=== PATIENT | male | born 1950 | race Caucasian/White ===

== ENCOUNTER 2017-03-30 21:12 | Emergency (ER) | payer MEDICARE, BC, SELFPAY ==
[2017-03-30 21:30] VITALS: BP 160/84; PULSE 79; RESP 18; TEMP 36.9; O2SAT 97; BMI 20.7
--- NOTE | 2017-03-30 22:20 | HMH.EDEYEP ---
ED Disposition Clinical Impression: Foreign body, eye Qualifiers: Encounter type: initial encounter Laterality: unspecified laterality Qualified Code(s): T15.90XA - Foreign body on external eye, part unspecified, unspecified eye, initial encounter Disposition: Home, Self-Care Condition on Discharge: Good Instructions: DI for Eye Pain Additional Instructions: see dr alonzo at 0800 - Critical Care Critical Care Time: No Attestation: On 03/30/17, the high probability of a clinically significant, sudden or life threatening deterioration of the following system(s) required my full and direct attention, intervention and personal management. The time I documented below is in addition to time spent performing reported procedures but includes the following listed in this critical care notation. Medical Decision Making - Medical Records Medical records reviewed: Yes: I reviewed the patient's medical records. Vital Signs: 03/30/17 21:30 Temperature 98.5 F Temperature Source Oral Pulse Rate [Left Radial] 79 Respiratory Rate 18 Blood Pressure [Right Arm] 160/84 Blood Pressure Mean [Right Arm] 109 Blood Pressure Source [Right Arm] Automatic Cuff Blood Pressure Position [Right Arm] Sitting 02 Sat by Pulse Oximetry 97 Oxygen Delivery Method Room Air - Physician Consults Physician Consulted: cheri Reason -: Pt condition - Marc Inquiry Pt receiving controlled substance: No Eye Problem HPI - General Chief complaint: Eye Problems Stated complaint: FB in both eyes Time Seen by Provider: 03/30/17 22:20 Mode of Arrival: Ambulatory Source of Information: Patient, Significant Other, Medical Record Limitations: No Limitations Description of Symptoms (Recalled from ER Triage Doc. by RN): dirt or rust in eyes - History of Present Illness HPI Narrative: grinding with fb sensation bilat eyes since 1400 - wearing eye guard chief complaint: eye pain, foreign body Onset (ago): hour(s) Onset description: gradual Duration: constant Location: both eyes Eye Symptoms: foreign body sensation Place: home Severity: moderate - Related Data Home Medications Medication Instructions Recorded Confirmed No Known Home Medications [No 03/30/17 03/30/17 Known Home Medications] Allergies Allergy/AdvReac Type Severity Reaction Status Date / Time No Known Allergies Allergy Verified 03/30/17 21:38 [facility] History I have reviewed the patient's past medical history: Yes Medical History: Denies:: Cancer, Diabetes Mellitus Type 1, Diabetes Mellitus Type 2, MRSA Amputation: No Fractures: No - Social History Smoking Status: Current every day smoker Tobacco Type: cigarettes # Packs/Day (cigarettes): 1 Alcohol Intake: never - Psychiatric History Expresses thoughts of harming self/others: None Suicide Plan Description: No Plan ROS Obtained: Yes All systems reviewed & no additional complaints - Constitutional Constitutional: Denies fever(s) - Eyes Eyes: Reports as per HPI, Denies change in vision, Denies diplopia, Denies eye discharge, Reports eye pain, Denies photophobia - ENT Ears, Nose, Mouth, and Throat: Denies sore throat - Cardiovascular Cardiovascular: Denies chest pain - Respiratory Respiratory: No cough - Gastrointestinal Gastrointestingal: Denies: abdominal pain - Musculoskeletal Musculoskeletal: Denies joint pain - Integumentary/Breasts Skin/Breast: Denies rash - Neurologic Neurologic: Denies seizure-like activity Physical Exam - General General appearance: alert - Head Head exam: normocephalic - Eye Eye exam: Present: PERRL, EOMI - Expanded Eye Exam Pupils: Bilateral: regular, round - ENT ENT exam: Present: mucous membranes moist - Neck Neck exam: Present: trachea midline - Respiratory Respiratory exam: Absent: respiratory distress - Cardiovascular Cardiovascular exam: Present: regular rate - Neurological Exam Neurological exam: Present: alert,
--- NOTE | 2017-03-30 22:23 | ED_ITS ---
ED Disposition Clinical Impression: Foreign body, eye Qualifiers: Encounter type: initial encounter Laterality: unspecified laterality Qualified Code(s): T15.90XA - Foreign body on external eye, part unspecified, unspecified eye, initial encounter Disposition: Home, Self-Care Condition on Discharge: Good Instructions: DI for Eye Pain Additional Instructions: see dr alonzo at 0800 - Critical Care Critical Care Time: No Attestation: On 03/30/17, the high probability of a clinically significant, sudden or life threatening deterioration of the following system(s) required my full and direct attention, intervention and personal management. The time I documented below is in addition to time spent performing reported procedures but includes the following listed in this critical care notation. Medical Decision Making - Medical Records Medical records reviewed: Yes: I reviewed the patient's medical records. Vital Signs: 03/30/17 21:30 Temperature 98.5 F Temperature Source Oral Pulse Rate [Left Radial] 79 Respiratory Rate 18 Blood Pressure [Right Arm] 160/84 Blood Pressure Mean [Right Arm] 109 Blood Pressure Source [Right Arm] Automatic Cuff Blood Pressure Position [Right Arm] Sitting 02 Sat by Pulse Oximetry 97 Oxygen Delivery Method Room Air - Physician Consults Physician Consulted: cheri Reason -: Pt condition - Marc Inquiry Pt receiving controlled substance: No Eye Problem HPI - General Chief complaint: Eye Problems Stated complaint: FB in both eyes Time Seen by Provider: 03/30/17 22:20 Mode of Arrival: Ambulatory Source of Information: Patient, Significant Other, Medical Record Limitations: No Limitations Description of Symptoms (Recalled from ER Triage Doc. by RN): dirt or rust in eyes - History of Present Illness HPI Narrative: grinding with fb sensation bilat eyes since 1400 - wearing eye guard chief complaint: eye pain, foreign body Onset (ago): hour(s) Onset description: gradual Duration: constant Location: both eyes Eye Symptoms: foreign body sensation Place: home Severity: moderate - Related Data Home Medications Medication Instructions Recorded Confirmed No Known Home Medications [No 03/30/17 03/30/17 Known Home Medications] Allergies Allergy/AdvReac Type Severity Reaction Status Date / Time No Known Allergies Allergy Verified 03/30/17 21:38 [facility] History I have reviewed the patient's past medical history: Yes Medical History: Denies:: Cancer, Diabetes Mellitus Type 1, Diabetes Mellitus Type 2, MRSA Amputation: No Fractures: No - Social History Smoking Status: Current every day smoker Tobacco Type: cigarettes # Packs/Day (cigarettes): 1 Alcohol Intake: never - Psychiatric History Expresses thoughts of harming self/others: None Suicide Plan Description: No Plan ROS Obtained: Yes All systems reviewed & no additional complaints - Constitutional Constitutional: Denies fever(s) - Eyes Eyes: Reports as per HPI, Denies change in vision, Denies diplopia, Denies eye discharge, Reports eye pain, Denies photophobia - ENT Ears, Nose, Mouth, and Throat: Denies sore throat - Cardiovascular Cardiovascular: Denies chest pain - Respiratory Respiratory: No cough - Gastrointestinal Gastrointest
[2017-03-30 22:35] VITALS: BP 127/60; PULSE 78; RESP 16; TEMP 37; O2SAT 98
== END 2017-03-30 22:37 | disposition home or self-care (01) ==
PROVIDERS: Emergency Provider Emergency Medicine; Family Provider Internal Medicine Adolescent Medicine
DX: T15.92XA Foreign body on external eye, part unspecified, left eye, initial encounter (principal); T15.91XA Foreign body on external eye, part unspecified, right eye, initial encounter; W45.8XXA Other foreign body or object entering through skin, initial encounter; Y92.018 Other place in single-family (private) house as the place of occurrence of the external cause; F17.210 Nicotine dependence, cigarettes, uncomplicated
CPT/HCPCS: 99281

== ENCOUNTER 2022-02-06 17:53 | Inpatient (IN) | payer MEDICARE, BC, SELFPAY ==
[2022-02-06 17:54] VITALS: BP 138/80; PULSE 88; RESP 16; TEMP 36.6; O2SAT 98; BMI 21.2
--- NOTE | 2022-02-06 18:19 | CT_ITS ---
PROCEDURE INFORMATION: Exam: CT Abdomen And Pelvis With Contrast Exam date and time: 02/06/2022 7:26 PM Age: 71 years old Clinical indication: Abdominal pain; Epigastric; Additional info: Epigastric pain TECHNIQUE: Imaging protocol: Computed tomography of the abdomen and pelvis with contrast. Radiation optimization: All CT scans at this facility use at least one of these dose optimization techniques: automated exposure control; mA and/or kV adjustment per patient size (includes targeted exams where dose is matched to clinical indication); or iterative reconstruction. Contrast material: ISOVUE; Contrast volume: 75 ml; Contrast route: IV; COMPARISON: No relevant prior studies available. FINDINGS: Liver: Multiple scattered subcentimeter hypodense lesions in the liver are suggestive of small cysts, although small metastatic lesions would be of consideration. Gallbladder and bile ducts: Single tiny calcified gallstone is noted in the gallbladder. Pancreas: Normal. No ductal dilation. Spleen: Normal. No splenomegaly. Adrenal glands: Normal. No mass. Kidneys and ureters: Normal. No hydronephrosis. Stomach and bowel: There are numerous distended fluid-filled small bowel loops throughout the abdomen in a pattern compatible with small bowel obstruction. Significant irregular wall thickening is seen in the cecum and ascending colon which appears to represent the site of obstruction and is highly suggestive of colon carcinoma. Significant sigmoid diverticulosis incidentally noted. Appendix: The appendix is mildly distended and fluid-filled but does not appear thick-walled or inflamed. This is likely secondary to wall thickening of the proximal colon. Intraperitoneal space: Mild scattered free fluid is present throughout the abdomen and pelvis. No evidence of free air seen. Vasculature: Moderate diffuse atherosclerotic calcification noted throughout the aorta and iliac arteries. Lymph nodes: Unremarkable. No enlarged lymph nodes. Urinary bladder: Unremarkable as visualized. Reproductive: Unremarkable as visualized. Bones/joints: Unremarkable. No acute fracture. Soft tissues: Unremarkable. IMPRESSION: 1. Findings of small-bowel obstruction apparently due to significant wall thickening of the cecum/proximal colon highly concerning for colon carcinoma. Proximal colitis would be of consideration but considered less likely given the appearance and lack of associated inflammatory change. 2. Several scattered subcentimeter hypodense lesions in the liver favored to represent cysts, although given the findings described above early metastases would be of consideration. Correlation with liver ultrasound recommended. THIS REPORT CONTAINS FINDINGS THAT MAY BE CRITICAL TO PATIENT CARE. The findings were verbally communicated via telephone conference with Franci Hays at 7:41 PM EST on 02/06/2022. The findings were acknowledged and understood.
--- NOTE | 2022-02-06 18:19 | HMH.EDGENADL ---
Discharge Plan Disposition Patient Disposition: Admitted as Observation Clinical Impressions Clinical Impression: Bowel obstruction Discharge ED Provider: Franci Hays Adult HPI General Chief complaint: Abdominal Pain Stated complaint: abd pain Time Seen by Provider: 02/06/22 18:00 Mode of Arrival: Ambulatory Source of Information: Patient History of Present Illness HPI narrative: Mr. Thibodeaux is a 71 yo male presenting to the ED for abdominal pain. Patient reports symptoms for many months, but progressively worsened over the last week, per his . Patient reports pain is worse on left side of abdomen. He describes a constant sharp sensation. He reports normal bowel movements. No urinary sx. No fevers, cough or other infectious symptoms. No recent trauma to the abdomen. No scrotal or penile pain. MD complaint: abdominal pain Onset (ago): month(s) (but worsened over the last week) Location: abdomen Radiation: non-radiation Severity: moderate Quality: sharp Consistency: constant Relieving factors: none Exacerbating factors: none Associated symptoms: denies other symptoms Treatments prior to arrival: none Related Data Home Medications Medication Instructions Recorded Confirmed diphenhydramine HCl 25 mg tablet 25 mg PO HS PRN Insomnia 02/07/22 02/07/22 (Simply Sleep) Allergies Allergy/AdvReac Type Severity Reaction Status Date / Time No Known Allergies Allergy Verified 03/30/17 21:38 [facility] Disclaimer: The information contained in this section may have been updated after the patient was seen, as this information can be updated by other users. Medical History Tobacco abuse Tobacco use Family History Other Family history of cancer Social History Smoking Status: Current every day smoker tobacco type: cigarettes packs per day: 1 alcohol intake: never substance use type: denies use current occupational status: employed Travel in the last 8 weeks: None ROS Obtained: Yes All systems reviewed & no additional complaints except as documented Physical Exam General General appearance: alert and in no apparent distress Head Head exam: atraumatic and normal inspection Eye Eye exam: Present normal appearance and EOMI ENT ENT exam: Present normal exam, normal oropharynx and mucous membranes moist Neck Neck exam: Present normal inspection and full ROM Chest Chest inspection: Present normal inspection and symmetric chest wall rise Respiratory Respiratory exam: Present normal lung sounds bilaterally Cardiovascular Cardiovascular exam: Present regular rate and normal heart sounds Abdominal Exam Abdominal exam: Present soft and tenderness Extremities Exam Extremities exam: Present normal inspection and full ROM Back Exam Back exam: Present normal inspection and full ROM Neurological Exam Neurological exam: Present alert and oriented X3 Skin Skin exam: Present warm and normal color Medical Decision Making Medical Records Medical records reviewed: Yes I reviewed the patient's medical records. Marc Inquiry Pt receiving controlled substance: No Vital Signs: 02/06/22 17:54 02/06/22 21:08 02/06/22 21:35 Temperature 97.8 F 97.7 F Temperature Source Oral Oral Pulse Rate 83 Pulse Rate [Left Radial] 88 Respiratory Rate 16 18 Blood Pressure 135/88 Blood Pressure [Right Arm] 138/80 Blood Pressure Mean [Right Arm] 99 Blood Pressure Source [Right Arm] Blood Pressure Position [Right Arm] 02 Sat by Pulse Oximetry 98 Oxygen Delivery Method Room Air 02/06/22 21:26 Temperature 98 F Temperature Source Oral Pulse Rate Pulse Rate [Left Radial] 76 Respiratory Rate 16 Blood Pressure Blood Pressure [Right Arm] 128/68 Blood Pressure Mean [Right Arm] 88 Blood Pressure Source [Right Arm] Automatic Cuff Blood Pressure Position [Right Arm] Supine 02 Sat b
[2022-02-06 18:35] LABS: Chloride 101 mmol/L (98-107)
[2022-02-06 18:36] LABS: Potassium 4.3 mmoL/L (3.5-5.1); Sodium 138 mmol/L (136-145)
[2022-02-06 18:38] LABS: Alanine Aminotransferase 32 U/L (12-78); Alkaline Phosphatase 174 U/L (38-126); Aspartate Amino Transferase 35 U/L (17-59); Bilirubin,Total 0.5 mg/dl (0.2-1.3); Blood Urea Nitrogen 19 mg/dl (9-20); Creatinine Clearance Estimated 57 mL/min (50-200); Estimated Glomerular Filt Rate 66 ml/min (>60); GFR (African American) 80 ML/MIN (>60)
[2022-02-06 18:39] LABS: Albumin Level 4.6 g/dl (3.5-5.0); Albumin/Globulin Ratio 1.3 (1.1-1.8); Anion Gap 18.3 mEq/L (5-15); Calcium 9.1 mg/dl (8.4-10.2); Carbon Dioxide 23 mmol/L (22.0-30.0); Globulin 3.6 g/dL (1.3-3.2); Glucose 97 mg/dl (74-100); Lipase 38 U/L (23-300); Total Protein,Serum 8.2 g/dl (6.3-8.2)
[2022-02-06 18:49] LABS: Lactic Acid 0.8 mmol/L (0.7-2.1)
--- NOTE | 2022-02-06 18:58 | PC.NURSE ---
medicated pt for pain, updated pt and on POC. no needs voiced at this time.
[2022-02-06 19:12] LABS: Basophils # 0.1 K/mm3 (0-0.2); Basophils % 0.7 % (0.1-2.0); Eosinophils # 0.1 K/mm3 (0.0-0.4); Eosinophils % 1.1 % (0.1-12.0); Hemoglobin 16.2 g/dL (14.1-18.0); Lymphocytes # 2.5 K/mm3 (0.7-4.5); Lymphocytes % 21.5 % (10-50); Mean Corpuscular HGB Conc 32.3 g/dL (31.8-35.4); Mean Corpuscular Hemoglobin 29.3 pg (27.0-31.2); Mean Corpuscular Volume 90.8 fl (80-94); Mean Platelet Volume 9.9 fl (7.4-10.4); Monocytes # 0.5 K/mm3 (0.1-1.0); Monocytes % 4.2 % (1.7-9.3); Neutrophils # 8.3 K/mm3 (1.8-7.8); Neutrophils % 72.6 % (37.0-80.0); Platelet Count 449 K/mm3 (142-424); Red Blood Count 5.51 M/mm3 (4.60-6.20); Red Cell Distribution Width 14.3 % (11.5-17.5); White Blood Count 11.5 K/mm3 (4.8-10.8)
--- NOTE | 2022-02-06 19:34 | PC.NURSE ---
pt back from rad
--- NOTE | 2022-02-06 19:40 | PC.NURSE ---
called for the surgeon to call pt
--- NOTE | 2022-02-06 19:42 | PC.NURSE ---
surgeon called back
--- NOTE | 2022-02-06 19:52 | INFXCTL.NOTE ---
dr kilgore said he would accept pt
--- NOTE | 2022-02-06 20:04 | PC.NURSE ---
Notified registration of admission
[2022-02-06 20:09] LABS: Coronavirus 19, PCR Not Detected (NotDetected); Influenza A, PCR Not Detected (NotDetected); Influenza B, PCR Not Detected (NotDetected)
--- NOTE | 2022-02-06 20:28 | EXP.HP ---
History of Present Illness *Admission Date: 02/06/22 *Reason for visit:: Abdominal Pain *History of present illness: Mr. Amaya is a 55-year-old male with no significant past medical history and no PCP follow-up for the last 20 years. He presented to [facility] through the ER due to pain in the abdomen that he reports has been ongoing and worsening over a 2-month period associated with weight loss, nausea and some episodes of vomiting. The patient reports that the pain starts in the left upper abdominal quadrant and radiates to the right upper abdominal quadrant and is colicky in nature. He reports that he was unable to hide the pain from his today and she insisted that he come into the ER for evaluation. Upon evaluation in the ER, CMP was unremarkable. Lipase was within normal limits. CT of the abdomen and pelvis showed significant obstruction in the cecum and proximal colon concerning for colon carcinoma and scattered sub centimeter hypodense lesions in the liver factored to represent cysts although given findings could reporesent early metastases. The patient will be admitted with initial impresssion: [facility] Surgeon was contacted by ER Physician and will be seen in the am. Antiemtics, analgesics and iv fluids will be started. Per ER Physican NGT is to be placed if any vomiting. The plan of care was discussed with both the patient and at bedside. Both verbalized understanding and agreement with the plan of care. [facility] Disclaimer: The information contained in this section may have been updated after the patient was seen, as this information can be updated by other users. Medical History Tobacco abuse Tobacco use Social History Smoking Status: Current every day smoker tobacco type: cigarettes packs per day: 1 alcohol intake: never current occupational status: employed Travel in the last 8 weeks: None Review of Systems Review of Systems Review of systems:: pertinent systems reviewed and negative unless documented below Constitutional Constitutional: Reports weight loss Eyes Eyes: Reports system reviewed and no additional complaints, except as documented ENT Ears, Nose, Mouth, and Throat: Reports system reviewed and no additional complaints, except as documented *Cardiovascular Cardiovascular: Reports system reviewed and no additional complaints, except as documented *Respiratory Respiratory: Reports system reviewed and no additional complaints, except as documented *Gastrointestinal Gastrointestinal: Reports abdominal pain, Reports nausea and Reports vomiting *Genitourinary Genitourinary: Reports system reviewed and no additional complaints, except as documented *Musculoskeletal Musculoskeletal: Reports system reviewed and no additional complaints, except as documented Integumentary/Breasts Skin/Breast: Reports system reviewed and no additional complaints, except as documented *Neurologic Neurologic: Reports system reviewed and no additional complaints, except as documented Psychiatric Psychiatric: Reports system reviewed and no additional complaints, except as documented Endocrine Endocrine: Reports system reviewed and no additional complaints, except as documented Hematologic/Lymphatic Hematologic/Lymphatic: Reports system reviewed and no additional complaints, except as documented Allergic/Immunologic Allergic/Immunologic: Reports system reviewed and no additional complaints, except as documented Meds Home Medications and Allergies Home Medications Medication Instructions Recorded Confirmed Type No Known Home Medications 03/30/17 03/30/17 History New Prescriptions to Start Prescriptions: Allergies Allergy/AdvReac Type Severity Reaction Status Date / Time No Known Allergies Allergy Verified 03/30/17 21:38 Exam Data for Last 24 hours Vital signs and Labs for Last 24 Hours: Temp Pulse Resp BP Pulse Ox
[2022-02-06 21:08] VITALS: BP 135/88; PULSE 83; RESP 18; TEMP 36.5; O2SAT 97
--- NOTE | 2022-02-06 21:23 | PC.NURSE ---
pt being transported up for admission
[2022-02-06 21:26] VITALS: BP 128/68; PULSE 76; RESP 16; TEMP 36.6; O2SAT 98; BMI 17.5
--- NOTE | 2022-02-06 21:26 | PC.NURSE ---
PT ARRIVED TO FLOOR AT THIS TIME
[2022-02-07] VITALS (26 sets, daily range): BP systolic 95–186; BP diastolic 52–94; PULSE 79–125; RESP 12–24; TEMP 36.3–43; O2SAT 89–100; BMI 17.5
--- NOTE | 2022-02-07 02:53 | PC.NURSE ---
Pt is a new admission this shift, Admitted with Small Bowel Obstruction. Pt has been NPO this shift, has a surgery consult this morning. Pt has been A/O X 4. Lungs have been clear, resp even and non labored. Spouse is at bedside. Pt has had some mild pain through the night. Is requesting a dose of Morphine when available. States pain becoming a little more intense. Pt has been educated on Available medications. Was not able to auscultate Bowel sounds on left side this shift. Pt encouraged to report any needs, bed locked in low position, side rails up x 2, call light in reach.
[2022-02-07 03:35] LABS: Microscopic, Urine URINE MICROSCOPIC (MICROSCOPIC)
[2022-02-07 03:57] LABS: Appearance,Urine CLEAR (Clear); Bilirubin,Urine Negative (Negative); Blood, Urine Negative (Negative); Color,Urine YELLOW (Yellow); Glucose,Urine (UA) Negative (Negative); Ketones,Urine TRACE (Negative); Leukocyte Esterase,Urine Negative (Negative); Nitrate,Urine Negative (Negative); Protein,Urine Negative (Negative); Specific Gravity, Urine 1.015 (1.005-1.030); Urobilinogen,Urine 0.2 EU/dl (0.2)
[2022-02-07 04:07] LABS: Bacteria,Urine 1+ /lpf
--- NOTE | 2022-02-07 05:57 | US_ITS ---
FINAL REPORT CLINICAL HISTORY: abnormal ct FINDINGS: ULTRASOUND RIGHT UPPER QUADRANT Sonographic imaging of the right upper quadrant was obtained. The pancreas is partially obscured. The liver is homogeneous. Small lesions seen on the recent CT are not visible by ultrasound. There are tiny gallstones within the gallbladder. There is cholesterolosis. There is no gallbladder wall thickening. There is no biliary ductal dilatation. The common duct is normal at 4 mm. Limited images of the right kidney are unremarkable. IMPRESSION: Known liver lesions not well evaluated by ultrasound. Cholesterolosis with gallstones. Reviewed, Interpreted and Dictated by Edgar Steele MD Transcribed by Carola Lakhani Authenticated and . [facility]
--- NOTE | 2022-02-07 07:37 | EXP.SURG.CON ---
History of Present Illness *Admission Date: 02/06/22 *Reason for visit:: Small bowel obstruction *History of present illness: Patient is a 71-year-old male who has no significant past medical history however he has not seen a primary care provider for several decades. He presented to the emergency department overnight due to progressive colicky pain in his abdomen over about 6 weeks. Has been more significant the past week or so. He has had some associated weight loss. He has had some minimal nausea and vomiting. He states that his bowels are moving. 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 Surgery was contacted at that time. It was recommended the patient be admitted with possible NG tube for bowel obstruction and surgical consultation. Of note, the CT scan does reveal some scattered subcentimeter hypodense lesions concerning for cysts versus metastases. [facility] Disclaimer: The information contained in this section may have been updated after the patient was seen, as this information can be updated by other users. Medical History Tobacco abuse Tobacco use Family History (Updated 02/06/22 @ 22:10 by Gianna Hennessy RN) Family history of cancer Social History (Updated 02/06/22 @ 22:10 by Gianna Hennessy RN) Smoking Status: Current every day smoker tobacco type: cigarettes packs per day: 1 alcohol intake: never current occupational status: employed Travel in the last 8 weeks: None Review of Systems *Neurologic Neurologic: Reports system reviewed and no additional complaints, except as documented Meds Home Medications and Allergies Home Medications Medication Instructions Recorded Confirmed Type diphenhydramine HCl 25 mg tablet 25 mg PO HS PRN Insomnia 02/07/22 02/07/22 History (Simply Sleep) New Prescriptions to Start Prescriptions: Allergies Allergy/AdvReac Type Severity Reaction Status Date / Time No Known Allergies Allergy Verified 03/30/17 21:38 Exam (Inpt) Vital signs and Labs for Last 24 Hours: Temp Pulse Resp BP Pulse Ox 98 F 79 16 100/61 L 96 02/07/22 04:00 02/07/22 04:00 02/07/22 04:00 02/07/22 04:00 02/07/22 04:00 Laboratory Results - last 24 hr 02/06/22 18:14: WBC 11.5 H, RBC 5.51, Hgb 16.2, Hct 50.0, MCV 90.8, MCH 29.3, MCHC 32.3, RDW 14.3, Plt Count 449 H, MPV 9.9, Neut % (Auto) 72.6, Lymph % (Auto) 21.5, [place] % (Auto) 4.2, Eos % (Auto) 1.1, Baso % (Auto) 0.7, Neut # (Auto) 8.3 H, Lymph # (Auto) 2.5, [place] # (Auto) 0.5, Eos # (Auto) 0.1, Baso # (Auto) 0.1 02/06/22 18:14: Sodium 138, Potassium 4.3, Chloride 101, Carbon Dioxide 23, Anion Gap 18.3 H, BUN 19, Creatinine 1.10, Estimated Creat Clear 57, Estimated GFR 66, Est GFR ( Amer) 80, Glucose 97, Calcium 9.1, Total Bilirubin 0.5, AST 35, ALT 32, Alkaline Phosphatase 174 H, Total Protein 8.2, Albumin 4.6, Globulin 3.6 H, Albumin/Globulin Ratio 1.3, Lipase 38 02/06/22 18:20: Lactate 0.8 02/06/22 19:54: SARS-CoV-2 (PCR) Not detected, Influenza A Untype (PCR) Not detected, Influenza Type B (PCR) Not detected 02/07/22 03:12: Urine Color Yellow, Urine Appearance Clear, Urine pH 5.0, Ur Specific [place] 1.015, Urine Protein Negative, Urine Glucose (UA) Negative, Urine Ketones Trace, Urine Blood Negative, Urine Nitrate Negative, Urine Bilirubin Negative, Urine Urobilinogen 0.2, Ur Leukocyte Esterase Negative, Urine WBC 3-5, Ur Squamous Epith Cells 3-5, Urine Bacteria 1+ I & O for Labs for Last 24 Hours: Intake & Output 02/04/22 02/05/22 02/06/22 02/07/22 11:59 11:59 11:59 11:59 Intake Total 826 / 826 Output Total 200 / 200 Balance 626 / 626 Weight 115 lb 12.8 oz Constitutional: no acute distress Head: Present normocephalic Neck: Present normal inspection Respiratory: Absent accessory muscle use, patient
--- NOTE | 2022-02-07 07:45 | HMH.PHAINT1 ---
Pharmacy Intervention Comments: home medication list verified using pt interview and discussion with
--- NOTE | 2022-02-07 09:44 | CA_ITS ---
APPROVED REPORT EXAM: Comprehensive 2D, Doppler, and color-flow Echocardiogram Supervisor Dock: Erin Burgess, RCS, RVS Ht: 5 ft 8 in Wt: 115lbs BSA: 1.62 BP: 100/61 mmHg Indications: Pre-op clearance, Smoker, SBO-Colon Cancer-metatastatic liver disease 2D Dimensions IVSd 0.67 cm LVEF (Visual) 85.20 % PWd 0.71 cm LA Volume 18.40 mL LVDd 4.35 cm LA Volume Index 11.40 mL/m2 (M/F) 16-34 LVDs 1.99 cm Aortic Root 2.95 cm Left Atrium 2.37 cm LVOT 2.04 cm (M/F) 1.5-2.5 M-Mode Dimensions LA Diam 2.91 cm (1.9-4.0) Ao Diam 3.30 cm (2.0-3.7) EPSs 0.54 cm TAPSE 2.65 (<1.7) LV Diastology E Decel Time 210.00 (160-240 msec) E/A Ratio 0.69 MED E' 9.50 (< 7 cm/sec) MED A' 15.40 cm/s E'/MED E' Ratio 7.00 (>14) LAT E' 6.50 (<10 cm/sec) LAT A' 16.10 cm/s E/LAT E' Ratio 10.23 (>14) Aortic Valve LVOT Max 147.00 (70-110 cm/s) LVOT VTI 30.42 cm AoV Peak Crow. 148.00 (50-130 cm/s) AO Peak GR. 8.80 mmHg AO Mean GR. 4.40 (<5 mmHg) AO VTI 29.18 (18-25 cm) KENNETH (VTI) 3.41 (2.5-4.5 cm2) Mitral Valve MV A Velocity 97.00 (40-130 cm/s) E/A Ratio 0.69 MV Decel. Time 210.00 (160-240 ms) Pulmonary Valve PV Peak Velocity 103.00 (50-150 cm/s) Tricuspid Valve TR P. Velocity 208.00 cm/s Left Ventricle Left atrium is mildly enlarged, left ventricle is normal size mild concentric left ventricular hypertrophy, estimated ejection fraction 55% with no regional wall motion abnormality, grade 1 diastolic dysfunction seen without tissue Doppler evidence of raise left atrial pressure. Right Ventricle Right atrium and right ventricle are mildly enlarged with normal contractility. Aortic Valve Aortic valve is minimally thickened and fibrosed there is no aortic stenosis or aortic insufficiency. Mitral Valve Mitral valve is grossly normal, there is trace mitral regurgitation. Tricuspid Valve Tricuspid grossly normal, there is trace tricuspid regurgitation, tricuspid regurgitation jet velocity is inadequate for calculation of the right ventricular systolic pressure. Pulmonic Valve Pulmonic valve is poorly visualized. Great Vessels Aortic root is normal size. Inferior vena cava is normal size with normal inspiratory collapse. Pericardium No significant pericardial effusion noted. Conclusion 1. Mild biatrial enlargement, normal left ventricular size, estimated ejection fraction 55% with no regional wall motion abnormality, grade 1 diastolic dysfunction seen without tissue Doppler evidence of raise left atrial pressure. 2. Mildly enlarged right ventricle with normal contractility. 3. Trace mitral and tricuspid regurgitation. 4. No significant pericardial effusion noted. 5. Inferior vena cava is normal size with normal inspiratory collapse. Electronically signed by : Marcell Calvo MD 02/07/2022 19:51:58
--- NOTE | 2022-02-07 11:41 | PC.NURSE ---
Patient was taken to surgery at this time.
--- NOTE | 2022-02-07 12:36 | SUR.OPER ---
per dr. kilgore- currently only wants 3.375 g zosyn given for pre op abx.
--- NOTE | 2022-02-07 14:18 | SUR.OPER ---
1418- family updated of pt current ststus via rosemary smith in preop at this time
--- NOTE | 2022-02-07 14:52 | EXP.OP.NOTE ---
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 He presented to the emergency department in the evening of 02/06/2022 with a several week history of progressively severe abdominal pain. Evaluation in the emergency department included CT scan which revealed findings of small bowel obstruction apparently due to significant wall thickening of the cecum/proximal colon highly concerning for colon carcinoma. There were also noted to be several subcentimeter hypodense lesions in the liver diffusely. He underwent liver ultrasound and these lesions were not identified. Surgical consultation was obtained. 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 Due to the obstruction, despite having potential liver metastases, plan was made for urgent laparotomy. Operative findings:: Patient had an advanced cecal carcinoma creating essentially complete small bowel obstruction. There was some regional studding of the peritoneum of the colon and adjacent mesentery which was resected. There were multiple large suspicious mesenteric lymph nodes. Multiple liver lesions diffusely consistent with metastatic disease. Biopsy of lesion on left lobe of liver performed. Operative note:: Patient was taken to the operating room. He was continued on preoperative intravenous antibiotics. In the operating room he was placed in a supine position. General anesthesia was induced. Dozier catheter was placed. Abdomen was prepped and draped in the standard surgical fashion. Midline incision was made. Dissection was carried down through subcutaneous tissues and fascia using electrocautery. Peritoneum was entered. There was markedly distended diffuse small bowel. Ultimately anesthesia placed nasogastric tube and due to the small bowel distention the contents of the small bowel were milked retrograde to allow decompression. Several liters of small bowel succus was aspirated via nasogastric tube. This allowed for exposure. Abdominal surveillance was then carried out. There was a large obstructing colon cancer in the cecum. Palpation of the liver revealed bilateral liver lesions, multiple, consistent with metastatic disease. Plan was made for performance of right colon resection. Distal ileum was divided with a LISSET 75 stapling device. The colon was divided by incising the peritoneum lateral along the white line of Toldt. This mobilized the right colon on its mesentery. The hepatic flexure was taken down using the Enseal device. Proximal transverse colon was divided with the LISSET 75 stapling device after creation of mesenteric window. Wide mesenteric resection was carried out scoring the mesentery with electrocautery. Mesentery was divided with the Enseal device with the larger vessels clamped, and ligated with 0 Surgilon. Duodenum was preserved. He did have somewhat of a distended gallbladder it appeared to be noninflamed. Ultimately the right colon was passed off as a specimen. An ileocolic anastomosis was then performed as a side to side fashion using a LISSET 75 stapling device. The enterotomy defect was closed with a TX 60 B stapling device. Seromuscular 3-0 Nurolon was placed at the staple line angle. Staple line was oversewn with several interrupted 3-0 Nurolon seromuscular sutures. Anastomosis was patent and intact. Mesenteric defect was closed with a running 2-0 Vicryl suture. Enteric contents were returned to the peritoneal cavity. Remaining colon was inspected and palpated and fo
--- NOTE | 2022-02-07 15:07 | P.PNANES_ITS ---
[facility] Anesthesia Record Part I Anesthesia Record I Intake, IV Amount: 2,700 Estimated blood loss (mL): 25 Urine output (mL): 300 Blood Pressure: 125/52 SaO2: 95 Pulse Rate: 83 Respiratory Rate: 16 Temperature: 97.6 F Patient is:: Drowsy, Nasal O2 and Stable Stable to PACU at:: 15:02
--- NOTE | 2022-02-07 15:17 | P.PN_ITS ---
[facility] Disclaimer: The information contained in this section may have been updated after the patient was seen, as this information can be updated by other users. Medical History Tobacco abuse Tobacco use Family History Other Family history of cancer Social History Smoking Status: Current every day smoker tobacco type: cigarettes packs per day: 1 alcohol intake: never substance use type: denies use current occupational status: employed Travel in the last 8 weeks: None [facility] Anesthesia Checklist Patient Identification Patient Identification: Arm Band and Verbal (Name & ) Structural Data Admitted From: Inpatient Planned Operative Procedure/s: Colectomy Consent for Planned Operative Procedure(s) Verified: Yes Verified Documents: Surgical Consent NPO Status Verified Time NPO: 00:00 Chart Verification Results Verified: CBC Airway Assessment C-Spine Mobility Assessed: Yes TMJ Mobility Assessed: Yes Dentition: Good Dentition Neurological Assessment Level of Consciousness: Awake, Alert and Appropriate Anesthesia Plan ASA Class: III Anesthesia Type: General
--- NOTE | 2022-02-07 17:40 | PC.NURSE ---
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 bp is 113/63. per Dr franz ok to increase MUD MIXER HELPER dose to 1.5mg/10min l/o 20mg/q4hrs
--- NOTE | 2022-02-07 18:34 | EXP.ACUTE.PN ---
Subjective *Date: 02/07/22 *Time: 18:34 Interval history: Discussed findings from overnight CAT scan with patient and family. Surgery took patient for laparotomy right colon resection with ileocolic anastomosis and liver biopsy. Medical Exam Vital signs and Labs for Last 24 Hours: Vital Signs Temp Pulse Pulse Pulse Resp BP BP 02/07/22 17:15 92 H 20 113/63 02/07/22 16:30 91 H 02/07/22 17:00 87 20 114/66 02/07/22 16:30 97.4 F L 93 H 22 158/94 H 02/07/22 16:45 91 H 22 106/58 L 02/07/22 16:15 97.4 F L 93 H 22 158/94 H 02/07/22 16:08 90 02/07/22 15:22 85 18 02/07/22 15:12 80 12 02/07/22 15:32 84 19 02/07/22 15:02 97.6 F 83 17 02/07/22 08:00 97.6 F 80 19 02/07/22 04:00 98 F 79 16 02/06/22 21:26 98 F 76 16 02/06/22 21:08 97.7 F 83 18 135/88 02/07/22 15:09 97.6 F 83 16 125/52 L BP Pulse Ox 02/07/22 17:15 96 02/07/22 16:30 89 L 02/07/22 17:00 95 02/07/22 16:30 89 L 02/07/22 16:45 95 02/07/22 16:15 89 L 02/07/22 16:08 02/07/22 15:22 186/84 H 100 02/07/22 15:12 132/64 95 02/07/22 15:32 128/53 L 100 02/07/22 15:02 125/52 L 97 02/07/22 08:00 117/68 97 02/07/22 04:00 100/61 L 96 02/06/22 21:26 128/68 98 02/06/22 21:08 02/07/22 15:09 Intake and Output 02/07/22 02/07/22 02/07/22 07:59 15:59 23:59 Intake Total 826 / 3526 2700 / 3526 0 / 3526 Output Total 200 / 200 0 / 200 0 / 200 Balance 626 / 3326 2700 / 3326 0 / 3326 Intake: Intake, Oral Amount 0 / 0 Intake, Total IV Amount 826 / 3526 2700 / 3526 0.9 % Sodium Chloride 1,000 ml 826 / 826 @ 100 mls/hr IV .Q10H [facility] Rx#: [id number] Output: Output, Urine Amount 200 / 200 0 / 200 0 / 200 Other: Number of Voids 2 1 Number of Unmeasured Voids 1 0 Weight 52.526 kg Patient Weight 02/07/22 23:59 Weight 52.526 kg Laboratory Results - last 24 hr 02/06/22 18:14: WBC 11.5 H, RBC 5.51, Hgb 16.2, Hct 50.0, MCV 90.8, MCH 29.3, MCHC 32.3, RDW 14.3, Plt Count 449 H, MPV 9.9, Neut % (Auto) 72.6, Lymph % (Auto) 21.5, [place] % (Auto) 4.2, Eos % (Auto) 1.1, Baso % (Auto) 0.7, Neut # (Auto) 8.3 H, Lymph # (Auto) 2.5, [place] # (Auto) 0.5, Eos # (Auto) 0.1, Baso # (Auto) 0.1 02/06/22 18:14: Sodium 138, Potassium 4.3, Chloride 101, Carbon Dioxide 23, Anion Gap 18.3 H, BUN 19, Creatinine 1.10, Estimated Creat Clear 57, Estimated GFR 66, Est GFR ( Amer) 80, Glucose 97, Calcium 9.1, Total Bilirubin 0.5, AST 35, ALT 32, Alkaline Phosphatase 174 H, Total Protein 8.2, Albumin 4.6, Globulin 3.6 H, Albumin/Globulin Ratio 1.3, Lipase 38 02/06/22 18:20: Lactate 0.8 02/06/22 19:54: SARS-CoV-2 (PCR) Not detected, Influenza A Untype (PCR) Not detected, Influenza Type B (PCR) Not detected 02/07/22 03:12: Urine Color Yellow, Urine Appearance Clear, Urine pH 5.0, Ur Specific [place] 1.015, Urine Protein Negative, Urine Glucose (UA) Negative, Urine Ketones Trace, Urine Blood Negative, Urine Nitrate Negative, Urine Bilirubin Negative, Urine Urobilinogen 0.2, Ur Leukocyte Esterase Negative, Urine WBC 3-5, Ur Squamous Epith Cells 3-5, Urine Bacteria 1+ I & O for Labs for Last 24 Hours: Intake & Output 02/04/22 02/05/22 02/06/22 02/07/22 23:59 23:59 23:59 23:59 Intake Total 3526 / 3526 Output Total 200 / 200 Balance 3326 / 3326 Weight 52.526 kg 52.526 kg Head: Present atraumatic and normocephalic Neck: Present normal inspection and full ROM Respiratory: Present CTA bilaterally; Absent accessory muscle use Cardiac: Present Reg Rate and Rhythm and S1/S2 GI: Present distention and tenderness Rectal (male): Present deferred (male): Present deferred Extremities: Present normal inspection Skin: Present intact; Absent erythema Assessment and Plan *Assessment and plan (1) SBO (small bowel obstruction): Status: Acute Category: Medical Code(s): K56.609 -
--- NOTE | 2022-02-07 19:58 | XR_ITS ---
PROCEDURE INFORMATION: Exam: XR Abdomen Exam date and time: 02/07/2022 8:32 PM Age: 71 years old Clinical indication: Device placement; Gi device; Nasogastric tube; Prior surgery; Additional info: Pulled, ngt, re-inserted TECHNIQUE: Imaging protocol: Radiologic exam of the abdomen. Views: Frontal supine view of the abdomen. 1 View. COMPARISON: CT ABDOMEN PELVIS W CON 02/06/2022 7:26 PM FINDINGS: Tubes, catheters and devices: Esophagogastric tube appears to be in good position with the tip and side port in the stomach. Gastrointestinal tract: Normal. No bowel dilation. Bones/joints: Unremarkable. IMPRESSION: Appropriate appearing position of the esophagogastric tube
[2022-02-08] VITALS (11 sets, daily range): BP systolic 115–135; BP diastolic 44–90; PULSE 84–110; RESP 18–22; TEMP 36.4–37.2; O2SAT 91–95; BMI 17.6
--- NOTE | 2022-02-08 03:19 | PC.NURSE ---
started new 20G PIV left AC, removed 20 Right AC
[2022-02-08 06:24] LABS: Basophils # 0.1 K/mm3 (0-0.2); Basophils % 0.3 % (0.1-2.0); Eosinophils # 0.2 K/mm3 (0.0-0.4); Hematocrit 34.7 % (42.0-52.0); Hemoglobin 11.6 g/dL (14.1-18.0); Lymphocytes % 6.3 % (10-50); Mean Corpuscular HGB Conc 33.5 g/dL (31.8-35.4); Mean Corpuscular Hemoglobin 30.2 pg (27.0-31.2); Mean Corpuscular Volume 90.1 fl (80-94); Monocytes # 0.5 K/mm3 (0.1-1.0); Monocytes % 3.1 % (1.7-9.3); Neutrophils # 14.4 K/mm3 (1.8-7.8); Neutrophils % 89.4 % (37.0-80.0); Platelet Count 384 K/mm3 (142-424); Red Blood Count 3.85 M/mm3 (4.60-6.20); Red Cell Distribution Width 14.4 % (11.5-17.5); White Blood Count 16.1 K/mm3 (4.8-10.8)
[2022-02-08 06:26] LABS: MANUAL DIFFERENTIAL MANUAL DIFFERENTIAL (MANUAL DIFF)
--- NOTE | 2022-02-08 07:24 | EXP.SURG.PN ---
Subjective Patient reports: no new complaints and no flatus Narrative: Well-controlled postoperative pain Exam Data for Last 24 hours Vital signs and Labs for Last 24 Hours: Temp Pulse Resp BP Pulse Ox 99.0 F 102 H 21 125/61 95 02/08/22 00:00 02/08/22 06:00 02/08/22 06:00 02/08/22 06:00 02/08/22 06:00 Laboratory Results - last 24 hr 02/08/22 05:56: WBC 16.1 H D, RBC 3.85 L D, Hgb 11.6 L, Hct 34.7 L, MCV 90.1, MCH 30.2, MCHC 33.5, RDW 14.4, Plt Count 384, MPV 9.0, Neut % (Auto) 89.4 H, Lymph % (Auto) 6.3 L, [place] % (Auto) 3.1, Eos % (Auto) 1.0, Baso % (Auto) 0.3, Neut # (Auto) 14.4 H, Lymph # (Auto) 1.0, [place] # (Auto) 0.5, Eos # (Auto) 0.2, Baso # (Auto) 0.1 I & O for Last 24 hours: Intake & Output 02/05/22 02/06/22 02/07/22 02/08/22 11:59 11:59 11:59 11:59 Intake Total 826 / 826 2700 / 2700 Output Total 200 / 200 300 / 300 Balance 626 / 626 2400 / 2400 Weight 115 lb 12.8 oz 116 lb 6.465 oz Constitutional Constitutional: no acute distress *Routine Respiratory Exam Respiratory: Absent respiratory distress *Routine Cardiovascular Exam Comments: Minimally tachycardic *Routine Abdominal Exam Comments: Dressing in place. No obvious spreading cellulitis. Progress Note: A&P Assessment and plan (1) SBO (small bowel obstruction): Status: Acute Assessment and plan: Overall, doing well postoperative day 1 status post right colectomy. Remove Dozier catheter Ambulate Incentive spirometer (2) Metastatic colon cancer to liver: Status: Acute
[2022-02-08 08:04] LABS: Chloride 109 mmol/L (98-107)
[2022-02-08 08:05] LABS: Potassium 5.2 mmoL/L (3.5-5.1); Sodium 138 mmol/L (136-145)
[2022-02-08 08:07] LABS: Blood Urea Nitrogen 25 mg/dl (9-20); Creatinine Clearance Estimated 33 mL/min (50-200); Estimated Glomerular Filt Rate 43 ml/min (>60); GFR (African American) 52 ML/MIN (>60)
[2022-02-08 08:08] LABS: Anion Gap 21.2 mEq/L (5-15); Calcium 7.5 mg/dl (8.4-10.2); Carbon Dioxide 13 mmol/L (22.0-30.0); Glucose 73 mg/dl (74-100)
--- NOTE | 2022-02-08 08:19 | EXP.ANES.II ---
[facility] Anesthesia Record Part II Anesthesia Record Part II Discharge Time: 15:32 Destination: Medical Surgical Department PACU nurse assessment reviewed?: Yes Patient Condition:: Good Anesthesia Complications:: None Swallowing reflex intact?: Yes Cyanosis?: No Blood Pressure: 128/53 Pulse Rate: 84 Temperature: 97.6 F Mental Status: Alert & Oriented Pain level:: 0 Nausea and/or vomitting:: None Intake, IV Amount: 0
[2022-02-08 08:26] LABS: CEA 2.8 ng/mL (0.0-4.7)
[2022-02-08 09:42] LABS: Lymphocytes % 12 % (10-50); Neutrophils % 87 % (42-76); Platelet Estimate Normal; RBC Morphology Normal; Total Cells Counted 100
--- NOTE | 2022-02-08 13:44 | EXP.ACUTE.PN ---
Subjective *Date: 02/08/22 *Time: 13:44 Interval history: No issues. Postoperative pain well controlled. Passing gas. No bowel movement. Medical Exam Vital signs and Labs for Last 24 Hours: Vital Signs Temp Pulse Pulse Pulse Resp BP BP 02/08/22 12:00 98.0 F 02/08/22 12:00 110 H 22 135/71 02/08/22 10:00 106 H 20 115/60 02/08/22 08:00 97.5 F L 02/08/22 08:00 97 H 02/08/22 08:00 97 H 20 130/66 02/08/22 06:00 102 H 21 125/61 02/08/22 05:32 105 H 02/08/22 00:00 109 H 02/07/22 20:00 125 H 02/08/22 04:00 102 H 21 123/90 02/08/22 02:00 106 H 21 117/44 L 02/07/22 23:44 115 H 22 112/62 02/07/22 22:44 116 H 20 95/53 L 02/07/22 21:44 114 H 23 111/60 02/08/22 00:00 99.0 F 02/07/22 22:00 99.0 F 02/07/22 20:00 101.0 F H 02/07/22 20:44 118 H 24 111/61 02/07/22 19:44 121 H 20 131/69 02/07/22 19:14 109 H 22 129/55 L 02/07/22 18:15 101 H 20 104/62 L 02/07/22 18:45 110 H 21 110/73 02/07/22 17:45 95 H 20 121/58 L 02/07/22 17:30 95 H 20 98/58 L 02/07/22 17:15 92 H 20 113/63 02/07/22 16:30 91 H 02/07/22 17:00 87 20 114/66 02/07/22 16:30 97.4 F L 93 H 22 158/94 H 02/07/22 16:45 91 H 22 106/58 L 02/07/22 16:15 97.4 F L 93 H 22 158/94 H 02/07/22 16:08 90 02/07/22 15:22 85 18 02/07/22 15:12 80 12 02/07/22 15:32 84 19 02/07/22 15:02 97.6 F 83 17 02/08/22 08:20 97.6 F 84 128/53 L 02/07/22 15:09 97.6 F 83 16 125/52 L BP Pulse Ox 02/08/22 12:00 02/08/22 12:00 91 L 02/08/22 10:00 93 L 02/08/22 08:00 02/08/22 08:00 95 02/08/22 08:00 95 02/08/22 06:00 95 02/08/22 05:32 02/08/22 00:00 02/07/22 20:00 02/08/22 04:00 93 L 02/08/22 02:00 94 L 02/07/22 23:44 92 L 02/07/22 22:44 93 L 02/07/22 21:44 93 L 02/08/22 00:00 02/07/22 22:00 02/07/22 20:00 02/07/22 20:44 92 L 02/07/22 19:44 94 L 02/07/22 19:14 95 02/07/22 18:15 92 L 02/07/22 18:45 95 02/07/22 17:45 96 02/07/22 17:30 97 02/07/22 17:15 96 02/07/22 16:30 89 L 02/07/22 17:00 95 02/07/22 16:30 89 L 02/07/22 16:45 95 02/07/22 16:15 89 L 02/07/22 16:08 02/07/22 15:22 186/84 H 100 02/07/22 15:12 132/64 95 02/07/22 15:32 128/53 L 100 02/07/22 15:02 125/52 L 97 02/08/22 08:20 02/07/22 15:09 Intake and Output 02/07/22 02/08/22 02/08/22 23:59 07:59 15:59 Intake Total 0 3526 0 / 0 0 / 0 Output Total 0 / 200 300 / 600 300 / 600 Balance 0 / 3326 -300 / -600 -300 / -600 Intake: Intake, Oral Amount 0 / 0 0 / 0 Intake, Total IV Amount 0 / 0 Output: Output, Urine Amount 0 / 200 300 / 600 300 / 600 Other: Number of Unmeasured Voids 0 0 Weight 52.8 kg Patient Weight 02/08/22 23:59 Weight 52.8 kg Laboratory Results - last 24 hr 02/06/22 18:14: Carcinoembryonic Ag 2.8 02/08/22 05:56: WBC 16.1 H D, RBC 3.85 L D, Hgb 11.6 L, Hct 34.7 L, MCV 90.1, MCH 30.2, MCHC 33.5, RDW 14.4, Plt Count 384, MPV 9.0, Neut % (Auto) 89.4 H, Lymph % (Auto) 6.3 L, [place] % (Auto) 3.1, Eos % (Auto) 1.0, Baso % (Auto) 0.3, Neut # (Auto) 14.4 H, Lymph # (Auto) 1.0, [place] # (Auto) 0.5, Eos # (Auto) 0.2, Baso # (Auto) 0.1, Total Counted 100, Neutrophils % (Manual) 87 H, Band Neutrophils % 1.0, Lymphocytes % (Manual) 12, Platelet Estimate Normal, RBC Morphology Normal 02/08/22 05:56: Sodium 138, Potassium 5.2 H D, Chloride 109 H, Carbon Dioxide 13 L, Anion Gap 21.2 H, BUN 25 H D, Creatinine 1.60 H D, Estimated Creat Clear 33, Estimated GFR 43 L, Est GFR ( Amer) 52 L D, Glucose 73 L, Calcium 7.5 L I & O for Labs for Last 24 Hours: Intake & Output 02/05/22 02/06/22 02/07/22 02/08/22 23:59 23:59 23:59 23:59 Intake Total 3526 / 3526 0 / 0 Output Total 200 / 200 600 /
--- NOTE | 2022-02-08 18:38 | PC.NURSE ---
Addendum entered by Debora Mueller RN 02/08/22 18:45: IS placed at bedside at beginning of shift, education provided on using, pt has used t/o shift Original Note: pt has done well this shift, has ambulated to back exit door and back to room twice this shift, catheter removed this shift, pt has had urine output since, 500 mL out this shift, bowel sounds hypoactive, pt states he is burping but no flatulence, dressing in place to midline incision, C/D/I, remains on room air, NG canister changed this shift with 450 mL out
--- NOTE | 2022-02-08 20:11 | PC.NURSE ---
started new 18G IV right upper arm
[2022-02-09] VITALS: BP 110/57; PULSE 101; RESP 18; TEMP 36.7; O2SAT 92
--- NOTE | 2022-02-09 01:28 | PC.NURSE ---
dressing coming off, reapplied new abd pad and silk tape, scant brown dried drainage on bottom of old dressing noted
--- NOTE | 2022-02-09 02:30 | PC.NURSE ---
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
[2022-02-09 04:00] VITALS: BP 108/49; PULSE 90; RESP 18; TEMP 36.6; O2SAT 95; BMI 17.6
[2022-02-09 07:22] LABS: Chloride 109 mmol/L (98-107)
[2022-02-09 07:23] LABS: Basophils % 0.1 % (0.1-2.0); Eosinophils # 0.1 K/mm3 (0.0-0.4); Eosinophils % 0.4 % (0.1-12.0); Hematocrit 31.6 % (42.0-52.0); Lymphocytes # 1.2 K/mm3 (0.7-4.5); Lymphocytes % 6.9 % (10-50); Mean Corpuscular HGB Conc 31.6 g/dL (31.8-35.4); Mean Corpuscular Hemoglobin 29.2 pg (27.0-31.2); Mean Corpuscular Volume 92.2 fl (80-94); Mean Platelet Volume 9.3 fl (7.4-10.4); Monocytes # 0.7 K/mm3 (0.1-1.0); Monocytes % 3.9 % (1.7-9.3); Neutrophils # 15.1 K/mm3 (1.8-7.8); Neutrophils % 88.7 % (37.0-80.0); Platelet Count 344 K/mm3 (142-424); Potassium 4.2 mmoL/L (3.5-5.1); Red Blood Count 3.42 M/mm3 (4.60-6.20); Red Cell Distribution Width 14.6 % (11.5-17.5); Sodium 139 mmol/L (136-145)
[2022-02-09 07:25] LABS: Alanine Aminotransferase 24 U/L (12-78); Anion Gap 13.2 mEq/L (5-15); Aspartate Amino Transferase 36 U/L (17-59); Blood Urea Nitrogen 25 mg/dl (9-20); Carbon Dioxide 21 mmol/L (22.0-30.0); Creatinine Clearance Estimated 52 mL/min (50-200); Estimated Glomerular Filt Rate 74 ml/min (>60); GFR (African American) 90 ML/MIN (>60)
[2022-02-09 07:26] LABS: Albumin Level 2.9 g/dl (3.5-5.0); Alkaline Phosphatase 99 U/L (38-126); Bilirubin,Total 0.3 mg/dl (0.2-1.3); Globulin 2.8 g/dL (1.3-3.2); Glucose 121 mg/dl (74-100); MANUAL DIFFERENTIAL MANUAL DIFFERENTIAL (MANUAL DIFF); Phosphorous 2.1 mg/dl (2.5-4.5); Total Protein,Serum 5.7 g/dl (6.3-8.2)
[2022-02-09 08:00] VITALS: BP 112/60; PULSE 91; RESP 18; TEMP 36.8; O2SAT 96
--- NOTE | 2022-02-09 08:22 | P.PN_ITS ---
Subjective Narrative: Patient without complaints other than discomfort from the nasogastric tube. No nausea. States is passing flatus. No bowel movement. Exam Data for Last 24 hours Vital signs and Labs for Last 24 Hours: Temp Pulse Resp BP Pulse Ox 97.9 F 90 18 108/49 L 95 02/09/22 04:00 02/09/22 04:00 02/09/22 04:00 02/09/22 04:00 02/09/22 04:00 Laboratory Results - last 24 hr 02/06/22 18:14: Carcinoembryonic Ag 2.8 02/08/22 05:56: Total Counted 100, Neutrophils % (Manual) 87 H, Band Neutrophils % 1.0, Lymphocytes % (Manual) 12, Platelet Estimate Normal, RBC Morphology Normal 02/09/22 06:30: WBC 17.0 H, RBC 3.42 L, Hgb 10.0 L, Hct 31.6 L, MCV 92.2, MCH 29.2, MCHC 31.6 L, RDW 14.6, Plt Count 344, MPV 9.3, Neut % (Auto) 88.7 H, Lymph % (Auto) 6.9 L, [place] % (Auto) 3.9, Eos % (Auto) 0.4, Baso % (Auto) 0.1, Neut # (Auto) 15.1 H, Lymph # (Auto) 1.2, [place] # (Auto) 0.7, Eos # (Auto) 0.1, Baso # (Auto) 0.0 02/09/22 06:30: Sodium 139, Potassium 4.2, Chloride 109 H, Carbon Dioxide 21 L, Anion Gap 13.2, BUN 25 H, Creatinine 1.00 D, Estimated Creat Clear 52, Estimated GFR 74, Est GFR ( Amer) 90 D, Glucose 121 H, Calcium 8.0 L, Phosphorus 2.1 L, Magnesium 2.0, Total Bilirubin 0.3, AST 36, ALT 24, Alkaline Phosphatase 99, Total Protein 5.7 L D, Albumin 2.9 L, Globulin 2.8, Albumin/Globulin Ratio 1.0 L I & O for Last 24 hours: Intake & Output 02/06/22 02/07/22 02/08/22 02/09/22 11:59 11:59 11:59 11:59 Intake Total 826 / 826 2700 / 2700 1390 / 1390 Output Total 200 / 200 600 / 600 1655 / 1655 Balance 626 / 626 2100 / 2100 -265 / -265 Weight 115 lb 12.8 oz 116 lb 6.465 oz 116 lb 6.042 oz *Routine Abdominal Exam Abdominal: Present soft Comments: Incision clean Progress Note: A&P Assessment and plan (1) SBO (small bowel obstruction): Status: Acute Assessment and plan: Given the degree of obstruction and probable ileus we will maintain nasogastric tube for now. Continue ambulation. May chew gum. (2) Tobacco abuse: Status: Acute
[2022-02-09 08:51] LABS: Anisocytosis 1+; Hypochromasia 1+; Lymphocytes % 3 % (10-50); Monocytes % 1 % (2-9); Neutrophils % 96 % (42-76); Platelet Estimate Normal; Total Cells Counted 100
--- NOTE | 2022-02-09 10:28 | EXP.PHA.PN ---
Subjective *Date: 02/09/22 *Time: 10:28 Medical Exam Vital signs and Labs for Last 24 Hours: Vital Signs Temp Pulse Pulse Resp BP Pulse Ox 02/09/22 08:00 98.2 F 91 H 18 112/60 96 02/09/22 04:00 97.9 F 90 18 108/49 L 95 02/09/22 00:00 98.0 F 101 H 18 110/57 L 92 L 02/08/22 20:00 97.7 F 104 H 18 125/67 93 L 02/08/22 16:00 98.0 F 102 H 18 120/57 L 93 L 02/08/22 16:00 110 H 02/08/22 12:00 110 H 02/08/22 12:00 98.0 F 02/08/22 12:00 110 H 22 135/71 91 L Intake and Output 02/08/22 02/09/22 02/09/22 23:59 07:59 15:59 Intake Total 1390 / 1390 Output Total 675 / 1275 980 / 980 Balance 715 / 115 -980 / -980 Intake: Intake, Total IV Amount 1390 / 1390 0.9 % Sodium Chloride 1,000 ml 1340 / 1340 @ 100 mls/hr IV .Q10H [facility] Rx#: [id number] Piperacillin/Tazo 3.375 gm In 0 50 / 50 .9 % Sodium Chloride 50 ml @ 100 mls/hr IV Q8H [facility]IO Rx#: [id number] Output: Output, Urine Amount 225 / 825 730 / 730 Output, Gastric Drainage Amount 450 / 450 250 / 250 Left Nare 450 / 450 250 / 250 Other: Number of Voids 1 Weight 52.788 kg Patient Weight 02/09/22 23:59 Weight 52.788 kg Laboratory Results - last 24 hr 02/09/22 06:30: WBC 17.0 H, RBC 3.42 L, Hgb 10.0 L, Hct 31.6 L, MCV 92.2, MCH 29.2, MCHC 31.6 L, RDW 14.6, Plt Count 344, MPV 9.3, Neut % (Auto) 88.7 H, Lymph % (Auto) 6.9 L, [place] % (Auto) 3.9, Eos % (Auto) 0.4, Baso % (Auto) 0.1, Neut # (Auto) 15.1 H, Lymph # (Auto) 1.2, [place] # (Auto) 0.7, Eos # (Auto) 0.1, Baso # (Auto) 0.0, Total Counted 100, Neutrophils % (Manual) 96 H, Lymphocytes % (Manual) 3 L, Monocytes % (Manual) 1 L, Platelet Estimate Normal, Hypochromasia 1+, Anisocytosis 1+ 02/09/22 06:30: Sodium 139, Potassium 4.2, Chloride 109 H, Carbon Dioxide 21 L, Anion Gap 13.2, BUN 25 H, Creatinine 1.00 D, Estimated Creat Clear 52, Estimated GFR 74, Est GFR ( Amer) 90 D, Glucose 121 H, Calcium 8.0 L, Phosphorus 2.1 L, Magnesium 2.0, Total Bilirubin 0.3, AST 36, ALT 24, Alkaline Phosphatase 99, Total Protein 5.7 L D, Albumin 2.9 L, Globulin 2.8, Albumin/Globulin Ratio 1.0 L I & O for Labs for Last 24 Hours: Intake & Output 02/06/22 02/07/22 02/08/22 02/09/22 23:59 23:59 23:59 23:59 Intake Total 3526 / 3526 1390 / 1390 Output Total 200 / 200 1275 / 1275 980 / 980 Balance 3326 / 3326 115 / 115 -980 / -980 Weight 52.526 kg 52.526 kg 52.8 kg 52.788 kg The patient's infection will respond to the chosen ABx?: Yes (EMPIRIC THERAPY) Is the patient receiving the right drug, dose, and route?: Yes Could a more targeted ABx be ordered?: No (EMPIRIC THERAPY FOR ACUTE ABDOMEN)
[2022-02-09 12:00] VITALS: BP 102/56; PULSE 89; RESP 18; TEMP 36.2; O2SAT 93
--- NOTE | 2022-02-09 13:27 | DIET.NUTRFU ---
RD rounded with provider today, Patient continues to be NPO s/p colon resection. Continues on NG suction, output of 450ml 1/4 and already 250ml today. Today the output appeared dark brown in color. He is reporting gas but no BM, surgeon recommended chew gum. If oral diet cannot be advanced tomorrow may need to consider TPN for nutritional support. Patient had already reported wt loss [employer] [place], continues to be at risk for further wt loss. This RD did see patient yesterday and reviewed what diets to expect recovering from sx-clear than full and then low fiber. Also talked to patient about supplements that maybe useful to regain some weight back or just replace calories missing in daily intake. He maybe undergoing chemo or radiation in near future increased calories and protein are important..
[2022-02-09 16:00] VITALS: BP 126/60; PULSE 92; RESP 16; TEMP 37.3; O2SAT 96
--- NOTE | 2022-02-09 16:41 | PC.NURSE ---
NO ACUTE TREJO IN PT FROM PREVIOUS SHIFT. ALERT X4, PT DID HAVE SOME CONFUSION IN THE AM. NG TUBE IN PLACE AT 64CM, NO SIGNIFICANT OP FROM TUBE, AROUND 200-300ML. PT HAS SIPPED ON WATER AND ATE ICE CHIPS T/O SHIFT. FAMILY AT BEDSIDE ASSISTING PT TO BR AND AMBULATING. PAIN TOLERATED WELL WITH BIT GRINDER PUMP. 9 MG OF MORPHINE ADMINISTERED VIA BIT GRINDER PUMP SO FAR THIS SHIFT. NO CONCERNS VOICED AT THIS TIME.
[2022-02-09 18:36] LABS: Appearance,Urine/Cath CLEAR (Clear); Bilirubin,Cath Negative (Negative); Blood, Urine/Cath Negative (Negative); Color,Urine/Cath YELLOW (Yellow); Glucose,Urine/Cath (UA) Negative (Negative); Ketones,Urine/Cath 2+ (Negative); Leukocyte Esterase,Cath Negative (Negative); Microscopic,Cath URINE MICROSCOPIC (MICROSCOPIC); Nitrate,Cath Negative (Negative); PH,Urine/Cath 5.5 (5.0-8.5); Protein,Urine/Cath Negative (Negative); Specific Gravity, Urine/Cath >= 1.030 (1.005-1.030); Urobilinogen,Cath 0.2 EU/dl (0.2)
--- NOTE | 2022-02-09 18:55 | EXP.ACUTE.PN ---
Subjective *Date: 02/09/22 *Time: 18:56 Interval history: Passing gas. No bowel movement Medical Exam Vital signs and Labs for Last 24 Hours: Vital Signs Temp Pulse Resp BP Pulse Ox 02/09/22 16:00 99.2 F 92 H 16 126/60 96 02/09/22 12:00 97.1 F L 89 18 102/56 L 93 L 02/09/22 08:00 98.2 F 91 H 18 112/60 96 02/09/22 04:00 97.9 F 90 18 108/49 L 95 02/09/22 00:00 98.0 F 101 H 18 110/57 L 92 L 02/08/22 20:00 97.7 F 104 H 18 125/67 93 L Intake and Output 02/09/22 02/09/22 02/09/22 07:59 15:59 23:59 Output Total 980 / 980 Balance -980 / -980 Output: Output, Urine Amount 730 / 730 Output, Gastric Drainage Amount 250 / 250 Left Nare 250 / 250 Other: Number of Voids 1 Weight 52.788 kg Patient Weight 02/09/22 23:59 Weight 52.788 kg Laboratory Results - last 24 hr 02/09/22 06:30: WBC 17.0 H, RBC 3.42 L, Hgb 10.0 L, Hct 31.6 L, MCV 92.2, MCH 29.2, MCHC 31.6 L, RDW 14.6, Plt Count 344, MPV 9.3, Neut % (Auto) 88.7 H, Lymph % (Auto) 6.9 L, [place] % (Auto) 3.9, Eos % (Auto) 0.4, Baso % (Auto) 0.1, Neut # (Auto) 15.1 H, Lymph # (Auto) 1.2, [place] # (Auto) 0.7, Eos # (Auto) 0.1, Baso # (Auto) 0.0, Total Counted 100, Neutrophils % (Manual) 96 H, Lymphocytes % (Manual) 3 L, Monocytes % (Manual) 1 L, Platelet Estimate Normal, Hypochromasia 1+, Anisocytosis 1+ 02/09/22 06:30: Sodium 139, Potassium 4.2, Chloride 109 H, Carbon Dioxide 21 L, Anion Gap 13.2, BUN 25 H, Creatinine 1.00 D, Estimated Creat Clear 52, Estimated GFR 74, Est GFR ( Amer) 90 D, Glucose 121 H, Calcium 8.0 L, Phosphorus 2.1 L, Magnesium 2.0, Total Bilirubin 0.3, AST 36, ALT 24, Alkaline Phosphatase 99, Total Protein 5.7 L D, Albumin 2.9 L, Globulin 2.8, Albumin/Globulin Ratio 1.0 L 02/09/22 12:12: Urine Color Yellow, Urine Appearance Clear, Urine pH 5.5, Ur Specific [place] >= 1.030, Urine Protein Negative, Urine Glucose (UA) Negative, Urine Ketones 2+, Urine Blood Negative, Urine Nitrate Negative, Urine Bilirubin Negative, Urine Urobilinogen 0.2, Ur Leukocyte Esterase Negative I & O for Labs for Last 24 Hours: Intake & Output 02/06/22 02/07/22 02/08/22 02/09/22 23:59 23:59 23:59 23:59 Intake Total 3526 / 3526 1390 / 1390 Output Total 200 / 200 1275 / 1275 980 / 980 Balance 3326 / 3326 115 / 115 -980 / -980 Weight 52.526 kg 52.526 kg 52.8 kg 52.788 kg Constitutional: Present no acute distress and cooperative Head: Present atraumatic and normocephalic ENT: Present normal exam Respiratory: Present CTA bilaterally; Absent accessory muscle use Cardiac: Present Reg Rate and Rhythm and S1/S2 GI: Present soft; Absent tenderness Comments:: Surgical incision Rectal (male): Present deferred (male): Present deferred Extremities: Present normal inspection; Absent edema Assessment and Plan *Assessment and plan (1) SBO (small bowel obstruction): Status: Acute Category: Medical Code(s): K56.609 - Unspecified intestinal obstruction, unspecified as to partial versus complete obstruction (2) Tobacco abuse: Status: Acute Category: Medical Code(s): Z72.0 - Tobacco use Plan 55-year-old male with no significant past medical history presents with 2-month history of worsening abdominal pain associated with some episodes of nausea, vomiting, but reports regular bowel movement and weight loss, found to have SBO concerning for colon carcinoma with? mets to liver - SBO s/p lapaotomy ileocolic anastomosis CT shows significant obstruction in the cecum and proximal colon concerning for colon carcinoma Also shows subcentimeter hypodense lesions in the liver favored to represent cysts, but due to findings recommends US to look for possible metastases Surgery consulted, appreciate consult Surgeon recommends NPO, NGT to LWS is any episodes of vomiting Supportive management Hepatic lesions - not well visualized with ultrasound -May need MRI which can be done on outpatient
[2022-02-09 20:00] VITALS: BP 130/63; PULSE 92; RESP 18; TEMP 36.8; O2SAT 94
[2022-02-10] VITALS (9 sets, daily range): BP systolic 112–137; BP diastolic 49–73; PULSE 78–85; RESP 16–20; TEMP 36.4–36.9; O2SAT 93–98; BMI 20.7
--- NOTE | 2022-02-10 01:32 | PC.NURSE ---
ng repositioned at 63cm and secured with tape
--- NOTE | 2022-02-10 05:55 | PC.NURSE ---
BENEFITS REPRESENTATIVE 53mg total cleared use from internet marketing intern pump
[2022-02-10 06:18] LABS: Basophils % 0.2 % (0.1-2.0); Eosinophils # 0.4 K/mm3 (0.0-0.4); Hematocrit 32.2 % (42.0-52.0); Hemoglobin 10.5 g/dL (14.1-18.0); Lymphocytes # 1.3 K/mm3 (0.7-4.5); Lymphocytes % 8.7 % (10-50); Mean Corpuscular HGB Conc 32.5 g/dL (31.8-35.4); Mean Corpuscular Hemoglobin 29.3 pg (27.0-31.2); Mean Corpuscular Volume 90.3 fl (80-94); Mean Platelet Volume 9.3 fl (7.4-10.4); Monocytes # 0.4 K/mm3 (0.1-1.0); Monocytes % 2.9 % (1.7-9.3); Neutrophils # 12.3 K/mm3 (1.8-7.8); Neutrophils % 85.2 % (37.0-80.0); Platelet Count 384 K/mm3 (142-424); Red Blood Count 3.57 M/mm3 (4.60-6.20); Red Cell Distribution Width 14.5 % (11.5-17.5); White Blood Count 14.5 K/mm3 (4.8-10.8)
[2022-02-10 06:21] LABS: MANUAL DIFFERENTIAL MANUAL DIFFERENTIAL (MANUAL DIFF)
--- NOTE | 2022-02-10 06:27 | P.PN_ITS ---
Subjective Narrative: Patient without any complaints. He feels he may be passing less gas but does not have any nausea or bloating. Apparently nasogastric tube had been inadvertently pulled and was replaced by nursing overnight. Minimal NG output Exam Data for Last 24 hours Vital signs and Labs for Last 24 Hours: Temp Pulse Resp BP Pulse Ox 98.3 F 85 18 113/49 L 93 L 02/10/22 04:00 02/10/22 04:00 02/10/22 04:00 02/10/22 04:00 02/10/22 04:00 Laboratory Results - last 24 hr 02/09/22 06:30: WBC 17.0 H, RBC 3.42 L, Hgb 10.0 L, Hct 31.6 L, MCV 92.2, MCH 29.2, MCHC 31.6 L, RDW 14.6, Plt Count 344, MPV 9.3, Neut % (Auto) 88.7 H, Lymph % (Auto) 6.9 L, [place] % (Auto) 3.9, Eos % (Auto) 0.4, Baso % (Auto) 0.1, Neut # (Auto) 15.1 H, Lymph # (Auto) 1.2, [place] # (Auto) 0.7, Eos # (Auto) 0.1, Baso # (Auto) 0.0, Total Counted 100, Neutrophils % (Manual) 96 H, Lymphocytes % (Manual) 3 L, Monocytes % (Manual) 1 L, Platelet Estimate Normal, Hypochromasia 1+, Anisocytosis 1+ 02/09/22 06:30: Sodium 139, Potassium 4.2, Chloride 109 H, Carbon Dioxide 21 L, Anion Gap 13.2, BUN 25 H, Creatinine 1.00 D, Estimated Creat Clear 52, Estimated GFR 74, Est GFR ( Amer) 90 D, Glucose 121 H, Calcium 8.0 L, Phosphorus 2.1 L, Magnesium 2.0, Total Bilirubin 0.3, AST 36, ALT 24, Alkaline Phosphatase 99, Total Protein 5.7 L D, Albumin 2.9 L, Globulin 2.8, Albumin/Globulin Ratio 1.0 L 02/09/22 12:12: Urine Color Yellow, Urine Appearance Clear, Urine pH 5.5, Ur Specific [place] >= 1.030, Urine Protein Negative, Urine Glucose (UA) Negative, Urine Ketones 2+, Urine Blood Negative, Urine Nitrate Negative, Urine Bilirubin Negative, Urine Urobilinogen 0.2, Ur Leukocyte Esterase Negative, Urine RBC None, Urine WBC 3-5, Ur Squamous Epith Cells None, Urine Bacteria None 02/10/22 05:58: WBC 14.5 H, RBC 3.57 L, Hgb 10.5 L, Hct 32.2 L, MCV 90.3, MCH 29.3, MCHC 32.5, RDW 14.5, Plt Count 384, MPV 9.3, Neut % (Auto) 85.2 H, Lymph % (Auto) 8.7 L, [place] % (Auto) 2.9, Eos % (Auto) 3.0, Baso % (Auto) 0.2, Neut # (Auto) 12.3 H, Lymph # (Auto) 1.3, [place] # (Auto) 0.4, Eos # (Auto) 0.4, Baso # (Auto) 0.0 I & O for Last 24 hours: Intake & Output 02/07/22 02/08/22 02/09/22 02/10/22 11:59 11:59 11:59 11:59 Intake Total 826 / 826 2700 / 2700 1390 / 1390 3336 / 3336 Output Total 200 / 200 600 / 600 1655 / 1655 525 / 525 Balance 626 / 626 2100 / 2100 -265 / -265 2811 / 2811 Weight 115 lb 12.8 oz 116 lb 6.465 oz 116 lb 6.042 oz 137 lb 1.6 oz *Routine Abdominal Exam Abdominal: Present soft Progress Note: A&P Assessment and plan (1) SBO (small bowel obstruction): Status: Acute Assessment and plan: DC NG tube (2) Tobacco abuse: Status: Acute
[2022-02-10 06:44] LABS: Alanine Aminotransferase 22 U/L (12-78); Albumin Level 2.7 g/dl (3.5-5.0); Alkaline Phosphatase 81 U/L (38-126); Anion Gap 16.7 mEq/L (5-15); Aspartate Amino Transferase 48 U/L (17-59); Bilirubin,Total 0.8 mg/dl (0.2-1.3); Blood Urea Nitrogen 17 mg/dl (9-20); Calcium 7.6 mg/dl (8.4-10.2); Carbon Dioxide 16 mmol/L (22.0-30.0); Chloride 109 mmol/L (98-107); Creatinine Clearance Estimated 61 mL/min (50-200); Estimated Glomerular Filt Rate 96 ml/min (>60); GFR (African American) 116 ML/MIN (>60); Globulin 2.7 g/dL (1.3-3.2); Glucose 62 mg/dl (74-100); Phosphorous 2.6 mg/dl (2.5-4.5); Potassium 4.7 mmoL/L (3.5-5.1); Sodium 137 mmol/L (136-145); Total Protein,Serum 5.4 g/dl (6.3-8.2)
--- NOTE | 2022-02-10 07:24 | PC.NURSE ---
ng tube to left nares d/c'd this am without difficulty per md orders, pt tolerated well, pt restless through the night, morphine ivp given for breakthrough pain x1, no changes from previous assessment, vital signs stable, no acute distress.
[2022-02-10 07:56] LABS: Lymphocytes % 13 % (10-50); Monocytes % 3 % (2-9); Neutrophils % 84 % (42-76); Platelet Estimate Normal; RBC Morphology Normal; Total Cells Counted 100
--- NOTE | 2022-02-10 10:20 | XR_ITS ---
FINAL REPORT CLINICAL HISTORY: Follow-up COMPARISON: 02/08/2022 FINDINGS: ABDOMEN SINGLE VIEW / KUB A single view of the abdomen was obtained with a coned down view of the pelvis. There has been interval removal of the NG tube. There is gaseous distention of the small bowel in the left abdomen, favor ileus over obstruction. There is a new opacity within the left lung base which could represent pneumonia or atelectasis. IMPRESSION: Nonspecific bowel gas pattern, favor ileus. Reviewed, Interpreted and Dictated by Edgar Steele MD Transcribed by Deyanira Camara Authenticated and [facility]
--- NOTE | 2022-02-10 11:53 | PC.NURSE ---
abd dsg changed, no redness or drainage at surgical site. no concerns at this time.
--- NOTE | 2022-02-10 14:00 | EXP.ACUTE.PN ---
Subjective *Date: 02/10/22 *Time: 14:00 Interval history: No BM, discussed biopsy results. Medical Exam Vital signs and Labs for Last 24 Hours: Vital Signs Temp Pulse Resp BP Pulse Ox 02/10/22 12:00 98.5 F 80 18 131/63 98 02/10/22 08:00 97.9 F 79 16 118/69 96 02/10/22 04:00 98.3 F 85 18 113/49 L 93 L 02/09/22 20:00 92 H 94 L 02/10/22 00:00 98.5 F 85 18 112/65 94 L 02/09/22 20:00 98.3 F 92 H 18 130/63 94 L 02/09/22 16:00 99.2 F 92 H 16 126/60 96 Intake and Output 02/09/22 02/10/22 02/10/22 23:59 07:59 15:59 Intake Total 3336 / 3336 Output Total 175 / 1355 350 / 350 Balance -175 / -1355 2986 / 2986 Intake: Intake, Total IV Amount 3336 / 3336 0.9 % Sodium Chloride 1,000 ml 3236 / 3236 @ 100 mls/hr IV .Q10H [facility] Rx#: [id number] Piperacillin/Tazo 3.375 gm In 0 100 / 100 .9 % Sodium Chloride 50 ml @ 100 mls/hr IV Q8H [facility] Rx#: [id number] Output: Output, Urine Amount 175 / 1105 350 / 350 Other: Number of Unmeasured Voids 0 0 Weight 62.188 kg Patient Weight 02/10/22 23:59 Weight 62.188 kg Laboratory Results - last 24 hr 02/09/22 12:12: Urine Color Yellow, Urine Appearance Clear, Urine pH 5.5, Ur Specific [place] >= 1.030, Urine Protein Negative, Urine Glucose (UA) Negative, Urine Ketones 2+, Urine Blood Negative, Urine Nitrate Negative, Urine Bilirubin Negative, Urine Urobilinogen 0.2, Ur Leukocyte Esterase Negative, Urine RBC None, Urine WBC 3-5, Ur Squamous Epith Cells None, Urine Bacteria None 02/10/22 05:58: WBC 14.5 H, RBC 3.57 L, Hgb 10.5 L, Hct 32.2 L, MCV 90.3, MCH 29.3, MCHC 32.5, RDW 14.5, Plt Count 384, MPV 9.3, Neut % (Auto) 85.2 H, Lymph % (Auto) 8.7 L, [place] % (Auto) 2.9, Eos % (Auto) 3.0, Baso % (Auto) 0.2, Neut # (Auto) 12.3 H, Lymph # (Auto) 1.3, [place] # (Auto) 0.4, Eos # (Auto) 0.4, Baso # (Auto) 0.0, Total Counted 100, Neutrophils % (Manual) 84 H, Lymphocytes % (Manual) 13, Monocytes % (Manual) 3, Platelet Estimate Normal, RBC Morphology Normal 02/10/22 05:58: Sodium 137, Potassium 4.7, Chloride 109 H, Carbon Dioxide 16 L, Anion Gap 16.7 H, BUN 17 D, Creatinine 0.80, Estimated Creat Clear 61, Estimated GFR 96, Est GFR ( Amer) 116 D, Glucose 62 L D, Calcium 7.6 L, Phosphorus 2.6, Total Bilirubin 0.8, AST 48 D, ALT 22, Alkaline Phosphatase 81, Total Protein 5.4 L, Albumin 2.7 L, Globulin 2.7, Albumin/Globulin Ratio 1.0 L I & O for Labs for Last 24 Hours: Intake & Output 02/07/22 02/08/22 02/09/22 02/10/22 23:59 23:59 23:59 23:59 Intake Total 3526 / 3526 1390 / 1390 3336 / 3336 Output Total 200 / 200 1275 / 1275 1155 / 1355 350 / 350 Balance 3326 / 3326 115 / 115 -1155 / -1355 2986 / 2986 Weight 52.526 kg 52.8 kg 52.788 kg 62.188 kg Assessment and Plan *Assessment and plan (1) Severe protein-calorie malnutrition: Status: Acute Category: Medical Code(s): E43 - Unspecified severe protein-calorie malnutrition (2) SBO (small bowel obstruction): Status: Acute Category: Medical Code(s): K56.609 - Unspecified intestinal obstruction, unspecified as to partial versus complete obstruction (3) Tobacco abuse: Status: Acute Category: Medical Code(s): Z72.0 - Tobacco use (4) Adenocarcinoma: Status: Acute Category: Medical Code(s): C80.1 - Malignant (primary) neoplasm, unspecified Plan 55-year-old male with SBO 2/2 colon adenocarcinoma with? mets to liver s/p ileocolic anastamosis - SBO s/p lapaotomy ileocolic anastomosis CT shows significant obstruction in the cecum and proximal colon concerning for colon carcinoma Also shows subcentimeter hypodense lesions in the liver favored to represent cysts, but due to findings recommends US to look for possible metastases Surgery consulted, appreciate consult Surgeon recommends NPO, NGT to LWS is any episodes of vomiting Supportive management Adenocarcinoma - stag
--- NOTE | 2022-02-10 14:02 | DIET.NUTRFU ---
Rounded with provider, patient is still NPO, his NG was pulled. He has not had a BM yet, did walk down hallway to new room and has been chewing gum. He now triggers for severe malnutrition secondary to NPO x4, wt loss [employer] and overall poor prognosis. Provider was notified. Sx was consulted with recommendations on starting TPN if diet could not initiated. Continue to receive bolus IVF to help with hydration. Will continue to follow. He was educated already on diet progression and supplements to make calorie intake when diet advanced.
--- NOTE | 2022-02-10 15:10 | XR_ITS ---
FINAL REPORT CLINICAL HISTORY: Possible pneumonia, mentioned on kub xray earlier COMPARISON: KUB 02/10/2022 FINDINGS: Two views of the chest show bibasilar opacities left greater than right suspicious for pneumonia, although some of the density is probably related to atelectasis. There is no significant pleural effusion. Pulmonary vascularity is normal. Heart and mediastinum are unremarkable. Pneumoperitoneum is presumed related to recent surgery; however if surgery is greater than one week earlier, bowel perforation should be a consideration. There are numerous air-fluid levels within small bowel, nonspecific. IMPRESSION: Bibasilar pneumonia and atelectasis left greater than right. Pneumoperitoneum. Correlate with any recent history of surgery. Reviewed, Interpreted and Dictated by Edgar Steele MD Transcribed by Deyanira Camara Authenticated and [facility]
[2022-02-11] VITALS (12 sets, daily range): BP systolic 127–146; BP diastolic 54–80; PULSE 54–87; RESP 16–20; TEMP 36.6–37.8; O2SAT 92–100; BMI 21.0
--- NOTE | 2022-02-11 05:41 | EXP.SURG.CON ---
History of Present Illness *Admission Date: 02/06/22 *History of present illness: Patient is a 71-year-old male who has no significant past medical history however he has not seen a primary care provider for several decades. He presented to the emergency department overnight due to progressive colicky pain in his abdomen over about 6 weeks. Has been more significant the past week or so. He has had some associated weight loss. He has had some minimal nausea and vomiting. He states that his bowels are moving. 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 Surgery was contacted at that time. It was recommended the patient be admitted with possible NG tube for bowel obstruction and surgical consultation. Of note, the CT scan does reveal some scattered subcentimeter hypodense lesions concerning for cysts versus metastases. [facility] Disclaimer: The information contained in this section may have been updated after the patient was seen, as this information can be updated by other users. Medical History Tobacco abuse Tobacco use Family History Other Family history of cancer Social History Smoking Status: Current every day smoker tobacco type: cigarettes packs per day: 1 alcohol intake: never substance use type: denies use current occupational status: employed Travel in the last 8 weeks: None Review of Systems *Neurologic Neurologic: Reports system reviewed and no additional complaints, except as documented Meds Home Medications and Allergies Home Medications Medication Instructions Recorded Confirmed Type diphenhydramine HCl 25 mg tablet 25 mg PO HS PRN Insomnia 02/07/22 02/07/22 History (Simply Sleep) New Prescriptions to Start Prescriptions: Allergies Allergy/AdvReac Type Severity Reaction Status Date / Time No Known Allergies Allergy Verified 03/30/17 21:38 Exam (Inpt) Vital signs and Labs for Last 24 Hours: Temp Pulse Resp BP Pulse Ox 98.4 F 86 20 139/70 96 02/11/22 04:00 02/11/22 04:00 02/11/22 04:00 02/11/22 04:00 02/11/22 04:00 Laboratory Results - last 24 hr 02/10/22 05:58: WBC 14.5 H, RBC 3.57 L, Hgb 10.5 L, Hct 32.2 L, MCV 90.3, MCH 29.3, MCHC 32.5, RDW 14.5, Plt Count 384, MPV 9.3, Neut % (Auto) 85.2 H, Lymph % (Auto) 8.7 L, [place] % (Auto) 2.9, Eos % (Auto) 3.0, Baso % (Auto) 0.2, Neut # (Auto) 12.3 H, Lymph # (Auto) 1.3, [place] # (Auto) 0.4, Eos # (Auto) 0.4, Baso # (Auto) 0.0, Total Counted 100, Neutrophils % (Manual) 84 H, Lymphocytes % (Manual) 13, Monocytes % (Manual) 3, Platelet Estimate Normal, RBC Morphology Normal 02/10/22 05:58: Sodium 137, Potassium 4.7, Chloride 109 H, Carbon Dioxide 16 L, Anion Gap 16.7 H, BUN 17 D, Creatinine 0.80, Estimated Creat Clear 61, Estimated GFR 96, Est GFR ( Amer) 116 D, Glucose 62 L D, Calcium 7.6 L, Phosphorus 2.6, Total Bilirubin 0.8, AST 48 D, ALT 22, Alkaline Phosphatase 81, Total Protein 5.4 L, Albumin 2.7 L, Globulin 2.7, Albumin/Globulin Ratio 1.0 L I & O for Labs for Last 24 Hours: Intake & Output 02/08/22 02/09/22 02/10/22 02/11/22 11:59 11:59 11:59 11:59 Intake Total 2700 / 2700 1390 / 1390 3336 / 3336 1999 / 1999 Output Total 600 / 600 1655 / 1655 525 / 525 375 / 375 Balance 2099 / 2099 -265 / -265 2811 / 2811 1625 / 1625 Weight 116 lb 6.465 oz 116 lb 6.042 oz 137 lb 1.6 oz 139 lb 1.787 oz Results Labs Result diagrams: 02/18/22 09:15 02/18/22 09:15 Labs: Laboratory Results - last 24 hr 02/10/22 05:58: WBC 14.5 H, RBC 3.57 L, Hgb 10.5 L, Hct 32.2 L, MCV 90.3, MCH 29.3, MCHC 32.5, RDW 14.5, Plt Count 384, MPV 9.3, Neut % (Auto) 85.2 H, Lymph % (Auto) 8.7 L, [place] % (Auto) 2.9, Eos % (Auto) 3.0, Baso %
--- NOTE | 2022-02-11 05:42 | P.PN_ITS ---
Subjective Narrative: Patient had a rough night . He describes incisional pain. He also has some discomfort from the apparent right inguinal hernia. He has no nausea. He did require more narcotic pain medication overnight. He states he is not passing any appreciable flatus and not having a bowel movement. Patient did have chest x-ray yesterday which revealed bibasilar pneumonia and atelectasis left greater than right. Pneumoperitoneum. He had portable abdominal x-ray as a single view which revealed nonspecific bowel gas pattern, favor ileus. Exam Data for Last 24 hours Vital signs and Labs for Last 24 Hours: Temp Pulse Resp BP Pulse Ox 98.4 F 86 20 139/70 96 02/11/22 04:00 02/11/22 04:00 02/11/22 04:00 02/11/22 04:00 02/11/22 04:00 Laboratory Results - last 24 hr 02/10/22 05:58: WBC 14.5 H, RBC 3.57 L, Hgb 10.5 L, Hct 32.2 L, MCV 90.3, MCH 29.3, MCHC 32.5, RDW 14.5, Plt Count 384, MPV 9.3, Neut % (Auto) 85.2 H, Lymph % (Auto) 8.7 L, [place] % (Auto) 2.9, Eos % (Auto) 3.0, Baso % (Auto) 0.2, Neut # (Auto) 12.3 H, Lymph # (Auto) 1.3, [place] # (Auto) 0.4, Eos # (Auto) 0.4, Baso # (Auto) 0.0, Total Counted 100, Neutrophils % (Manual) 84 H, Lymphocytes % (M anual) 13, Monocytes % (Manual) 3, Platelet Estimate Normal, RBC Morphology Normal 02/10/22 05:58: Sodium 137, Potassium 4.7, Chloride 109 H, Carbon Dioxide 16 L, Anion Gap 16.7 H, BUN 17 D, Creatinine 0.80, Estimated Creat Clear 61, Estimated GFR 96, Est GFR ( Amer) 116 D, Glucose 62 L D, Calcium 7.6 L, Phosphorus 2.6, Total Bilirubin 0.8, AST 48 D, ALT 22, Alkaline Phosphatase 81, Total Protein 5.4 L, Albumin 2.7 L, Globulin 2.7, Albumin/Globulin Ratio 1.0 L I & O for Last 24 hours: Intake & Output 02/08/22 02/09/22 02/10/22 02/11/22 11:59 11:59 11:59 11:59 Intake Total 2700 / 2700 1390 / 1390 3336 / 3336 1999 Output Total 600 / 600 1655 / 1655 525 / 525 375 / 375 Balance 2099 / 2099 -265 / -265 2811 / 2811 1625 / 1625 Weight 116 lb 6.465 oz 116 lb 6.042 oz 137 lb 1.6 oz 139 lb 1.787 oz *Routine Abdominal Exam Abdominal: Present tenderness, distended and wound Progress Note: A&P Assessment and plan (1) Severe protein-calorie malnutrition: Status: Acute (2) SBO (small bowel obstruction): Status: Acute (3) Tobacco abuse: Status: Acute (4) Adenocarcinoma: Status: Acute Assessment and Plan Assessment and Plan for All Diagnoses:: I had anticipated potentially starting a diet today. However, the patient does have some increasing pain and no evidence of return of bowel function. I will check a follow-up acute abdominal series. I feel less likely with a prolonged ileus. At this point consideration can be given for starting parenteral nutrition. I will order Dulcolax suppository.
--- NOTE | 2022-02-11 05:42 | PC.NURSE ---
HEARD BOWEL SOUND ON RUQ, HYPOACTIVE. PATIENT SAYS HE IS PASSING SMAAL AMTS OF GAS. NO BM OF YET. MORPHINE LEARNING DEVELOPER IS CINTROLLING HIS PAIN WELL. SPOUSE AT BEDSIDE AND VERY ATTENTIVE TO HIS NEEDS. SURGICAL DRSG TO MID ABDOMEN IS C/D/I. PERFORMS 500-750 IN INCENTIVE SPIROMETER.
--- NOTE | 2022-02-11 05:49 | XR_ITS ---
PROCEDURE INFORMATION: Exam: XR Complete Acute Abdomen Series Including Chest Exam date and time: 02/11/2022 7:09 AM Age: 71 years old Clinical indication: Bloating; Prior surgery; Surgery date: 3-7 days post-operative; Surgery type: Bowel surgery to clear blockages --3 days out; Additional info: Abdominal pain, distension TECHNIQUE: Imaging protocol: Radiologic exam. Complete acute abdomen series, including 2 or more views of the abdomen and a single view chest. COMPARISON: CR XR CHEST 2V 02/10/2022 3:23 PM FINDINGS: Lungs: Interstitial prominence and bibasilar airspace disease. Pleural spaces: Small left pleural effusion. Heart/Mediastinum: No cardiomegaly. Gastrointestinal tract: Marked small bowel dilatation and air-fluid levels. Intraperitoneal space: Persistent findings of pneumoperitoneum. Vasculature: Ectasia of the thoracic aorta. Bones/joints: Degenerative change. Soft tissues: Midline skin sai and surgical sutures overlying the right lower quadrant. IMPRESSION: 1. Persistent findings of pneumoperitoneum. 2. Marked small bowel dilatation and air-fluid levels. 3. Interstitial prominence and bibasilar airspace disease. 4. Additional findings as described above.
--- NOTE | 2022-02-11 07:02 | PC.NURSE ---
MORPHINE INTERNET TECHNOLOGY MANAGER 28.1 CLEARED FOR THIS SHIFT. (1.5 MG EVERY 10 MINS WITH MAX 20 MG IN 4 HOURS)
[2022-02-11 07:51] LABS: Basophils % 0.2 % (0.1-2.0); Eosinophils # 0.3 K/mm3 (0.0-0.4); Hematocrit 33.2 % (42.0-52.0); Hemoglobin 10.5 g/dL (14.1-18.0); Lymphocytes % 6.6 % (10-50); Mean Corpuscular HGB Conc 31.8 g/dL (31.8-35.4); Mean Corpuscular Hemoglobin 29.5 pg (27.0-31.2); Mean Corpuscular Volume 92.7 fl (80-94); Mean Platelet Volume 9.9 fl (7.4-10.4); Monocytes # 0.6 K/mm3 (0.1-1.0); Monocytes % 4.3 % (1.7-9.3); Neutrophils # 12.6 K/mm3 (1.8-7.8); Neutrophils % 86.8 % (37.0-80.0); Platelet Count 448 K/mm3 (142-424); Red Blood Count 3.58 M/mm3 (4.60-6.20); Red Cell Distribution Width 14.4 % (11.5-17.5); White Blood Count 14.5 K/mm3 (4.8-10.8)
[2022-02-11 07:54] LABS: MANUAL DIFFERENTIAL MANUAL DIFFERENTIAL (MANUAL DIFF)
[2022-02-11 07:55] LABS: Alanine Aminotransferase 20 U/L (12-78); Albumin Level 2.9 g/dl (3.5-5.0); Alkaline Phosphatase 105 U/L (38-126); Anion Gap 15.7 mEq/L (5-15); Aspartate Amino Transferase 30 U/L (17-59); Bilirubin,Total 0.6 mg/dl (0.2-1.3); Blood Urea Nitrogen 13 mg/dl (9-20); Calcium 7.8 mg/dl (8.4-10.2); Carbon Dioxide 17 mmol/L (22.0-30.0); Chloride 106 mmol/L (98-107); Creatinine Clearance Estimated 62 mL/min (50-200); Estimated Glomerular Filt Rate 84 ml/min (>60); GFR (African American) 101 ML/MIN (>60); Globulin 2.8 g/dL (1.3-3.2); Glucose 61 mg/dl (74-100); Magnesium 1.8 mg/dl (1.6-2.3); Phosphorous 3.2 mg/dl (2.5-4.5); Potassium 3.7 mmoL/L (3.5-5.1); Sodium 135 mmol/L (136-145); Total Protein,Serum 5.7 g/dl (6.3-8.2)
--- NOTE | 2022-02-11 11:02 | DIET.NUTRFU ---
Addendum entered by Judi Lawrence RD, LD 02/11/22 20:11: TPN started providing 1026kcal and 76.5gm protein, lipids will be added once lipid labs completed or Q3days. Will continue to monitor diet tolerance and BM's Original Note: AMANDA consulted from pharmacy to review nutritional needs for TPN. Diet was upgraded to clear liquids, this will not meet nutritional needs. Tolerance of clear is not anticipated since patient has not had BM. TPN will help meet nutritional needs of 1575kcal and 75gm protein until diet can be upgraded to better meet needs. Ducolax ordered, patient has had increase abdominal pain. Lbs reviewed today 135L, potassium 3.7, albumin 2.9L, will need labs tomorrow plus lipid panel to review prior to starting lipids via TPN. Reviewed weights with nursing admit wt was 52kg now 63kg, slight edema noted to BLE, but not enough to indicate 10kg wt gain. He did transfer rooms bed scale difference maybe causing change in weight. Will continue to monitor daily and adjust TPN if needed.Per nursing patient report a very small BM and he reports gas. Will follow tolerance of TPN and diet, labs ordered tomorrow.
[2022-02-11 11:04] LABS: Eosinophils % 2 % (0-3); Lymphocytes % 11 % (10-50); Monocytes % 1 % (2-9); Neutrophils % 86 % (42-76); Platelet Estimate Normal; RBC Morphology Normal; Total Cells Counted 100
--- NOTE | 2022-02-11 11:26 | PC.NURSE ---
patient weighed 61.3 kg bed #[id number] for TPN calucation
--- NOTE | 2022-02-11 13:42 | EXP.ACUTE.PN ---
Subjective *Date: 02/11/22 *Time: 13:42 Interval history: No issues overnight. Mild small bowel movement this morning. Passing gas. Abdominal distention Medical Exam Vital signs and Labs for Last 24 Hours: Vital Signs Temp Pulse Resp BP Pulse Ox 02/11/22 13:31 98.5 F 80 17 142/68 H 100 02/11/22 11:06 98.1 F 81 18 129/65 96 02/11/22 09:25 97.8 F 80 18 133/67 97 02/11/22 07:56 98.1 F 85 17 127/54 L 96 02/11/22 04:00 98.4 F 86 20 139/70 96 02/11/22 02:00 98.6 F 79 20 127/56 L 92 L 02/11/22 00:00 100.0 F H 87 20 135/70 95 02/10/22 20:00 95 02/10/22 22:00 98.3 F 81 20 119/73 95 02/10/22 20:00 97.6 F 78 18 112/56 L 96 02/10/22 18:00 98.4 F 80 20 130/63 97 02/10/22 16:00 97.9 F 82 20 137/67 98 02/10/22 14:00 98.3 F 79 18 118/57 L 96 Intake and Output 02/10/22 02/11/22 02/11/22 23:59 07:59 15:59 Intake Total 1000 / 4336 1000 / 1480 480 / 1480 Output Total 375 / 975 600 / 975 Balance 1000 / 3836 625 / 505 -120 / 505 Intake: Intake, Oral Amount 0 / 480 480 / 480 Intake, Total IV Amount 1000 / 4336 1000 / 1000 0.9 % Sodium Chloride 1,000 ml 1000 / 4236 900 / 900 @ 100 mls/hr IV .Q10H [facility] Rx#: [id number] Piperacillin/Tazo 3.375 gm In 0 100 / 100 .9 % Sodium Chloride 50 ml @ 100 mls/hr IV Q8H [facility] Rx#: [id number] Output: Output, Urine Amount 375 / 975 600 / 975 Other: Number of Unmeasured Voids 0 0 Weight 63.1 kg Patient Weight 02/11/22 23:59 Weight 63.1 kg Laboratory Results - last 24 hr 02/11/22 07:00: WBC 14.5 H, RBC 3.58 L, Hgb 10.5 L, Hct 33.2 L, MCV 92.7, MCH 29.5, MCHC 31.8, RDW 14.4, Plt Count 448 H, MPV 9.9, Neut % (Auto) 86.8 H, Lymph % (Auto) 6.6 L, Parker % (Auto) 4.3, Eos % (Auto) 2.0, Baso % (Auto) 0.2, Neut # (Auto) 12.6 H, Lymph # (Auto) 1.0, [place] # (Auto) 0.6, Eos # (Auto) 0.3, Baso # (Auto) 0.0, Total Counted 100, Neutrophils % (Manual) 86 H, Lymphocytes % (Manual) 11, Monocytes % (Manual) 1 L, Eosinophils % (Manual) 2, Platelet Estimate Normal, RBC Morphology Normal 02/11/22 07:00: Sodium 135 L, Potassium 3.7 D, Chloride 106, Carbon Dioxide 17 L, Anion Gap 15.7 H, BUN 13, Creatinine 0.90, Estimated Creat Clear 62, Estimated GFR 84, Est GFR ( Amer) 101, Glucose 61 L, Calcium 7.8 L, Phosphorus 3.2, Magnesium 1.8, Total Bilirubin 0.6, AST 30 D, ALT 20, Alkaline Phosphatase 105, Total Protein 5.7 L, Albumin 2.9 L, Globulin 2.8, Albumin/Globulin Ratio 1.0 L I & O for Labs for Last 24 Hours: Intake & Output 02/08/22 02/09/22 02/10/22 02/11/22 23:59 23:59 23:59 23:59 Intake Total 1390 / 1390 4336 / 4336 1480 / 1480 Output Total 1275 / 1275 1155 / 1355 350 / 500 975 / 975 Balance 115 / 115 -1155 / -1355 3986 / 3836 505 / 505 Weight 52.8 kg 52.788 kg 62.188 kg 63.1 kg Head: Present atraumatic Neck: Present normal inspection and full ROM Respiratory: Present CTA bilaterally; Absent accessory muscle use Cardiac: Present Reg Rate and Rhythm and Regular Rate GI: Present soft and distention; Absent tenderness Comments:: Surgical incision Rectal (male): Present deferred (male): Present deferred Extremities: Present normal inspection Skin: Present intact; Absent cyanosis Assessment and Plan *Assessment and plan (1) Severe protein-calorie malnutrition: Status: Acute Category: Medical Code(s): E43 - Unspecified severe protein-calorie malnutrition (2) SBO (small bowel obstruction): Status: Acute Category: Medical Code(s): K56.609 - Unspecified intestinal obstruction, unspecified as to partial versus complete obstruction (3) Tobacco abuse: Status: Acute Category: Medical Code(s): Z72.0 - Tobacco use (4) Adenocarcinoma: Status: Acute Category: Medical Code(s): C80.1 - Malignant (primary) neoplasm, unspecified Plan 55-year-old male with SBO 2/2? colon adenocarcinoma with? m
[2022-02-11 16:50] LABS: POC Glucose,Bedside 89 (70-110)
--- NOTE | 2022-02-11 17:50 | PC.NURSE ---
Patient VSS; INCOMING FREIGHT CLERK pump 7.1mL total for this shift. Bowel sounds hypoactive x 4 quadrants. Pt incision is open to air, no s/s of infection noted; diet increased to clear liquids and started on TPN. Patient family states slight BM not formed, this instructional writer did not see witness it. Pt has some pain but did not want Morphine dose outside of INCOMING FREIGHT CLERK pump but took Tylenol to see if would help. TPN started at 11:15am at 25mL/hr to increase 25ml/hr every 6 hours until reach 75ml/hr. FSBS ACHS to monitor TPN infusing. If FSBS >200 keep at current rate until FSBS <200 then resume dosing according to order.
[2022-02-11 21:01] LABS: POC Glucose,Bedside 118 (70-110)
[2022-02-12] VITALS (25 sets, daily range): BP systolic 84–136; BP diastolic 40–90; PULSE 68–118; RESP 7–22; TEMP 36.2–37.2; O2SAT 89–98; BMI 21.0
--- NOTE | 2022-02-12 03:36 | PC.NURSE ---
PATIENT IS NOT USING THE MORPHINE FRONT END TECHNICIAN BECAUSE HE BELIEVES HE CANT HAVE BM BECAUSE NARCOTIC HAS SLOWED BOWEL. REQUESTING TYLENOL INSTEAD. TPN HAS BEEN INFUSING AT 75 ML/HR SINCE 0100. PERFORMS 1250 ON INCENTIVE SPIROMETER. AMBULATORY WITH 1 ASSIST. SPOUSE AT BEDSIDE. VITAL SIGNS STABLE. ABDOMINAL MIDLINE INCISION MANUEL. LETI IN PLACE.
[2022-02-12 05:14] LABS: POC Glucose,Bedside 179 (70-110)
--- NOTE | 2022-02-12 06:13 | PC.NURSE ---
STEVEDORE DOCK MORPHINE TOTAL USE FOR THIS SHIFT 3 MG.
--- NOTE | 2022-02-12 07:17 | XR_ITS ---
PROCEDURE INFORMATION: Exam: XR Abdomen Exam date and time: 02/12/2022 7:41 AM Age: 71 years old Clinical indication: Abdominal tenderness; Additional info: Ileus TECHNIQUE: Imaging protocol: Radiologic exam of the abdomen. Views: Frontal supine view of the abdomen. 1 View. COMPARISON: CR XR ACUTE ABDOMEN SERIES 02/11/2022 7:09 AM FINDINGS: Lungs: Basilar airspace/pleural disease. Gastrointestinal tract: Marked small bowel dilatation, in a pattern worrisome for small bowel obstruction. Bones/joints: Incomplete visualization of the inferior pelvis. Degenerative change. Soft tissues: Skin sai. IMPRESSION: Marked small bowel dilatation, in a pattern worrisome for small bowel obstruction.
[2022-02-12 07:31] LABS: Basophils % 0.2 % (0.1-2.0); Eosinophils # 0.3 K/mm3 (0.0-0.4); Eosinophils % 3.1 % (0.1-12.0); Hematocrit 29.9 % (42.0-52.0); Lymphocytes # 0.8 K/mm3 (0.7-4.5); Lymphocytes % 7.7 % (10-50); Mean Corpuscular HGB Conc 33.6 g/dL (31.8-35.4); Mean Corpuscular Hemoglobin 29.9 pg (27.0-31.2); Mean Corpuscular Volume 88.9 fl (80-94); Mean Platelet Volume 8.6 fl (7.4-10.4); Monocytes # 0.6 K/mm3 (0.1-1.0); Monocytes % 5.1 % (1.7-9.3); Neutrophils # 8.9 K/mm3 (1.8-7.8); Neutrophils % 83.8 % (37.0-80.0); Platelet Count 477 K/mm3 (142-424); Red Blood Count 3.36 M/mm3 (4.60-6.20); Red Cell Distribution Width 14.3 % (11.5-17.5); White Blood Count 10.6 K/mm3 (4.8-10.8)
[2022-02-12 07:43] LABS: Alanine Aminotransferase 18 U/L (12-78); Albumin Level 2.7 g/dl (3.5-5.0); Alkaline Phosphatase 91 U/L (38-126); Anion Gap 10.2 mEq/L (5-15); Aspartate Amino Transferase 27 U/L (17-59); Bilirubin,Total 0.5 mg/dl (0.2-1.3); Blood Urea Nitrogen 12 mg/dl (9-20); Calcium 7.5 mg/dl (8.4-10.2); Carbon Dioxide 21 mmol/L (22.0-30.0); Chloride 108 mmol/L (98-107); Creatinine Clearance Estimated 62 mL/min (50-200); Estimated Glomerular Filt Rate 112 ml/min (>60); GFR (African American) 135 ML/MIN (>60); Globulin 2.6 g/dL (1.3-3.2); Glucose 126 mg/dl (74-100); Potassium 3.2 mmoL/L (3.5-5.1); Sodium 136 mmol/L (136-145); Total Protein,Serum 5.3 g/dl (6.3-8.2)
--- NOTE | 2022-02-12 07:44 | EXP.ACUTE.PN ---
Subjective *Date: 02/12/22 *Time: 07:44 Interval history: Had 3 small bowel movements yesterday. Ambulating. Able to tolerate small dietary intake (sips). All questions answered Medical Exam Vital signs and Labs for Last 24 Hours: Vital Signs Temp Pulse Resp BP Pulse Ox 02/12/22 07:17 98.5 F 74 18 132/69 96 02/12/22 06:00 97.9 F 68 16 136/77 96 02/12/22 06:00 97.9 F 87 16 133/70 98 02/12/22 04:00 97.9 F 87 16 133/70 98 02/12/22 02:00 97.8 F 80 16 130/68 96 02/12/22 00:00 98.6 F 68 16 124/77 96 02/11/22 22:00 97.9 F 80 16 144/66 H 98 02/11/22 20:00 97.9 F 84 16 146/80 H 98 02/11/22 20:00 100 02/11/22 08:00 96 02/11/22 17:07 98.6 F 80 18 146/68 H 100 02/11/22 16:00 98.7 F 54 L 18 144/73 H 98 02/11/22 13:31 98.5 F 80 17 142/68 H 100 02/11/22 11:06 98.1 F 81 18 129/65 96 02/11/22 09:25 97.8 F 80 18 133/67 97 02/11/22 07:56 98.1 F 85 17 127/54 L 96 Intake and Output 02/11/22 02/11/22 02/12/22 15:59 23:59 07:59 Intake Total 480 / 2815 1335 / 2815 2049 / 2049 Output Total 600 / 1425 450 / 1425 400 / 400 Balance -120 / 1390 885 / 1390 1649 / 1649 Intake: Intake, Oral Amount 480 / 840 360 / 840 360 / 360 Intake, Total IV Amount 1974 1689 / 1689 0.9 % Sodium Chloride 1,000 ml 800 / 1700 987 / 987 @ 100 mls/hr IV .Q10H [facility] Rx#: [id number] Piperacillin/Tazo 3.375 gm In 0 50 / 150 100 / 100 .9 % Sodium Chloride 50 ml @ 100 mls/hr IV Q8H [facility] Rx#: [id number] Zinc/Copper/Leonor/Chromic Chl 125 / 125 602 / 602 1 ml Mvi, Adult No.1 with Vit K 10 ml Cyanocobalamin (Vitamin B-12) 1,000 mcg Phytonadione 10 mg In Aa 4.25%/Calcium/Lytes/ Dex 10% 1,000 ml @ 75 mls/hr IV .[id number] PENDING SALE TO [facility] Rx#:[id number] Output: Output, Urine Amount 600 / 1425 450 / 1425 400 / 400 Other: Number of Unmeasured Voids 0 2 Weight 63.1 kg Patient Weight 02/12/22 23:59 Weight 63.1 kg Laboratory Results - last 24 hr 02/11/22 07:00: WBC 14.5 H, RBC 3.58 L, Hgb 10.5 L, Hct 33.2 L, MCV 92.7, MCH 29.5, MCHC 31.8, RDW 14.4, Plt Count 448 H, MPV 9.9, Neut % (Auto) 86.8 H, Lymph % (Auto) 6.6 L, [place] % (Auto) 4.3, Eos % (Auto) 2.0, Baso % (Auto) 0.2, Neut # (Auto) 12.6 H, Lymph # (Auto) 1.0, [place] # (Auto) 0.6, Eos # (Auto) 0.3, Baso # (Auto) 0.0, Total Counted 100, Neutrophils % (Manual) 86 H, Lymphocytes % (Manual) 11, Monocytes % (Manual) 1 L, Eosinophils % (Manual) 2, Platelet Estimate Normal, RBC Morphology Normal 02/11/22 07:00: Sodium 135 L, Potassium 3.7 D, Chloride 106, Carbon Dioxide 17 L, Anion Gap 15.7 H, BUN 13, Creatinine 0.90, Estimated Creat Clear 62, Estimated GFR 84, Est GFR ( Amer) 101, Glucose 61 L, Calcium 7.8 L, Phosphorus 3.2, Magnesium 1.8, Total Bilirubin 0.6, AST 30 D, ALT 20, Alkaline Phosphatase 105, Total Protein 5.7 L, Albumin 2.9 L, Globulin 2.8, Albumin/Globulin Ratio 1.0 L 02/11/22 16:34: POC Glucose 89 02/11/22 20:50: POC Glucose 118 H 02/12/22 05:03: POC Glucose 179 H 02/12/22 07:08: WBC 10.6 D, RBC 3.36 L, Hgb 10.0 L, Hct 29.9 L, MCV 88.9, MCH 29.9, MCHC 33.6, RDW 14.3, Plt Count 477 H, MPV 8.6, Neut % (Auto) 83.8 H, Lymph % (Auto) 7.7 L, [place] % (Auto) 5.1, Eos % (Auto) 3.1, Baso % (Auto) 0.2, Neut # (Auto) 8.9 H, Lymph # (Auto) 0.8, [place] # (Auto) 0.6, Eos # (Auto) 0.3, Baso # (Auto) 0.0 02/12/22 07:08: Sodium 136, Potassium 3.2 L, Chloride 108 H, Carbon Dioxide 21 L, Anion Gap 10.2, BUN 12, Creatinine 0.70 D, Estimated Creat Clear 62, Estimated GFR 112, Est GFR ( Amer) 135 D, Glucose 126 H, Calcium 7.5 L, Phosphorus 3.0, Total Bilirubin 0.5, AST 27, ALT 18, Alkaline Phosphatase 91, Total Protein 5.3 L, Albumin 2.7 L, Globulin 2.6, Albumin/Globulin Ratio 1.0 L I & O for Labs for Last 24 Hours: Intake & Output 02/09/22 02/10/22 02/11/22 02/12/22 23:59 23:59 23:59 23:59 Intake Total 7226 / 4336 2815 / 2815 2048 /
[2022-02-12 08:37] LABS: Cholesterol 97 mg/dl (140-200); Triglycerides 126 mg/dl (30-150)
--- NOTE | 2022-02-12 09:12 | EXP.SURG.PN ---
Subjective Narrative: Patient has moved his bowels several times after having suppository yesterday. However, he still does have some occasional bowel significant abdominal pain. He is trying to hold off on his morphine DIRECTORY CLERK. Exam Data for Last 24 hours Vital signs and Labs for Last 24 Hours: Temp Pulse Resp BP Pulse Ox 98.5 F 74 18 132/69 96 02/12/22 07:17 02/12/22 07:17 02/12/22 07:17 02/12/22 07:17 02/12/22 07:17 Laboratory Results - last 24 hr 02/11/22 07:00: Total Counted 100, Neutrophils % (Manual) 86 H, Lymphocytes % (Manual) 11, Monocytes % (Manual) 1 L, Eosinophils % (Manual) 2, Platelet Estimate Normal, RBC Morphology Normal 02/11/22 16:34: POC Glucose 89 02/11/22 20:50: POC Glucose 118 H 02/12/22 05:03: POC Glucose 179 H 02/12/22 07:08: WBC 10.6 D, RBC 3.36 L, Hgb 10.0 L, Hct 29.9 L, MCV 88.9, MCH 29.9, MCHC 33.6, RDW 14.3, Plt Count 477 H, MPV 8.6, Neut % (Auto) 83.8 H, Lymph % (Auto) 7.7 L, [place] % (Auto) 5.1, Eos % (Auto) 3.1, Baso % (Auto) 0.2, Neut # (Auto) 8.9 H, Lymph # (Auto) 0.8, [place] # (Auto) 0.6, Eos # (Auto) 0.3, Baso # (Auto) 0.0 02/12/22 07:08: Sodium 136, Potassium 3.2 L, Chloride 108 H, Carbon Dioxide 21 L, Anion Gap 10.2, BUN 12, Creatinine 0.70 D, Estimated Creat Clear 62, Estimated GFR 112, Est GFR ( Amer) 135 D, Glucose 126 H, Calcium 7.5 L, Phosphorus 3.0, Total Bilirubin 0.5, AST 27, ALT 18, Alkaline Phosphatase 91, Total Protein 5.3 L, Albumin 2.7 L, Globulin 2.6, Albumin/Globulin Ratio 1.0 L 02/12/22 07:08: Triglycerides 126, Cholesterol 97 L I & O for Last 24 hours: Intake & Output 02/09/22 02/10/22 02/11/22 02/12/22 11:59 11:59 11:59 11:59 Intake Total 1390 / 1390 3336 / 3336 1999 3864 / 3864 Output Total 1655 / 1655 525 / 525 775 / 775 1050 / 1050 Balance -265 / -265 2811 / 2811 1225 / 1225 2814 / 2814 Weight 116 lb 6.042 oz 137 lb 1.6 oz 139 lb 1.787 oz 139 lb 1.787 oz *Routine Abdominal Exam Abdominal: Present distended Progress Note: A&P Assessment and plan (1) Severe protein-calorie malnutrition: Status: Acute (2) SBO (small bowel obstruction): Status: Acute (3) Tobacco abuse: Status: Acute (4) Adenocarcinoma: Status: Acute Assessment and Plan Assessment and Plan for All Diagnoses:: I will stop his morphine DIRECTORY CLERK and start him on oral pain medication with morphine supplemental if needed. He does seem to have a significant prolonged ileus. A blood cell count has normalized. Abdominal x-ray yesterday revealed nonspecific bowel gas pattern favored ileus. Similar pattern today is read as worrisome for bowel obstruction . Given findings of prolonged ileus I will plan to limit him to sips of clears with supplemental TPN until he has good return of bowel function.
--- NOTE | 2022-02-12 11:10 | CT_ITS ---
PROCEDURE INFORMATION: Exam: CT Abdomen And Pelvis Without Contrast Exam date and time: 02/12/2022 11:35 AM Age: 71 years old Clinical indication: Abdominal tenderness; Prior surgery; Surgery date: 3-7 days post-operative; Surgery type: Bowel blockage cleared; Additional info: Severe abdominal pain S/P ileocolic anastam + sbo TECHNIQUE: Imaging protocol: Computed tomography of the abdomen and pelvis without contrast. Radiation optimization: All CT scans at this facility use at least one of these dose optimization techniques: automated exposure control; mA and/or kV adjustment per patient size (includes targeted exams where dose is matched to clinical indication); or iterative reconstruction. COMPARISON: CT ABDOMEN PELVIS W CON 02/06/2022 7:26 PM FINDINGS: Detailed evaluation of the abdominal and pelvic viscera is somewhat limited in the absence of intravenous contrast. Inferior thorax: Emphysematous change, interstitial prominence, chronic granulomatous disease, prominent bibasilar airspace disease, and small bilateral pleural effusions. Coronary artery calcification. Small hiatal hernia. Liver: Decreased conspicuity of previously demonstrated subcentimeter nodular hypodensities in the liver, in the absence intravenous contrast on the current study. Calcified left lobe granuloma. Gallbladder and bile ducts: Dilated gallbladder with high attenuation bile and cholelithiasis. Pancreas: Mild pancreatic ductal dilatation. Spleen: Splenic granulomata. Adrenal glands: Stable adrenal nodularity. Kidneys and ureters: Duplicated left collecting system with mild dilatation of the lower pole moiety. Stomach and bowel: Prominent small bowel dilatation in the setting of right colectomy and ileocolic anastomosis. Correlation with small bowel follow-through would be recommended to evaluate for underlying small bowel obstruction, as clinically indicated. Appendix: Status post appendectomy. Intraperitoneal space: Postoperative pneumoperitoneum and fluid, including high attenuation fluid in the right lower quadrant and pelvis, consistent with hemoperitoneum. Vasculature: Vascular calcification. No abdominal aortic aneurysm. Lymph nodes: Subcentimeter lymph nodes. Urinary bladder: Unremarkable bladder. Reproductive: Punctate prostate calcification. Bones/joints: Osteopenia, Schmorl's nodes, diminished lumbar lordosis, and mild degenerative change. Soft tissues: Fluid-filled right inguinal hernia. Prominent subcutaneous edema, along with subcutaneous emphysema in the medial right thigh. Skin sai in the anterior abdominal wall midline. IMPRESSION: 1. Postoperative pneumoperitoneum and fluid, including high attenuation fluid in the right lower quadrant and pelvis, consistent with hemoperitoneum. 2. Prominent small bowel dilatation in the setting of right colectomy and ileocolic anastomosis. Correlation with small bowel follow-through would be recommended to evaluate for underlying small bowel obstruction, as clinically indicated. 3. Additional findings as described above. The aforementioned findings initiated a critical results communication pathway. An addendum will be issued at the time of clincian notification.
[2022-02-12 11:56] LABS: POC Glucose,Bedside 123 (70-110)
[2022-02-12 12:36] LABS: Hematocrit 29.9 % (42.0-52.0); Hemoglobin 9.7 g/dL (14.1-18.0)
--- NOTE | 2022-02-12 13:14 | P.PN_ITS ---
Subjective Narrative: Patient has had some acute significant abdominal pain this morning after evaluation. He still has moved his bowels. He had some increasing distention on examination and assessment by nursing staff and hospitalist service. Patient therefore underwent CT scan. This revealed findings with impression of postoperative pneumoperitoneum and fluid, including high attenuation fluid in the right lower quadrant and pelvis, consistent with hemoperitoneum. Prominent small bowel dilatation in the setting of right colectomy and ileocolic anastomosis. Correlation with small bowel follow-through would be recommended to evaluate for underlying small bowel obstruction as clinically indicated. Exam Data for Last 24 hours Vital signs and Labs for Last 24 Hours: Temp Pulse Resp BP Pulse Ox 98.5 F 74 18 132/69 96 02/12/22 07:17 02/12/22 07:17 02/12/22 07:17 02/12/22 07:17 02/12/22 07:17 Laboratory Results - last 24 hr 02/11/22 16:34: POC Glucose 89 02/11/22 20:50: POC Glucose 118 H 02/12/22 05:03: POC Glucose 179 H 02/12/22 07:08: WBC 10.6 D, RBC 3.36 L, Hgb 10.0 L, Hct 29.9 L, MCV 88.9, MCH 29.9, MCHC 33.6, RDW 14.3, Plt Count 477 H, MPV 8.6, Neut % (Auto) 83.8 H, Lymph % (Auto) 7.7 L, [place] % (Auto) 5.1, Eos % (Auto) 3.1, Baso % (Auto) 0.2, Neut # (Auto) 8.9 H, Lymph # (Auto) 0.8, [place] # (Auto) 0.6, Eos # (Auto) 0.3, Baso # (Auto) 0.0 02/12/22 07:08: Sodium 136, Potassium 3.2 L, Chloride 108 H, Carbon Dioxide 21 L , Anion Gap 10.2, BUN 12, Creatinine 0.70 D, Estimated Creat Clear 62, Estimated GFR 112, Est GFR ( Amer) 135 D, Glucose 126 H, Calcium 7.5 L, Phosphorus 3.0, Total Bilirubin 0.5, AST 27, ALT 18, Alkaline Phosphatase 91, Total Protein 5.3 L, Albumin 2.7 L, Globulin 2.6, Albumin/Globulin Ratio 1.0 L 02/12/22 07:08: Triglycerides 126, Cholesterol 97 L 02/12/22 11:46: POC Glucose 123 H 02/12/22 12:28: Hgb 9.7 L, Hct 29.9 L I & O for Last 24 hours: Intake & Output 02/10/22 02/11/22 02/12/22 02/13/22 11:59 11:59 11:59 11:59 Intake Total 3336 / 3336 1999 / 1999 3864 / 3864 0 / 0 Output Total 525 / 525 775 / 775 1050 / 1050 Balance 2811 / 2811 1225 / 1225 2814 / 2814 0 / 0 Weight 137 lb 1.6 oz 139 lb 1.787 oz 139 lb 1.787 oz *Routine Abdominal Exam Comments: Patient is abdomen is distended. He has significant abdominal tenderness. Progress Note: A&P Assessment and plan (1) Severe protein-calorie malnutrition: Status: Acute (2) SBO (small bowel obstruction): Status: Acute (3) Tobacco abuse: Status: Acute (4) Adenocarcinoma: Status: Acute Assessment and Plan Assessment and Plan for All Diagnoses:: Given patient's lack of improvement with some evidence of clinical setback and in light of the radiology report of pneumoperitoneum and findings of possible hemoperitoneum I feel that reexploration would be warranted. This could be merely prolonged ileus, could be postoperative bleeding with hemoperitoneum or he could have anastomotic leak. I explained all this to the patient and his . Plan will be for reopening of recent laparotomy and washout with possible ileostomy if indicated.
--- NOTE | 2022-02-12 14:16 | PC.NURSE ---
THIS MORNING ON ASSESSMENT PT'S ABDOMEN ON ASSESSMENT WAS DISTENDED WITH ACTIVE BOWEL SOUNDS HOWEVER HYPOACTIVE (RUQ). PT GOT OOB TO HAVE A MODERATE SOFT BOWEL MOVEMENT. RADIOPHARMACIST PUMP WAS DC'D. AFTER RADIOPHARMACIST PUMP WAS DC'D PT GOT A DOSE OF NORCO AND WAITED 1 HOUR AFTER PAIN MEDICATION WAS ADMINISTERED AND STATED HE WAS GOING TO HAVE TO HAVE A DOSE OF MORPHINE B/C THE PAIN PILL WASN'T HELPING. MORPHINE 1 MG WAS GIVEN AND ABDOMEN WAS REASSESSED. PT'S ABDOMEN WAS OBVIOUSLY MORE DISTENDED WITH TENDERNESS NOTED (LOWER QUADS). NOTIFIED WHO ALSO ASSESSED PT AND ORDERED CT OF THE ABDOMEN. AFTER CT RESULTS WERE CALLED. NOTIFIED. PT HAD TO GO BACK TO THE OR.
--- NOTE | 2022-02-12 16:30 | SUR.OPER ---
[id number]-pt's family updated at this time
--- NOTE | 2022-02-12 16:53 | EXP.OP.NOTE ---
Date of procedure: 02/12/22 Pre-op Diagnosis:: Hemoperitoneum, peritonitis Post-op Diagnosis:: Same Procedure performed:: Reopening recent laparotomy, resection ileocolic anastomosis with repeat ileocolic anastomosis, abdominal washout Surgeon:: Avel Franz MD ASSISTANT PROFESSOR SURGICAL TECHNOLOGY:: Marco Antonio Rubin Anesthesia: STEPHEN Estimated blood loss (mL): 100 Clinical Note:: Patient is a 71-year-old male who had presented to the emergency department in the late evening of 02/06/2022 with approximately 6-week history of progressive abdominal pain and distention. 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 Surgical consultation was obtained. 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 He underwent right hemicolectomy. There is also a liver biopsy performed. 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 There was extensive lymphovascular invasion and tumor deposits present. Liver wedge biopsy revealed metastatic adenocarcinoma compatible with colon primary. Patient was admitted for inpatient management and convalescence. He ultimately had his nasogastric tube removed on postoperative day #3 as there was minimal output. Subsequently the patient did develop some abdominal distention and pain. However this had improved as he had some bowel movements but then recurred in the late morning of postoperative day #5 on 02/12/2022. Hospitalist service had ordered a CT scan. This revealed findings with impression of postoperative pneumoperitoneum and fluid, including high attenuation fluid in the right lower quadrant and pelvis, consistent with hemoperitoneum.? Prominent small bowel dilatation in the setting of right colectomy and ileocolic anastomosis.? Correlation with small bowel follow-through would be recommended to evaluate for underlying small bowel obstruction as clinically indicated. Given patient's lack of improvement with some evidence of clinical setback and in light of the radiology report of pneumoperitoneum and findings of possible hemoperitoneum I feel that reexploration would be warranted.? This could be merely prolonged ileus, could be postoperative bleeding with hemoperitoneum or he could have anastomotic leak.? I explained all this to the patient and his .? Plan will be for reopening of recent laparotomy and washout with possible ileostomy if indicated. Operative findings:: Patient had some focal mild to moderate bleeding around the anastomosis with interloop hematoma. However, due to the distention of the bowel there was compromise of the anastomosis and minimal manipulation resulted in some enteric spillage. However there is no leakage prior to surgery. Operative note:: Patient was taken to the operating room. He was given preoperative intravenous antibiotics. In the operating room he was placed in a supine position. General anesthesia was induced via endotracheal tube. Dozier catheter was placed. Abdomen was prepped and draped in a standard surgical fashion. Previously placed sai were removed. Fascial suture was incised. There was some thin serosanguineous fluid within the abdomen which was suctioned free. Exposure was achieved and exploration was carried out. There was noted to be fluid in the right paracolic gutter and pelvis and along the liver. There was noted to be some hematoma adjacent to the ileocolic anastomosis creating interloop hematoma with focal ileus. Inspection and manipulation of the anastomosis resulted in some disruption of the staple line with contained spillage of enteric contents (minimal). It appeared as though the bleeding at the anastomosis had compromise the integrity of the anastomosis itself. The hematoma was evacuated. I just proximal to the anastomosis the small bowel divided with a LISSET l
--- NOTE | 2022-02-12 16:53 | EXP.ANES.I ---
[facility] Anesthesia Record Part I Anesthesia Record I Intake, IV Amount: 1,600 Estimated blood loss (mL): 50 Urine output (mL): 150 Blood Pressure: 133/78 SaO2: 92 Pulse Rate: 107 Respiratory Rate: 16 Temperature: 97.3 F Patient is:: Drowsy, Mask O2 and Stable Stable to PACU at:: 16:50
--- NOTE | 2022-02-12 17:30 | SUR.PHASEI ---
late entry: face to face bedside report given to Viet Bettencourt RN at [phone]
[2022-02-12 19:12] LABS: Microscopic,Cath URINE MICROSCOPIC (MICROSCOPIC)
[2022-02-12 20:17] LABS: Appearance,Urine/Cath CLEAR (Clear); Bilirubin,Cath Negative (Negative); Blood, Urine/Cath TRACE-I (Negative); Color,Urine/Cath YELLOW (Yellow); Glucose,Urine/Cath (UA) Negative (Negative); Ketones,Urine/Cath TRACE (Negative); Leukocyte Esterase,Cath Negative (Negative); Nitrate,Cath Negative (Negative); PH,Urine/Cath 5.5 (5.0-8.5); Protein,Urine/Cath Negative (Negative); Urobilinogen,Cath 0.2 EU/dl (0.2)
[2022-02-12 21:02] LABS: Bacteria,Urine/Cath TRACE /lpf; Uric Acid Crystals,Ur/Cath 2+ /lpf
[2022-02-12 22:03] LABS: POC Glucose,Bedside 156 (70-110)
[2022-02-13] VITALS (15 sets, daily range): BP systolic 96–152; BP diastolic 49–77; PULSE 80–96; RESP 15–20; TEMP 36.6–36.9; O2SAT 90–98; BMI 20.5
[2022-02-13 05:16] LABS: POC Glucose,Bedside 177 (70-110)
--- NOTE | 2022-02-13 06:00 | XR_ITS ---
FINAL REPORT CLINICAL HISTORY: s/p lapatrotmy-- COMPARISON: One day prior FINDINGS: There is a nonspecific bowel gas pattern. There are several air-filled bowel loops. Postoperative changes are seen in the abdomen and pelvis. IMPRESSION: Several air-filled bowel loops in a nonspecific pattern. Reviewed, Interpreted and Dictated by Avel Kaplan III, MD Transcribed by Barrera Bill Authenticated and [facility]
--- NOTE | 2022-02-13 06:15 | EXP.SURG.PN ---
Subjective Narrative: Patient without significant issues overnight. He has had some pain which seems to be better controlled with Dilaudid as opposed to morphine. Minimal confusion after anesthesia. Moderate NG output. Exam Data for Last 24 hours Vital signs and Labs for Last 24 Hours: Temp Pulse Resp BP Pulse Ox 98.0 F 91 H 15 96/65 L 96 02/13/22 00:05 02/13/22 02:00 02/13/22 02:00 02/13/22 02:00 02/13/22 02:00 Laboratory Results - last 24 hr 02/12/22 07:08: WBC 10.6 D, RBC 3.36 L, Hgb 10.0 L, Hct 29.9 L, MCV 88.9, MCH 29.9, MCHC 33.6, RDW 14.3, Plt Count 477 H, MPV 8.6, Neut % (Auto) 83.8 H, Lymph % (Auto) 7.7 L, [place] % (Auto) 5.1, Eos % (Auto) 3.1, Baso % (Auto) 0.2, Neut # (Auto) 8.9 H, Lymph # (Auto) 0.8, [place] # (Auto) 0.6, Eos # (Auto) 0.3, Baso # (Auto) 0.0 02/12/22 07:08: Sodium 136, Potassium 3.2 L, Chloride 108 H, Carbon Dioxide 21 L, Anion Gap 10.2, BUN 12, Creatinine 0.70 D, Estimated Creat Clear 62, Estimated GFR 112, Est GFR ( Amer) 135 D, Glucose 126 H, Calcium 7.5 L, Phosphorus 3.0, Total Bilirubin 0.5, AST 27, ALT 18, Alkaline Phosphatase 91, Total Protein 5.3 L, Albumin 2.7 L, Globulin 2.6, Albumin/Globulin Ratio 1.0 L 02/12/22 07:08: Triglycerides 126, Cholesterol 97 L 02/12/22 11:46: POC Glucose 123 H 02/12/22 12:28: Hgb 9.7 L, Hct 29.9 L 02/12/22 14:20: Urine Color Yellow, Urine Appearance Clear, Urine pH 5.5, Ur Specific [place] 1.020, Urine Protein Negative, Urine Glucose (UA) Negative, Urine Ketones Trace, Urine Blood Trace-i, Urine Nitrate Negative, Urine Bilirubin Negative, Urine Urobilinogen 0.2, Ur Leukocyte Esterase Negative, Urine RBC 3-5, Uric Acid Crystals 2+, Urine Bacteria Trace 02/12/22 20:23: POC Glucose 156 H 02/13/22 05:05: POC Glucose 177 H I & O for Last 24 hours: Intake & Output 02/10/22 02/11/22 02/12/22 02/13/22 11:59 11:59 11:59 11:59 Intake Total 3336 / 3336 1999 / 1999 3864 / 3864 4085 / 4085 Output Total 525 / 525 775 / 775 1050 / 1050 350 / 350 Balance 2811 / 2811 1225 / 1225 2814 / 2814 3735 / 3735 Weight 137 lb 1.6 oz 139 lb 1.787 oz 139 lb 1.787 oz 135 lb 3.2 oz *Routine Abdominal Exam Abdominal: Present distended Comments: Dressing intact. Progress Note: A&P Assessment and plan (1) Severe protein-calorie malnutrition: Status: Acute (2) SBO (small bowel obstruction): Status: Acute (3) Tobacco abuse: Status: Acute (4) Adenocarcinoma: Status: Acute Assessment and Plan Assessment and Plan for All Diagnoses:: Morena Dozier. If his mild confusion/disorientation improves possible move out of stepdown.
[2022-02-13 06:51] LABS: Alanine Aminotransferase 20 U/L (12-78); Albumin Level 2.5 g/dl (3.5-5.0); Alkaline Phosphatase 71 U/L (38-126); Anion Gap 11.1 mEq/L (5-15); Aspartate Amino Transferase 31 U/L (17-59); Bilirubin,Total 0.4 mg/dl (0.2-1.3); Blood Urea Nitrogen 24 mg/dl (9-20); Calcium 7.3 mg/dl (8.4-10.2); Carbon Dioxide 21 mmol/L (22.0-30.0); Chloride 109 mmol/L (98-107); Cholesterol 64 mg/dl (140-200); Creatinine Clearance Estimated 50 mL/min (50-200); Estimated Glomerular Filt Rate 60 ml/min (>60); GFR (African American) 73 ML/MIN (>60); Globulin 2.4 g/dL (1.3-3.2); Glucose 170 mg/dl (74-100); Phosphorous 4.5 mg/dl (2.5-4.5); Potassium 4.1 mmoL/L (3.5-5.1); Sodium 137 mmol/L (136-145); Total Protein,Serum 4.9 g/dl (6.3-8.2); Triglycerides 116 mg/dl (30-150)
--- NOTE | 2022-02-13 06:53 | PC.NURSE ---
Pt has c/o discomfort to abdomen t/o night. Medicated per apr. Has had some periods of confusion. has remained at bedside. Safety measures in place and mittens on hands. NG to (L) nare to low wall suction. 300 ml total output this shift. Midline incision with DSG. C/D/I. SCDs in place. Call light within reach.
[2022-02-13 06:54] LABS: Basophils # 0.1 K/mm3 (0-0.2); Basophils % 0.3 % (0.1-2.0); Eosinophils % 0.2 % (0.1-12.0); Hematocrit 39.8 % (42.0-52.0); Lymphocytes # 0.6 K/mm3 (0.7-4.5); Mean Corpuscular HGB Conc 31.1 g/dL (31.8-35.4); Mean Corpuscular Hemoglobin 29.3 pg (27.0-31.2); Mean Corpuscular Volume 94.4 fl (80-94); Mean Platelet Volume 10.1 fl (7.4-10.4); Monocytes # 0.9 K/mm3 (0.1-1.0); Monocytes % 5.5 % (1.7-9.3); Neutrophils % 89.9 % (37.0-80.0); Platelet Count 585 K/mm3 (142-424); Red Blood Count 4.21 M/mm3 (4.60-6.20); White Blood Count 15.6 K/mm3 (4.8-10.8)
[2022-02-13 07:03] LABS: Hemoglobin 12.4 g/dL (14.1-18.0); MANUAL DIFFERENTIAL MANUAL DIFFERENTIAL (MANUAL DIFF)
[2022-02-13 07:22] LABS: Eosinophils % 1 % (0-3); Lymphocytes % 5 % (10-50); Monocytes % 7 % (2-9); Neutrophils % 87 % (42-76); Platelet Estimate Slight Increase; Total Cells Counted 100
[2022-02-13 07:23] LABS: RBC Morphology Normal
[2022-02-13 08:50] LABS: Ammonia < 9 umol/L (9-30)
[2022-02-13 08:54] LABS: Magnesium 1.9 mg/dl (1.6-2.3)
[2022-02-13 12:52] LABS: POC Glucose,Bedside 146 (70-110)
--- NOTE | 2022-02-13 14:21 | DIET.NUTRFU ---
TPN continued and is providing 1026kcal and 76.5gm protein, lipids will be added once lipid labs completed or Q3days. Lipids added today providing 500kcal for total of 1526kcal and 76.5gm protein. He also continues on IV bolus for additional hydration. Labs reviewed. MVI added today for additional support. Patient had NG tube placed yesterday to drain and today it came out and unable to get placed correctly, looking to sedate him. Still no BM and bowel sounds diminished. Continues on zofran and protonix.
--- NOTE | 2022-02-13 14:30 | PC.NURSE ---
numerous attempts made by Carina and Lin to reinsert NG tube, unsuccessful and pt could not tolerate the procedure anymore, Dr. Franz notified and gave new orders
--- NOTE | 2022-02-13 15:00 | PC.NURSE ---
anesthesia at bedside per Dr. Franz's orders for sedation for NG tube placement, NG placement confirmed with auscultation and gastric contents, 65 cm in left nare, see anesthesia records for medication given, chest x-ray obtained
--- NOTE | 2022-02-13 15:03 | XR_ITS ---
FINAL REPORT TECHNIQUE: Single view chest CLINICAL HISTORY: NG tube placement evaluation. COMPARISON: 02/13/2022 FINDINGS: A single view of the chest was obtained. There has been interval placement of an NG tube with tip in the fundus of the stomach. The heart and mediastinum are within normal limits. There is worsening bibasilar atelectasis or pneumonia. There is improved pneumoperitoneum. Osseous structures are unremarkable. IMPRESSION: Interval placement of NG tube with tip in the fundus of the stomach. Improved pneumoperitoneum with worsening bibasilar atelectasis or pneumonia. Reviewed, Interpreted and Dictated by Avel Kaplan III, MD Transcribed by Olga Fair Authenticated and [facility]
[2022-02-13 16:33] LABS: POC Glucose,Bedside 128 (70-110)
--- NOTE | 2022-02-13 17:52 | EXP.ACUTE.PN ---
Subjective *Date: 02/13/22 *Time: 17:52 Interval history: More comfortable this morning. Still having some pain in abdomen. No bowel movements Medical Exam Vital signs and Labs for Last 24 Hours: Vital Signs Temp Pulse Pulse Resp BP BP Pulse Ox 02/13/22 16:00 80 02/13/22 12:00 90 02/13/22 08:00 80 02/13/22 12:00 89 17 121/64 90 L 02/13/22 08:00 96 02/13/22 10:00 92 H 18 152/77 H 93 L 02/13/22 15:43 98.4 F 86 17 132/63 92 L 02/13/22 08:00 85 18 123/60 96 02/12/22 20:00 110 H 02/13/22 04:00 90 02/13/22 00:30 94 H 20 104/62 L 98 02/12/22 23:30 98 H 16 95/61 L 95 02/12/22 22:30 103 H 19 116/63 97 02/12/22 21:30 98.2 F 106 H 19 102/56 L 97 02/12/22 20:30 114 H 20 111/58 L 97 02/12/22 19:30 116 H 19 105/78 L 94 L 02/12/22 19:00 118 H 19 121/61 97 02/13/22 08:00 97.9 F 02/13/22 06:00 85 18 114/65 93 L 02/13/22 04:00 93 H 16 127/73 94 L 02/13/22 04:05 98 F 02/13/22 02:00 91 H 15 96/65 L 96 02/13/22 00:00 96 H 16 99/62 L 96 02/12/22 22:00 106 H 16 95/55 L 94 L 02/13/22 00:00 90 02/12/22 20:00 99.0 F 112 H 18 107/65 L 97 02/13/22 00:05 98.0 F 02/12/22 18:30 97.9 F 97 H 20 100/54 L 96 02/12/22 18:15 97.7 F 97 H 20 125/64 97 02/12/22 18:00 97.8 F 96 H 20 132/73 98 Intake and Output 02/13/22 02/13/22 02/13/22 07:59 15:59 23:59 Intake Total 1915 Output Total 650 / 1200 550 / 1200 0 / 1200 Balance 1266 / 716 -550 / 716 0 716 Intake: Intake, Oral Amount 0 / 0 Intake, Total IV Amount 1915 0.9 % Sodium Chloride 1,000 ml 1086 / 1086 @ 100 mls/hr IV .Q10H [facility] Rx#: [id number] Piperacillin/Tazo 3.375 gm In 0 50 / 50 .9 % Sodium Chloride 50 ml @ 100 mls/hr IV Q8H [facility] Rx#: [id number] Zinc/Copper/Leonor/Chromic Chl 780 / 780 1 ml Mvi, Adult No.1 with Vit K 10 ml Cyanocobalamin (Vitamin B-12) 1,000 mcg Phytonadione 10 mg In Aa 4.25%/Calcium/Lytes/ Dex 10% 1,000 ml @ 75 mls/hr IV .[id number] [facility] Rx#:[id number] Output: Output, Urine Amount 0 / 0 0 / 0 Output, Urine Amount (Catheter) 350 / 900 550 / 900 Dozier 350 / 900 550 / 900 Output, Gastric Drainage Amount 300 / 300 Left Nare 300 / 300 Other: Number of Unmeasured Voids 0 0 0 Weight 61.326 kg Patient Weight 02/13/22 23:59 Weight 61.326 kg Laboratory Results - last 24 hr 02/12/22 14:20: Urine Color Yellow, Urine Appearance Clear, Urine pH 5.5, Ur Specific [place] 1.020, Urine Protein Negative, Urine Glucose (UA) Negative, Urine Ketones Trace, Urine Blood Trace-i, Urine Nitrate Negative, Urine Bilirubin Negative, Urine Urobilinogen 0.2, Ur Leukocyte Esterase Negative, Urine RBC 3-5, Uric Acid Crystals 2+, Urine Bacteria Trace 02/12/22 20:23: POC Glucose 156 H 02/13/22 05:05: POC Glucose 177 H 02/13/22 05:46: WBC 15.6 H D, RBC 4.21 L D, Hgb 12.4 L D, Hct 39.8 L, MCV 94.4 H, MCH 29.3, MCHC 31.1 L, RDW 14.0, Plt Count 585 H, MPV 10.1, Neut % (Auto) 89.9 H, Lymph % (Auto) 4.0 L, [place] % (Auto) 5.5, Eos % (Auto) 0.2, Baso % (Auto) 0.3, Neut # (Auto) 14.0 H, Lymph # (Auto) 0.6 L, [place] # (Auto) 0.9, Eos # (Auto) 0.0, Baso # (Auto) 0.1, Total Counted 100, Neutrophils % (Manual) 87 H, Lymphocytes % (Manual) 5 L, Monocytes % (Manual) 7, Eosinophils % (Manual) 1, Platelet Estimate Slight increase, RBC Morphology Normal 02/13/22 05:46: Sodium 137, Potassium 4.1 D, Chloride 109 H, Carbon Dioxide 21 L, Anion Gap 11.1, BUN 24 H D, Creatinine 1.20 D, Estimated Creat Clear 50, Estimated GFR 60, Est GFR ( Amer) 73 D, Glucose 170 H D, Calcium 7.3 L, Phosphorus 4.5 D, Total Bilirubin 0.4, AST 31, ALT 20, Alkaline Phosphatase 71, Total Protein 4.9 L, Albumin 2.5 L, Globulin 2.4, Albumin/Globulin Ratio 1.0 L, Trigl
[2022-02-13 21:01] LABS: POC Glucose,Bedside 107 (70-110)
[2022-02-14] VITALS (9 sets, daily range): BP systolic 114–157; BP diastolic 50–60; PULSE 70–100; RESP 17–20; TEMP 36.4–36.8; O2SAT 3–92
--- NOTE | 2022-02-14 04:56 | PC.NURSE ---
Pt has been confused at times. Pain controlled with IV medication. Pain rating no greater than 4 this shift. NG in place and to low wall suction with green/brown drainage. DSG to abdomen is C/D/I. VSS. Pt remains on 3L O2 NC. Pt turned and repositioned. Oral care provided. Pt given bed bath by . Linens changed. Mittens in place for pt safety. Call light within reach. at bedside.
[2022-02-14 05:43] LABS: POC Glucose,Bedside 120 (70-110)
--- NOTE | 2022-02-14 06:00 | XR_ITS ---
PROCEDURE INFORMATION: Exam: XR Abdomen Exam date and time: 02/14/2022 5:40 AM Age: 71 years old Clinical indication: Screening exam; Post surgical status; Laparotomy; Prior surgery; Additional info: S/P lapatrotmy TECHNIQUE: Imaging protocol: Radiologic exam of the abdomen. Views: Frontal supine view of the abdomen. 1 View. COMPARISON: CR XR KUB 02/13/2022 11:13 AM FINDINGS: Tubes, catheters and devices: A nasogastric tube lies with its tip in the gastric fundus. Lungs: There is nonspecific streaking in the left lung base, consistent with atelectasis or pneumonia. Gastrointestinal tract: Midline surgical sai are observed following surgery for small bowel obstruction demonstrated on CT of 02/12/2022. There is a gas-filled bowel loop in the epigastrium presumably representing the colon. Gas reaches the rectum and there is gas into mildly prominent small bowel loops adjacent to the sigmoid in the left lower quadrant. The general pattern suggests mild ileus. Bones/joints: Unremarkable. IMPRESSION: 1. A nasogastric tube lies with its tip in the gastric fundus. 2. There is nonspecific streaking in the left lung base, consistent with atelectasis or pneumonia. 3. Midline surgical sai are observed following surgery for small bowel obstruction demonstrated on CT of 02/12/2022. 4. There is a gas-filled bowel loop in the epigastrium presumably representing the colon. Gas reaches the rectum and there is gas into mildly prominent small bowel loops adjacent to the sigmoid in the left lower quadrant. The general pattern suggests mild ileus.
--- NOTE | 2022-02-14 07:30 | EXP.SURG.PN ---
Subjective Narrative: Patient has had some agitation. He does state that he is passing gas. He has had decent continued NG output. He is on TPN. Exam Data for Last 24 hours Vital signs and Labs for Last 24 Hours: Temp Pulse Resp BP Pulse Ox 98.2 F 89 18 132/50 L 90 L 02/14/22 04:00 02/14/22 04:00 02/14/22 04:00 02/14/22 04:00 02/13/22 23:48 Laboratory Results - last 24 hr 02/13/22 05:46: Magnesium 1.9 02/13/22 08:26: Ammonia < 9 L 02/13/22 12:36: POC Glucose 146 H 02/13/22 16:15: POC Glucose 128 H 02/13/22 20:43: POC Glucose 107 02/14/22 05:26: POC Glucose 120 H I & O for Last 24 hours: Intake & Output 02/11/22 02/12/22 02/13/22 02/14/22 11:59 11:59 11:59 11:59 Intake Total 1999 / 1999 3864 / 3864 6001 / 6001 4611 / 4611 Output Total 775 / 775 1050 / 1050 650 / 650 1550 / 1550 Balance 1225 / 1225 2814 / 2814 5351 / 5351 3061 / 3061 Weight 139 lb 1.787 oz 139 lb 1.787 oz 135 lb 3.2 oz *Routine Abdominal Exam Comments: Abdomen is distended. Dressing is intact. Progress Note: A&P Assessment and plan (1) Severe protein-calorie malnutrition: Status: Acute (2) SBO (small bowel obstruction): Status: Acute (3) Tobacco abuse: Status: Acute (4) Adenocarcinoma: Status: Acute Assessment and Plan Assessment and Plan for All Diagnoses:: Continue TPN and NG tube for now. DC Dozier. Out of bed.
[2022-02-14 07:54] LABS: Basophils # 0.1 K/mm3 (0-0.2); Basophils % 0.3 % (0.1-2.0); Eosinophils # 0.2 K/mm3 (0.0-0.4); Eosinophils % 0.8 % (0.1-12.0); Hematocrit 29.4 % (42.0-52.0); Hemoglobin 9.6 g/dL (14.1-18.0); Lymphocytes # 1.1 K/mm3 (0.7-4.5); Lymphocytes % 5.3 % (10-50); Mean Corpuscular HGB Conc 32.5 g/dL (31.8-35.4); Mean Corpuscular Hemoglobin 29.4 pg (27.0-31.2); Mean Corpuscular Volume 90.3 fl (80-94); Monocytes # 0.7 K/mm3 (0.1-1.0); Monocytes % 3.6 % (1.7-9.3); Neutrophils # 17.8 K/mm3 (1.8-7.8); Neutrophils % 89.9 % (37.0-80.0); Platelet Count 577 K/mm3 (142-424); Red Blood Count 3.25 M/mm3 (4.60-6.20); Red Cell Distribution Width 14.6 % (11.5-17.5); White Blood Count 19.8 K/mm3 (4.8-10.8)
[2022-02-14 07:55] LABS: MANUAL DIFFERENTIAL MANUAL DIFFERENTIAL (MANUAL DIFF)
[2022-02-14 08:17] LABS: Lymphocytes % 5 % (10-50); Monocytes % 4 % (2-9); Neutrophils % 91 % (42-76); Platelet Estimate Slight Increase; RBC Morphology Normal; Total Cells Counted 100
[2022-02-14 08:56] LABS: Alanine Aminotransferase 16 U/L (12-78); Albumin Level 2.2 g/dl (3.5-5.0); Albumin/Globulin Ratio 0.8 (1.1-1.8); Alkaline Phosphatase 70 U/L (38-126); Aspartate Amino Transferase 38 U/L (17-59); Bilirubin,Total 0.4 mg/dl (0.2-1.3); Blood Urea Nitrogen 24 mg/dl (9-20); Calcium 7.6 mg/dl (8.4-10.2); Carbon Dioxide 21 mmol/L (22.0-30.0); Chloride 113 mmol/L (98-107); Cholesterol 68 mg/dl (140-200); Creatinine Clearance Estimated 60 mL/min (50-200); Estimated Glomerular Filt Rate 96 ml/min (>60); GFR (African American) 116 ML/MIN (>60); Globulin 2.6 g/dL (1.3-3.2); Glucose 119 mg/dl (74-100); Phosphorous 3.1 mg/dl (2.5-4.5); Sodium 138 mmol/L (136-145); Total Protein,Serum 4.8 g/dl (6.3-8.2); Triglycerides 134 mg/dl (30-150)
[2022-02-14 09:29] LABS: Anion Gap 8.3 mEq/L (5-15); Potassium 4.3 mmoL/L (3.5-5.1)
[2022-02-14 12:30] LABS: POC Glucose,Bedside 108 (70-110)
--- NOTE | 2022-02-14 12:49 | XR_ITS ---
FINAL REPORT CLINICAL HISTORY: Confirm PICC line placement COMPARISON: February 13, 2022 FINDINGS: An NG tube extends below the diaphragm. A new right-sided PICC line terminates in the mid SVC. The heart size is normal. The mediastinum is within normal limits. There are worsening pulmonary opacities. There is no pleural effusion. There is no pneumothorax. The bony thorax is intact. IMPRESSION: Right-sided PICC line terminates in the mid SVC. Worsening pulmonary opacities could represent edema or pneumonia. Reviewed, Interpreted and Dictated by Avel Kaplan III, MD Transcribed by Barrera Bill Authenticated and [facility]
--- NOTE | 2022-02-14 13:07 | DIET.NUTRFU ---
Labs reviewed, lipids will be provided again today. During rounds patient reports having gas, still no BM. NG tube still in place for suction, 300ml out 02/13 and 300ml out so far today. Nursing was placing a picc line today, other IV came out. Urine out 1500ml 02/13. Will continue to monitor nutrition.
--- NOTE | 2022-02-14 13:24 | EXP.ACUTE.PN ---
Subjective *Date: 02/14/22 *Time: 18:48 Interval history: Pleasant on exam this morning. Still having some mild abdominal pain. States he is passing some gas. No nausea or vomiting. NG remains in place. Family at bedside, updated of plan. Vital stable. Remains afebrile. Complains of pain mainly when he coughs. Family concern for some mild intermittent confusion. Is oriented x4 on exam today. Medical Exam Vital signs and Labs for Last 24 Hours: Vital Signs Temp Pulse Pulse Resp BP Pulse Ox 02/14/22 11:12 97.6 F 89 18 157/51 H 92 L 02/14/22 08:00 91 H 90 L 02/14/22 07:41 98.1 F 90 17 122/56 L 90 L 02/14/22 00:00 90 02/14/22 04:00 100 H 02/14/22 04:00 98.2 F 89 18 132/50 L 02/13/22 19:00 92 L 02/13/22 20:00 90 02/13/22 23:48 98.4 F 95 H 20 129/49 L 90 L 02/13/22 20:00 97.9 F 90 20 139/64 92 L 02/13/22 16:00 80 02/13/22 15:43 98.4 F 86 17 132/63 92 L Intake and Output 02/13/22 02/14/22 02/14/22 23:59 07:59 15:59 Intake Total 2550 / 4466 2060 / 2060 Output Total 600 / 1800 400 / 700 300 / 700 Balance 1950 / 2666 1661 / 1361 -300 / 1361 Intake: Intake, Oral Amount 0 / 0 Intake, Other Amount 881 / 881 Intake, Total IV Amount 2550 / 4466 1180 / 1180 0.9 % Sodium Chloride 1,000 ml 1272 / 2358 1080 / 1080 @ 100 mls/hr IV .Q10H [facility] Rx#: [id number] Fat Emulsions 250 ml @ 60 mls/ 250 / 250 hr IV .Q4H10M [facility] Rx#:[id number] Piperacillin/Tazo 3.375 gm In 0 50 / 100 100 / 100 .9 % Sodium Chloride 50 ml @ 100 mls/hr IV Q8H [facility] Rx#: [id number] Zinc/Copper/Leonor/Chromic Chl 978 / 1758 1 ml Mvi, Adult No.1 with Vit K 10 ml Cyanocobalamin (Vitamin B-12) 1,000 mcg Phytonadione 10 mg In Aa 4.25%/Calcium/Lytes/ Dex 10% 1,000 ml @ 75 mls/hr IV .[id number] [facility] Rx#:[id number] Output: Output, Urine Amount 300 / 300 0 / 300 300 / 300 Output, Urine Amount (Catheter) 300 / 1200 100 / 100 Dozier 300 / 1200 100 / 100 Output, Gastric Drainage Amount 300 / 300 Left Nare 300 / 300 Other: Number of Unmeasured Voids 0 0 1 Laboratory Results - last 24 hr 02/13/22 16:15: POC Glucose 128 H 02/13/22 20:43: POC Glucose 107 02/14/22 05:26: POC Glucose 120 H 02/14/22 07:35: WBC 19.8 H D, RBC 3.25 L, Hgb 9.6 L, Hct 29.4 L, MCV 90.3, MCH 29.4, MCHC 32.5, RDW 14.6, Plt Count 577 H, MPV 10.0, Neut % (Auto) 89.9 H, Lymph % (Auto) 5.3 L, [place] % (Auto) 3.6, Eos % (Auto) 0.8, Baso % (Auto) 0.3, Neut # (Auto) 17.8 H, Lymph # (Auto) 1.1, [place] # (Auto) 0.7, Eos # (Auto) 0.2, Baso # (Auto) 0.1, Total Counted 100, Neutrophils % (Manual) 91 H, Lymphocytes % (Manual) 5 L, Monocytes % (Manual) 4, Platelet Estimate Slight increase, RBC Morphology Normal 02/14/22 07:35: Sodium 138, Potassium 4.3, Chloride 113 H, Carbon Dioxide 21 L, Anion Gap 8.3, BUN 24 H, Creatinine 0.80 D, Estimated Creat Clear 60, Estimated GFR 96, Est GFR ( Amer) 116 D, Glucose 119 H, Calcium 7.6 L, Phosphorus 3.1 D, Magnesium 2.0, Total Bilirubin 0.4, AST 38, ALT 16, Alkaline Phosphatase 70, Total Protein 4.8 L, Albumin 2.2 L D, Globulin 2.6, Albumin/Globulin Ratio 0.8 L, Triglycerides 134, Cholesterol 68 L 02/14/22 12:23: POC Glucose 108 I & O for Labs for Last 24 Hours: Intake & Output 02/11/22 02/12/22 02/13/22 02/14/22 23:59 23:59 23:59 23:59 Intake Total 2815 / 2815 6134 / 6134 4466 / 4466 206 / 2061 Output Total 1425 / 1425 400 / 400 1800 / 1800 700 / 700 Balance 1390 / 1390 5734 / 5734 2666 / 2666 1361 / 1361 Weight 63.1 kg 63.1 kg 61.326 kg Constitutional: Present no acute distress, thin and chronically ill appearing Head: Present atraumatic and normocephalic ENT: Present mucous membranes moist Comment:: NG in left nare Neck: Present normal inspection and full ROM Respiratory: Present CTA bilaterally; Absent accessory muscle use Cardiac: Present Reg Rate a
[2022-02-14 17:53] LABS: POC Glucose,Bedside 136 (70-110)
--- NOTE | 2022-02-14 18:24 | PC.NURSE ---
pt has ambulated to the with his family and staff a few times this shift. he did not use the urinal while in the bathroom, rather voided in the toilet. pt is alert and oriented times 4. lungs are clear, bowel sounds are active in all quads. nad. family has been at bedside all shift. ng tube is patent and draining green liquid. pt vss have remained stable this shift. pt went most of the morning not needing pain meds, following insertion of picc, pt began having severe abdominal pain. pt received 2 doses of dilaudid and 1 dose of lortab before pain subsided.
[2022-02-14 22:39] LABS: POC Glucose,Bedside 118 (70-110)
[2022-02-15] VITALS: BP 126/64; PULSE 85; PULSE 86; RESP 22; O2SAT 90
--- NOTE | 2022-02-15 02:29 | PC.NURSE ---
Pt is A/O X4, has been awake most of the night, hsa had PRN pain medications throughout the shift. Has NG tube on continuous suction. Picc line is patent. pt abdomen has some tightness, pt reports he is tired of feeling so bad all the time. Pt educated on medications and Plan of care, spouse is at bedside, encouraged spouse to report any needs to staff. Dressing on abdomen clean dry intact. Bed locked in low position, side rails up x 2, call light in reach.
[2022-02-15 04:00] VITALS: BP 110/58; PULSE 70; PULSE 85; RESP 18; TEMP 36.9; O2SAT 96; BMI 20.6
[2022-02-15 05:47] LABS: Basophils # 0.1 K/mm3 (0-0.2); Basophils % 0.4 % (0.1-2.0); Eosinophils # 0.3 K/mm3 (0.0-0.4); Eosinophils % 1.1 % (0.1-12.0); Hematocrit 25.7 % (42.0-52.0); Lymphocytes # 0.8 K/mm3 (0.7-4.5); Lymphocytes % 3.7 % (10-50); Mean Corpuscular HGB Conc 32.6 g/dL (31.8-35.4); Mean Corpuscular Hemoglobin 29.5 pg (27.0-31.2); Mean Corpuscular Volume 90.5 fl (80-94); Mean Platelet Volume 8.5 fl (7.4-10.4); Monocytes # 1.3 K/mm3 (0.1-1.0); Monocytes % 5.8 % (1.7-9.3); Neutrophils # 19.8 K/mm3 (1.8-7.8); Platelet Count 568 K/mm3 (142-424); Red Blood Count 2.84 M/mm3 (4.60-6.20); Red Cell Distribution Width 14.5 % (11.5-17.5); White Blood Count 22.2 K/mm3 (4.8-10.8)
[2022-02-15 05:51] LABS: MANUAL DIFFERENTIAL MANUAL DIFFERENTIAL (MANUAL DIFF)
[2022-02-15 05:52] LABS: POC Glucose,Bedside 119 (70-110)
[2022-02-15 05:56] LABS: Ammonia < 9 umol/L (9-30)
[2022-02-15 05:57] LABS: Alanine Aminotransferase 12 U/L (12-78); Albumin/Globulin Ratio 0.8 (1.1-1.8); Alkaline Phosphatase 92 U/L (38-126); Anion Gap 5.2 mEq/L (5-15); Aspartate Amino Transferase 27 U/L (17-59); Bilirubin,Total 0.3 mg/dl (0.2-1.3); Blood Urea Nitrogen 20 mg/dl (9-20); Calcium 6.6 mg/dl (8.4-10.2); Carbon Dioxide 23 mmol/L (22.0-30.0); Chloride 113 mmol/L (98-107); Cholesterol 68 mg/dl (140-200); Creatinine Clearance Estimated 61 mL/min (50-200); Estimated Glomerular Filt Rate 112 ml/min (>60); GFR (African American) 135 ML/MIN (>60); Globulin 2.4 g/dL (1.3-3.2); Glucose 110 mg/dl (74-100); Magnesium 1.9 mg/dl (1.6-2.3); Phosphorous 3.1 mg/dl (2.5-4.5); Potassium 3.2 mmoL/L (3.5-5.1); Sodium 138 mmol/L (136-145); Total Protein,Serum 4.4 g/dl (6.3-8.2); Triglycerides 109 mg/dl (30-150)
[2022-02-15 06:00] LABS: Hemoglobin 8.5 g/dL (14.1-18.0)
[2022-02-15 06:30] LABS: Lymphocytes % 3 % (10-50); Monocytes % 4 % (2-9); Neutrophils % 93 % (42-76); Platelet Estimate Slight Increase; RBC Morphology Normal; Total Cells Counted 100
--- NOTE | 2022-02-15 07:15 | EXP.SURG.PN ---
Subjective Patient reports: no new complaints Narrative: He states that he feels about the same Exam Data for Last 24 hours Vital signs and Labs for Last 24 Hours: Temp Pulse Resp BP Pulse Ox 98.4 F 85 18 110/58 L 96 02/15/22 04:00 02/15/22 04:00 02/15/22 04:00 02/15/22 04:00 02/15/22 04:00 Laboratory Results - last 24 hr 02/14/22 07:35: WBC 19.8 H D, RBC 3.25 L, Hgb 9.6 L, Hct 29.4 L, MCV 90.3, MCH 29.4, MCHC 32.5, RDW 14.6, Plt Count 577 H, MPV 10.0, Neut % (Auto) 89.9 H, Lymph % (Auto) 5.3 L, [place] % (Auto) 3.6, Eos % (Auto) 0.8, Baso % (Auto) 0.3, Neut # (Auto) 17.8 H, Lymph # (Auto) 1.1, [place] # (Auto) 0.7, Eos # (Auto) 0.2, Baso # (Auto) 0.1, Total Counted 100, Neutrophils % (Manual) 91 H, Lymphocytes % (Manual) 5 L, Monocytes % (Manual) 4, Platelet Estimate Slight increase, RBC Morphology Normal 02/14/22 07:35: Sodium 138, Potassium 4.3, Chloride 113 H, Carbon Dioxide 21 L, Anion Gap 8.3, BUN 24 H, Creatinine 0.80 D, Estimated Creat Clear 60, Estimated GFR 96, Est GFR ( Amer) 116 D, Glucose 119 H, Calcium 7.6 L, Phosphorus 3.1 D, Magnesium 2.0, Total Bilirubin 0.4, AST 38, ALT 16, Alkaline Phosphatase 70, Total Protein 4.8 L, Albumin 2.2 L D, Globulin 2.6, Albumin/Globulin Ratio 0.8 L, Triglycerides 134, Cholesterol 68 L 02/14/22 12:23: POC Glucose 108 02/14/22 17:46: POC Glucose 136 H 02/14/22 20:21: POC Glucose 118 H 02/15/22 05:32: WBC 22.2 H*, RBC 2.84 L, Hgb 8.5 L D, Hct 25.7 L, MCV 90.5, MCH 29.5, MCHC 32.6, RDW 14.5, Plt Count 568 H, MPV 8.5, Neut % (Auto) 89.0 H, Lymph % (Auto) 3.7 L, [place] % (Auto) 5.8, Eos % (Auto) 1.1, Baso % (Auto) 0.4, Neut # (Auto) 19.8 H, Lymph # (Auto) 0.8, [place] # (Auto) 1.3 H, Eos # (Auto) 0.3, Baso # (Auto) 0.1, Total Counted 100, Neutrophils % (Manual) 93 H, Lymphocytes % (Manual) 3 L, Monocytes % (Manual) 4, Platelet Estimate Slight increase, RBC Morphology Normal 02/15/22 05:32: Sodium 138, Potassium 3.2 L D, Chloride 113 H, Carbon Dioxide 23, Anion Gap 5.2, BUN 20, Creatinine 0.70, Estimated Creat Clear 61, Estimated GFR 112, Est GFR ( Amer) 135, Glucose 110 H, Calcium 6.6 L, Phosphorus 3.1, Magnesium 1.9, Total Bilirubin 0.3, AST 27 D, ALT 12, Alkaline Phosphatase 92, Total Protein 4.4 L, Albumin 2.0 L, Globulin 2.4, Albumin/Globulin Ratio 0.8 L, Triglycerides 109, Cholesterol 68 L 02/15/22 05:32: Ammonia < 9 L 02/15/22 05:35: POC Glucose 119 H I & O for Last 24 hours: Intake & Output 02/12/22 02/13/22 02/14/22 02/15/22 11:59 11:59 11:59 11:59 Intake Total 3864 / 3864 6001 / 6001 4611 / 4611 2602 / 2602 Output Total 1050 / 1050 650 / 650 1850 / 1850 800 / 800 Balance 2814 / 2814 5351 / 5351 2761 / 2761 1802 / 1802 Weight 139 lb 1.787 oz 135 lb 3.2 oz 136 lb 6 oz Constitutional Constitutional: no acute distress *Routine Respiratory Exam Respiratory: Absent respiratory distress *Routine Cardiovascular Exam Cardiovascular: Absent tachycardia *Routine Abdominal Exam Comments: Incision healing without sign of infection Nasogastric tube intermittently functional. Required irrigation of both ports to clear. Progress Note: A&P Assessment and plan (1) SBO (small bowel obstruction): Status: Acute Assessment and plan: Continue nasogastric decompression for now Continue to increase ambulation (2) Postoperative ileus: Status: Acute Assessment and plan: Await return of bowel function Continue nasogastric decompression (3) Adenocarcinoma: Status: Acute (4) Anemia: Status: Acute Assessment and plan: Continue close monitoring as per primary service (5) Leukocytosis: Status: Acute Assessment and plan: Possible inflammatory response. Patient is currently afebrile. Close ongoing evaluation/monitoring warranted.
[2022-02-15 08:00] VITALS: BP 124/51; PULSE 77; PULSE 89; RESP 17; TEMP 37.1; O2SAT 92
[2022-02-15 11:00] LABS: POC Glucose,Bedside 118 (70-110)
--- NOTE | 2022-02-15 12:11 | DIET.NUTRFU ---
Patient continue to receive TPN, no BM reported. Continue to have NG tube for suction, 550ml noted 02/14 and 750ml urine output 02/14. Labs reviewed: Na 138, K 3.2L- K replacement ordered via pharmacy. Glucose elevated 136-110 possibly d/t dextrose in TPN, monitored and insulin available if needed. Albumin is decreasing since admit went from 4.6 on 02/06 and now is 2.0 this maybe secondary to liver Ca, will review with provider
--- NOTE | 2022-02-15 12:28 | PC.NURSE ---
PT IS SITTING UP IN THE CHAIR VISITING WITH FAMILY. PT HAS BEEN ALERT AND ORIENTED X4 HOWEVER PT HAS BEEN SOMEWHAT FRUSTRATED AND FIDGETY ON OCCASION. MEDICATED PER MAR FOR DISCOMFORT. 250 ML'S OF GASTRIC CONTENTS EMPTIED FROM NG CANISTER THIS MORNING. LUNG SOUNDS DIMINISHED. ABDOMEN DISTENDED WITH MIDLINE INCISION OPEN TO AIR. PT STATES HE HAS BEEN PASSING FLATUS. USING URINAL TO VOID. WILL CONTINUE TO MONITOR.
--- NOTE | 2022-02-15 15:03 | EXP.ACUTE.PN ---
Subjective *Date: 02/15/22 *Time: 15:03 Interval history: Patient anxious overnight. Feels tied down bile wires. No flatus this morning. No nausea or vomiting. Still having bilious output from NG. White cell count increased marginally this morning, remains afebrile and hemodynamically stable. Continues to receive TPN however bag stopped overnight and has been without nutrition for 3 to 4 hours. No bowel movement as of yet. Stable on room air, weaned off oxygen. Family at bedside with multiple questions, answered on rounds. Medical Exam Vital signs and Labs for Last 24 Hours: Vital Signs Temp Pulse Pulse Resp BP Pulse Ox 02/15/22 08:00 89 02/15/22 08:00 98.8 F 77 17 124/51 L 92 L 02/15/22 04:00 70 02/15/22 00:00 85 02/14/22 20:00 70 02/15/22 04:00 98.4 F 85 18 110/58 L 96 02/15/22 00:00 86 22 126/64 90 L 02/14/22 20:00 3 L 02/14/22 20:00 97.9 F 89 20 133/60 90 L 02/14/22 16:00 90 02/14/22 15:14 97.9 F 88 17 114/55 L 91 L Intake and Output 02/14/22 02/15/22 02/15/22 23:59 07:59 15:59 Intake Total 1194 / 3255 1408 / 1408 Output Total 600 / 1500 200 / 450 250 / 450 Balance 594 / 1755 1208 / 958 -250 / 958 Intake: Intake, Total IV Amount 1194 / 2374 1408 / 1408 0.9 % Sodium Chloride 1,000 ml 728 / 1808 826 / 826 @ 100 mls/hr IV .Q10H [facility] Rx#: [id number] Fat Emulsions 250 ml @ 60 mls/ 207 / 207 hr IV .Q4H10M [facility] Rx#:[id number] Zinc/Copper/Leonor/Chromic Chl 259 / 259 582 / 582 1 ml Mvi, Adult No.1 with Vit K 10 ml In Aa 4.25%/Calcium/ Lytes/Dex 10% 1,000 ml @ 75 mls /hr IV .[id number] [facility] Rx#: [id number] Output: Output, Urine Amount 350 / 850 200 / 200 Output, Gastric Drainage Amount 250 / 550 250 / 250 Left Nare 250 / 550 250 / 250 Other: Number of Unmeasured Voids 0 Weight 61.859 kg Patient Weight 02/15/22 23:59 Weight 61.859 kg Laboratory Results - last 24 hr 02/14/22 17:46: POC Glucose 136 H 02/14/22 20:21: POC Glucose 118 H 02/15/22 05:32: WBC 22.2 H*, RBC 2.84 L, Hgb 8.5 L D, Hct 25.7 L, MCV 90.5, MCH 29.5, MCHC 32.6, RDW 14.5, Plt Count 568 H, MPV 8.5, Neut % (Auto) 89.0 H, Lymph % (Auto) 3.7 L, [place] % (Auto) 5.8, Eos % (Auto) 1.1, Baso % (Auto) 0.4, Neut # (Auto) 19.8 H, Lymph # (Auto) 0.8, [place] # (Auto) 1.3 H, Eos # (Auto) 0.3, Baso # (Auto) 0.1, Total Counted 100, Neutrophils % (Manual) 93 H, Lymphocytes % (Manual) 3 L, Monocytes % (Manual) 4, Platelet Estimate Slight increase, RBC Morphology Normal 02/15/22 05:32: Sodium 138, Potassium 3.2 L D, Chloride 113 H, Carbon Dioxide 23, Anion Gap 5.2, BUN 20, Creatinine 0.70, Estimated Creat Clear 61, Estimated GFR 112, Est GFR ( Amer) 135, Glucose 110 H, Calcium 6.6 L, Phosphorus 3.1, Magnesium 1.9, Total Bilirubin 0.3, AST 27 D, ALT 12, Alkaline Phosphatase 92, Total Protein 4.4 L, Albumin 2.0 L, Globulin 2.4, Albumin/Globulin Ratio 0.8 L, Triglycerides 109, Cholesterol 68 L 02/15/22 05:32: Ammonia < 9 L 02/15/22 05:35: POC Glucose 119 H 02/15/22 10:53: POC Glucose 118 H I & O for Labs for Last 24 Hours: Intake & Output 02/12/22 02/13/22 02/14/22 02/15/22 23:59 23:59 23:59 23:59 Intake Total 6134 / 6134 4466 / 4466 3255 / 3255 1408 / 1408 Output Total 400 / 400 1800 / 1800 1300 / 1500 450 / 450 Balance 5734 / 5734 2666 / 2666 1955 / 1755 958 / 958 Weight 63.1 kg 61.326 kg 61.859 kg Constitutional: Present no acute distress, thin and chronically ill appearing Head: Present atraumatic and normocephalic ENT: Present mucous membranes moist Comment:: NG in left nare Neck: Present normal inspection and full ROM Respiratory: Present CTA bilaterally; Absent accessory muscle use Cardiac: Present Reg Rate and Rhythm and S1/S2 GI: Present soft and tenderness Comments:: Mild tenderness on exam, no distention. hypo-active bowel sounds. Midline incision clean dry and intact. Rectal
[2022-02-15 15:39] LABS: POC Glucose,Bedside 108 (70-110)
[2022-02-15 16:00] VITALS: BP 124/58; PULSE 94; RESP 24; TEMP 37.3; O2SAT 90
--- NOTE | 2022-02-15 18:37 | PC.NURSE ---
PT HAS BEEN HAVING SOME ISSUES WITH DELIRIUM OFF AND ON T/O THE SHIFT THAT HAS WORSENED LATER IN THE AFTERNOON. AT 1545 PT'S NG TUBE WAS PULLED OUT AND PT WAS UNSURE ON HOW IT HAPPENED. NOTIFIED AND HE STATED FOR ANOTHER NG TUBE TO BE INSERTED. 2 STAFF INSERTED A 18 F NG THAT WAS 70 AT THE LEFT NARE THAT PT TOLERATED WELL. PLACEMENT WAS VERIFIED WITH AUSCULTATION AND GASTRIC CONTENTS WAS ASPIRATED. NG TUBE WAS CONNECTED TO LOW WALL CONTINUOUS SUCTION. 300 ML'S OF GASTRIC CONTENTS WERE EMPTIED FROM CANISTER. PT STATED THIS MORNING HE WAS PASSING FLATUS HOWEVER STATED THIS AFTERNOON THAT HE HAS NOT. NG TUBE WAS IN FOR OVER AN HOUR AND WITH STANDING AT BEDSIDE WITH PT SITTING UP ON THE SOB BED NG TUBE WAS REMOVED AGAIN. PT AND WAS UNSURE OF WHAT HAPPENED AND STATED HE DID NOT PULL ON THE TUBE AT ALL. ANOTHER ATTEMPT WAS MADE THROUGH THE LEFT NARE AND STAFF WAS UNABLE TO GET PAST W/O MEETING RESISTANCE. ATTEMPTED THROUGH THE RIGHT NARE AND PT WAS UNABLE TO TOLERATE. PT STATED NO, STOP AND RIPPED OUT THE TUBE THAT WAS ALREADY INSERTED TO 50 AT THE RIGHT NARE. PT STATED I'M DONE. I JUST CAN'T . UPDATED AND HE STATED TO GIVE PT A BREAK FOR NOW. GET HOSPITALIST INVOLVED TO SEE WHAT OTHER OPTIONS WE HAVE TO EVENTUALLY GET THE NG REINSERTED AND WHAT OPTIONS TO GET PT TO LEAVE IT IN. NOTIFIED AND HE STATED HE WOULD COME TALK TO PT.
[2022-02-15 20:00] VITALS: BP 101/48; PULSE 109; RESP 17; TEMP 36.6; O2SAT 97
--- NOTE | 2022-02-15 21:00 | PC.NURSE ---
Cetacaine sprayed to the back of throat, #16 [place] sump lubricated with lidocaine per order. Tube anchored x 1 attempt, 50 ml of dark green drainage aspirated, positive auscultations. N/G placed to low wall suction. Patient tolerated fair.
[2022-02-15 21:17] LABS: POC Glucose,Bedside 141 (70-110)
--- NOTE | 2022-02-15 23:36 | PC.NURSE ---
Notified Hospitalist of pt pain, order for 0.5mg Dilaudid IV x 1.
[2022-02-16] VITALS (10 sets, daily range): BP systolic 106–144; BP diastolic 58–70; PULSE 88–103; RESP 18–40; TEMP 36.8–38.8; O2SAT 82–100; BMI 20.6
--- NOTE | 2022-02-16 01:29 | PC.NURSE ---
Pt has been in bed resting, has been periodically anxious nad had pain earlier in shift. Pt denied pain at this time, very anxious, pulling at NG tube, had the tape partially off of it. Notified Hospitalist , see new order for ativan. Pt's lungs have been clear, resp even and non labored. Suction is patent, on low wall suction. Picc line is patent, no s/sx of infection at site. Abdomen is not as distended. Rj in abdomen , in place, no s/sx of infection at site. Pt has answered all questions appropriately. Encouraged spouse to report any needs to staff.
--- NOTE | 2022-02-16 03:36 | XR_ITS ---
PROCEDURE INFORMATION: Exam: XR Chest Exam date and time: 02/16/2022 3:41 AM Age: 71 years old Clinical indication: Condition or disease; Lung condition and disease; Hypoxia TECHNIQUE: Imaging protocol: Radiologic exam of the chest. Views: 1 view. COMPARISON: CR XR CHEST PORTABLE PICC PLAC 02/14/2022 1:07 PM FINDINGS: Tubes, catheters and devices: NG tube tip located in the distal stomach. Right-sided PICC line tip in the mid to distal SVC. Lungs: Bilateral patchy opacities particularly seen in the right upper lobe. Increased density at the left lung base in the retrocardiac region. These have increased since the previous exam. Pleural spaces: Unremarkable. No pleural effusion. No pneumothorax. Heart/Mediastinum: Unremarkable. No cardiomegaly. Bones/joints: Unremarkable. IMPRESSION: Worsening bilateral infiltrates.
--- NOTE | 2022-02-16 05:25 | PC.NURSE ---
Pt has been confused most of the night, very anxious pulling at tubes, respirations rapid this morning, fever 101 rectal. Pt has pitting edema in right elbow,was given lasix pt having to have staff sit at bedside at this time. oxygen now 6 L nc
[2022-02-16 05:59] LABS: POC Glucose,Bedside 132 (70-110)
[2022-02-16 06:58] LABS: Basophils # 0.1 K/mm3 (0-0.2); Basophils % 0.3 % (0.1-2.0); Eosinophils # 0.1 K/mm3 (0.0-0.4); Eosinophils % 0.5 % (0.1-12.0); Hematocrit 28.7 % (42.0-52.0); Hemoglobin 8.7 g/dL (14.1-18.0); Lymphocytes # 0.9 K/mm3 (0.7-4.5); Lymphocytes % 3.2 % (10-50); Mean Corpuscular HGB Conc 30.5 g/dL (31.8-35.4); Mean Corpuscular Hemoglobin 28.9 pg (27.0-31.2); Mean Platelet Volume 9.2 fl (7.4-10.4); Monocytes # 0.7 K/mm3 (0.1-1.0); Monocytes % 2.5 % (1.7-9.3); Neutrophils # 25.4 K/mm3 (1.8-7.8); Neutrophils % 93.6 % (37.0-80.0); Platelet Count 646 K/mm3 (142-424); Red Blood Count 3.02 M/mm3 (4.60-6.20); Red Cell Distribution Width 14.6 % (11.5-17.5); White Blood Count 27.2 K/mm3 (4.8-10.8)
[2022-02-16 06:59] LABS: Alanine Aminotransferase 14 U/L (12-78); Albumin Level 2.3 g/dl (3.5-5.0); Albumin/Globulin Ratio 0.9 (1.1-1.8); Alkaline Phosphatase 100 U/L (38-126); Anion Gap 10.9 mEq/L (5-15); Aspartate Amino Transferase 35 U/L (17-59); Bilirubin,Total 0.5 mg/dl (0.2-1.3); Blood Urea Nitrogen 19 mg/dl (9-20); Calcium 7.5 mg/dl (8.4-10.2); Carbon Dioxide 22 mmol/L (22.0-30.0); Chloride 102 mmol/L (98-107); Cholesterol 72 mg/dl (140-200); Creatinine Clearance Estimated 61 mL/min (50-200); Estimated Glomerular Filt Rate 74 ml/min (>60); GFR (African American) 90 ML/MIN (>60); Globulin 2.5 g/dL (1.3-3.2); Magnesium 2.3 mg/dl (1.6-2.3); Phosphorous 7.3 mg/dl (2.5-4.5); Potassium 4.9 mmoL/L (3.5-5.1); Sodium 130 mmol/L (136-145); Total Protein,Serum 4.8 g/dl (6.3-8.2); Triglycerides 86 mg/dl (30-150)
[2022-02-16 07:05] LABS: MANUAL DIFFERENTIAL MANUAL DIFFERENTIAL (MANUAL DIFF)
[2022-02-16 07:21] LABS: Anisocytosis 1+; Hypochromasia 1+; Lymphocytes % 7 % (10-50); Macrocytosis 1+; Monocytes % 1 % (2-9); Neutrophils % 92 % (42-76); Platelet Estimate Moderate Increase; Total Cells Counted 100
[2022-02-16 07:29] LABS: Ammonia < 9 umol/L (9-30)
--- NOTE | 2022-02-16 07:33 | P.PN_ITS ---
Subjective Narrative: Patient confused and agitated this morning. He has required Ativan overnight. Pulled out the NG tube couple times having it replaced. Reportedly has had 3 loose bowel movements. Has had about 300 cc out of the NG. White blood cell count is increased to 27,000. Hemoglobin stable. Chest x-ray reveals worsening bilateral infiltrates. Exam Data for Last 24 hours Vital signs and Labs for Last 24 Hours: Temp Pulse Resp BP Pulse Ox 98.2 F 95 H 18 106/58 L 96 02/16/22 00:00 02/16/22 04:00 02/16/22 00:00 02/16/22 00:00 02/16/22 00:00 Laboratory Results - last 24 hr 02/15/22 10:53: POC Glucose 118 H 02/15/22 15:32: POC Glucose 108 02/15/22 21:06: POC Glucose 141 H 02/16/22 05:49: POC Glucose 132 H 02/16/22 06:00: WBC 27.2 H*, RBC 3.02 L, Hgb 8.7 L, Hct 28.7 L, MCV 95.0 H, MCH 28.9, MCHC 30.5 L, RDW 14.6, Plt Count 646 H, MPV 9.2, Neut % (Auto) 93.6 H, Lymph % (Auto) 3.2 L, [place] % (Auto) 2.5, Eos % (Auto) 0.5, Baso % (Auto) 0.3, Neut # (Auto) 25.4 H, Lymph # (Auto) 0.9, [place] # (Auto) 0.7, Eos # (Auto) 0.1, Baso # (Auto) 0.1, Total Counted 100, Neutrophils % (Manual) 92 H, Lymphocytes % (Manual) 7 L, Monocytes % (Manual) 1 L, Platelet Estimate Moderate increase, Hypochromasia 1+, Anisocytosis 1+, Macrocytosis 1+ I & O for Last 24 hours: Intake & Output 02/13/22 02/14/22 02/15/22 02/16/22 11:59 11:59 11:59 11:59 Intake Total 6001 / 6001 4611 / 4611 2602 / 2602 4279 / 4279 Output Total 650 / 650 1850 / 1850 1050 / 1050 1703 / 1703 Balance 5351 / 5351 2761 / 2761 1552 / 1552 2576 / 2576 Weight 135 lb 3.2 oz 136 lb 6 oz 136 lb 6.012 oz *Routine Respiratory Exam Comments: Some bilateral crackles *Routine Abdominal Exam Comments: Abdomen is softer. Good bowel sounds. Progress Note: A&P Assessment and plan (1) Severe protein-calorie malnutrition: Status: Acute (2) SBO (small bowel obstruction): Status: Acute (3) Tobacco abuse: Status: Acute (4) Adenocarcinoma: Status: Acute (5) Anemia: Status: Acute Assessment and Plan Assessment and Plan for All Diagnoses:: I will go ahead and DC nasogastric tube. Leukocytosis and chest x-ray concerning.
[2022-02-16 08:07] LABS: Glucose 638 mg/dl (74-100)
[2022-02-16 08:09] LABS: Microscopic, Urine URINE MICROSCOPIC (MICROSCOPIC)
[2022-02-16 08:12] LABS: Appearance,Urine CLEAR (Clear); Bilirubin,Urine Negative (Negative); Blood, Urine Negative (Negative); Color,Urine YELLOW (Yellow); Glucose,Urine (UA) Negative (Negative); Ketones,Urine Negative (Negative); Leukocyte Esterase,Urine Negative (Negative); Nitrate,Urine Negative (Negative); PH,Urine 5.5 (5.0-8.5); Protein,Urine Negative (Negative); Urobilinogen,Urine 0.2 EU/dl (0.2)
[2022-02-16 08:38] LABS: Bacteria,Urine Trace /lpf; Squamous Epithelial Cell,Urine Occasional #/hpf (0-5); WBC,Urine Occasional #/hpf (0-3)
--- NOTE | 2022-02-16 09:10 | EXP.PHA.CONS ---
Pharmacy Consult Date: 02/16/22 Time: 09:10 Referring provider: DR. RAMIREZ Reason for Consult:: VANCOMCYIN DOSING Allergies Allergy/AdvReac Type Severity Reaction Status Date / Time No Known Allergies Allergy Verified 03/30/17 21:38 Home Medications Medication Instructions Recorded Confirmed Type diphenhydramine HCl 25 mg tablet 25 mg PO HS PRN Insomnia 02/07/22 02/07/22 History (Simply Sleep) New Prescriptions to Start Prescriptions: Height: 1.73 m Weight: 61.859 kg Laboratory Results:: Laboratory Results - last 24 hr 02/15/22 10:53: POC Glucose 118 H 02/15/22 15:32: POC Glucose 108 02/15/22 21:06: POC Glucose 141 H 02/16/22 05:49: POC Glucose 132 H 02/16/22 06:00: WBC 27.2 H*, RBC 3.02 L, Hgb 8.7 L, Hct 28.7 L, MCV 95.0 H, MCH 28.9, MCHC 30.5 L, RDW 14.6, Plt Count 646 H, MPV 9.2, Neut % (Auto) 93.6 H, Lymph % (Auto) 3.2 L, [place] % (Auto) 2.5, Eos % (Auto) 0.5, Baso % (Auto) 0.3, Neut # (Auto) 25.4 H, Lymph # (Auto) 0.9, [place] # (Auto) 0.7, Eos # (Auto) 0.1, Baso # (Auto) 0.1, Total Counted 100, Neutrophils % (Manual) 92 H, Lymphocytes % (Manual) 7 L, Monocytes % (Manual) 1 L, Platelet Estimate Moderate increase, Hypochromasia 1+, Anisocytosis 1+, Macrocytosis 1+ 02/16/22 06:00: Sodium 130 L, Potassium 4.9 D, Chloride 102, Carbon Dioxide 22, Anion Gap 10.9, BUN 19, Creatinine 1.00 D, Estimated Creat Clear 61, Estimated GFR 74, Est GFR ( Amer) 90 D, Glucose 638 H*, Calcium 7.5 L, Phosphorus 7.3 H D, Magnesium 2.3 D, Total Bilirubin 0.5, AST 35 D, ALT 14, Alkaline Phosphatase 100, Total Protein 4.8 L, Albumin 2.3 L D, Globulin 2.5, Albumin/Globulin Ratio 0.9 L, Triglycerides 86, Cholesterol 72 L 02/16/22 06:00: Ammonia < 9 L 02/16/22 06:37: Urine Color Yellow, Urine Appearance Clear, Urine pH 5.5, Ur Specific [place] 1.010, Urine Protein Negative, Urine Glucose (UA) Negative, Urine Ketones Negative, Urine Blood Negative, Urine Nitrate Negative, Urine Bilirubin Negative, Urine Urobilinogen 0.2, Ur Leukocyte Esterase Negative, Urine RBC None, Urine WBC Occasional, Ur Squamous Epith Cells Occasional, Urine Bacteria Trace Medical History: Medical History Tobacco abuse Tobacco use Assessment and Plan Assessment and plan all Dx Assessment and Plan for all problems:: Pharmacokinetic dosing service Age: 71 yo Serum creatinine: 1 mg/dL Height: 68.1 Inches Weight (kg): 62 Assessment: IBW (kg): 68.63 Dosing wt(kg): 62 Estimated Creatinine clearance (ml/min): 61.1 CRCL method: Cockcroft and Gault using ibw(default). Drug selected: Vancomycin Loading dose (mg): 0 Vd (liters): 52.7 (factor used: 0.85 L/kg) [place] (hr-1): 0.055 Half life (hrs): 12.60 Recommended dose: 1250 mg Interval: 18 hrs Infusion time (hrs): 2.0 Predicted peak (mcg/mL): 35.7 Predicted trough (mcg/mL): 14.81 Total body weight is being used for vancomycin dosing. Recommendations: Give Vancomycin 1250 mg q 18 hrs with an expected Cpeak of 35.7 mcg/ml and an expected Ctrough of 14.81 mcg/ml ----Vanco only - ignore for aminoglycosides----- CLvanco= 2.90 L/hr AUC 0-24 /CHOLO Data: CHOLO 0.5 mcg/mL: AUC/CHOLO: 1149.4 CHOLO 1.0 mcg/mL: AUC/CHOLO: 574.7 --------- CHOLO 1.5 mcg/mL: AUC/CHOLO: 383.1 CHOLO 2.0 mcg/mL: AUC/CHOLO: 287.4
--- NOTE | 2022-02-16 11:04 | EXP.ACUTE.PN ---
Subjective *Date: 02/16/22 *Time: 17:55 Interval history: Patient frankly delirious this morning on rounds. Removed NG on rounds as he has had multiple bowel movements overnight. Patient unfortunately received Ativan x2 and olanzapine overnight. Ativan was to help relax him from his anxiety to allow for placement of NG which he refused and was combative for multiple times last night before successful replacement. He then became delirious early this morning necessitating a dose of olanzapine. On repeat rounds later in the morning, patient resting and sleeping well. Labs showing significant change however concerning for worsening infection with increasing white cell count. No nausea or vomiting. Unable to elicit review of systems from patient this morning. Increased oxygen requirement overnight with chest imaging concerning for pulmonary edema versus pneumonia. Medical Exam Vital signs and Labs for Last 24 Hours: Vital Signs Temp Pulse Pulse Resp BP Pulse Ox 02/16/22 08:00 88 02/16/22 08:00 98.3 F 92 H 26 H 144/64 H 100 02/16/22 04:00 95 H 02/16/22 00:00 98.2 F 103 H 18 106/58 L 96 02/15/22 20:00 98 F 109 H 17 101/48 L 97 02/15/22 16:00 99.1 F 94 H 24 124/58 L 90 L Intake and Output 02/15/22 02/16/22 02/16/22 23:59 07:59 15:59 Intake Total 2118 / 5687 2161 / 2161 Output Total 550 / 1000 1153 / 1153 0 / 1153 Balance 1568 / 4687 1008 / 1008 0 / 1008 Intake: Intake, Total IV Amount 2117 / 5687 2161 / 2161 0.9 % Sodium Chloride 1,000 ml 1225 / 3317 1266 / 1266 @ 100 mls/hr IV .Q10H [facility] Rx#: [id number] Aa 4.25%/Calcium/Lytes/Dex 10% 895 / 895 1,000 ml @ 75 mls/hr IV . [id number] [facility] Rx#:[id number] Fat Emulsions 250 ml @ 60 mls/ 216 / 216 hr IV .Q4H10M [facility] Rx#:[id number] Zinc/Copper/Leonor/Chromic Chl 677 / 1259 1 ml Mvi, Adult No.1 with Vit K 10 ml In Aa 4.25%/Calcium/ Lytes/Dex 10% 1,000 ml @ 75 mls /hr IV .[id number] [facility] Rx#: [id number] Output: Output, Urine Amount 250 / 450 153 / 153 0 / 153 Output, Urine Amount (Catheter) 1000 / 1000 [place] 1000 / 1000 Output, Gastric Drainage Amount 300 / 550 Left Nare 300 / 550 Other: Number of Unmeasured Voids 3 0 Weight 61.859 kg 61.859 kg Patient Weight 02/16/22 23:59 Weight 61.859 kg Laboratory Results - last 24 hr 02/15/22 15:32: POC Glucose 108 02/15/22 21:06: POC Glucose 141 H 02/16/22 05:49: POC Glucose 132 H 02/16/22 06:00: WBC 27.2 H*, RBC 3.02 L, Hgb 8.7 L, Hct 28.7 L, MCV 95.0 H, MCH 28.9, MCHC 30.5 L, RDW 14.6, Plt Count 646 H, MPV 9.2, Neut % (Auto) 93.6 H, Lymph % (Auto) 3.2 L, [place] % (Auto) 2.5, Eos % (Auto) 0.5, Baso % (Auto) 0.3, Neut # (Auto) 25.4 H, Lymph # (Auto) 0.9, [place] # (Auto) 0.7, Eos # (Auto) 0.1, Baso # (Auto) 0.1, Total Counted 100, Neutrophils % (Manual) 92 H, Lymphocytes % (Manual) 7 L, Monocytes % (Manual) 1 L, Platelet Estimate Moderate increase, Hypochromasia 1+, Anisocytosis 1+, Macrocytosis 1+ 02/16/22 06:00: Sodium 130 L, Potassium 4.9 D, Chloride 102, Carbon Dioxide 22, Anion Gap 10.9, BUN 19, Creatinine 1.00 D, Estimated Creat Clear 61, Estimated GFR 74, Est GFR ( Amer) 90 D, Glucose 638 H*, Calcium 7.5 L, Phosphorus 7.3 H D, Magnesium 2.3 D, Total Bilirubin 0.5, AST 35 D, ALT 14, Alkaline Phosphatase 100, Total Protein 4.8 L, Albumin 2.3 L D, Globulin 2.5, Albumin/Globulin Ratio 0.9 L, Triglycerides 86, Cholesterol 72 L 02/16/22 06:00: Ammonia < 9 L 02/16/22 06:37: Urine Color Yellow, Urine Appearance Clear, Urine pH 5.5, Ur Specific [place] 1.010, Urine Protein Negative, Urine Glucose (UA) Negative, Urine Ketones Negative, Urine Blood Negative, Urine Nitrate Negative, Urine Bilirubin Negative, Urine Urobilinogen 0.2, Ur Leukocyte Esterase Negative, Urine RBC None, Urine WBC Occasional, Ur Squamous Epith Cells Occasional, Urine Bacteria Trace I & O for Labs for Last 24 Hours:
--- NOTE | 2022-02-16 13:41 | DIET.NUTRFU ---
Rounded with provider, NG pulled. He was noted to have 3 unmeasured voids reported as BM. Provider noted good bowel sounds and abdomen softer. Some pitting edema with Na 130L, IVF discontinued and lasix given. TPN continues in place, glucose elevated 638, insulin given. Patient had some increase confusion and anxiety today, benedryl provided to relax patient. He continues NPO, wait for provider to upgrade diet. Will continue to meet needs via TPN until oral diet is tolerated. Dr Bugros consult today to review possible tx plans.
[2022-02-16 14:05] LABS: POC Glucose,Bedside 72 (70-110)
[2022-02-16 16:26] LABS: POC Glucose,Bedside 118 (70-110)
--- NOTE | 2022-02-16 16:38 | EXP.ONC.CONS ---
History of Present Illness *Admission Date: 02/06/22 *History of present illness: Patient is a 71-year-old male presented to ed on 02/06/[address] demonstrated obstructing cecal mass and nonspecific subcm liver lesions. pt taken to OR and is s/p right hemocolectomy. liver bx done in OR. path returned c/w adenocarcinoma of colon with 01/29 lymph nodes + for cancer. liver bx also returned positive for cancer. pt taken back to OR for ex lap. today he is confused, somewhat combative. he pulled his ng out 2x/yesterday. is at bedside. I spoke with daughter on phone. reports he was working until went to ED. never had colonoscopy. had lost some weight. denied blood in stool. had not been feeling well for a couple of weeks prior to presenting to ED. [facility] Disclaimer: The information contained in this section may have been updated after the patient was seen, as this information can be updated by other users. Medical History Tobacco abuse Tobacco use Family History Other Family history of cancer Social History Smoking Status: Current every day smoker tobacco type: cigarettes packs per day: 1 alcohol intake: never substance use type: denies use current occupational status: employed Travel in the last 8 weeks: None Review of Systems *Neurologic Neurologic: Reports system reviewed and no additional complaints, except as documented Exam (Inpt) Vital signs and Labs for Last 24 Hours: Temp Pulse Resp BP Pulse Ox 99.7 F H 101 H 20 141/59 H 91 L 02/16/22 16:00 02/16/22 16:00 02/16/22 16:00 02/16/22 16:00 02/16/22 16:00 Laboratory Results - last 24 hr 02/15/22 21:06: POC Glucose 141 H 02/16/22 05:49: POC Glucose 132 H 02/16/22 06:00: WBC 27.2 H*, RBC 3.02 L, Hgb 8.7 L, Hct 28.7 L, MCV 95.0 H, MCH 28.9, MCHC 30.5 L, RDW 14.6, Plt Count 646 H, MPV 9.2, Neut % (Auto) 93.6 H, Lymph % (Auto) 3.2 L, [place] % (Auto) 2.5, Eos % (Auto) 0.5, Baso % (Auto) 0.3, Neut # (Auto) 25.4 H, Lymph # (Auto) 0.9, [place] # (Auto) 0.7, Eos # (Auto) 0.1, Baso # (Auto) 0.1, Total Counted 100, Neutrophils % (Manual) 92 H, Lymphocytes % (Manual) 7 L, Monocytes % (Manual) 1 L, Platelet Estimate Moderate increase, Hypochromasia 1+, Anisocytosis 1+, Macrocytosis 1+ 02/16/22 06:00: Sodium 130 L, Potassium 4.9 D, Chloride 102, Carbon Dioxide 22, Anion Gap 10.9, BUN 19, Creatinine 1.00 D, Estimated Creat Clear 61, Estimated GFR 74, Est GFR ( Amer) 90 D, Glucose 638 H*, Calcium 7.5 L, Phosphorus 7.3 H D, Magnesium 2.3 D, Total Bilirubin 0.5, AST 35 D, ALT 14, Alkaline Phosphatase 100, Total Protein 4.8 L, Albumin 2.3 L D, Globulin 2.5, Albumin/Globulin Ratio 0.9 L, Triglycerides 86, Cholesterol 72 L 02/16/22 06:00: Ammonia < 9 L 02/16/22 06:37: Urine Color Yellow, Urine Appearance Clear, Urine pH 5.5, Ur Specific [place] 1.010, Urine Protein Negative, Urine Glucose (UA) Negative, Urine Ketones Negative, Urine Blood Negative, Urine Nitrate Negative, Urine Bilirubin Negative, Urine Urobilinogen 0.2, Ur Leukocyte Esterase Negative, Urine RBC None, Urine WBC Occasional, Ur Squamous Epith Cells Occasional, Urine Bacteria Trace 02/16/22 13:58: POC Glucose 72 02/16/22 16:10: POC Glucose 118 H I & O for Labs for Last 24 Hours: Intake & Output 02/14/22 02/15/22 02/16/22 02/17/22 11:59 11:59 11:59 11:59 Intake Total 4611 / 4611 2602 / 2602 4279 / 4279 1176 / 1176 Output Total 1850 / 1850 1050 / 1050 1703 / 1703 1500 / 1500 Balance 2761 / 2761 1552 / 1552 2576 / 2576 -324 / -324 Weight 136 lb 6 oz 136 lb 6.012 oz Head: Present atraumatic Respiratory: Present normal respiratory effort Cardiac: Present Reg Rate and Rhythm Comments:: post op Extremities: Present normal inspection Skin: Present intact Additional Findings:: confused Meds Home Medications and Allergies Home Medications Medication Instructio
[2022-02-16 17:27] LABS: Chloride 107 mmol/L (98-107); Sodium 138 mmol/L (136-145)
[2022-02-16 17:30] LABS: Anion Gap 8.9 mEq/L (5-15); Blood Urea Nitrogen 20 mg/dl (9-20); Carbon Dioxide 25 mmol/L (22.0-30.0); Creatinine Clearance Estimated 61 mL/min (50-200); Estimated Glomerular Filt Rate 96 ml/min (>60); GFR (African American) 116 ML/MIN (>60)
[2022-02-16 17:31] LABS: Calcium 7.5 mg/dl (8.4-10.2); Glucose 122 mg/dl (74-100)
[2022-02-16 17:48] LABS: Potassium 2.9 mmoL/L (3.5-5.1)
--- NOTE | 2022-02-16 18:11 | PC.NURSE ---
PT IS RESTING IN BED WITH FAMILY AT BEDSIDE. THIS MORNING PT WAS VERY AGITATED/COMBATIVE/RESTLESS AND REQUIRED 1:1 CARE FOR SAFETY. O2 SATURATION WAS 90-92% ON 6 L NC. LUNG SOUNDS WITH SCATTERED RHONCHI/CRACKLES. PITTING EDEMA NOTED TO BILATERAL ANKLES. ABDOMEN SOMEWHAT FIRM HOWEVER IMPROVED FROM YESTERDAY. HYPERACTIVE BOWEL SOUNDS. MIDLINE INCISION OPEN TO AIR. NG TUBE WAS DC'D THIS MORNING. 350 ML'S OF GASTRIC CONTENTS EMPTIED FROM CANISTER. PT HAS SLEPT OFF AND ON T/O THE SHIFT AND WOKE UP AT 1500 AND ASKED IF HE COULD HAVE A PIECE OF GUM. PT CHEWED GUM FOR A FEW MIN. PT CONTINUES TO BE SOMEWHAT RESTLESS/FIDGETY BUT IS ABLE TO FOLLOW COMMANDS AND IS NO LONGER COMBATIVE. TOLERATED BATH AND LINEN CHANGE. PT HAS HAD 2 LOOSE BOWEL MOVEMENTS THIS SHIFT. PT HAS TOLERATED A FEW ICE CHIPS AND SIPS OF WATER THIS AFTERNOON. O2 WAS WEANED TO 4 L. O2 SATURATION 90-91%. WILL CONTINUE TO MONITOR.
--- NOTE | 2022-02-16 20:27 | PC.NURSE ---
pt febrile and hypoxic. see vs. PERFORMANCE IMPROVEMENT MANAGER aware.
--- NOTE | 2022-02-16 20:28 | PC.NURSE ---
Pt placed on venti 50%
[2022-02-16 20:53] LABS: POC Glucose,Bedside 113 (70-110)
--- NOTE | 2022-02-16 21:03 | PC.NURSE ---
Duoneb given per DAIRY BACTERIOLOGIST PRN at this time by RT , Tylenol given PRN at this time
--- NOTE | 2022-02-16 22:45 | PC.NURSE ---
pt rectal temp down to 100.2, O2 sat 90% on venti 50%
--- NOTE | 2022-02-16 23:43 | PC.NURSE ---
pt diuresed 800ml since IV lasix @2054
[2022-02-17] VITALS (10 sets, daily range): BP systolic 105–148; BP diastolic 50–73; PULSE 55–106; RESP 22–30; TEMP 36.4–38.2; O2SAT 90–95; BMI 20.7
--- NOTE | 2022-02-17 04:14 | PC.NURSE ---
Pt is A&OX4. Pt has been very anxious and restless this shift. Pt is no longer febrile, and remains on venti mask 50%. Pt removes masks at times and O2 sats decrease to around 80%. Edema noted to BLE. PICC to CALLUM patent. Dozier catheter in place draining clear yellow urine.
[2022-02-17 04:49] LABS: POC Glucose,Bedside 156 (70-110)
[2022-02-17 06:06] LABS: Basophils # 0.1 K/mm3 (0-0.2); Basophils % 0.2 % (0.1-2.0); Eosinophils # 0.2 K/mm3 (0.0-0.4); Eosinophils % 0.6 % (0.1-12.0); Hematocrit 29.1 % (42.0-52.0); Hemoglobin 9.2 g/dL (14.1-18.0); Lymphocytes % 2.6 % (10-50); Mean Corpuscular HGB Conc 31.7 g/dL (31.8-35.4); Mean Corpuscular Hemoglobin 28.8 pg (27.0-31.2); Mean Corpuscular Volume 90.8 fl (80-94); Mean Platelet Volume 8.5 fl (7.4-10.4); Monocytes # 1.2 K/mm3 (0.1-1.0); Monocytes % 3.1 % (1.7-9.3); Neutrophils % 93.5 % (37.0-80.0); Platelet Count 672 K/mm3 (142-424); Red Blood Count 3.21 M/mm3 (4.60-6.20); Red Cell Distribution Width 14.5 % (11.5-17.5); White Blood Count 38.5 K/mm3 (4.8-10.8)
[2022-02-17 06:07] LABS: Ammonia < 9 umol/L (9-30)
[2022-02-17 06:09] LABS: Alanine Aminotransferase 17 U/L (12-78); Albumin Level 2.5 g/dl (3.5-5.0); Albumin/Globulin Ratio 0.9 (1.1-1.8); Alkaline Phosphatase 154 U/L (38-126); Anion Gap 6.9 mEq/L (5-15); Aspartate Amino Transferase 37 U/L (17-59); Bilirubin,Total 0.5 mg/dl (0.2-1.3); Blood Urea Nitrogen 20 mg/dl (9-20); Calcium 7.5 mg/dl (8.4-10.2); Carbon Dioxide 27 mmol/L (22.0-30.0); Chloride 107 mmol/L (98-107); Cholesterol 73 mg/dl (140-200); Creatinine Clearance Estimated 61 mL/min (50-200); Estimated Glomerular Filt Rate 84 ml/min (>60); GFR (African American) 101 ML/MIN (>60); Globulin 2.9 g/dL (1.3-3.2); Glucose 123 mg/dl (74-100); Sodium 138 mmol/L (136-145); Total Protein,Serum 5.4 g/dl (6.3-8.2); Triglycerides 85 mg/dl (30-150)
[2022-02-17 06:10] LABS: MANUAL DIFFERENTIAL MANUAL DIFFERENTIAL (MANUAL DIFF)
[2022-02-17 06:12] LABS: Potassium 2.9 mmoL/L (3.5-5.1)
--- NOTE | 2022-02-17 06:29 | CT_ITS ---
FINAL REPORT CLINICAL HISTORY: ABDOMINAL PAIN, LEUKOCYTOSIS, FEVER COMPARISON: 02/12/2022, 02/06/2022 FINDINGS: CT OF THE ABDOMEN AND PELVIS WITH CONTRAST Axial CT images of the abdomen and pelvis were obtained after the administration of intravenous contrast. Coronal reformatted images were also obtained and reviewed.This study was performed with techniques to keep radiation doses as low as reasonably achievable (ALARA). Individualized dose reduction techniques using automated exposure control or adjustment of mA and/or kV according to the patient's size were employed. Abdomen: Again seen are several, small low-attenuation foci in the liver which are nonspecific but may represent cysts. The liver otherwise has an unremarkable appearance, without evidence of mass or biliary ductal dilatation. The spleen is unremarkable. No adrenal mass is present. The pancreas has an unremarkable appearance. The kidneys are normal, without evidence of mass or hydronephrosis. The aorta is normal in caliber. There is a small amount of ascites which has improved. There is anasarca. No mass or abnormal fluid collection is seen. Pelvis: The appendix is not well-visualized. There is significant worsening of small bowel wall thickening which may represent inflammatory change or edema. There has been interval improvement in small bowel obstruction. There is right inguinal hernia containing some air and fluid. The urinary bladder is decompressed with a Dozier catheter present. There is no evidence of mass or adenopathy. IMPRESSION: Significant worsening wall thickening of the small bowel which may represent inflammatory change or edema. Improving small-bowel obstruction. Reviewed, Interpreted and Dictated by Avel Kaplan III, MD Transcribed by Olga Fair Authenticated and [facility]
--- NOTE | 2022-02-17 06:30 | EXP.SURG.PN ---
Subjective Narrative: Patient more alert. Denies any significant complaints. Does have some tachypnea. Requiring appreciable supplemental oxygen. No nausea. Has had about 4 bowel movements overnight. Exam Data for Last 24 hours Vital signs and Labs for Last 24 Hours: Temp Pulse Resp BP Pulse Ox FiO2 98.4 F 102 H 30 H 148/63 H 90 L 50 02/17/22 04:00 02/17/22 04:00 02/17/22 04:00 02/17/22 04:00 02/17/22 04:00 02/16/22 21:20 Laboratory Results - last 24 hr 02/16/22 06:00: WBC 27.2 H*, RBC 3.02 L, Hgb 8.7 L, Hct 28.7 L, MCV 95.0 H, MCH 28.9, MCHC 30.5 L, RDW 14.6, Plt Count 646 H, MPV 9.2, Neut % (Auto) 93.6 H, Lymph % (Auto) 3.2 L, [place] % (Auto) 2.5, Eos % (Auto) 0.5, Baso % (Auto) 0.3, Neut # (Auto) 25.4 H, Lymph # (Auto) 0.9, [place] # (Auto) 0.7, Eos # (Auto) 0.1, Baso # (Auto) 0.1, Total Counted 100, Neutrophils % (Manual) 92 H, Lymphocytes % (Manual) 7 L, Monocytes % (Manual) 1 L, Platelet Estimate Moderate increase, Hypochromasia 1+, Anisocytosis 1+, Macrocytosis 1+ 02/16/22 06:00: Sodium 130 L, Potassium 4.9 D, Chloride 102, Carbon Dioxide 22, Anion Gap 10.9, BUN 19, Creatinine 1.00 D, Estimated Creat Clear 61, Estimated GFR 74, Est GFR ( Amer) 90 D, Glucose 638 H*, Calcium 7.5 L, Phosphorus 7.3 H D, Magnesium 2.3 D, Total Bilirubin 0.5, AST 35 D, ALT 14, Alkaline Phosphatase 100, Total Protein 4.8 L, Albumin 2.3 L D, Globulin 2.5, Albumin/Globulin Ratio 0.9 L, Triglycerides 86, Cholesterol 72 L 02/16/22 06:00: Ammonia < 9 L 02/16/22 06:37: Urine Color Yellow, Urine Appearance Clear, Urine pH 5.5, Ur Specific [place] 1.010, Urine Protein Negative, Urine Glucose (UA) Negative, Urine Ketones Negative, Urine Blood Negative, Urine Nitrate Negative, Urine Bilirubin Negative, Urine Urobilinogen 0.2, Ur Leukocyte Esterase Negative, Urine RBC None, Urine WBC Occasional, Ur Squamous Epith Cells Occasional, Urine Bacteria Trace 02/16/22 13:58: POC Glucose 72 02/16/22 16:10: POC Glucose 118 H 02/16/22 16:45: Sodium 138, Potassium 2.9 L* D, Chloride 107, Carbon Dioxide 25, Anion Gap 8.9, BUN 20, Creatinine 0.80, Estimated Creat Clear 61, Estimated GFR 96, Est GFR ( Amer) 116 D, Glucose 122 H D, Calcium 7.5 L 02/16/22 20:37: POC Glucose 113 H 02/17/22 04:43: POC Glucose 156 H 02/17/22 05:50: WBC 38.5 H* D, RBC 3.21 L, Hgb 9.2 L, Hct 29.1 L, MCV 90.8, MCH 28.8, MCHC 31.7 L, RDW 14.5, Plt Count 672 H, MPV 8.5, Neut % (Auto) 93.5 H, Lymph % (Auto) 2.6 L, [place] % (Auto) 3.1, Eos % (Auto) 0.6, Baso % (Auto) 0.2, Neut # (Auto) 36.0 H, Lymph # (Auto) 1.0, [place] # (Auto) 1.2 H, Eos # (Auto) 0.2, Baso # (Auto) 0.1 02/17/22 05:50: Sodium 138, Potassium 2.9 L*, Chloride 107, Carbon Dioxide 27, Anion Gap 6.9, BUN 20, Creatinine 0.90, Estimated Creat Clear 61, Estimated GFR 84, Est GFR ( Amer) 101, Glucose 123 H, Calcium 7.5 L, Phosphorus 4.0 D, Magnesium 2.0 D, Total Bilirubin 0.5, AST 37, ALT 17, Alkaline Phosphatase 154 H, Total Protein 5.4 L, Albumin 2.5 L, Globulin 2.9, Albumin/Globulin Ratio 0.9 L, Triglycerides 85, Cholesterol 73 L 02/17/22 05:50: Ammonia < 9 L I & O for Last 24 hours: Intake & Output 02/14/22 02/15/22 02/16/22 02/17/22 11:59 11:59 11:59 11:59 Intake Total 4611 / 4611 2602 / 2602 4279 / 4279 1176 / 1176 Output Total 1850 / 1850 1050 / 1050 1703 / 1703 3655 / 3655 Balance 2761 / 2761 1552 / 1552 2576 / 2576 -2479 / -2479 Weight 136 lb 6 oz 136 lb 6.012 oz 137 lb 3.2 oz Constitutional Constitutional: mild distress *Routine Respiratory Exam Comments: Tachypneic. *Routine Abdominal Exam Comments: Slightly distended. Some tenderness. Progress Note: A&P Assessment and plan (1) Severe protein-calorie malnutrition: Status: Acute (2) SBO (small bowel obstruction): Status: Acute (3) Tobacco abuse: Status: Acute (4) Adenocarcinoma: Status: Acute (5) Anemia: Status: Acute Assessment and Plan Assessment and Plan for All Diagnoses:: I will obtain a follow-up CT scan
--- NOTE | 2022-02-17 06:35 | CT_ITS ---
FINAL REPORT TECHNIQUE: Postcontrast axial images of the chest were performed in a CTA protocol. This study was performed with techniques to keep radiation doses as low as reasonably achievable, (ALARA). Individualized dose reduction technique using automated exposure control or adjustment of mA and/or kV according to the patient's size were employed. CLINICAL HISTORY: hypoxia FINDINGS: Contrast bolus is suboptimal. There is no large or central pulmonary embolism identified. The heart is normal in size. No adenopathy is identified. The thoracic aorta is normal in caliber with no focal aneurysm or dissection identified. There are moderate bilateral pleural effusions. There is no pericardial effusion. Bilateral lower lobe atelectasis is seen. There are diffuse opacities which may represent edema or pneumonia. IMPRESSION: Suboptimal contrast bolus. No large or central PE. Moderate pleural effusions with bilateral lower lobe atelectasis. Diffuse pulmonary opacities which may represent edema or pneumonia. Reviewed, Interpreted and Dictated by Avel Kaplan III, MD Transcribed by Olga Fair Authenticated and [facility]
--- NOTE | 2022-02-17 06:46 | PC.NURSE ---
critical potassium reported to deejay GARCIA
[2022-02-17 07:42] LABS: Monocytes % 2 % (2-9); Neutrophils % 98 % (42-76); Total Cells Counted 100
[2022-02-17 07:43] LABS: Platelet Estimate Marked Increase; RBC Morphology Normal
[2022-02-17 11:10] LABS: Adenovirus,PCR Not Detected (NotDetected); Bordetella Pertussis Not Detected (NotDetected); Chlamydophila Pneumoniae, PCR Not Detected (NotDetected); Coronavirus 19, PCR Not Detected (NotDetected); Coronavirus 229E Not Detected (NotDetected); Coronavirus NL63 Not Detected (NotDetected); Coronavirus OC43 Not Detected (NotDetected); Coronovirus HKU1,PCR Not Detected (NotDetected); Human Metapneumovirus Not Detected (NotDetected); Influenza A, PCR Not Detected (NotDetected); Influenza AH1, 2009 Not Detected (NotDetected); Influenza AH1, PCR Not Detected (NotDetected); Influenza AH3,PCR Not Detected (NotDetected); Influenza B, PCR Not Detected (NotDetected); Mycoplasma Pneumoniae, PCR Not Detected (NotDetected); Parainfluenza 1, PCR Not Detected (NotDetected); Parainfluenza 2, PCR Not Detected (NotDetected); Parainfluenza 3, PCR Not Detected (NotDetected); Parainfluenza 4, PCR Not Detected (NotDetected); Respiratory Syncytial Virus Not Detected (NotDetected); Rhinovirus/Enterovirus Not Detected (NotDetected)
--- NOTE | 2022-02-17 11:14 | DIET.NUTRFU ---
Rounded with provider today, patient had imagines completed yesterday indicating PE. He is hold fluids and making it hard to breath, currently on nasal canula possibly switching to vapotherm. He was receiving yesterday TPN/lipids providing 2050ml and fluid via ABT that contributed 800ml. Bolus fluids were discontinued 02/16 but still his urine output is not keeping up. He also now has thrush and mouth is peeling. Nystatin swish and spit now ordered. He had multiple BM today, GI is now functioning and when feasible start oral diet of clear liquids. If his oral diet can be advanced and tolerated he no longer needs TPN. Diuretic tx started yesterday and will continue today 2208ml yesterday. 800ml urine output already today. Patient is complaining of abdominal pain which may indicate a intestinal leak, may need to go back to sx. Will continue to follow, if unable to start oral diet may need to consider restarting TPN. Labs reviewed, potassium depleted, pharmacy to replete.
[2022-02-17 12:45] LABS: POC Glucose,Bedside 142 (70-110)
[2022-02-17 12:55] LABS: Adenovirus F 40/41, stool Not Detected (NotDetected); Astrovirus Not Detected (NotDetected); Campylobacter Not Detected (NotDetected); Clostridium Difficile A/B, PCR Not Detected (NotDetected); Cryptosporidium Not Detected (NotDetected); Cyclospora Cayetanesis Not Detected (NotDetected); Entamoeba histolytica Not Detected (NotDetected); Enteroaggregative E coli Not Detected (NotDetected); Enteropathogenic E coli Not Detected (NotDetected); Enterotoxigenic E coli Not Detected (NotDetected); Norovirus Not Detected (NotDetected); Plesimonas Shigalloides, PCR Not Detected (NotDetected); Rotavirus A Not Detected (NotDetected); Salmonella, PCR Not Detected (NotDetected); Sapovirus Not Detected (NotDetected); Shiga-like toxin E coli Not Detected (NotDetected); Shigella Enterovasive E coli Not Detected (NotDetected); Vibrio Cholerae Not Detected (NotDetected); Vibrio, PCR Not Detected (NotDetected); Yersinia Entercolitica, PCR Not Detected (NotDetected)
--- NOTE | 2022-02-17 13:04 | CT_ITS ---
FINAL REPORT TECHNIQUE: Axial images through the abdomen and pelvis were performed without contrast. Oral contrast was given. This study was performed with techniques to keep radiation doses as low as reasonably achievable, (ALARA). Individualized dose reduction techniques using automated exposure control or adjustment of mA and/or kV according to the patient's size were employed. CLINICAL HISTORY: post surgical pain dr wanted ct repeated with oral contrast COMPARISON: 02/17/2022 FINDINGS: ABDOMEN: There are moderate to large pleural effusions with bibasilar atelectasis. There are persistent pulmonary opacities, may represent edema or pneumonia. The heart size is normal. Limited images of the liver are unremarkable. There is a small gallstone in the gallbladder. The spleen is normal. No adrenal mass is identified. The aorta is normal in caliber. There is no nephrolithiasis. There is no hydronephrosis. There is a small to moderate ascites. Note is made of anasarca. There is no evidence of oral contrast leak. Air in fluid is seen in the right inguinal hernia which is stable. PELVIS: The appendix is not identified. There is diffuse small bowel wall thickening, may represent edema or inflammation. Dozier catheter is present. IMPRESSION: No evidence of oral contrast leak. Other findings are stable from prior CT performed same day. Reviewed, Interpreted and Dictated by Avel Kaplan III, MD Transcribed by Millie Mendoza Authenticated and [facility]
[2022-02-17 17:21] LABS: POC Glucose,Bedside 97 (70-110)
--- NOTE | 2022-02-17 18:28 | EXP.ACUTE.PN ---
Subjective *Date: 02/17/22 *Time: 18:28 Interval history: Patient developed fever overnight. Required increasing oxygen support. This morning transition to Vapotherm. Initially 75%, has been able to wean to 50% during the day. Intermittent fever this afternoon, responded well to Tylenol. Patient tolerating small amount of p.o. clear liquid diet. No vomiting. Has mildly productive cough. Denies chest pain. Pleasantly confused with waxing and waning orientation. Still complaining of lower abdominal pain in the left lower quadrant and right groin. Having multiple small loose stools today. Medical Exam Vital signs and Labs for Last 24 Hours: Vital Signs Temp Pulse Pulse Resp BP BP Pulse Ox 02/17/22 12:00 87 02/17/22 08:00 106 H 02/17/22 16:00 100.7 F H 96 H 24 134/57 L 95 02/17/22 14:55 91 L 02/17/22 08:00 02/17/22 12:00 100.6 F H 92 H 22 126/63 90 L 02/17/22 11:06 94 L 02/17/22 08:00 98.5 F 55 L 26 H 139/66 90 L 02/17/22 08:09 91 L 02/17/22 04:00 90 02/17/22 04:00 98.4 F 102 H 30 H 148/63 H 90 L 02/16/22 21:20 96 02/17/22 00:00 90 02/16/22 20:47 100 H 02/17/22 00:00 97.7 F 81 28 H 134/73 91 L 02/16/22 21:15 100 H 02/16/22 21:15 94 H 02/16/22 20:00 99.1 F 102 H 26 H 122/70 90 L 02/16/22 20:26 101.9 F H 82 L FiO2 02/17/22 12:00 02/17/22 08:00 02/17/22 16:00 02/17/22 14:55 50 02/17/22 08:00 50 02/17/22 12:00 02/17/22 11:06 75 02/17/22 08:00 02/17/22 08:09 100 02/17/22 04:00 02/17/22 04:00 02/16/22 21:20 50 02/17/22 00:00 02/16/22 20:47 02/17/22 00:00 02/16/22 21:15 02/16/22 21:15 02/16/22 20:00 02/16/22 20:26 Intake and Output 02/17/22 02/17/22 02/17/22 07:59 15:59 23:59 Intake Total 1024 / 1024 Output Total 1600 / 5752 2751 / 5752 1401 / 5752 Balance -576 / -4728 -2751 / -4728 -1401 / -4728 Intake: Intake, Total IV Amount 1024 / 1024 Zinc/Copper/Leonor/Chromic Chl 1024 / 1024 1 ml Mvi, Adult No.1 with Vit K 10 ml In Aa 4.25%/Calcium/ Lytes/Dex 10% 1,000 ml @ 75 mls /hr IV .[id number] Rx#: [id number] Output: Output, Urine Amount 800 / 2552 1751 / 2552 1 / 2552 Output, Urine Amount (Catheter) 800 / 3200 1000 / 3200 1400 / 3200 Dozier 800 / 3200 1000 / 3200 1400 / 3200 Other: Number of Unmeasured Voids 0 550 Number of Bowel Movements 2 2 Weight 62.233 kg Patient Weight 02/17/22 23:59 Weight 62.233 kg Laboratory Results - last 24 hr 02/16/22 20:37: POC Glucose 113 H 02/17/22 04:43: POC Glucose 156 H 02/17/22 05:50: WBC 38.5 H* D, RBC 3.21 L, Hgb 9.2 L, Hct 29.1 L, MCV 90.8, MCH 28.8, MCHC 31.7 L, RDW 14.5, Plt Count 672 H, MPV 8.5, Neut % (Auto) 93.5 H, Lymph % (Auto) 2.6 L, [place] % (Auto) 3.1, Eos % (Auto) 0.6, Baso % (Auto) 0.2, Neut # (Auto) 36.0 H, Lymph # (Auto) 1.0, [place] # (Auto) 1.2 H, Eos # (Auto) 0.2, Baso # (Auto) 0.1, Total Counted 100, Neutrophils % (Manual) 98 H, Monocytes % (Manual) 2, Platelet Estimate Marked increase, RBC Morphology Normal 02/17/22 05:50: Sodium 138, Potassium 2.9 L*, Chloride 107, Carbon Dioxide 27, Anion Gap 6.9, BUN 20, Creatinine 0.90, Estimated Creat Clear 61, Estimated GFR 84, Est GFR ( Amer) 101, Glucose 123 H, Calcium 7.5 L, Phosphorus 4.0 D, Magnesium 2.0 D, Total Bilirubin 0.5, AST 37, ALT 17, Alkaline Phosphatase 154 H, Total Protein 5.4 L, Albumin 2.5 L, Globulin 2.9, Albumin/Globulin Ratio 0.9 L, Triglycerides 85, Cholesterol 73 L 02/17/22 05:50: Ammonia < 9 L 02/17/22 10:40: Chlamy pneumoniae PCR Not detected, Adenovirus (PCR) Not detected, B. pertussis DNA (PCR) Not detected, Coronavirus OC43 (PCR) Not detected, Coronavirus HKU1 (PCR) Not detected, Coronavirus 229E (PCR) Not detected, SARS-CoV-2 (PCR) Not detected, Coronavirus NL63 (PCR) Not detected, Human Metapneumovir PCR Not detected, Influen
[2022-02-17 19:41] LABS: Giardia lamblia Detected (NotDetected)
--- NOTE | 2022-02-17 19:58 | PC.NURSE ---
Notified sarah Marie of positive parasite from diarrhea panel. New orders received
--- NOTE | 2022-02-17 20:26 | EXP.PN ---
Subjective *Date: 02/18/22 *Time: 14:50 Interval history: diarrhea , post surgery bowel resection, Exam Data for Last 24 hours Vital signs and Labs for Last 24 Hours: Temp Pulse Resp BP Pulse Ox FiO2 97.5 F L 78 26 H 105/50 L 95 50 02/17/22 20:00 02/17/22 20:00 02/17/22 20:00 02/17/22 20:00 02/17/22 20:20 02/17/22 20:20 Laboratory Results - last 24 hr 02/16/22 20:37: POC Glucose 113 H 02/17/22 04:43: POC Glucose 156 H 02/17/22 05:50: WBC 38.5 H* D, RBC 3.21 L, Hgb 9.2 L, Hct 29.1 L, MCV 90.8, MCH 28.8, MCHC 31.7 L, RDW 14.5, Plt Count 672 H, MPV 8.5, Neut % (Auto) 93.5 H, Lymph % (Auto) 2.6 L, [place] % (Auto) 3.1, Eos % (Auto) 0.6, Baso % (Auto) 0.2, Neut # (Auto) 36.0 H, Lymph # (Auto) 1.0, [place] # (Auto) 1.2 H, Eos # (Auto) 0.2, Baso # (Auto) 0.1, Total Counted 100, Neutrophils % (Manual) 98 H, Monocytes % (Manual) 2, Platelet Estimate Marked increase, RBC Morphology Normal 02/17/22 05:50: Sodium 138, Potassium 2.9 L*, Chloride 107, Carbon Dioxide 27, Anion Gap 6.9, BUN 20, Creatinine 0.90, Estimated Creat Clear 61, Estimated GFR 84, Est GFR ( Amer) 101, Glucose 123 H, Calcium 7.5 L, Phosphorus 4.0 D, Magnesium 2.0 D, Total Bilirubin 0.5, AST 37, ALT 17, Alkaline Phosphatase 154 H, Total Protein 5.4 L, Albumin 2.5 L, Globulin 2.9, Albumin/Globulin Ratio 0.9 L, Triglycerides 85, Cholesterol 73 L 02/17/22 05:50: Ammonia < 9 L 02/17/22 10:40: Chlamy pneumoniae PCR Not detected, Adenovirus (PCR) Not detected, B. pertussis DNA (PCR) Not detected, Coronavirus OC43 (PCR) Not detected, Coronavirus HKU1 (PCR) Not detected, Coronavirus 229E (PCR) Not detected, SARS-CoV-2 (PCR) Not detected, Coronavirus NL63 (PCR) Not detected, Human Metapneumovir PCR Not detected, Influenza A (H1) PCR Not detected, Influ A (H1N1/09) PCR Not detected, Influenza A (H3) PCR Not detected, Influenza Type A (PCR) Not detected, Influenza Type B (PCR) Not detected, M. pneumoniae (PCR) Not detected, Parainfluenza 1 (PCR) Not detected, Parainfluenza 2 (PCR) Not detected, Parainfluenza 3 (PCR) Not detected, Parainfluenza 4 (PCR) Not detected, RSV (PCR) Not detected, Entero/Rhino (PCR) Not detected 02/17/22 11:54: POC Glucose 142 H 02/17/22 12:45: Stl Aeromonas (PCR) Not detected, Stl C. cayetanensis PCR Not detected, Stool Rotavirus (PCR) Not detected, Stl Adenov F 40/41 PCR Not detected, Stool Astrovirus (PCR) Not detected, Stool Campylobacter PCR Not detected, Stl C.difficile Tox PCR Not detected, Stool Cryptosporidium PCR Not detected, Stl E.coli Shiga Tox PCR Not detected, Stool E coli O157 PCR Not detected, Stl Enterotoxigenic E PCR Not detected, Stool EPEC (PCR) Not detected, Stool EAEC (PCR) Not detected, Stl E. histolytica PCR Not detected, Stool Giardia Lamblia PCR Detected A, Stool Salmonella PCR Not detected, Stool Sapovirus (PCR) Not detected, Stl P. shigelloides PCR Not detected, Stl Shigella/EIEC PCR Not detected, St Y.enterocolitica PCR Not detected, Stool Vibrio (PCR) Not detected, Stl Vibrio cholerae PCR Not detected, Stl Norovirus GI/GII PCR Not detected 02/17/22 16:49: POC Glucose 97 I & O for Last 24 hours: Intake & Output 02/14/22 02/15/22 02/16/22 02/17/22 23:59 23:59 23:59 23:59 Intake Total 3255 / 3255 3526 / 5687 3337 / 3337 1264 / 1264 Output Total 1300 / 1500 1000 / 1000 3208 / 4008 5952 / 5952 Balance 1955 / 175 2526 / 4687 129 / -671 -4688 / -4688 Weight 61.859 kg 61.859 kg 62.233 kg Constitutional Constitutional: no acute distress Comments: unchanged , has some nausea . last dose of IV flagy at 1800 Assessment and Plan *Assessment and plan (1) Giardia lamblia infestation: Status: Acute Category: Medical Code(s): A07.1 - Giardiasis [lambliasis] Plan will change metronidazole from IV to po . will start at 250 mg dose to see affect on nausea , and increase to 500mg if needed and tolerated. Rounded on patient after nurse practitioner. Personally examined and interviewed patient. Agree wi
[2022-02-17 21:10] LABS: POC Glucose,Bedside 100 (70-110)
[2022-02-18] VITALS (8 sets, daily range): BP systolic 101–122; BP diastolic 53–68; PULSE 67–90; RESP 18–26; TEMP 36.7–37; O2SAT 91–100; BMI 20.9
--- NOTE | 2022-02-18 05:18 | PC.NURSE ---
Patient had an episode of trying to get out of the bed and pulling at carter cath. Patient stated he just woke up and didn't know where he was Reoriented patient. No complaints of pain through the night. Patient is on vapotherm at 50%, sats have stayed in the low 90's. Patient states he feels the best he's felt this morning since hes been here. Picc line to CALLUM. Carter cath draining clear yellow urine. Patient had diarrhea a couple times. at bedside.
[2022-02-18 06:09] LABS: POC Glucose,Bedside 114 (70-110)
--- NOTE | 2022-02-18 07:45 | EXP.ACUTE.PN ---
Subjective *Date: 02/18/22 *Time: 14:50 Interval history: Overall looks better this morning. Able to wean oxygen, on 5 L on morning rounds. Has weaned through the day to 1-1/2 L nasal cannula. Significant urine output, -4.7 L by this morning. No fevers overnight. Loose stools are decreasing in frequency. Tolerating clear liquid diet. Denies dyspnea, chest pain, nausea, vomiting; improved confusion per family. Family at bedside and updated of plan. Medical Exam Vital signs and Labs for Last 24 Hours: Vital Signs Temp Pulse Pulse Resp BP BP Pulse Ox 02/18/22 04:00 90 02/18/22 04:00 98.4 F 85 26 H 122/63 91 L 02/18/22 00:00 85 02/18/22 00:00 98.0 F 78 24 114/59 L 94 L 02/17/22 21:00 02/17/22 20:20 95 02/17/22 20:00 97.5 F L 78 26 H 105/50 L 91 L 02/17/22 12:00 87 02/17/22 08:00 106 H 02/17/22 16:00 100.7 F H 96 H 24 134/57 L 95 02/17/22 14:55 91 L 02/17/22 08:00 02/17/22 12:00 100.6 F H 92 H 22 126/63 90 L 02/17/22 11:06 94 L 02/17/22 08:00 98.5 F 55 L 26 H 139/66 90 L 02/17/22 08:09 91 L FiO2 02/18/22 04:00 02/18/22 04:00 02/18/22 00:00 02/18/22 00:00 02/17/22 21:00 50 02/17/22 20:20 50 02/17/22 20:00 02/17/22 12:00 02/17/22 08:00 02/17/22 16:00 02/17/22 14:55 50 02/17/22 08:00 50 02/17/22 12:00 02/17/22 11:06 75 02/17/22 08:00 02/17/22 08:09 100 Intake and Output 02/17/22 02/17/22 02/18/22 15:59 23:59 07:59 Intake Total 240 / 1264 Output Total 2751 / 6352 1801 / 6352 400 / 400 Balance -2751 / -5088 -1561 / -5088 -400 / -400 Intake: Intake, Oral Amount 240 / 240 Output: Output, Urine Amount 1751 / 2952 401 / 2952 Output, Urine Amount (Catheter) 1000 / 3400 1400 / 3400 400 / 400 Dozier 1000 / 3400 1400 / 3400 400 / 400 Other: Number of Unmeasured Voids 0 0 Number of Bowel Movements 2 Weight 62.823 kg Patient Weight 02/18/22 23:59 Weight 62.823 kg Laboratory Results - last 24 hr 02/17/22 10:40: Chlamy pneumoniae PCR Not detected, Adenovirus (PCR) Not detected, B. pertussis DNA (PCR) Not detected, Coronavirus OC43 (PCR) Not detected, Coronavirus HKU1 (PCR) Not detected, Coronavirus 229E (PCR) Not detected, SARS-CoV-2 (PCR) Not detected, Coronavirus NL63 (PCR) Not detected, Human Metapneumovir PCR Not detected, Influenza A (H1) PCR Not detected, Influ A (H1N1/09) PCR Not detected, Influenza A (H3) PCR Not detected, Influenza Type A (PCR) Not detected, Influenza Type B (PCR) Not detected, M. pneumoniae (PCR) Not detected, Parainfluenza 1 (PCR) Not detected, Parainfluenza 2 (PCR) Not detected, Parainfluenza 3 (PCR) Not detected, Parainfluenza 4 (PCR) Not detected, RSV (PCR) Not detected, Entero/Rhino (PCR) Not detected 02/17/22 11:54: POC Glucose 142 H 02/17/22 12:45: Stl Aeromonas (PCR) Not detected, Stl C. cayetanensis PCR Not detected, Stool Rotavirus (PCR) Not detected, Stl Adenov F 40/41 PCR Not detected, Stool Astrovirus (PCR) Not detected, Stool Campylobacter PCR Not detected, Stl C.difficile Tox PCR Not detected, Stool Cryptosporidium PCR Not detected, Stl E.coli Shiga Tox PCR Not detected, Stool E coli O157 PCR Not detected, Stl Enterotoxigenic E PCR Not detected, Stool EPEC (PCR) Not detected, Stool EAEC (PCR) Not detected, Stl E. histolytica PCR Not detected, Stool Giardia Lamblia PCR Detected A, Stool Salmonella PCR Not detected, Stool Sapovirus (PCR) Not detected, Stl P. shigelloides PCR Not detected, Stl Shigella/EIEC PCR Not detected, St Y.enterocolitica PCR Not detected, Stool Vibrio (PCR) Not detected, Stl Vibrio cholerae PCR Not detected, Stl Norovirus GI/GII PCR Not detected 02/17/22 16:49: POC Glucose 97 02/17/22 20:45: POC Glucose 100 02/18/22 05:14: POC Glucose 114 H I & O for Labs for Last 24 Hours: Intake & Output 02/15/22 02/16/22 02/17/22 02/18/22 23:59 23:59 23:59 23:59 Intake Total 8537
[2022-02-18 09:20] LABS: Basophils # 0.1 K/mm3 (0-0.2); Basophils % 0.3 % (0.1-2.0); Eosinophils # 0.3 K/mm3 (0.0-0.4); Eosinophils % 1.1 % (0.1-12.0); Hematocrit 23.7 % (42.0-52.0); Lymphocytes # 1.3 K/mm3 (0.7-4.5); Lymphocytes % 4.9 % (10-50); Mean Corpuscular HGB Conc 33.9 g/dL (31.8-35.4); Mean Corpuscular Hemoglobin 29.2 pg (27.0-31.2); Mean Platelet Volume 8.5 fl (7.4-10.4); Monocytes # 1.1 K/mm3 (0.1-1.0); Monocytes % 4.2 % (1.7-9.3); Neutrophils # 23.8 K/mm3 (1.8-7.8); Neutrophils % 89.6 % (37.0-80.0); Platelet Count 701 K/mm3 (142-424); Red Blood Count 2.75 M/mm3 (4.60-6.20); Red Cell Distribution Width 14.2 % (11.5-17.5); White Blood Count 26.6 K/mm3 (4.8-10.8)
[2022-02-18 09:23] LABS: Chloride 106 mmol/L (98-107); Sodium 138 mmol/L (136-145)
[2022-02-18 09:24] LABS: MANUAL DIFFERENTIAL MANUAL DIFFERENTIAL (MANUAL DIFF)
[2022-02-18 09:26] LABS: Alanine Aminotransferase 15 U/L (12-78); Albumin Level 2.1 g/dl (3.5-5.0); Albumin/Globulin Ratio 0.8 (1.1-1.8); Alkaline Phosphatase 144 U/L (38-126); Aspartate Amino Transferase 30 U/L (17-59); Bilirubin,Total 0.4 mg/dl (0.2-1.3); Blood Urea Nitrogen 28 mg/dl (9-20); Carbon Dioxide 26 mmol/L (22.0-30.0); Creatinine Clearance Estimated 62 mL/min (50-200); Estimated Glomerular Filt Rate 74 ml/min (>60); GFR (African American) 90 ML/MIN (>60); Globulin 2.8 g/dL (1.3-3.2); Glucose 97 mg/dl (74-100); Magnesium 2.3 mg/dl (1.6-2.3); Total Protein,Serum 4.9 g/dl (6.3-8.2)
[2022-02-18 09:57] LABS: Lymphocytes % 4 % (10-50); Neutrophils % 96 % (42-76); Total Cells Counted 100
[2022-02-18 09:59] LABS: Anisocytosis 1+; Platelet Estimate Marked Increase; Target Cells 1+
[2022-02-18 10:03] LABS: Erythrocyte Sedimentation Rate > 140 mm/hr (0-20)
--- NOTE | 2022-02-18 10:16 | EXP.SURG.PN ---
Subjective Narrative: Overall patient feeling better. O2 requirements diminished. No significant abdominal pain or nausea. Does not desire clear liquids. Exam Data for Last 24 hours Vital signs and Labs for Last 24 Hours: Temp Pulse Resp BP Pulse Ox FiO2 98.1 F 67 18 106/62 L 94 L 50 02/18/22 09:04 02/18/22 09:04 02/18/22 09:04 02/18/22 09:04 02/18/22 09:04 02/17/22 21:00 Laboratory Results - last 24 hr 02/17/22 10:40: Chlamy pneumoniae PCR Not detected, Adenovirus (PCR) Not detected, B. pertussis DNA (PCR) Not detected, Coronavirus OC43 (PCR) Not detected, Coronavirus HKU1 (PCR) Not detected, Coronavirus 229E (PCR) Not detected, SARS-CoV-2 (PCR) Not detected, Coronavirus NL63 (PCR) Not detected, Human Metapneumovir PCR Not detected, Influenza A (H1) PCR Not detected, Influ A (H1N1/09) PCR Not detected, Influenza A (H3) PCR Not detected, Influenza Type A (PCR) Not detected, Influenza Type B (PCR) Not detected, M. pneumoniae (PCR) Not detected, Parainfluenza 1 (PCR) Not detected, Parainfluenza 2 (PCR) Not detected, Parainfluenza 3 (PCR) Not detected, Parainfluenza 4 (PCR) Not detected, RSV (PCR) Not detected, Entero/Rhino (PCR) Not detected 02/17/22 11:54: POC Glucose 142 H 02/17/22 12:45: Stl Aeromonas (PCR) Not detected, Stl C. cayetanensis PCR Not detected, Stool Rotavirus (PCR) Not detected, Stl Adenov F 40/41 PCR Not detected, Stool Astrovirus (PCR) Not detected, Stool Campylobacter PCR Not detected, Stl C.difficile Tox PCR Not detected, Stool Cryptosporidium PCR Not detected, Stl E.coli Shiga Tox PCR Not detected, Stool E coli O157 PCR Not detected, Stl Enterotoxigenic E PCR Not detected, Stool EPEC (PCR) Not detected, Stool EAEC (PCR) Not detected, Stl E. histolytica PCR Not detected, Stool Giardia Lamblia PCR Detected A, Stool Salmonella PCR Not detected, Stool Sapovirus (PCR) Not detected, Stl P. shigelloides PCR Not detected, Stl Shigella/EIEC PCR Not detected, St Y.enterocolitica PCR Not detected, Stool Vibrio (PCR) Not detected, Stl Vibrio cholerae PCR Not detected, Stl Norovirus GI/GII PCR Not detected 02/17/22 16:49: POC Glucose 97 02/17/22 20:45: POC Glucose 100 02/18/22 05:14: POC Glucose 114 H 02/18/22 09:15: WBC 26.6 H* D, RBC 2.75 L, Hgb 8.0 L, Hct 23.7 L, MCV 86.0, MCH 29.2, MCHC 33.9, RDW 14.2, Plt Count 701 H, MPV 8.5, Neut % (Auto) 89.6 H, Lymph % (Auto) 4.9 L, [place] % (Auto) 4.2, Eos % (Auto) 1.1, Baso % (Auto) 0.3, Neut # (Auto) 23.8 H, Lymph # (Auto) 1.3, [place] # (Auto) 1.1 H, Eos # (Auto) 0.3, Baso # (Auto) 0.1, Total Counted 100, Neutrophils % (Manual) 96 H, Lymphocytes % (Manual) 4 L, Platelet Estimate Marked increase, Anisocytosis 1+, Target Cells 1+, ESR > 140 H 02/18/22 09:15: Sodium 138, Potassium 3.0 L, Chloride 106, Carbon Dioxide 26, Anion Gap 9.0, BUN 28 H D, Creatinine 1.00, Estimated Creat Clear 62, Estimated GFR 74, Est GFR ( Amer) 90, Glucose 97, Calcium 7.0 L, Magnesium 2.3 D, Total Bilirubin 0.4, AST 30, ALT 15, Alkaline Phosphatase 144 H, C-Reactive Protein 155.0 H, Total Protein 4.9 L, Albumin 2.1 L D, Globulin 2.8, Albumin/Globulin Ratio 0.8 L I & O for Last 24 hours: Intake & Output 02/15/22 02/16/22 02/17/22 02/18/22 11:59 11:59 11:59 11:59 Intake Total 2602 / 2602 4279 / 4279 2200 / 2200 300 / 300 Output Total 1050 / 1050 1703 / 1703 5655 / 6405 2952 / 2952 Balance 1552 / 1552 2576 / 2576 -9525 / -0075 -2652 / -2652 Weight 136 lb 6 oz 136 lb 6.012 oz 137 lb 3.2 oz 138 lb 8 oz *Routine Abdominal Exam Comments: Abdomen is softer. Incision clean and intact. Progress Note: A&P Assessment and plan (1) Giardia lamblia infestation: Status: Acute Assessment and Plan Assessment and Plan for All Diagnoses:: Continue to encourage clear liquids. Once tolerating this I will advance to full liquid diet.
[2022-02-18 11:19] LABS: POC Glucose,Bedside 113 (70-110)
--- NOTE | 2022-02-18 15:46 | HMH.PTEV ---
Physical Therapy Evaluation Rehab PT IP Evaluation Start: 02/18/22 14:43 Freq: ONCE Status: Active Protocol: Document 02/18/22 15:35 ALVAROSAGE (Rec: 02/18/22 15:45 [email or web address] [id number]) Subjective/History History History Pt is a 71 y/o male who presented to [facility] ER on 02/06/22 due to pain in the abdomen that he reports has been ongoing and worsening over a 2 -month period associated with weight loss, nausea and some episodes of vomiting. The patient reports that the pain starts in the left upper abdominal quadrant and radiates to the right upper abdominal quadrant and is colicky in nature. He reports that he was unable to hide the pain from his today and she insisted that he come into the ER for evaluation. Evaluation in the emergency department included CT scan which revealed findings of small bowel obstruction apparently due to significant wall thickening of the cecum/ proximal colon highly concerning for colon carcinoma . There were also noted to be several subcentimeter hypodense lesions in the liver diffusely. He underwent liver ultrasound and these lesions were not identified. Surgical consultation was obtained. 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 Due to the obstruction, despite having potential liver metastases, plan was made for urgent laparotomy. Procedure included : Laparotomy, right colon resection with ileocolic anastomosis& liver biopsy. Pt is currently doing well on .5
--- NOTE | 2022-02-18 16:34 | PC.NURSE ---
I HAVE WEANED PTS O2 THROUGH OUT THE SHIFT. HE IS CURRENT;Y ON ra TOLERATING WELL. SATURATIONS HAVE BEEN >95% Cha REMOVED. PT AMBULATED TO CHAIR WITHOUT ISSUE. RECEIVED A BATH; INCONTINENT X1 BM. HE HAS BEEN ALERT AND APPROPRIATE ALL SHIFT FOR ME. TOLERATING PO INTAKE. LETI ARE C/D/I. INCISION LOOKS WELL WITHOUT DRAINAGE.
[2022-02-18 17:28] LABS: POC Glucose,Bedside 85 (70-110)
--- NOTE | 2022-02-18 19:01 | PC.NURSE ---
PT Has done well today. Ambulated in [place] and in room with sba. denies any soa. has tolerated RA. he is alert and appropriate. has had 3 Liquid bms
--- NOTE | 2022-02-18 19:09 | PC.NURSE ---
sputum sample collected
[2022-02-18 21:50] LABS: POC Glucose,Bedside 104 (70-110)
[2022-02-19] VITALS (7 sets, daily range): BP systolic 98–117; BP diastolic 47–90; PULSE 65–107; RESP 16–20; TEMP 36.4–37.2; O2SAT 92–100; BMI 21.1
[2022-02-19 05:39] LABS: POC Glucose,Bedside 99 (70-110)
--- NOTE | 2022-02-19 05:49 | PC.NURSE ---
patient rested well through the night. patient had no complaints of pain.
[2022-02-19 06:10] LABS: Peripheral Smear Review Scanned Result
[2022-02-19 06:50] LABS: Basophils # 0.1 K/mm3 (0-0.2); Basophils % 0.4 % (0.1-2.0); Eosinophils # 0.3 K/mm3 (0.0-0.4); Hemoglobin 8.2 g/dL (14.1-18.0); Lymphocytes # 1.6 K/mm3 (0.7-4.5); Red Cell Distribution Width 14.2 % (11.5-17.5)
[2022-02-19 06:56] LABS: Eosinophils % 1.4 % (0.1-12.0); Hematocrit 24.5 % (42.0-52.0); Lymphocytes % 8.8 % (10-50); MANUAL DIFFERENTIAL MANUAL DIFFERENTIAL (MANUAL DIFF); Mean Corpuscular HGB Conc 33.3 g/dL (31.8-35.4); Mean Platelet Volume 9.2 fl (7.4-10.4); Monocytes # 0.7 K/mm3 (0.1-1.0); Neutrophils # 15.6 K/mm3 (1.8-7.8); Neutrophils % 85.4 % (37.0-80.0); Platelet Count 860 K/mm3 (142-424); Red Blood Count 2.82 M/mm3 (4.60-6.20); White Blood Count 18.3 K/mm3 (4.8-10.8)
[2022-02-19 06:58] LABS: Lymphocytes % 15 % (10-50); Monocytes % 1 % (2-9); Neutrophils % 82 % (42-76); Platelet Estimate Marked Increase; RBC Morphology Normal; Rouleaux 3+; Total Cells Counted 100
[2022-02-19 07:10] LABS: Alanine Aminotransferase 15 U/L (12-78); Albumin Level 2.1 g/dl (3.5-5.0); Albumin/Globulin Ratio 0.8 (1.1-1.8); Alkaline Phosphatase 156 U/L (38-126); Anion Gap 10.8 mEq/L (5-15); Aspartate Amino Transferase 34 U/L (17-59); Bilirubin,Total 0.4 mg/dl (0.2-1.3); Blood Urea Nitrogen 34 mg/dl (9-20); Calcium 6.8 mg/dl (8.4-10.2); Carbon Dioxide 24 mmol/L (22.0-30.0); Chloride 106 mmol/L (98-107); Creatinine Clearance Estimated 62 mL/min (50-200); Estimated Glomerular Filt Rate 74 ml/min (>60); GFR (African American) 90 ML/MIN (>60); Globulin 2.8 g/dL (1.3-3.2); Glucose 88 mg/dl (74-100); Magnesium 2.4 mg/dl (1.6-2.3); Sodium 138 mmol/L (136-145); Total Protein,Serum 4.9 g/dl (6.3-8.2)
[2022-02-19 07:16] LABS: Potassium 2.8 mmoL/L (3.5-5.1)
--- NOTE | 2022-02-19 07:42 | PC.NURSE ---
notified of critical labs
--- NOTE | 2022-02-19 09:22 | EXP.SURG.PN ---
Subjective Narrative: Patient feeling much better. On room air. Tolerating clear liquid diet. Has had some bowel movements. Ambulating in hallway. Wants some food. Exam Data for Last 24 hours Vital signs and Labs for Last 24 Hours: Temp Pulse Resp BP Pulse Ox FiO2 98.1 F 76 18 106/54 L 100 50 02/19/22 08:00 02/19/22 08:00 02/19/22 08:00 02/19/22 08:00 02/19/22 08:00 02/17/22 21:00 Laboratory Results - last 24 hr 02/18/22 09:15: WBC 26.6 H* D, RBC 2.75 L, Hgb 8.0 L, Hct 23.7 L, MCV 86.0, MCH 29.2, MCHC 33.9, RDW 14.2, Plt Count 701 H, MPV 8.5, Neut % (Auto) 89.6 H, Lymph % (Auto) 4.9 L, [place] % (Auto) 4.2, Eos % (Auto) 1.1, Baso % (Auto) 0.3, Neut # (Auto) 23.8 H, Lymph # (Auto) 1.3, [place] # (Auto) 1.1 H, Eos # (Auto) 0.3, Baso # (Auto) 0.1, Total Counted 100, Neutrophils % (Manual) 96 H, Lymphocytes % (Manual) 4 L, Platelet Estimate Marked increase, Anisocytosis 1+, Target Cells 1+, ESR > 140 H 02/18/22 09:15: Sodium 138, Potassium 3.0 L, Chloride 106, Carbon Dioxide 26, Anion Gap 9.0, BUN 28 H D, Creatinine 1.00, Estimated Creat Clear 62, Estimated GFR 74, Est GFR ( Amer) 90, Glucose 97, Calcium 7.0 L, Magnesium 2.3 D, Total Bilirubin 0.4, AST 30, ALT 15, Alkaline Phosphatase 144 H, C-Reactive Protein 155.0 H, Total Protein 4.9 L, Albumin 2.1 L D, Globulin 2.8, Albumin/Globulin Ratio 0.8 L 02/18/22 11:12: POC Glucose 113 H 02/18/22 14:33: Vancomycin Trough 10.0 02/18/22 17:15: POC Glucose 85 02/18/22 20:10: Vancomycin Peak 22.0 02/18/22 20:10: POC Glucose 104 02/19/22 05:28: POC Glucose 99 02/19/22 06:27: WBC 18.3 H D, RBC 2.82 L, Hgb 8.2 L, Hct 24.5 L, MCV 87.0, MCH 29.0, MCHC 33.3, RDW 14.2, Plt Count 860 H, MPV 9.2, Neut % (Auto) 85.4 H, Lymph % (Auto) 8.8 L, [place] % (Auto) 4.0, Eos % (Auto) 1.4, Baso % (Auto) 0.4, Neut # (Auto) 15.6 H, Lymph # (Auto) 1.6, [place] # (Auto) 0.7, Eos # (Auto) 0.3, Baso # (Auto) 0.1, Total Counted 100, Neutrophils % (Manual) 82 H, Band Neutrophils % 2.0, Lymphocytes % (Manual) 15, Monocytes % (Manual) 1 L, Platelet Estimate Marked increase, RBC Morphology Normal, Rouleaux 3+ 02/19/22 06:27: Sodium 138, Potassium 2.8 L*, Chloride 106, Carbon Dioxide 24, Anion Gap 10.8, BUN 34 H, Creatinine 1.00, Estimated Creat Clear 62, Estimated GFR 74, Est GFR ( Amer) 90, Glucose 88, Calcium 6.8 L, Magnesium 2.4 H, Total Bilirubin 0.4, AST 34, ALT 15, Alkaline Phosphatase 156 H, Total Protein 4.9 L, Albumin 2.1 L, Globulin 2.8, Albumin/Globulin Ratio 0.8 L I & O for Last 24 hours: Intake & Output 02/16/22 02/17/22 02/18/22 02/19/22 11:59 11:59 11:59 11:59 Intake Total 4279 / 4279 2200 / 2200 300 / 300 420 / 420 Output Total 1703 / 1703 5655 / 6405 4152 / 4152 300 / 300 Balance 2576 / 2576 -3455 / -4205 -3852 / -3852 120 / 120 Weight 136 lb 6.012 oz 137 lb 3.2 oz 138 lb 8 oz 139 lb 7.607 oz Microbiology Reports for the Last 24 Hours: Microbiology 02/17/22 09:06 Blood Blood Culture - Preliminary NO GROWTH AFTER 48 HOURS 02/17/22 09:06 Blood Blood Culture - Preliminary NO GROWTH AFTER 48 HOURS 02/18/22 19:10 Sputum - Expectorated Sputum Gram Stain - Final 02/18/22 19:10 Sputum - Expectorated Sputum Sputum Culture - Preliminary *Routine Abdominal Exam Comments: Abdomen slightly distended. Incision clean and intact. Progress Note: A&P Assessment and plan (1) Pneumonia: Status: Acute (2) Severe protein-calorie malnutrition: Status: Acute (3) SBO (small bowel obstruction): Status: Acute Assessment and plan: Carefully advance diet. (4) Tobacco abuse: Status: Acute (5) Adenocarcinoma: Status: Acute (6) Anemia: Status: Acute (7) Giardia lamblia infestation: Status: Acute
--- NOTE | 2022-02-19 09:26 | EXP.ANES.II ---
[facility] Anesthesia Record Part II Anesthesia Record Part II Discharge Time: 17:22 Destination: Second Floor PACU nurse assessment reviewed?: Yes Patient Condition:: Good Anesthesia Complications:: None Swallowing reflex intact?: Yes Cyanosis?: No Blood Pressure: 114/90 Pulse Rate: 107 Temperature: 97.6 F Mental Status: Unresponsive Pain level:: 0 Nausea and/or vomitting:: None Intake, IV Amount: 0
--- NOTE | 2022-02-19 09:51 | EXP.PHA.PN ---
Subjective *Date: 02/19/22 *Time: 09:51 Medical Exam Vital signs and Labs for Last 24 Hours: Vital Signs Temp Pulse Pulse Resp BP BP Pulse Ox 02/19/22 08:00 98.1 F 76 18 106/54 L 100 02/19/22 04:00 98.7 F 72 18 112/52 L 95 02/19/22 04:00 70 02/19/22 00:00 65 02/18/22 20:00 85 02/19/22 00:00 98.9 F 82 18 117/53 L 96 02/18/22 20:00 98.3 F 74 18 110/53 L 100 02/18/22 16:02 98.4 F 72 18 101/55 L 100 02/18/22 12:13 70 02/18/22 12:00 98.6 F 75 18 101/68 L 100 02/19/22 09:27 97.6 F 107 H 114/90 Intake and Output 02/18/22 02/19/22 02/19/22 23:59 07:59 15:59 Intake Total 240 / 420 60 / 60 Output Total 300 / 300 Balance 240 / -1380 -300 / -240 60 / -240 Intake: Intake, Oral Amount 240 / 420 60 / 60 Intake, Total IV Amount 0 / 0 Output: Output, Urine Amount 300 / 300 Other: Number of Voids 1 Number of Unmeasured Voids 1 Weight 63.265 kg Patient Weight 02/19/22 23:59 Weight 63.265 kg Laboratory Results - last 24 hr 02/18/22 09:15: Total Counted 100, Neutrophils % (Manual) 96 H, Lymphocytes % (Manual) 4 L, Platelet Estimate Marked increase, Anisocytosis 1+, Target Cells 1+, ESR > 140 H 02/18/22 11:12: POC Glucose 113 H 02/18/22 14:33: Vancomycin Trough 10.0 02/18/22 17:15: POC Glucose 85 02/18/22 20:10: Vancomycin Peak 22.0 02/18/22 20:10: POC Glucose 104 02/19/22 05:28: POC Glucose 99 02/19/22 06:27: WBC 18.3 H D, RBC 2.82 L, Hgb 8.2 L, Hct 24.5 L, MCV 87.0, MCH 29.0, MCHC 33.3, RDW 14.2, Plt Count 860 H, MPV 9.2, Neut % (Auto) 85.4 H, Lymph % (Auto) 8.8 L, [place] % (Auto) 4.0, Eos % (Auto) 1.4, Baso % (Auto) 0.4, Neut # (Auto) 15.6 H, Lymph # (Auto) 1.6, [place] # (Auto) 0.7, Eos # (Auto) 0.3, Baso # (Auto) 0.1, Total Counted 100, Neutrophils % (Manual) 82 H, Band Neutrophils % 2.0, Lymphocytes % (Manual) 15, Monocytes % (Manual) 1 L, Platelet Estimate Marked increase, RBC Morphology Normal, Rouleaux 3+ 02/19/22 06:27: Sodium 138, Potassium 2.8 L*, Chloride 106, Carbon Dioxide 24, Anion Gap 10.8, BUN 34 H, Creatinine 1.00, Estimated Creat Clear 62, Estimated GFR 74, Est GFR ( Amer) 90, Glucose 88, Calcium 6.8 L, Magnesium 2.4 H, Total Bilirubin 0.4, AST 34, ALT 15, Alkaline Phosphatase 156 H, Total Protein 4.9 L, Albumin 2.1 L, Globulin 2.8, Albumin/Globulin Ratio 0.8 L I & O for Labs for Last 24 Hours: Intake & Output 02/16/22 02/17/22 02/18/22 02/19/22 23:59 23:59 23:59 23:59 Intake Total 3337 / 3337 1264 / 1264 420 / 420 60 / 60 Output Total 3208 / 4008 6152 / 6352 1600 / 1800 300 / 300 Balance 129 / -671 -4888 / -5088 -1180 / -1380 -240 / -240 Weight 61.859 kg 62.233 kg 62.823 kg 63.265 kg Microbiology Reports for the Last 24 Hours: Microbiology 02/17/22 09:06 Blood Blood Culture - Preliminary NO GROWTH AFTER 48 HOURS 02/17/22 09:06 Blood Blood Culture - Preliminary NO GROWTH AFTER 48 HOURS 02/18/22 19:10 Sputum - Expectorated Sputum Gram Stain - Final 02/18/22 19:10 Sputum - Expectorated Sputum Sputum Culture - Preliminary The patient's infection will respond to the chosen ABx?: Yes (BLOOD CULTURE NO GROWTH. SPUTUM PENDING) Is the patient receiving the right drug, dose, and route?: Yes Could a more targeted ABx be ordered?: No
--- NOTE | 2022-02-19 10:22 | EXP.PHA.CONS ---
Pharmacy Consult Date: 02/19/22 Time: 10:22 Referring provider: DR RAMIREZ Reason for Consult:: VANCOMYCIN PEAK AND TROUGH OBTAINED Allergies Allergy/AdvReac Type Severity Reaction Status Date / Time No Known Allergies Allergy Verified 03/30/17 21:38 Home Medications Medication Instructions Recorded Confirmed Type diphenhydramine HCl 25 mg tablet 25 mg PO HS PRN Insomnia 02/07/22 02/07/22 History (Simply Sleep) New Prescriptions to Start Prescriptions: Height: 1.73 m Weight: 63.265 kg Laboratory Results:: Laboratory Results - last 24 hr 02/18/22 11:12: POC Glucose 113 H 02/18/22 14:33: Vancomycin Trough 10.0 02/18/22 17:15: POC Glucose 85 02/18/22 20:10: Vancomycin Peak 22.0 02/18/22 20:10: POC Glucose 104 02/19/22 05:28: POC Glucose 99 02/19/22 06:27: WBC 18.3 H D, RBC 2.82 L, Hgb 8.2 L, Hct 24.5 L, MCV 87.0, MCH 29.0, MCHC 33.3, RDW 14.2, Plt Count 860 H, MPV 9.2, Neut % (Auto) 85.4 H, Lymph % (Auto) 8.8 L, [place] % (Auto) 4.0, Eos % (Auto) 1.4, Baso % (Auto) 0.4, Neut # (Auto) 15.6 H, Lymph # (Auto) 1.6, [place] # (Auto) 0.7, Eos # (Auto) 0.3, Baso # (Auto) 0.1, Total Counted 100, Neutrophils % (Manual) 82 H, Band Neutrophils % 2.0, Lymphocytes % (Manual) 15, Monocytes % (Manual) 1 L, Platelet Estimate Marked increase, RBC Morphology Normal, Rouleaux 3+ 02/19/22 06:27: Sodium 138, Potassium 2.8 L*, Chloride 106, Carbon Dioxide 24, Anion Gap 10.8, BUN 34 H, Creatinine 1.00, Estimated Creat Clear 62, Estimated GFR 74, Est GFR ( Amer) 90, Glucose 88, Calcium 6.8 L, Magnesium 2.4 H, Total Bilirubin 0.4, AST 34, ALT 15, Alkaline Phosphatase 156 H, Total Protein 4.9 L, Albumin 2.1 L, Globulin 2.8, Albumin/Globulin Ratio 0.8 L Medical History: Medical History Tobacco abuse Tobacco use Assessment and Plan Assessment and plan all Dx Assessment and Plan for all problems:: Pharmacokinetic dosing service Weight: 61.9 Kilograms Vancomycin single level analysis: Current dose being given: 1250 mg Current dosing interval: 18 hrs Current infusion time (hrs): 2 Single level Trough Data: Trough level obtained: 10 mcg/ml (02/18/22 14:33) Timing of trough - # of hrs before next dose: 0.5 Hrs PEAK LEVEL OBTAINED: 22.0 MCG/ML (02/18/22 20:10) Desired peak: 35 mcg/ml Desired trough: 12.5 mcg/ml Estimated PK Parameters: New rate constant (anastacio): 0.078 hr-1 Half-life: 8.89 Hours Vd from levels: 43.33 Liters (0.7 L/kg) CLvanco=?? 3.380 L/hr Estimated New Dose and Interval Recommended dose: 1137.4 mg Recommended interval: 15.2 Hrs Recommendations: Give Vancomycin 1000 mg q 12 hrs. Infuse over 2 hrs Expected Cpeak: 35.2 mcg/mL Expected Ctrough: 16.1 mcg/mL AUC 0-24 /CHOLO Data: CHOLO 0.5 mcg/mL:?? AUC/CHOLO:? 1183.4 CHOLO 1.0 mcg/mL:?? AUC/CHOLO:? 591.7 Thank you for the consult
[2022-02-19 13:51] LABS: POC Glucose,Bedside 103 (70-110)
--- NOTE | 2022-02-19 14:10 | EXP.ACUTE.PN ---
Subjective *Date: 02/19/22 *Time: 14:10 Interval history: Continues to improve daily. Stable on room air. No nausea or vomiting. Tolerating advancement in diet. Ambulating to bathroom. Had 2 bowel movements in the past 24 hours. Afebrile. Hemodynamically stable. Over 6 L negative in the past 48 hours. Family at bedside and updated on plan. Medical Exam Vital signs and Labs for Last 24 Hours: Vital Signs Temp Pulse Pulse Resp BP BP Pulse Ox 02/19/22 12:00 98.2 F 81 16 98/60 L 92 L 02/19/22 08:00 98.1 F 76 18 106/54 L 100 02/19/22 04:00 98.7 F 72 18 112/52 L 95 02/19/22 04:00 70 02/19/22 00:00 65 02/18/22 20:00 85 02/19/22 00:00 98.9 F 82 18 117/53 L 96 02/18/22 20:00 98.3 F 74 18 110/53 L 100 02/18/22 16:02 98.4 F 72 18 101/55 L 100 02/19/22 09:27 97.6 F 107 H 114/90 Intake and Output 02/18/22 02/19/22 02/19/22 23:59 07:59 15:59 Intake Total 240 / 420 120 / 120 Output Total 300 / 750 450 / 750 Balance 240 / -1380 -300 / -630 -330 / -630 Intake: Intake, Oral Amount 240 / 420 120 / 120 Intake, Total IV Amount 0 / 0 Output: Output, Urine Amount 300 / 750 450 / 750 Other: Number of Voids 1 Number of Unmeasured Voids 1 Weight 63.265 kg 63.265 kg Patient Weight 02/19/22 23:59 Weight 63.265 kg Laboratory Results - last 24 hr 02/18/22 14:33: Vancomycin Trough 10.0 02/18/22 17:15: POC Glucose 85 02/18/22 20:10: Vancomycin Peak 22.0 02/18/22 20:10: POC Glucose 104 02/19/22 05:28: POC Glucose 99 02/19/22 06:27: WBC 18.3 H D, RBC 2.82 L, Hgb 8.2 L, Hct 24.5 L, MCV 87.0, MCH 29.0, MCHC 33.3, RDW 14.2, Plt Count 860 H, MPV 9.2, Neut % (Auto) 85.4 H, Lymph % (Auto) 8.8 L, [place] % (Auto) 4.0, Eos % (Auto) 1.4, Baso % (Auto) 0.4, Neut # (Auto) 15.6 H, Lymph # (Auto) 1.6, [place] # (Auto) 0.7, Eos # (Auto) 0.3, Baso # (Auto) 0.1, Total Counted 100, Neutrophils % (Manual) 82 H, Band Neutrophils % 2.0, Lymphocytes % (Manual) 15, Monocytes % (Manual) 1 L, Platelet Estimate Marked increase, RBC Morphology Normal, Rouleaux 3+ 02/19/22 06:27: Sodium 138, Potassium 2.8 L*, Chloride 106, Carbon Dioxide 24, Anion Gap 10.8, BUN 34 H, Creatinine 1.00, Estimated Creat Clear 62, Estimated GFR 74, Est GFR ( Amer) 90, Glucose 88, Calcium 6.8 L, Magnesium 2.4 H, Total Bilirubin 0.4, AST 34, ALT 15, Alkaline Phosphatase 156 H, Total Protein 4.9 L, Albumin 2.1 L, Globulin 2.8, Albumin/Globulin Ratio 0.8 L 02/19/22 13:38: POC Glucose 103 I & O for Labs for Last 24 Hours: Intake & Output 02/16/22 02/17/22 02/18/22 02/19/22 23:59 23:59 23:59 23:59 Intake Total 3337 / 3337 1264 / 1264 420 / 420 120 / 120 Output Total 3208 / 4008 6152 / 6352 1600 / 1800 750 / 750 Balance 129 / -671 -4888 / -5088 -1180 / -1380 -630 / -630 Weight 61.859 kg 62.233 kg 62.823 kg 63.265 kg Microbiology Reports for the Last 24 Hours: Microbiology 02/17/22 09:06 Blood Blood Culture - Preliminary NO GROWTH AFTER 48 HOURS 02/17/22 09:06 Blood Blood Culture - Preliminary NO GROWTH AFTER 48 HOURS 02/18/22 19:10 Sputum - Expectorated Sputum Gram Stain - Final 02/18/22 19:10 Sputum - Expectorated Sputum Sputum Culture - Preliminary Constitutional: Present no acute distress, thin, chronically ill appearing and cooperative Head: Present atraumatic and normocephalic ENT: Present mucous membranes moist Neck: Present normal inspection and full ROM Respiratory: Present crackles (minimal in bases on deep inspiration) and diminished air movement (In bases); Absent accessory muscle use, rhonchi or wheezes Cardiac: Present Reg Rate and Rhythm and S1/S2 GI: Present soft and tenderness (interval improvement in tenderness, no rebound or guarding this morning. Left lower quadrant stable) Comments:: normoactive bowel sounds. Midline incision clean dry and intact. Rectal (male): Present deferre
--- NOTE | 2022-02-19 19:35 | PC.NURSE ---
notified hospitalist of positive blood cx. no new orders received. patient on abx.
[2022-02-20] VITALS: BP 101/47; PULSE 71; RESP 16; TEMP 36.9; O2SAT 97
[2022-02-20 04:00] VITALS: BP 105/48; PULSE 61; RESP 18; TEMP 36.7; O2SAT 94; BMI 21.9
--- NOTE | 2022-02-20 06:15 | PC.NURSE ---
patient had no complaints through the night. rested well. room air. tolerating po meds.
[2022-02-20 06:23] LABS: Alanine Aminotransferase 14 U/L (12-78); Albumin/Globulin Ratio 0.7 (1.1-1.8); Alkaline Phosphatase 171 U/L (38-126); Anion Gap 5.8 mEq/L (5-15); Aspartate Amino Transferase 29 U/L (17-59); Bilirubin,Total 0.2 mg/dl (0.2-1.3); Blood Urea Nitrogen 31 mg/dl (9-20); Calcium 6.5 mg/dl (8.4-10.2); Carbon Dioxide 25 mmol/L (22.0-30.0); Chloride 109 mmol/L (98-107); Creatinine Clearance Estimated 65 mL/min (50-200); Estimated Glomerular Filt Rate 74 ml/min (>60); GFR (African American) 90 ML/MIN (>60); Globulin 2.7 g/dL (1.3-3.2); Glucose 109 mg/dl (74-100); Magnesium 2.4 mg/dl (1.6-2.3); Sodium 137 mmol/L (136-145); Total Protein,Serum 4.7 g/dl (6.3-8.2)
[2022-02-20 06:35] LABS: Basophils # 0.1 K/mm3 (0-0.2); Basophils % 0.6 % (0.1-2.0); Eosinophils # 0.4 K/mm3 (0.0-0.4); Eosinophils % 2.5 % (0.1-12.0); Hematocrit 24.7 % (42.0-52.0); Hemoglobin 8.2 g/dL (14.1-18.0); Lymphocytes # 1.8 K/mm3 (0.7-4.5); Lymphocytes % 12.3 % (10-50); Mean Corpuscular HGB Conc 33.3 g/dL (31.8-35.4); Mean Corpuscular Hemoglobin 28.8 pg (27.0-31.2); Mean Corpuscular Volume 86.7 fl (80-94); Mean Platelet Volume 9.7 fl (7.4-10.4); Monocytes # 0.6 K/mm3 (0.1-1.0); Monocytes % 4.5 % (1.7-9.3); Neutrophils # 11.4 K/mm3 (1.8-7.8); Neutrophils % 80.1 % (37.0-80.0); Platelet Count 842 K/mm3 (142-424); Red Blood Count 2.84 M/mm3 (4.60-6.20); Red Cell Distribution Width 14.4 % (11.5-17.5); White Blood Count 14.2 K/mm3 (4.8-10.8)
[2022-02-20 06:46] LABS: Potassium 2.8 mmoL/L (3.5-5.1)
--- NOTE | 2022-02-20 06:49 | PC.NURSE ---
reported critical potassium 2.8 to hospitalist.
--- NOTE | 2022-02-20 07:18 | P.PN_ITS ---
Subjective Narrative: Patient doing well. Tolerating bland diet. Bowels moving. Some shortness of air when up and exerting self. Exam Data for Last 24 hours Vital signs and Labs for Last 24 Hours: Temp Pulse Resp BP Pulse Ox FiO2 98.0 F 61 18 105/48 L 94 L 50 02/20/22 04:00 02/20/22 04:00 02/20/22 04:00 02/20/22 04:00 02/20/22 04:00 02/17/22 21:00 Laboratory Results - last 24 hr 02/19/22 13:38: POC Glucose 103 02/20/22 06:20: WBC 14.2 H, RBC 2.84 L, Hgb 8.2 L, Hct 24.7 L, MCV 86.7, MCH 28.8, MCHC 33.3, RDW 14.4, Plt Count 842 H, MPV 9.7, Neut % (Auto) 80.1 H, Lymph % (Auto) 12.3, Josephine % (Auto) 4.5, Eos % (Auto) 2.5, Baso % (Auto) 0.6, Neut # (Auto) 11.4 H, Lymph # (Auto) 1.8, Josephine # (Auto) 0.6, Eos # (Auto) 0.4, Baso # (Auto) 0.1 02/20/22 06:20: Sodium 137, Potassium 2.8 L*, Chloride 109 H, Carbon Dioxide 25, Anion Gap 5.8, BUN 31 H, Creatinine 1.00, Estimated Creat Clear 65, Estimated GFR 74, Est GFR ( Amer) 90, Glucose 109 H D, Calcium 6.5 L, Magnesium 2.4 H, Total Bilirubin 0.2, AST 29, ALT 14, Alkaline Phosphatase 171 H, Total Protein 4.7 L, Albumin 2.0 L, Globulin 2.7, Albumin/Globulin Ratio 0.7 L I & O for Last 24 hours: Intake & Output 02/17/22 02/18/22 02/19/22 02/20/22 11:59 11:59 11:59 11:59 Intake Total 2200 / 2200 300 / 300 420 / 420 300 / 300 Output Total 5655 / 6405 4152 / 4152 600 / 750 150 / 150 Balance -3455 / -4205 -3852 / -3852 -180 / -330 150 / 150 Weight 137 lb 3.2 oz 138 lb 8 oz 139 lb 7.607 oz 145 lb Microbiology Reports for the Last 24 Hours: Microbiology 02/17/22 09:06 Blood Blood Culture - Preliminary 02/17/22 09:06 Blood Blood Culture - Preliminary NO GROWTH AFTER 48 HOURS 02/18/22 19:10 Sputum - Expectorated Sputum Gram Stain - Final 02/18/22 19:10 Sputum - Expectorated Sputum Sputum Culture - Preliminary *Routine Abdominal Exam Abdominal: Present soft Comments: Mild distention Progress Note: A&P Assessment and plan (1) Pneumonia: Status: Acute (2) Severe protein-calorie malnutrition: Status: Acute (3) SBO (small bowel obstruction): Status: Acute Assessment and plan: Continue medical management. (4) Tobacco abuse: Status: Acute (5) Adenocarcinoma: Status: Acute (6) Anemia: Status: Acute (7) Giardia lamblia infestation: Status: Acute
[2022-02-20 08:00] VITALS: BP 103/52; PULSE 62; PULSE 67; RESP 20; TEMP 37.1; O2SAT 93
--- NOTE | 2022-02-20 11:05 | EXP.DC.SUM ---
General Admission date:: 02/06/22 Discharge date: 02/20/22 HPI HPI HPI: Mr. Amaya is a 55-year-old male with no significant past medical history and no PCP follow-up for the last 20 years. He presented to [facility] through the ER due to pain in the abdomen that he reports has been ongoing and worsening over a 2-month period associated with weight loss, nausea and some episodes of vomiting.? The patient reports that the pain starts in the left upper abdominal quadrant and radiates to the right upper abdominal quadrant and is colicky in nature.? He reports that he was unable to hide the pain from his today and she insisted that he come into the ER for evaluation. Upon evaluation in the ER, CMP was unremarkable.? Lipase was within normal limits.? CT of the abdomen and pelvis showed significant obstruction in the cecum and proximal colon concerning for colon carcinoma and scattered sub centimeter hypodense lesions in the liver factored to represent cysts although given findings could reporesent early metastases. The patient will be admitted with initial impresssion:? SBO Surgeon was contacted by ER Physician and will be seen in the am.? Antiemtics, analgesics and iv fluids will be started.? Per ER Physican NGT is to be placed if any vomiting. Hospital Course Hospital Course Hospital Course: 55-year-old male with SBO 2/2 colon adenocarcinoma with?mets to liver? Ileocolic anastomosis x2 due to anastomotic leak following initial procedure. Patient had protracted course because of postsurgical ileus and secondary sepsis finally showed response to antibiotics and improvement with diuresis given component of volume overload from excessive need for IV fluid resuscitation and TPN nutrition. Showed persistent improvement over 72 hours with progression of diet tolerance, regular bowel movements, de-escalation of oxygen to room air, and normalization of his leukocytosis. Patient clinically stable, condition fair at discharge. Problems during hospitalization addressed as follows: Sepsis, resolved Pneumonia Giardia - After patient's second surgery, he progressively developed worsening shortness of breath and sepsis. Increasing white cell count to 38,000, tachycardia, tachypnea, fevers. Broad work-up including blood cultures and stool sample returned positive stool panel for Giardia. He was initially on vancomycin, cefepime, Flagyl. As symptoms began to defervesce with broadening of antibiotics and diuresis for volume overload (see below), patient was transitioned to oral antibiotics. All other cultures remain negative. No sign of bacteremia or fungemia (as patient had been on TPN for a week at this point). Chest imaging additionally concerning for pneumonia versus edema. Plan to complete antibiotics at discharge including 7 total days of Flagyl for Giardia and 10 days of Levaquin for sepsis/pneumonia. Patient's white cell count back to baseline, stable on room air, clinically improved within 48 to 72 hours of discharge. SBO s/p laparotomy ileocolic anastomosis Adenocarcinoma (stage IV with mets to liver) -Patient initially presented with small bowel obstruction with identification of colon cancer as the cause. Surgery was consulted, was taken for resection with end-to-end anastomosis. Procedure tolerated well, unfortunately developed an anastomotic leak with intra-abdominal bowel content leakage. Necessitated repeat laparotomy with washout. Subsequently developed postop ileus. Required extensive antibiotics because of intra-abdominal infection. Patient had gradual improvement in bowel function taking approximately. Repeat imaging showed no further leak on CT with oral contrast. Incision healing well with no signs of dehiscence. We will plan for repeat follow-up within a week of discharge for close monitoring of healing and improvement in normal bowel function. Initially required CHANNEL SALES MANAGER for pain. However had no pain medication usage at
--- NOTE | 2022-02-20 11:24 | DIET.NUTRFU ---
RD saw patient and today for possible discharge home today or tomorrow. Currently he is tolerating bland diet, with improved meal intake. This morning he consumed 50% of eggs, 1/3 of the oatmeal and apple juice. This is the best meal so far. He has also had 2 BM noted on 02/18. He looks so much better compared to Sunday, able to get up and walk to bathroom. He is on ABT tx and probiotics were started today. Also provided a handout on bland diet, encouraged him to continue x2more weeks to allow GI to rest. Also reviewed protein needs and reviewed protein foods and supplement choices. Agreed to try chocolate ensure during his stay here. Reviewed labs: potassium was depleted at 2.85, repleted with KCL. Oral thrush resolved reported by patient. No bolus IV at this time, urine output 02/19 was 750ml. will continue to monitor I/O.
[2022-02-20 12:00] VITALS: PULSE 67
--- NOTE | 2022-02-20 12:51 | HMH.PHAINT1 ---
Pharmacy Intervention Comments: Met with patient, , and cousin at bedside to student support counselor on discharge medications prior to discharge. Overviewed new and continued medications, including indications, possible adverse effects, and mitigation strategies for each. was curious about dosage forms; she was answered appropriately. Patient and family verbalized understanding of information provided and had no further questions or concerns at this time. -Cassie Lu, PharmD Candidate 2022
--- NOTE | 2022-02-21 14:48 | CARE MANAGER ---
Spoke with patient for post-discharge phone interview, no issues noted.
== END 2022-02-20 16:01 | disposition home or self-care (01) | DRG 329 ==
LOC: ER 18:32 → 2ND 20:27
PROVIDERS: Nurse Practitioner Acute Care; Student in an Organized Health Care Education/Training Program; Surgery; Admitting Provider Internal Medicine Adolescent Medicine; Emergency Provider Student in an Organized Health Care Education/Training Program; Visit Provider Internal Medicine Adolescent Medicine
PROC: 0DBF0ZZ Excision of Right Large Intestine, Open Approach (ICD-10-PCS; CPT 49000; principal; 2022-02-07 12:00)
PROC: 0DBB0ZZ Excision of Ileum, Open Approach (ICD-10-PCS; CPT 49000; principal; 2022-02-12 14:00)
DX: C18.0 Malignant neoplasm of cecum (principal); E43 Unspecified severe protein-calorie malnutrition; J18.9 Pneumonia, unspecified organism; K65.8 Other peritonitis; C78.7 Secondary malignant neoplasm of liver and intrahepatic bile duct; A07.1 Giardiasis [lambliasis]; Z68.21 Body mass index [BMI] 21.0-21.9, adult; F17.210 Nicotine dependence, cigarettes, uncomplicated; E87.70 Fluid overload, unspecified; D50.0 Iron deficiency anemia secondary to blood loss (chronic); Z71.6 Tobacco abuse counseling; Z68.22 Body mass index [BMI] 22.0-22.9, adult; R73.9 Hyperglycemia, unspecified; E87.6 Hypokalemia; D64.9 Anemia, unspecified; K59.00 Constipation, unspecified
CPT/HCPCS: 44140 ×2; 47100; 36415; 36569; 71045; 71046; 71275; 74018; 74021; 74176; 74177; 76705; 80048; 80053; 80202; 81001; 82140; 82378; 82465; 82962; 83605; 83690; 83735; 84100; 84478; 85007; 85014; 85018; 85025; 85651; 86140; 87040; 87070; 87205; 87506; 87581; 87632; 87798; 88304; 88307; 88309; 88342; 93306; 94640; 94761; 97162; 99285; C1751; C9290; C9803; J1335; J1956; J2405; J2543; J3370; J3475; Q9967; U0003; U0005

== ENCOUNTER → 2022-02-23 10:07 | Outpatient (CLI) | payer MEDICARE, BC, SELFPAY ==
[2022-02-23 10:39] LABS: Chloride 110 mmol/L (98-107); Sodium 138 mmol/L (136-145)
[2022-02-23 10:40] LABS: Potassium 3.6 mmoL/L (3.5-5.1)
[2022-02-23 10:42] LABS: Alanine Aminotransferase 17 U/L (12-78); Albumin Level 2.4 g/dl (3.5-5.0); Albumin/Globulin Ratio 0.8 (1.1-1.8); Alkaline Phosphatase 181 U/L (38-126); Anion Gap 7.6 mEq/L (5-15); Aspartate Amino Transferase 31 U/L (17-59); Bilirubin,Total 0.2 mg/dl (0.2-1.3); Blood Urea Nitrogen 16 mg/dl (9-20); Carbon Dioxide 24 mmol/L (22.0-30.0); Estimated Glomerular Filt Rate 84 ml/min (>60); GFR (African American) 101 ML/MIN (>60); Globulin 3.1 g/dL (1.3-3.2); Total Protein,Serum 5.5 g/dl (6.3-8.2)
[2022-02-23 10:43] LABS: Basophils # 0.1 K/mm3 (0-0.2); Basophils % 0.4 % (0.1-2.0); Calcium 7.1 mg/dl (8.4-10.2); Eosinophils # 0.3 K/mm3 (0.0-0.4); Eosinophils % 1.7 % (0.1-12.0); Glucose 110 mg/dl (74-100); Hematocrit 29.3 % (42.0-52.0); Hemoglobin 9.2 g/dL (14.1-18.0); Lymphocytes # 1.4 K/mm3 (0.7-4.5); Lymphocytes % 8.7 % (10-50); Mean Corpuscular HGB Conc 31.5 g/dL (31.8-35.4); Mean Platelet Volume 8.6 fl (7.4-10.4); Monocytes # 0.5 K/mm3 (0.1-1.0); Monocytes % 2.9 % (1.7-9.3); Neutrophils # 13.6 K/mm3 (1.8-7.8); Neutrophils % 86.3 % (37.0-80.0); Platelet Count 883 K/mm3 (142-424); Red Blood Count 3.19 M/mm3 (4.60-6.20); Red Cell Distribution Width 15.4 % (11.5-17.5); White Blood Count 15.7 K/mm3 (4.8-10.8)
[2022-02-23 10:47] LABS: MANUAL DIFFERENTIAL MANUAL DIFFERENTIAL (MANUAL DIFF)
[2022-02-23 11:21] LABS: Eosinophils % 1 % (0-3); Lymphocytes % 12 % (10-50); Monocytes % 2 % (2-9); Neutrophils % 85 % (42-76); Total Cells Counted 100
[2022-02-23 11:22] LABS: Platelet Estimate Marked Increase; RBC Morphology Normal
== END ==
PROVIDERS: Visit Provider Surgery
DX: K56.609 Unspecified intestinal obstruction, unspecified as to partial versus complete obstruction (principal); D64.9 Anemia, unspecified
CPT/HCPCS: 36415; 80053; 85007; 85025

== ENCOUNTER → 2022-03-02 12:52 | Outpatient (CLI) | payer MEDICARE, BC, SELFPAY ==
--- NOTE | 2022-03-02 12:57 | CA_ITS ---
FINAL REPORT TECHNIQUE: Grayscale and color Doppler ultrasound images with graded compression of the deep venous system were obtained from the groin to the calf veins bilaterally. CLINICAL HISTORY: EDEMA AND PAIN BLE'S,PT HAS CECAL CANCER WITH LIVER METS,HX SMOKING COMPARISON: none FINDINGS: The deep venous system is normal. There is no evidence of DVT. Flow and compressibility are normal. IMPRESSION: No evidence of left or right lower extremity DVT. Reviewed, Interpreted and Dictated by Edgar Steele MD Transcribed by Deyanira Camara Authenticated and [facility]
== END ==
PROVIDERS: Visit Provider Surgery
DX: M79.661 Pain in right lower leg (principal)
CPT/HCPCS: 93970

== ENCOUNTER → 2022-03-06 19:15 | Outpatient (CLI) | payer MEDICARE, BC, SELFPAY ==
[2022-03-06 19:22] LABS: Adenovirus F 40/41, stool Not Detected (NotDetected); Astrovirus Not Detected (NotDetected); Campylobacter Not Detected (NotDetected); Clostridium Difficile A/B, PCR Not Detected (NotDetected); Cryptosporidium Not Detected (NotDetected); Cyclospora Cayetanesis Not Detected (NotDetected); Entamoeba histolytica Not Detected (NotDetected); Enteroaggregative E coli Not Detected (NotDetected); Enteropathogenic E coli Not Detected (NotDetected); Enterotoxigenic E coli Not Detected (NotDetected); Giardia lamblia Not Detected (NotDetected); Norovirus Not Detected (NotDetected); Plesimonas Shigalloides, PCR Not Detected (NotDetected); Rotavirus A Not Detected (NotDetected); Salmonella, PCR Not Detected (NotDetected); Sapovirus Not Detected (NotDetected); Shiga-like toxin E coli Not Detected (NotDetected); Shigella Enterovasive E coli Not Detected (NotDetected); Vibrio Cholerae Not Detected (NotDetected); Vibrio, PCR Not Detected (NotDetected); Yersinia Entercolitica, PCR Not Detected (NotDetected)
== END ==
PROVIDERS: PCP Surgery; Visit Provider Surgery
DX: A07.1 Giardiasis [lambliasis] (principal)
CPT/HCPCS: 87506

== ENCOUNTER → 2022-03-28 07:56 | Outpatient (CLI) | payer MEDICARE, BC, SELFPAY ==
[2022-03-28 08:41] LABS: Basophils # 0.1 K/mm3 (0-0.2); Basophils % 0.6 % (0.1-2.0); Eosinophils # 0.3 K/mm3 (0.0-0.4); Eosinophils % 2.8 % (0.1-12.0); Hematocrit 41.4 % (42.0-52.0); Hemoglobin 12.5 g/dL (14.1-18.0); Lymphocytes # 2.1 K/mm3 (0.7-4.5); Lymphocytes % 19.4 % (10-50); Mean Corpuscular HGB Conc 30.3 g/dL (31.8-35.4); Mean Corpuscular Hemoglobin 28.7 pg (27.0-31.2); Mean Corpuscular Volume 94.8 fl (80-94); Mean Platelet Volume 8.5 fl (7.4-10.4); Monocytes # 0.5 K/mm3 (0.1-1.0); Neutrophils # 7.6 K/mm3 (1.8-7.8); Platelet Count 425 K/mm3 (142-424); Red Blood Count 4.37 M/mm3 (4.60-6.20); Red Cell Distribution Width 15.6 % (11.5-17.5); White Blood Count 10.6 K/mm3 (4.8-10.8)
[2022-03-28 08:55] LABS: Chloride 108 mmol/L (98-107); Potassium 4.7 mmoL/L (3.5-5.1); Sodium 141 mmol/L (136-145)
[2022-03-28 08:58] LABS: Alanine Aminotransferase 33 U/L (12-78); Albumin Level 4.1 g/dl (3.5-5.0); Albumin/Globulin Ratio 1.3 (1.1-1.8); Alkaline Phosphatase 352 U/L (38-126); Anion Gap 11.7 mEq/L (5-15); Aspartate Amino Transferase 40 U/L (17-59); Bilirubin,Total 0.4 mg/dl (0.2-1.3); Blood Urea Nitrogen 18 mg/dl (9-20); Carbon Dioxide 26 mmol/L (22.0-30.0); Estimated Glomerular Filt Rate 83 ml/min (>60); GFR (African American) 101 ML/MIN (>60); Globulin 3.2 g/dL (1.3-3.2); Glucose 92 mg/dl (74-100); Iron 40 ug/dL (49-181); Total Protein,Serum 7.3 g/dl (6.3-8.2)
[2022-03-28 09:08] LABS: Total Iron Binding Capacity 229 ug/dL (261-462)
[2022-03-28 09:34] LABS: Ferritin 177 ng/ml (17.9-464)
[2022-03-29 08:16] LABS: CEA 11.4 ng/mL (0.0-4.7)
== END ==
PROVIDERS: PCP Family Medicine; Visit Provider Internal Medicine Medical Oncology
DX: C18.9 Malignant neoplasm of colon, unspecified (principal); C78.7 Secondary malignant neoplasm of liver and intrahepatic bile duct
CPT/HCPCS: 36415; 80053; 82378; 82728; 83540; 83550; 85025

== ENCOUNTER 2022-03-31 11:00 | Outpatient (RCR) | payer MEDICARE, BC, SELFPAY ==
--- NOTE | 2022-03-15 14:20 | HMH.PTOPEV ---
PT Outpatient Evaluation Rehab PT Outpatient Evaluation Start: 03/15/22 13:59 Freq: Status: Active Protocol: Document 03/15/22 13:59 CORIN (Rec: 03/15/22 14:18 CORIN [id number]) E-signed By Sim Del Toro, PT Outpatient Therapy Subjective History Subjective History Patient is a 72 year old male presenting to outpatient PT with reports of BLE weakness/ deconditioning. Patient was most recently diagnosed with colon/liver cancer on 02/06/22. He spent 2 weeks in the hospital after having surgery for colon resection. Patient to start chemo 04/07/22. No pain other than with increased abdominal pressure. No other comorbidities to report. Chief Complaint Weakness Symptom Type Other Symptoms Relieved By Rest/Positioning Symptoms Aggravated By Physical Activity Prior Functional Limitations None Current Functional Limitations Housework,Standing,Walking Symptom Description Intermittent Level of pain today (0-10) 1 Pain scale - at its best (0-10) 0 Pain scale - at its worst (0-10) 1 Hip/Knee Eval Gait Observation General Gait Pattern Observation No Deviations/Normal Assistive Device Assistive Devices None / NA MMT bilateral Hip Flexion Strength Grade 4 Good Hip Abduction Strength Grade 4 Good Hip Adduction Strength Grade 4 Good Hip Extension Strength Grade 4 Good Hip External Rotation Strength Grade 4 Good Hip Internal Rotation Strength Grade 4 Good Knee Extension Strength Grade 4 Good Knee Flexion Strength Grade 4 Good ROM Hip ROM Reason Not Measured Within Functional Limits Knee ROM Reason Not Measured Within Functional Limits Outpatient Therapy Assessment Impairments Problems/Impairmments Impaired Strength,Impaired Endurance,Impaired Walking, Impaired Standing,Impaired Household Care,Impaired Stair Climbing,Impaired Incline Stepping,Impaired Stepping on Uneven Surface,Impaired Squatting,Impaired Work Activities,Subjective C/O Pain Prognosis Rehab Potential Good Clinical Impression Consistent with Diagnosis Yes Short Term Goals Number of Weeks 2 Decrease Subjective C/O Pain Yes: 0/10 Patient to be Ind w/ HEP
== END 2022-03-31 11:05 | disposition home or self-care (01) ==
LOC: PT 11:00
PROVIDERS: PCP Surgery; Visit Provider Internal Medicine Medical Oncology
DX: C18.9 Malignant neoplasm of colon, unspecified (principal); C78.7 Secondary malignant neoplasm of liver and intrahepatic bile duct; R53.1 Weakness; Z74.09 Other reduced mobility
CPT/HCPCS: 97110; 97163; 97530

== ENCOUNTER → 2022-04-06 10:52 | Outpatient (CLI) | payer MEDICARE, BC, SELFPAY ==
[2022-04-06 12:13] LABS: Basophils # 0.1 K/mm3 (0-0.2); Basophils % 0.6 % (0.1-2.0); Eosinophils # 0.2 K/mm3 (0.0-0.4); Eosinophils % 2.2 % (0.1-12.0); Hematocrit 42.2 % (42.0-52.0); Hemoglobin 12.7 g/dL (14.1-18.0); Lymphocytes # 1.5 K/mm3 (0.7-4.5); Lymphocytes % 15.8 % (10-50); Mean Corpuscular HGB Conc 30.1 g/dL (31.8-35.4); Mean Corpuscular Hemoglobin 28.6 pg (27.0-31.2); Mean Platelet Volume 9.1 fl (7.4-10.4); Monocytes # 0.4 K/mm3 (0.1-1.0); Monocytes % 4.8 % (1.7-9.3); Neutrophils # 7.2 K/mm3 (1.8-7.8); Neutrophils % 76.7 % (37.0-80.0); Platelet Count 401 K/mm3 (142-424); Red Blood Count 4.44 M/mm3 (4.60-6.20); Red Cell Distribution Width 15.3 % (11.5-17.5); White Blood Count 9.3 K/mm3 (4.8-10.8)
[2022-04-06 12:33] LABS: Anion Gap 12.1 mEq/L (5-15); Blood Urea Nitrogen 20 mg/dl (9-20); Calcium 9.1 mg/dl (8.4-10.2); Carbon Dioxide 25 mmol/L (22.0-30.0); Chloride 102 mmol/L (98-107); Estimated Glomerular Filt Rate 83 ml/min (>60); GFR (African American) 101 ML/MIN (>60); Glucose 96 mg/dl (74-100); Potassium 4.1 mmoL/L (3.5-5.1); Sodium 135 mmol/L (136-145)
== END ==
PROVIDERS: PCP Family Medicine; Visit Provider Surgery
DX: G89.3 Neoplasm related pain (acute) (chronic) (principal); D64.9 Anemia, unspecified
CPT/HCPCS: 36415; 80048; 85025

== ENCOUNTER 2022-04-09 10:06 | Emergency (ER) | payer MEDICARE, BC, SELFPAY ==
[2022-04-09 10:23] VITALS: BP 138/72; PULSE 94; RESP 16; TEMP 36.8; O2SAT 100; BMI 17.6
--- NOTE | 2022-04-09 10:28 | CT_ITS ---
PROCEDURE INFORMATION: Exam: CT Abdomen And Pelvis With Contrast Exam date and time: 04/09/2022 11:05 AM Age: 72 years old Clinical indication: Abdominal pain; Generalized; Additional info: Abd pain TECHNIQUE: Imaging protocol: Computed tomography of the abdomen and pelvis with contrast. Radiation optimization: All CT scans at this facility use at least one of these dose optimization techniques: automated exposure control; mA and/or kV adjustment per patient size (includes targeted exams where dose is matched to clinical indication); or iterative reconstruction. Contrast material: ISOVUE; Contrast volume: 75 ml; Contrast route: IV; REPORTING DATA: Count of CT and Cardiac NM exams in prior 12 months: This patient has received 5 known CTs and 0 known cardiac nuclear medicine studies in the 12 months prior to the current study. COMPARISON: CT ABDOMEN PELVIS WO CON 02/17/2022 1:02 PM FINDINGS: Liver: Numerous to count multifocal poorly defined hepatic lesions measuring up to 2.2 cm in mid right hepatic lobe. Gallbladder and bile ducts: Gallbladder debris versus tiny gallstones without gallbladder wall thickening. Pancreas: Normal. No ductal dilation. Spleen: Normal. No splenomegaly. Adrenal glands: Normal. No mass. Kidneys and ureters: Normal. No hydronephrosis. Stomach and bowel: Postsurgical changes of colon compatible with partial resection. Poorly defined wall colonic wall thickening, pericolonic wall thickening along the anastomotic site. Diffuse sigmoid colonic diverticulosis. Nonobstructive bowel gas pattern. Appendix: No evidence of appendicitis. Intraperitoneal space: No obvious free fluid seen. No obvious free air seen. Vasculature: Atherosclerotic calcification of aortoiliac arteries. Lymph nodes: Enlarged periportal confluent lymph nodes measuring up to 3.3 x 2.3 cm. Urinary bladder: Unremarkable as visualized. Reproductive: Unremarkable as visualized. Bones/joints: Visualized osseous structures grossly unremarkable for acute findings. Soft tissues: Unremarkable. Other findings: Visualized thorax grossly unremarkable. IMPRESSION: 1. Poorly defined colonic wall thickening pericolonic infiltrative changes in anastomotic region of colon in right lower quadrant suspicious for recurrent mass and regional infiltration. Multifocal hepatic metastases and periportal lymphadenopathy. 2. Cholelithiasis. 3. Diffuse sigmoid colonic diverticulosis.
[2022-04-09 10:30] VITALS: BP 134/68; PULSE 87; RESP 16; O2SAT 100
--- NOTE | 2022-04-09 10:34 | HMH.EDGENADL ---
Discharge Plan Disposition Patient Disposition: Home, Self-Care Condition: Fair Prescriptions Prescriptions: New ondansetron 4 mg tablet,disintegrating 4 mg PO Q8H PRN (Reason: nausea and vomiting) Qty: 10 0RF metoclopramide HCl [Reglan] 5 mg tablet 5 mg PO TID Qty: 10 0RF No Action hydrocodone-acetaminophen 5-325 mg tablet 1 tab PO Q6H PRN (Reason: pain) Qty: 60 0RF Align 4 mg capsule 4 mg PO DAILY Referrals Follow up/Referrals: Dwayne Silvestre MD [Primary Care Provider] - See instructions Activity Restrictions/Add. Instructions Additional Instructions/Restrictions: Reglan as prescribed, Zofran as needed for nausea. Follow-up with Dr. Franz tomorrow as scheduled and have him review CT scan from today. Return the emergency department if symptoms worsening. Clinical Impressions Clinical Impression: Vomiting Instructions Patient Instructions: DI for Vomiting -- Adult Discharge ED Provider: Facundo Dickens General Adult HPI General Chief complaint: Nausea/Vomiting/Diarrhea Stated complaint: Post op Feb. Abd pain nausea Time Seen by Provider: 04/09/22 10:25 Mode of Arrival: Ambulatory Source of Information: Patient Limitations: No Limitations Description of Symptoms (Recalled from ER Triage Doc. by RN): pt comes in with c/o nausea vomitting since sunday. pt reports that she has been unable to keep anything down. pt feels like he has a blockage, pt reports having a hard bowel movement today. pt has hx of colon/liver cancer. pt had colon resection in [facility]. pt is to have port placed risa for chemo. History of Present Illness HPI narrative: The patient has a recent diagnosis of stage IV adenocarcinoma of the colon with metastases to his liver. He was admitted here 02/06/2022 through 02/20/2022. He initially presented with a bowel obstruction with cancerous mass suspected on CT. He initially underwent end-to-end anastomosis but developed an anastomotic leak and had to return to surgery and had an ileocolic anastomosis. Postoperative course was complicated by sepsis with pneumonia and Giardia enteritis. He also had fluid overload and anemia. He has subsequently followed up with Dr. Burgos in the office and is going to undergo xelox chemotherapy regimen. He saw Dr. Franz on 04/06/2022 to arrange port placement which is scheduled for tomorrow. Patient states that he is not able to hold food down since Sunday, 2 days ago. Says it feels like he gets to his stomach but then comes back up. States that he was a little better yesterday, but did not eat much yesterday. His last bowel movement was this morning and was formed, harder than usual, no blood or diarrhea. No fever. He has some pain around his right flank area which has been going on for some time and has not changed. He has some soreness from his recent surgery which has not changed. He denies URI symptoms, chest pain, shortness of breath, urinary symptoms. He is concerned because his current symptoms feel like his initial presentation with bowel obstruction before his surgery and diagnosis of cancer. Related Data Home Medications Medication Instructions Recorded Confirmed Bifidobacterium infantis 4 mg 4 mg PO DAILY Supplement 04/09/22 04/09/22 capsule (Align) Previous Rx's Medication Instructions Recorded hydrocodone 5 mg-acetaminophen 325 1 tab PO Q6H PRN pain #60 tabs 04/03/22 mg tablet metoclopramide HCl 5 mg tablet 5 mg PO TID #10 tabs 04/09/22 (Reglan) ondansetron 4 mg disintegrating 4 mg PO Q8H PRN nausea and 04/09/22 tablet vomiting #10 tabs Allergies Allergy/AdvReac Type Severity Reaction Status Date / Time No Known Allergies Allergy Verified 04/06/22 11:04 [facility] Disclaimer: The information contained in this section may have been updated after the patient was seen, as this information can be updated by other users. Medical History Colon cancer Tobacco abuse Tobacco use Surgical His
[2022-04-09 10:41] LABS: Alanine Aminotransferase 33 U/L (12-78); Albumin Level 4.5 g/dl (3.5-5.0); Albumin/Globulin Ratio 1.2 (1.1-1.8); Alkaline Phosphatase 391 U/L (38-126); Aspartate Amino Transferase 42 U/L (17-59); Bilirubin,Total 0.8 mg/dl (0.2-1.3); Blood Urea Nitrogen 22 mg/dl (9-20); Calcium 9.4 mg/dl (8.4-10.2); Carbon Dioxide 24 mmol/L (22.0-30.0); Chloride 102 mmol/L (98-107); Creatinine Clearance Estimated 2 mL/min (50-200); Estimated Glomerular Filt Rate 83 ml/min (>60); GFR (African American) 101 ML/MIN (>60); Globulin 3.8 g/dL (1.3-3.2); Glucose 86 mg/dl (74-100); Lipase 97 U/L (23-300); Sodium 137 mmol/L (136-145); Total Protein,Serum 8.3 g/dl (6.3-8.2)
[2022-04-09 11:00] VITALS: BP 138/77; PULSE 76; O2SAT 100
--- NOTE | 2022-04-09 11:06 | PC.NURSE ---
pt gone to ct
[2022-04-09 11:09] LABS: Basophils # 0.1 K/mm3 (0-0.2); Basophils % 0.8 % (0.1-2.0); Eosinophils # 0.2 K/mm3 (0.0-0.4); Eosinophils % 2.1 % (0.1-12.0); Hematocrit 42.4 % (42.0-52.0); Hemoglobin 13.5 g/dL (14.1-18.0); Lymphocytes # 1.3 K/mm3 (0.7-4.5); Lymphocytes % 11.7 % (10-50); Mean Corpuscular HGB Conc 31.9 g/dL (31.8-35.4); Mean Corpuscular Hemoglobin 29.2 pg (27.0-31.2); Mean Corpuscular Volume 91.5 fl (80-94); Mean Platelet Volume 10.2 fl (7.4-10.4); Monocytes # 0.4 K/mm3 (0.1-1.0); Monocytes % 3.7 % (1.7-9.3); Neutrophils # 8.8 K/mm3 (1.8-7.8); Neutrophils % 81.7 % (37.0-80.0); Platelet Count 415 K/mm3 (142-424); Red Blood Count 4.63 M/mm3 (4.60-6.20); Red Cell Distribution Width 15.3 % (11.5-17.5); White Blood Count 10.7 K/mm3 (4.8-10.8)
--- NOTE | 2022-04-09 11:13 | PC.NURSE ---
rounded on pt no complaints at this time,, family @ [facility]
[2022-04-09 11:30] VITALS: BP 134/72; PULSE 80; O2SAT 96
--- NOTE | 2022-04-09 11:31 | PC.NURSE ---
placed vrad on hold waiting to speak to camila bentley
--- NOTE | 2022-04-09 11:32 | PC.NURSE ---
cecily speaking to camila bentley
[2022-04-09 12:00] VITALS: BP 129/71; PULSE 79; RESP 17; O2SAT 100
[2022-04-09 12:15] VITALS: BP 129/71; PULSE 75; RESP 18; TEMP 36.7; O2SAT 99
== END 2022-04-09 12:17 | disposition home or self-care (01) ==
PROVIDERS: Emergency Provider Emergency Medicine; PCP Family Medicine
DX: R11.2 Nausea with vomiting, unspecified (principal); R10.9 Unspecified abdominal pain; C18.9 Malignant neoplasm of colon, unspecified; C22.9 Malignant neoplasm of liver, not specified as primary or secondary; F17.210 Nicotine dependence, cigarettes, uncomplicated; Z80.9 Family history of malignant neoplasm, unspecified
CPT/HCPCS: 74177; 80053; 83690; 85025; 96361; 96374; 99285; J2405; Q9967

== ENCOUNTER 2022-04-10 07:54 | Day surgery (SDC) | payer MEDICARE, BC, SELFPAY ==
[2022-04-07 11:02] VITALS: BMI 17.4
[2022-04-10] VITALS (10 sets, daily range): BP systolic 123–156; BP diastolic 53–76; PULSE 61–85; RESP 12–18; TEMP 36.3–36.6; O2SAT 97–100
--- NOTE | 2022-04-10 08:26 | SUR.PREOP ---
Pt stated he visited the ER 04/09/22 C/O N&V. CT scan of abdomen was taken and is on chart along with the ER visit Anesthesia Jeni NOEL notified at [facility] and reviewed CT report. Will show report to Dr Franz in preop.
--- NOTE | 2022-04-10 08:32 | P.PN_ITS ---
[facility] Disclaimer: The information contained in this section may have been updated after the patient was seen, as this information can be updated by other users. Medical History Colon cancer Nausea & vomiting Tobacco abuse Tobacco use Surgical History History of colon resection Family History Other Family history of cancer No significant family history Social History Smoking Status: Current every day smoker tobacco type: cigarettes packs per day: 1 alcohol intake: never substance use type: denies use current occupational status: employed and retired Travel in the last 8 weeks: None [facility] Anesthesia Checklist Patient Identification Patient Identification: Arm Band and Verbal (Name & ) Structural Data Admitted From: Home Planned Operative Procedure/s: Port a Cath Placement Consent for Planned Operative Procedure(s) Verified: Yes Verified Documents: Surgical Consent NPO Status Verified Time NPO: 00:00 Chart Verification Results Verified: CBC Additional verifications Anesthesia Reactions: No Hx Blood Transfusions: No Blood Transfusion Reaction: No Airway Assessment C-Spine Mobility Assessed: Yes TMJ Mobility Assessed: Yes Dentition: Good Dentition Neurological Assessment Level of Consciousness: Awake, Alert and Appropriate Anesthesia Plan Anesthesia Risk discussed: Yes ASA Class: III Anesthesia Type: General
--- NOTE | 2022-04-10 09:41 | XR_ITS ---
FINAL REPORT CLINICAL HISTORY: PORT A CATH IN OR, FT 0.3min FINDINGS: FLUORO TIME PROCEDURE: Fluoroscopy in the operating room. FINDINGS: Fluoroscopy time was provided by the radiology department for the clinical service. One spot film was obtained. Fluoroscopy exposure time: 0.3 minute IMPRESSION: See above Reviewed, Interpreted and Dictated by Avel Kaplan III, MD Transcribed by Carola Lakhani Authenticated and [facility]
--- NOTE | 2022-04-10 09:56 | EXP.OP.NOTE ---
Date of procedure: 04/10/22 Pre-op Diagnosis:: Metastatic colon cancer Post-op Diagnosis:: Same Procedure performed:: Placement of 8 Mexican single-lumen open-ended venous access device left subclavian vein with implantable reservoir port using intraoperative fluoroscopy (PowerPort placement) Surgeon:: Avel Franz MD CURRICULUM SUPERVISOR:: Blake Bethea Anesthesia: LMA Estimated blood loss (mL): 15 Operative findings:: Seemingly unremarkable venous anatomy Operative note:: Patient was taken the operating room. Positioned in supine position. General anesthesia was induced via LMA. Neck and bilateral upper chest were prepped and draped in the standard surgical fashion. He was positioned in Trendelenburg position. Local anesthetic was infiltrated inferior to the left clavicle medial to the deltopectoral groove. With a few passes of the needle of the vein was cannulated. Guidewire was inserted. Fluoroscopy was used to confirm appropriate cannulation of the vein and guidewire placement. Small incision was made at the guidewire insertion site. Subcutaneous tissues were dilated with the dilator with breakaway sheath. Guidewire and dilator were removed. 8 Mexican open-ended catheter was inserted through the breakaway sheath. Sheath was then removed. Fluoroscopy was used to position the tip of the catheter in the appropriate position. Skin was marked with skin marker for planned subcutaneous tunneling and subcutaneous pocket. Local anesthetic was infiltrated. Skin incision was made for subcutaneous pocket. Dissection was carried down inferiorly creating subcutaneous pocket with electrocautery. Catheter was tunneled subcutaneously. It was cut to the appropriate length. The reservoir port was secured to the catheter. It was able to be aspirated and flushed without difficulty. Was flushed with saline. The port was secured into the subcutaneous pocket with 2-0 PDS sutures. There was good hemostasis. Deep dermal tissues were closed with running 2-0 Vicryl. Skin incisions were closed with 4-0 Monocryl subcuticular fashion. Dermabond and dressings were applied. Condition: stable Disposition: PACU Complications:: None immediately apparent
--- NOTE | 2022-04-10 09:57 | EXP.ANES.I ---
[facility] Anesthesia Record Part I Anesthesia Record I Intake, IV Amount: 1,000 Estimated blood loss (mL): 0 Urine output (mL): 0 Blood Pressure: 144/70 SaO2: 99 Pulse Rate: 61 Respiratory Rate: 12 Temperature: 97.8 F Patient is:: Drowsy and Stable Stable to PACU at:: 09:55
--- NOTE | 2022-04-10 10:12 | XR_ITS ---
FINAL REPORT CLINICAL HISTORY: Port-a-Cath placement COMPARISON: 02/06/2022 FINDINGS: A single portable view of the chest was obtained. A left subclavian chest port is present with its tip in the mid SVC. The heart size and pulmonary vascularity are within normal limits. The mediastinum is within normal limits. No acute pulmonary abnormality is identified. The bony thorax is intact. IMPRESSION: Left subclavian chest port with its tip in the mid SVC. No active cardiopulmonary disease. Reviewed, Interpreted and Dictated by Avel Kaplan III, MD Transcribed by Craola Lakhani Authenticated and [facility]
--- NOTE | 2022-04-14 16:15 | P.PNANES_ITS ---
[facility] Anesthesia Record Part II Anesthesia Record Part II Discharge Time: 10:35 Destination: Surgical Day Care (OP Surgery) PACU nurse assessment reviewed?: Yes Patient Condition:: Good Anesthesia Complications:: None Swallowing reflex intact?: Yes Cyanosis?: No Blood Pressure: 127/73 Pulse Rate: 65 Temperature: 97.4 F Mental Status: Alert & Oriented Pain level:: 0 Nausea and/or vomitting:: None Intake, IV Amount: 0
[2022-04-14 16:16] VITALS: BP 127/73; PULSE 65; TEMP 36.3
== END 2022-04-10 11:20 | disposition home or self-care (01) ==
PROVIDERS: PCP Family Medicine; Visit Provider Surgery
DX: C18.9 Malignant neoplasm of colon, unspecified (principal); C78.7 Secondary malignant neoplasm of liver and intrahepatic bile duct; F17.210 Nicotine dependence, cigarettes, uncomplicated; Z79.899 Other long term (current) drug therapy
CPT/HCPCS: 36561; 77001; 71045; 76000; 96374; C1788; J1642; J2405

== ENCOUNTER 2022-04-13 09:07 | Outpatient (CLI) | payer MEDICARE, BC, SELFPAY ==
--- NOTE | 2022-04-13 09:10 | PC.NURSE ---
0910-noified regine rn with that patient has arrived and has been having vomiting and diarrhea the past 5 days and isn't sure about getting treatment; new orders for labs cbc and cmp at this time.
[2022-04-13 09:24] VITALS: BMI 17.6
[2022-04-13 09:35] LABS: Basophils % 0.5 % (0.1-2.0); Eosinophils # 0.2 K/mm3 (0.0-0.4); Eosinophils % 2.5 % (0.1-12.0); Hematocrit 38.5 % (42.0-52.0); Hemoglobin 12.5 g/dL (14.1-18.0); Lymphocytes # 1.1 K/mm3 (0.7-4.5); Lymphocytes % 15.3 % (10-50); Mean Corpuscular HGB Conc 32.3 g/dL (31.8-35.4); Mean Corpuscular Hemoglobin 29.5 pg (27.0-31.2); Mean Corpuscular Volume 91.2 fl (80-94); Mean Platelet Volume 7.9 fl (7.4-10.4); Monocytes # 0.5 K/mm3 (0.1-1.0); Monocytes % 6.4 % (1.7-9.3); Neutrophils # 5.3 K/mm3 (1.8-7.8); Neutrophils % 75.2 % (37.0-80.0); Platelet Count 396 K/mm3 (142-424); Red Blood Count 4.22 M/mm3 (4.60-6.20); Red Cell Distribution Width 15.3 % (11.5-17.5)
--- NOTE | 2022-04-13 09:40 | PC.NURSE ---
0940-notified rosemary weiner with that pt is nauseous; new order for zofran 8mg ivp at this time
[2022-04-13 09:47] LABS: Chloride 100 mmol/L (98-107)
[2022-04-13 09:50] LABS: Alanine Aminotransferase 36 U/L (12-78); Albumin Level 3.8 g/dl (3.5-5.0); Albumin/Globulin Ratio 1.2 (1.1-1.8); Alkaline Phosphatase 368 U/L (38-126); Anion Gap 15.8 mEq/L (5-15); Aspartate Amino Transferase 38 U/L (17-59); Bilirubin,Total 0.8 mg/dl (0.2-1.3); Blood Urea Nitrogen 20 mg/dl (9-20); Calcium 8.6 mg/dl (8.4-10.2); Carbon Dioxide 22 mmol/L (22.0-30.0); Creatinine Clearance Estimated 51 mL/min (50-200); Estimated Glomerular Filt Rate 83 ml/min (>60); GFR (African American) 101 ML/MIN (>60); Globulin 3.2 g/dL (1.3-3.2); Glucose 87 mg/dl (74-100); Potassium 3.8 mmoL/L (3.5-5.1); Sodium 134 mmol/L (136-145)
--- NOTE | 2022-04-13 10:15 | PC.NURSE ---
1015-noified by no treatment today; give ns 1 liter bolus and pt to return next week for md appointment
[2022-04-13 10:20] VITALS: BP 140/63; PULSE 81; RESP 18; TEMP 36.4; O2SAT 97
[2022-04-13 11:25] VITALS: BP 156/67; PULSE 81; RESP 18
== END 2022-04-13 11:25 | disposition home or self-care (01) ==
LOC: INF 09:08
PROVIDERS: PCP Family Medicine; Visit Provider Internal Medicine Medical Oncology
DX: C18.9 Malignant neoplasm of colon, unspecified (principal); C80.1 Malignant (primary) neoplasm, unspecified; R11.10 Vomiting, unspecified; E86.0 Dehydration; Z45.2 Encounter for adjustment and management of vascular access device
CPT/HCPCS: 80053; 85025; 96360; J1642; J2405

== ENCOUNTER 2022-04-20 09:13 | Outpatient (CLI) | payer MEDICARE, BC, SELFPAY ==
[2022-04-20 09:20] VITALS: BMI 16.2
[2022-04-20 09:35] VITALS: BP 144/82; PULSE 83; RESP 18; TEMP 36.4; O2SAT 98
[2022-04-20 09:35] LABS: Basophils # 0.1 K/mm3 (0-0.2); Basophils % 0.3 % (0.1-2.0); Eosinophils # 0.1 K/mm3 (0.0-0.4); Eosinophils % 0.5 % (0.1-12.0); Hematocrit 41.7 % (42.0-52.0); Hemoglobin 13.1 g/dL (14.1-18.0); Lymphocytes # 1.1 K/mm3 (0.7-4.5); Lymphocytes % 7.6 % (10-50); Mean Corpuscular HGB Conc 31.4 g/dL (31.8-35.4); Mean Platelet Volume 7.8 fl (7.4-10.4); Monocytes # 0.6 K/mm3 (0.1-1.0); Monocytes % 3.9 % (1.7-9.3); Neutrophils % 87.6 % (37.0-80.0); Platelet Count 564 K/mm3 (142-424); Red Blood Count 4.68 M/mm3 (4.60-6.20); Red Cell Distribution Width 15.3 % (11.5-17.5); White Blood Count 14.8 K/mm3 (4.8-10.8)
[2022-04-20 09:41] LABS: MANUAL DIFFERENTIAL MANUAL DIFFERENTIAL (MANUAL DIFF)
[2022-04-20 09:51] LABS: Alanine Aminotransferase 37 U/L (12-78); Albumin Level 3.8 g/dl (3.5-5.0); Albumin/Globulin Ratio 1.2 (1.1-1.8); Alkaline Phosphatase 615 U/L (38-126); Anion Gap 13.3 mEq/L (5-15); Aspartate Amino Transferase 46 U/L (17-59); Bilirubin,Total 1.1 mg/dl (0.2-1.3); Blood Urea Nitrogen 25 mg/dl (9-20); Calcium 8.5 mg/dl (8.4-10.2); Carbon Dioxide 31 mmol/L (22.0-30.0); Chloride 94 mmol/L (98-107); Creatinine Clearance Estimated 43 mL/min (50-200); Estimated Glomerular Filt Rate 66 ml/min (>60); GFR (African American) 80 ML/MIN (>60); Globulin 3.3 g/dL (1.3-3.2); Glucose 101 mg/dl (74-100); Magnesium 2.1 mg/dl (1.6-2.3); Potassium 3.3 mmoL/L (3.5-5.1); Sodium 135 mmol/L (136-145); Total Protein,Serum 7.1 g/dl (6.3-8.2)
[2022-04-20 10:18] LABS: Lymphocytes % 12 % (10-50); Monocytes % 4 % (2-9); Neutrophils % 84 % (42-76); Platelet Estimate Moderate Increase; RBC Morphology Normal; Total Cells Counted 100
[2022-04-20 10:38] VITALS: BP 143/65; PULSE 76; RESP 18
== END 2022-04-20 10:38 | disposition home or self-care (01) ==
LOC: INF 09:15
PROVIDERS: PCP Family Medicine; Visit Provider Internal Medicine Medical Oncology
DX: Z45.2 Encounter for adjustment and management of vascular access device (principal); C18.9 Malignant neoplasm of colon, unspecified; E86.0 Dehydration
CPT/HCPCS: 80053; 83735; 85007; 85025; 96360; 96375; J1642; J2405

== ENCOUNTER 2022-04-21 10:11 | Outpatient (CLI) | payer MEDICARE, BC, SELFPAY ==
[2022-04-21 10:11] VITALS: BMI 16.1
[2022-04-21 10:29] LABS: Microscopic, Urine URINE MICROSCOPIC (MICROSCOPIC)
[2022-04-21 10:42] LABS: Appearance,Urine CLEAR (Clear); Blood, Urine Negative (Negative); Color,Urine YELLOW (Yellow); Glucose,Urine (UA) Negative (Negative); Ketones,Urine 1+ (Negative); Leukocyte Esterase,Urine Negative (Negative); Nitrate,Urine Negative (Negative); Protein,Urine 1+ (Negative); Specific Gravity, Urine 1.025 (1.005-1.030)
[2022-04-21 10:45] VITALS: BP 119/65; PULSE 73; RESP 20; TEMP 36.9; O2SAT 99
[2022-04-21 10:54] LABS: Bilirubin,Urine Negative (Negative)
[2022-04-21 11:09] LABS: Bacteria,Urine Trace /lpf; RBC,Urine Occasional #/hpf (0-3); Squamous Epithelial Cell,Urine Occasional #/hpf (0-5)
[2022-04-21 11:45] VITALS: BP 135/72; PULSE 70; RESP 20; TEMP 36.9; O2SAT 95
[2022-04-21 12:45] VITALS: BP 136/76; PULSE 70; RESP 20; TEMP 36.9; O2SAT 95
== END 2022-04-21 12:45 | disposition home or self-care (01) ==
LOC: INF 10:11
PROVIDERS: PCP Family Medicine; Visit Provider Internal Medicine Medical Oncology
DX: Z45.2 Encounter for adjustment and management of vascular access device (principal); C18.9 Malignant neoplasm of colon, unspecified; N39.0 Urinary tract infection, site not specified; R11.10 Vomiting, unspecified; R19.7 Diarrhea, unspecified; E86.0 Dehydration
CPT/HCPCS: 81001; 96360; 96375; J1642; J2405

== ENCOUNTER 2022-04-28 10:48 | Outpatient (CLI) | payer MEDICARE, BC, SELFPAY ==
[2022-04-28 10:50] VITALS: BMI 16.2
[2022-04-28 11:35] VITALS: BP 138/67; PULSE 74; RESP 16; TEMP 36.3; O2SAT 98
[2022-04-28 11:45] LABS: Basophils % 0.4 % (0.1-2.0); Eosinophils # 0.1 K/mm3 (0.0-0.4); Eosinophils % 1.2 % (0.1-12.0); Hemoglobin 12.3 g/dL (14.1-18.0); Lymphocytes % 8.9 % (10-50); Mean Corpuscular HGB Conc 33.2 g/dL (31.8-35.4); Mean Corpuscular Volume 87.5 fl (80-94); Mean Platelet Volume 7.7 fl (7.4-10.4); Monocytes # 0.4 K/mm3 (0.1-1.0); Monocytes % 3.5 % (1.7-9.3); Neutrophils # 9.4 K/mm3 (1.8-7.8); Neutrophils % 86.1 % (37.0-80.0); Platelet Count 439 K/mm3 (142-424); Red Blood Count 4.23 M/mm3 (4.60-6.20); Red Cell Distribution Width 15.9 % (11.5-17.5); White Blood Count 10.9 K/mm3 (4.8-10.8)
[2022-04-28 11:52] LABS: MANUAL DIFFERENTIAL MANUAL DIFFERENTIAL (MANUAL DIFF)
[2022-04-28 11:54] LABS: Alanine Aminotransferase 27 U/L (12-78); Albumin Level 3.2 g/dl (3.5-5.0); Alkaline Phosphatase 1063 U/L (38-126); Anion Gap 8.6 mEq/L (5-15); Aspartate Amino Transferase 55 U/L (17-59); Bilirubin,Total 1.2 mg/dl (0.2-1.3); Blood Urea Nitrogen 21 mg/dl (9-20); Carbon Dioxide 37 mmol/L (22.0-30.0); Chloride 89 mmol/L (98-107); Creatinine Clearance Estimated 47 mL/min (50-200); Estimated Glomerular Filt Rate 133 ml/min (>60); GFR (African American) 161 ML/MIN (>60); Globulin 3.1 g/dL (1.3-3.2); Glucose 92 mg/dl (74-100); Sodium 132 mmol/L (136-145); Total Protein,Serum 6.3 g/dl (6.3-8.2)
[2022-04-28 12:02] LABS: Potassium 2.6 mmoL/L (3.5-5.1)
--- NOTE | 2022-04-28 12:12 | DIET.NUTRFU ---
consulted to see patient today for 10# wt loss. He was here fr infudion today, he is familiar to me from inpatient admission. CBW is 48.4kg and wt was 52.27kg on 04/03 and 54.43kg on 03/02. has been able to normally get 2 premier proteins at 30gm protein each mixed with ice cream. Patient takes compazine and reglan regularly for nausea and zofran as PRN. Since he has been taking the medications more routinely for preventative measures instead of being reactive to symptoms intake has improved. He tends to tomasa the sweet sugary foods more then anything. Provided calorie and protein needs and foods to enhance if needed to help. During visit looked up high calorie powder that could be added to foods to help meet needs. Provided multiple handouts on high calorie ideas and smoothie recipes. Also provided my contact information for any future needs.
[2022-04-28 12:30] VITALS: BP 143/74; PULSE 76; RESP 16
[2022-04-28 12:37] LABS: Lymphocytes % 11 % (10-50); Monocytes % 4 % (2-9); Neutrophils % 85 % (42-76); Total Cells Counted 100
[2022-04-28 12:38] LABS: Platelet Estimate Slight Increase; RBC Morphology Normal
[2022-04-28 13:00] VITALS: BP 140/71; PULSE 75; RESP 16
[2022-04-28 13:30] VITALS: BP 130/68; PULSE 77; RESP 16
--- NOTE | 2022-04-28 14:41 | PC.NURSE ---
1115-[facility], PRESENT FOR NUTRITION CONSULT, PER DR LINDO.
== END 2022-04-28 13:40 | disposition home or self-care (01) ==
LOC: INF 10:49
PROVIDERS: PCP Family Medicine; Visit Provider Internal Medicine Medical Oncology
DX: C18.9 Malignant neoplasm of colon, unspecified (principal); E87.6 Hypokalemia; Z45.2 Encounter for adjustment and management of vascular access device
CPT/HCPCS: 80053; 85007; 85025; 96360; 96367; 96375; J1642; J2405

== ENCOUNTER 2022-05-03 14:26 | Outpatient (CLI) | payer MEDICARE, BC, SELFPAY ==
[2022-05-03 14:27] VITALS: BMI 16.2
[2022-05-03 14:45] VITALS: BP 132/73; PULSE 82; RESP 16; O2SAT 98
[2022-05-03 14:51] LABS: Basophils # 0.1 K/mm3 (0-0.2); Basophils % 0.4 % (0.1-2.0); Eosinophils # 0.4 K/mm3 (0.0-0.4); Eosinophils % 2.7 % (0.1-12.0); Hematocrit 39.6 % (42.0-52.0); Hemoglobin 12.4 g/dL (14.1-18.0); Lymphocytes # 1.1 K/mm3 (0.7-4.5); Lymphocytes % 7.3 % (10-50); Mean Corpuscular HGB Conc 31.4 g/dL (31.8-35.4); Mean Corpuscular Hemoglobin 28.9 pg (27.0-31.2); Mean Corpuscular Volume 91.9 fl (80-94); Mean Platelet Volume 7.8 fl (7.4-10.4); Monocytes # 0.5 K/mm3 (0.1-1.0); Monocytes % 3.6 % (1.7-9.3); Neutrophils # 12.6 K/mm3 (1.8-7.8); Platelet Count 467 K/mm3 (142-424); Red Blood Count 4.31 M/mm3 (4.60-6.20); Red Cell Distribution Width 16.2 % (11.5-17.5); White Blood Count 14.6 K/mm3 (4.8-10.8)
[2022-05-03 15:00] LABS: Alanine Aminotransferase 34 U/L (12-78); Albumin Level 3.2 g/dl (3.5-5.0); Alkaline Phosphatase 1218 U/L (38-126); Aspartate Amino Transferase 65 U/L (17-59); Blood Urea Nitrogen 20 mg/dl (9-20); Carbon Dioxide 38 mmol/L (22.0-30.0); Chloride 93 mmol/L (98-107); Creatinine Clearance Estimated 47 mL/min (50-200); Estimated Glomerular Filt Rate 111 ml/min (>60); GFR (African American) 135 ML/MIN (>60); Globulin 3.2 g/dL (1.3-3.2); Glucose 104 mg/dl (74-100); Sodium 135 mmol/L (136-145); Total Protein,Serum 6.4 g/dl (6.3-8.2)
[2022-05-03 15:29] LABS: MANUAL DIFFERENTIAL MANUAL DIFFERENTIAL (MANUAL DIFF)
[2022-05-03 15:45] VITALS: BP 141/66; PULSE 69; RESP 16; TEMP 36.5
[2022-05-03 16:03] LABS: Eosinophils % 1 % (0-3); Lymphocytes % 16 % (10-50); Monocytes % 7 % (2-9); Neutrophils % 76 % (42-76); Total Cells Counted 100
[2022-05-03 16:04] LABS: Platelet Estimate Slight Increase; RBC Morphology Normal
== END 2022-05-03 15:50 | disposition home or self-care (01) ==
PROVIDERS: Internal Medicine Medical Oncology; PCP Family Medicine; Visit Provider Family Medicine
DX: C18.9 Malignant neoplasm of colon, unspecified (principal); Z45.2 Encounter for adjustment and management of vascular access device
CPT/HCPCS: 80053; 85007; 85025; 96360; J1642

== ENCOUNTER 2022-05-05 12:26 | Outpatient (CLI) | payer MEDICARE, BC, SELFPAY ==
[2022-05-05 12:42] VITALS: BP 115/58; PULSE 79; RESP 18; O2SAT 97
[2022-05-05 13:50] VITALS: BP 147/72; PULSE 74; RESP 18; O2SAT 97
== END 2022-05-05 13:50 | disposition home or self-care (01) ==
LOC: INF 12:27
PROVIDERS: PCP Family Medicine; Visit Provider Internal Medicine Medical Oncology
DX: Z45.2 Encounter for adjustment and management of vascular access device (principal); C18.9 Malignant neoplasm of colon, unspecified; E86.0 Dehydration
CPT/HCPCS: 96360; 96375; J1642; J2405

== ENCOUNTER 2022-05-16 10:01 | Outpatient (CLI) | payer MEDICARE, BC, SELFPAY ==
[2022-05-16 10:03] VITALS: BMI 16.2
--- NOTE | 2022-05-16 10:25 | CT_ITS ---
FINAL REPORT CLINICAL HISTORY: COLON CANCER FINDINGS: Before and after the administration of intravenous contrast, axial images through the chest were performed by computed tomography. This study was performed with techniques to keep radiation doses as low as reasonably achievable, (ALARA). Individualized dose reduction techniques using automated exposure control or adjustment of mA and/or kV according to the patient's size were employed. There is no axillary adenopathy. There are small mediastinal lymph nodes. There is mild esophageal wall thickening that is nonspecific and favored to be inflammatory. The heart size is normal. There is no pericardial effusion. There is a small right pleural effusion. There are mild changes of emphysema with mild scarring. There is a 5 mm nonspecific nodule in the lateral left lung base. The bony thorax is intact. IMPRESSION: 5 mm left lung base nodule. Reviewed, Interpreted and Dictated by Avel Kaplan III, MD Transcribed by Barrera Bill Authenticated and [facility]
--- NOTE | 2022-05-16 10:25 | CT_ITS ---
FINAL REPORT TECHNIQUE: Multiple axial CT sections were performed from the foramen magnum to the vertex. Coronal reformatted images were also obtained. Precontrast and postcontrast injection images were obtained. This study was performed with technique to keep radiation doses as low as reasonably achievable, (ALARA). Individualized dose reduction techniques using automated exposure control or adjustment of mA and/or kV according to the patient size were employed. CLINICAL HISTORY: COLON CANCER COMPARISON: None FINDINGS: The ventricles are normal in size. There is no evidence of hemorrhage. No masses are identified. No extra-axial fluid collection is seen. The sinuses are normal. There is a 14 mm mass in the left frontal sinus consistent with osteoma. Postcontrast images demonstrate no abnormal enhancement. IMPRESSION: No acute intracranial abnormality. Left frontal sinus osteoma. Reviewed, Interpreted and Dictated by Avel Kaplan III, MD Transcribed by Deyanira Camara Authenticated and [facility]
--- NOTE | 2022-05-16 10:25 | CT_ITS ---
FINAL REPORT TECHNIQUE: Axial images were obtained from the lung bases through the pubic symphysis before and after the administration of intravenous contrast. Oral contrast was administered. This study was performed with techniques to keep radiation doses as low as reasonably achievable (ALARA). Individualized dose reduction techniques using automated exposure control or adjustment of mA and/or kV according to the patient's size were employed. CLINICAL HISTORY: COLON CANCER FINDINGS: Precontrast images demonstrate no evidence of nephrolithiasis or hydronephrosis. Abdomen: There are numerous masses throughout the liver consistent with widespread hepatic metastatic disease. One of the larger masses in the right liver dome measures 23 mm. There are gallstones in the gallbladder with mild gallbladder wall thickening. The spleen, pancreas and adrenal glands are unremarkable. There is mild left renal scarring. There is a small amount of ascites. There is presumed necrotic portal adenopathy measuring 2.9 cm. Portacaval adenopathy measures 2.2 cm. There is mild anasarca. Postoperative changes are seen in the right abdomen. There is wall thickening of multiple bowel loops that is nonspecific and could be inflammatory. There are multiple areas of soft tissue in the right abdomen likely representing peritoneal tumor involvement. Pelvis: The appendix is not identified. There is mild bladder wall thickening. There is no mass, free fluid or adenopathy. IMPRESSION: Widespread hepatic metastatic disease. Abnormal areas of soft tissue in the right abdomen likely peritoneal tumor involvement. Portacaval adenopathy with presumed necrotic portal adenopathy. Cholelithiasis with mild gallbladder wall thickening. Small amount of ascites. Nonspecific wall thickening of multiple bowel loops. Reviewed, Interpreted and Dictated by Avel Kaplan III, MD Transcribed by Barrera Bill Authenticated and . [facility]
[2022-05-16 10:28] LABS: Basophils % 0.2 % (0.1-2.0); Eosinophils # 0.3 K/mm3 (0.0-0.4); Eosinophils % 2.8 % (0.1-12.0); Hematocrit 40.9 % (42.0-52.0); Hemoglobin 12.6 g/dL (14.1-18.0); Lymphocytes # 1.7 K/mm3 (0.7-4.5); Lymphocytes % 14.4 % (10-50); Mean Corpuscular HGB Conc 30.9 g/dL (31.8-35.4); Mean Corpuscular Hemoglobin 28.4 pg (27.0-31.2); Mean Corpuscular Volume 91.9 fl (80-94); Monocytes # 0.5 K/mm3 (0.1-1.0); Monocytes % 4.1 % (1.7-9.3); Neutrophils # 9.2 K/mm3 (1.8-7.8); Neutrophils % 78.5 % (37.0-80.0); Platelet Count 622 K/mm3 (142-424); Red Blood Count 4.45 M/mm3 (4.60-6.20); Red Cell Distribution Width 18.1 % (11.5-17.5); White Blood Count 11.8 K/mm3 (4.8-10.8)
[2022-05-16 10:36] LABS: Alanine Aminotransferase 38 U/L (12-78); Albumin Level 3.3 g/dl (3.5-5.0); Alkaline Phosphatase 1206 U/L (38-126); Anion Gap 4.8 mEq/L (5-15); Aspartate Amino Transferase 47 U/L (17-59); Bilirubin,Total 1.7 mg/dl (0.2-1.3); Blood Urea Nitrogen 24 mg/dl (9-20); Calcium 8.2 mg/dl (8.4-10.2); Carbon Dioxide 34 mmol/L (22.0-30.0); Chloride 97 mmol/L (98-107); Creatinine Clearance Estimated 47 mL/min (50-200); Estimated Glomerular Filt Rate 96 ml/min (>60); GFR (African American) 116 ML/MIN (>60); Globulin 3.3 g/dL (1.3-3.2); Glucose 94 mg/dl (74-100); Sodium 133 mmol/L (136-145); Total Protein,Serum 6.6 g/dl (6.3-8.2)
--- NOTE | 2022-05-16 10:39 | PC.NURSE ---
1039-Laura james called rn at 1039 to report potassium level 2.8. RN repeated and verified pt name, , and lab value. Result called to and new order for potassium chloride 20 mEq iv once.
[2022-05-16 10:41] LABS: Potassium 2.8 mmoL/L (3.5-5.1)
[2022-05-16 11:35] VITALS: BP 121/76; PULSE 66; RESP 18; O2SAT 100
[2022-05-16 11:50] VITALS: BP 133/64; PULSE 72; RESP 18
[2022-05-16 12:02] LABS: Magnesium 2.5 mg/dl (1.6-2.3)
[2022-05-16 12:05] VITALS: BP 140/77; PULSE 66; RESP 18
[2022-05-16 12:20] VITALS: BP 139/77; PULSE 70; RESP 18
[2022-05-16 12:50] VITALS: BP 136/76; PULSE 72; RESP 18
== END 2022-05-16 12:50 | disposition home or self-care (01) ==
LOC: RAD 10:02
PROVIDERS: PCP Family Medicine; Visit Provider Internal Medicine Medical Oncology
DX: C18.9 Malignant neoplasm of colon, unspecified (principal); Z03.89 Encounter for observation for other suspected diseases and conditions ruled out
CPT/HCPCS: 70470; 71270; 74178; 80053; 83735; 85025; 96365; J1642; Q9967

== ENCOUNTER 2022-05-22 09:57 | Outpatient (CLI) | payer MEDICARE, BC, SELFPAY ==
[2022-05-22] VITALS (11 sets, daily range): BP systolic 115–155; BP diastolic 62–82; PULSE 64–75; RESP 18; TEMP 37.1; O2SAT 99; BMI 15.3
[2022-05-22 10:19] LABS: Basophils % 0.3 % (0.1-2.0); Eosinophils # 0.4 K/mm3 (0.0-0.4); Eosinophils % 3.5 % (0.1-12.0); Hematocrit 39.9 % (42.0-52.0); Hemoglobin 12.6 g/dL (14.1-18.0); Lymphocytes % 19.5 % (10-50); Mean Corpuscular HGB Conc 31.7 g/dL (31.8-35.4); Mean Corpuscular Hemoglobin 29.4 pg (27.0-31.2); Mean Corpuscular Volume 92.9 fl (80-94); Mean Platelet Volume 7.5 fl (7.4-10.4); Monocytes # 0.4 K/mm3 (0.1-1.0); Monocytes % 4.4 % (1.7-9.3); Neutrophils # 7.3 K/mm3 (1.8-7.8); Neutrophils % 72.3 % (37.0-80.0); Platelet Count 403 K/mm3 (142-424); Red Blood Count 4.29 M/mm3 (4.60-6.20); Red Cell Distribution Width 19.9 % (11.5-17.5); White Blood Count 10.1 K/mm3 (4.8-10.8)
[2022-05-22 10:28] LABS: Chloride 101 mmol/L (98-107); Potassium 3.2 mmoL/L (3.5-5.1); Sodium 137 mmol/L (136-145)
[2022-05-22 10:31] LABS: Alanine Aminotransferase 43 U/L (12-78); Albumin Level 3.1 g/dl (3.5-5.0); Alkaline Phosphatase 913 U/L (38-126); Anion Gap 8.2 mEq/L (5-15); Aspartate Amino Transferase 53 U/L (17-59); Bilirubin,Total 1.1 mg/dl (0.2-1.3); Blood Urea Nitrogen 25 mg/dl (9-20); Calcium 8.1 mg/dl (8.4-10.2); Carbon Dioxide 31 mmol/L (22.0-30.0); Creatinine Clearance Estimated 45 mL/min (50-200); Estimated Glomerular Filt Rate 111 ml/min (>60); GFR (African American) 135 ML/MIN (>60); Globulin 3.1 g/dL (1.3-3.2); Glucose 101 mg/dl (74-100); Total Protein,Serum 6.2 g/dl (6.3-8.2)
== END 2022-05-22 14:15 | disposition home or self-care (01) ==
LOC: INF 09:58
PROVIDERS: PCP Family Medicine; Visit Provider Internal Medicine Medical Oncology
DX: Z51.11 Encounter for antineoplastic chemotherapy (principal); C18.9 Malignant neoplasm of colon, unspecified
CPT/HCPCS: 80053; 85025; 96413; 96415; J1642; J9263; Q0166

== ENCOUNTER 2022-06-12 08:58 | Outpatient (CLI) | payer MEDICARE, BC, SELFPAY ==
[2022-06-12] VITALS (9 sets, daily range): BP systolic 113–137; BP diastolic 63–75; PULSE 67–72; RESP 18; TEMP 36.8; O2SAT 96–98; BMI 15.2
[2022-06-12 09:20] LABS: Basophils % 0.2 % (0.1-2.0); Eosinophils # 0.1 K/mm3 (0.0-0.4); Hemoglobin 11.4 g/dL (14.1-18.0); Lymphocytes # 2.1 K/mm3 (0.7-4.5); Lymphocytes % 15.4 % (10-50); Mean Corpuscular HGB Conc 31.6 g/dL (31.8-35.4); Mean Corpuscular Hemoglobin 29.7 pg (27.0-31.2); Mean Corpuscular Volume 93.9 fl (80-94); Mean Platelet Volume 7.3 fl (7.4-10.4); Monocytes # 0.6 K/mm3 (0.1-1.0); Monocytes % 4.1 % (1.7-9.3); Neutrophils # 10.9 K/mm3 (1.8-7.8); Neutrophils % 79.4 % (37.0-80.0); Platelet Count 596 K/mm3 (142-424); Red Blood Count 3.83 M/mm3 (4.60-6.20); Red Cell Distribution Width 20.8 % (11.5-17.5); White Blood Count 13.7 K/mm3 (4.8-10.8)
[2022-06-12 09:27] LABS: Chloride 98 mmol/L (98-107); Potassium 3.8 mmoL/L (3.5-5.1); Sodium 135 mmol/L (136-145)
[2022-06-12 09:30] LABS: Alanine Aminotransferase 43 U/L (12-78); Albumin Level 2.8 g/dl (3.5-5.0); Albumin/Globulin Ratio 0.9 (1.1-1.8); Alkaline Phosphatase 595 U/L (38-126); Anion Gap 11.8 mEq/L (5-15); Aspartate Amino Transferase 46 U/L (17-59); Bilirubin,Total 0.5 mg/dl (0.2-1.3); Blood Urea Nitrogen 15 mg/dl (9-20); Carbon Dioxide 29 mmol/L (22.0-30.0); Creatinine Clearance Estimated 44 mL/min (50-200); Estimated Glomerular Filt Rate 111 ml/min (>60); GFR (African American) 135 ML/MIN (>60); Globulin 3.2 g/dL (1.3-3.2)
[2022-06-12 09:31] LABS: Calcium 8.3 mg/dl (8.4-10.2); Glucose 98 mg/dl (74-100)
== END 2022-06-12 13:10 | disposition home or self-care (01) ==
LOC: INF 08:59
PROVIDERS: PCP Family Medicine; Visit Provider Internal Medicine Medical Oncology
DX: Z51.11 Encounter for antineoplastic chemotherapy (principal); C18.9 Malignant neoplasm of colon, unspecified
CPT/HCPCS: 80053; 85025; 96360; 96413; 96415; J1642; J9263; Q0166

== ENCOUNTER 2022-06-30 09:27 | Outpatient (CLI) | payer MEDICARE, BC, SELFPAY ==
[2022-06-30 09:29] VITALS: BMI 15.2
[2022-06-30 09:54] LABS: Basophils % 0.3 % (0.1-2.0); Eosinophils # 0.2 K/mm3 (0.0-0.4); Eosinophils % 1.6 % (0.1-12.0); Hematocrit 39.7 % (42.0-52.0); Hemoglobin 12.8 g/dL (14.1-18.0); Lymphocytes # 2.4 K/mm3 (0.7-4.5); Lymphocytes % 19.6 % (10-50); Mean Corpuscular HGB Conc 32.1 g/dL (31.8-35.4); Mean Corpuscular Hemoglobin 31.3 pg (27.0-31.2); Mean Corpuscular Volume 97.3 fl (80-94); Mean Platelet Volume 8.4 fl (7.4-10.4); Monocytes # 0.6 K/mm3 (0.1-1.0); Monocytes % 5.2 % (1.7-9.3); Neutrophils # 8.9 K/mm3 (1.8-7.8); Neutrophils % 73.4 % (37.0-80.0); Platelet Count 547 K/mm3 (142-424); Red Blood Count 4.08 M/mm3 (4.60-6.20); Red Cell Distribution Width 22.7 % (11.5-17.5); White Blood Count 12.2 K/mm3 (4.8-10.8)
[2022-06-30 09:59] LABS: Chloride 103 mmol/L (98-107); Potassium 3.8 mmoL/L (3.5-5.1); Sodium 137 mmol/L (136-145)
[2022-06-30 10:02] LABS: Alanine Aminotransferase 65 U/L (12-78); Albumin Level 3.5 g/dl (3.5-5.0); Albumin/Globulin Ratio 1.1 (1.1-1.8); Alkaline Phosphatase 522 U/L (38-126); Anion Gap 11.8 mEq/L (5-15); Aspartate Amino Transferase 63 U/L (17-59); Bilirubin,Total 0.4 mg/dl (0.2-1.3); Blood Urea Nitrogen 19 mg/dl (9-20); Carbon Dioxide 26 mmol/L (22.0-30.0); Creatinine Clearance Estimated 44 mL/min (50-200); Estimated Glomerular Filt Rate 96 ml/min (>60); GFR (African American) 116 ML/MIN (>60); Globulin 3.3 g/dL (1.3-3.2); Total Protein,Serum 6.8 g/dl (6.3-8.2)
[2022-06-30 10:03] LABS: Calcium 9.1 mg/dl (8.4-10.2); Glucose 104 mg/dl (74-100)
--- NOTE | 2022-06-30 10:20 | PC.NURSE ---
1020-pt return to department;pt is not getting treatment today but will be back on 07/06/22 to receive treatment;here to have port deaccessed.
== END 2022-06-30 10:27 | disposition home or self-care (01) ==
LOC: INF 09:28
PROVIDERS: PCP Family Medicine; Visit Provider Internal Medicine Medical Oncology
DX: C18.9 Malignant neoplasm of colon, unspecified (principal); Z45.2 Encounter for adjustment and management of vascular access device
CPT/HCPCS: 36591; 80053; 85025; J1642

== ENCOUNTER 2022-07-06 09:21 | Outpatient (CLI) | payer MEDICARE, BC, SELFPAY ==
[2022-07-06] VITALS (11 sets, daily range): BP systolic 104–121; BP diastolic 48–64; PULSE 69–74; RESP 18; O2SAT 98
== END 2022-07-06 13:30 | disposition home or self-care (01) ==
LOC: INF 09:22
PROVIDERS: PCP Family Medicine; Visit Provider Internal Medicine Medical Oncology
DX: Z51.11 Encounter for antineoplastic chemotherapy (principal); C18.9 Malignant neoplasm of colon, unspecified
CPT/HCPCS: 96413; 96415; J1642; J9263; Q0166

== ENCOUNTER 2022-07-19 10:00 | Outpatient (RCR) | payer MEDICARE, BC, SELFPAY ==
--- NOTE | 2022-05-05 15:08 | HMH.PTOPEV ---
PT Outpatient Evaluation Rehab PT Outpatient Evaluation Start: 05/05/22 13:57 Freq: Status: Active Protocol: Document 05/05/22 13:58 ALDA (Rec: 05/05/22 15:08 ALDA [id number]) E-signed By Esha Luo, PT Outpatient Therapy Subjective History Subjective History Pt presents to the PT clinic with reports of increased weakness and fatigue following a cancer diagnosis in February . Pt states that he had 2 surgeries in February and following that, he was feeling pretty good. Pt reports that not long after being home, he started to lose his appetite, began vomiting and experienced increasing fatigue. Pt states that he began his chemo treatment on Sunday05/01/2022. Pt reports that he was unable to start his chemo treatment earlier because of his weakness. Pt reports that he uses a SPC when out in public or on days he is feeling very weak. Pt states that he has difficulty walking throughout his house, performing house tasks and takes frequent naps throughout the day due to his weakness/fatigue. Chief Complaint Weakness Symptom Type Other Symptoms Relieved By Rest/Positioning,OTC Meds, Prescription Meds Symptoms Aggravated By Standing,Bending/Stooping, Physical Activity,Walking, Lifting Prior Functional Limitations None Current Functional Limitations Lifting,Dressing,Driving, Sleeping,Standing,Sitting, Squatting,Recreation Activity, Walking,Stairs,Balance,Bending /Stooping Symptom Description Constant but Variable Level of pain today (0-10) 0 Pain scale - at its best (0-10) 0 Pain scale - at its worst (0-10) 0 Hip/Knee Eval Gait Observation General Gait Pattern Observation Narrow Based Gait Assistive Device Assistive Devices Straight Cane MMT bilateral Hip Flexion Strength Grade 3+ Fair+ Hip Abduction Strength Grade 3+ Fair+ Hip Adduction Strength Grade
--- NOTE | 2022-07-12 11:40 | HMH.RHREAS ---
Rehab Reassessment Rehab OP Re-assessment Start: 06/02/22 10:22 Freq: Status: Active Protocol: Document 07/12/22 11:35 SAMIR (Rec: 07/12/22 11:40 PHORACHEL [id number]) E-signed By Santo Aguiar, PT Rehab Re-assessment Subjective Subjective Pt reports he fels much better with ambulation, no co pain, and only mild effects of chemo on his sensation in B UE and LE. I feel better when I'm walking than I do when I'm standing. Objective Objective Notes (B) hip flexion MMT: 4/5 (B) hip abduction MMT: 4/5 (B) hip adduction MMT: 4/5 (B) knee ext MMT: 5/5 (B) knee flx MMT: 5/5 (B) ankle DF MMT: 4/5 Standing Ednurance: ~ 5 min without fatigue. TU.0 sec Assessment Progress Assessment Progressing as Expected Assessment Notes Pt has shown increase in all B LE strength and improvements in functional standing ability since last reassessment. He only reports increased sensitivity to cold in B hands and feet due to his chemo at this time. He continues to lack enough endurance in standing to perform all ADLs independently. He continues to need skilled intervention to return to prior level of function. Patient goals met ST/ Goals Not Met LTG Revised Goals n/a Plan Plan Continue with initial plan of care Frequency of Therapy 1-2x/wk Duration of therapy 4 more weeks Time and Billing Re-Eval Time 14 Re-Eval Billing Units 1 PHYSICIAN CERTIFICATION: I certify the specified therapy services for Dominic Thibodeaux are required, authorized, and reviewed every 30 days.
== END 2022-07-19 10:05 | disposition home or self-care (01) ==
LOC: PT 10:00
PROVIDERS: PCP Family Medicine; Visit Provider Internal Medicine Medical Oncology
DX: R53.1 Weakness (principal); C18.9 Malignant neoplasm of colon, unspecified
CPT/HCPCS: 97110; 97163; 97164; 97530

== ENCOUNTER 2022-07-25 08:42 | Outpatient (CLI) | payer MEDICARE, BC, SELFPAY ==
[2022-07-25 08:45] VITALS: BMI 14.7
--- NOTE | 2022-07-25 08:49 | CT_ITS ---
FINAL REPORT CLINICAL HISTORY: COLON CANCER FINDINGS: Axial images were obtained from the lung apex to the mid abdomen by computed tomography after the administration of IV contrast. Coronal reformatted images were obtained. This study was performed with techniques to keep radiation doses as low as reasonably achievable, (ALARA). Individualized dose reduction techniques using automated exposure control or adjustment of mA and/or kV according to the patient's size were employed. There is a left upper anterior chest port terminating in the SVC. There is no axillary adenopathy. There is no hilar or mediastinal adenopathy. Heart size is normal. There is no pericardial or pleural effusion. There are mild changes of emphysema. There is patchy airspace opacity in the left lung base that may be due to resolving pneumonia. IMPRESSION: Patchy airspace opacity in the left lung base may be due to resolving pneumonia. Reviewed, Interpreted and Dictated by Rupert Reagan MD Transcribed by Barrera Bill Authenticated and [facility]
--- NOTE | 2022-07-25 08:49 | CT_ITS ---
FINAL REPORT TECHNIQUE: Postcontrast axial images through the abdomen and pelvis were performed. This study was performed with techniques to keep radiation doses as low as reasonably achievable, (ALARA). Individualized dose reduction techniques using automated exposure control or adjustment of mA and/or kV according to the patient's size were employed. CLINICAL HISTORY: COLON CANCER FINDINGS: Abdomen: There are multiple low-attenuation masses throughout the liver. Largest mass measures up to 2.5 cm. There are multiple other smaller masses. Findings are consistent with hepatic metastases. There are greater than 30 lesions identified. The gallbladder is contracted and contains multiple gallstones. The spleen is unremarkable. The adrenals are normal. The pancreas is unremarkable. There is a duplicated left renal collecting system. There is moderate hydronephrosis in the lower pole moiety. The aorta is normal in caliber. No free fluid or adenopathy is identified. There are multiple distended loops of large and small bowel. Small bowel measures up to 4.2 cm in diameter. Colon measures up to 5.6 cm in diameter. There are postoperative changes in the right lower quadrant. There are scattered diverticulum along the sigmoid colon. There appears to be abnormal mucosal thickening of the proximal descending colon. An element of obstruction of the mid descending colon can not be excluded. Pelvis: The appendix is not identified. The urinary bladder is unremarkable. No free fluid, free air, abscess or adenopathy is identified. IMPRESSION: Multiple hepatic metastases. Contracted, stone filled gallbladder. Distended large and small bowel loops concerning for underlying obstruction. Exact point of obstruction is unclear but probably resides in the descending colon. Lower endoscopy may be of value. Reviewed, Interpreted and Dictated by Rupert Reagan MD Transcribed by Barrera Bill Authenticated and [facility]
[2022-07-25 08:55] LABS: Basophils % 0.3 % (0.1-2.0); Eosinophils # 0.4 K/mm3 (0.0-0.4); Eosinophils % 4.1 % (0.1-12.0); Hematocrit 38.2 % (42.0-52.0); Lymphocytes # 2.1 K/mm3 (0.7-4.5); Lymphocytes % 21.2 % (10-50); Mean Corpuscular HGB Conc 31.4 g/dL (31.8-35.4); Mean Corpuscular Hemoglobin 32.3 pg (27.0-31.2); Mean Corpuscular Volume 102.9 fl (80-94); Mean Platelet Volume 7.6 fl (7.4-10.4); Monocytes # 0.5 K/mm3 (0.1-1.0); Monocytes % 5.5 % (1.7-9.3); Neutrophils # 6.8 K/mm3 (1.8-7.8); Neutrophils % 68.9 % (37.0-80.0); Platelet Count 484 K/mm3 (142-424); Red Blood Count 3.71 M/mm3 (4.60-6.20); White Blood Count 9.8 K/mm3 (4.8-10.8)
[2022-07-25 09:12] LABS: Alanine Aminotransferase 38 U/L (12-78); Albumin Level 3.3 g/dl (3.5-5.0); Alkaline Phosphatase 387 U/L (38-126); Aspartate Amino Transferase 38 U/L (17-59); Bilirubin,Total 0.5 mg/dl (0.2-1.3); Blood Urea Nitrogen 16 mg/dl (9-20); Calcium 8.6 mg/dl (8.4-10.2); Carbon Dioxide 26 mmol/L (22.0-30.0); Chloride 103 mmol/L (98-107); Creatinine Clearance Estimated 43 mL/min (50-200); Estimated Glomerular Filt Rate 111 ml/min (>60); GFR (African American) 135 ML/MIN (>60); Globulin 3.4 g/dL (1.3-3.2); Glucose 92 mg/dl (74-100); Sodium 137 mmol/L (136-145); Total Protein,Serum 6.7 g/dl (6.3-8.2)
== END 2022-07-25 09:35 | disposition home or self-care (01) ==
LOC: RAD 08:42
PROVIDERS: PCP Family Medicine; Visit Provider Internal Medicine Medical Oncology
DX: C18.9 Malignant neoplasm of colon, unspecified (principal); Z45.2 Encounter for adjustment and management of vascular access device
CPT/HCPCS: 36591; 71260; 74177; 80053; 85025; J1642; Q9967

== ENCOUNTER 2022-07-31 09:24 | Outpatient (CLI) | payer MEDICARE, BC, SELFPAY ==
[2022-07-31] VITALS (8 sets, daily range): BP systolic 98–138; BP diastolic 60–99; PULSE 62–70; RESP 18; TEMP 36.6; O2SAT 100; BMI 15.0
[2022-08-01 08:19] LABS: CEA 6.2 ng/mL (0.0-4.7)
== END 2022-07-31 13:00 | disposition home or self-care (01) ==
LOC: INF 09:25
PROVIDERS: PCP Family Medicine; Visit Provider Internal Medicine Medical Oncology
DX: Z51.11 Encounter for antineoplastic chemotherapy (principal); C18.9 Malignant neoplasm of colon, unspecified
CPT/HCPCS: 82378; 96413; 96415; J1642; J9263; Q0166

== ENCOUNTER → 2022-08-11 09:43 | Outpatient (CLI) | payer MEDICARE, BC, SELFPAY ==
--- NOTE | 2022-08-11 09:44 | FL_ITS ---
FINAL REPORT CLINICAL HISTORY: poss obstruction 3.42 fluoro time FINDINGS: GASTROGRAFIN ENEMA HISTORY: Possible colonic obstruction. History of colon cancer. PROCEDURE: Single-contrast Gastrografin was introduced by gravity drip. Spot and overhead films were obtained. Fluoroscopy time: 3 minutes 42 seconds. 21 radiographs were obtained. 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 Examination was somewhat limited as the patient discharged the enema tip twice during the exam. In addition, a large amount of stool in the colon limits the study. There is a stricture seen of the mid sigmoid colon, contributing to fecal impaction. Contrast is only seen to the mid transverse colon. IMPRESSION: Limited exam as detailed above. Constricting lesion of the sigmoid colon with fecal impaction proximal to the stricture. Endoscopic correlation recommended. Films reviewed , interpreted and dictated by Dr. Kaplan. Transcribed by Justin Parrish PA-C. Reviewed, Interpreted and Dictated by Avel Kaplan III, MD Transcribed by AREN Mantilla Authenticated and . [facility]
== END ==
PROVIDERS: PCP Family Medicine; Visit Provider Surgery
DX: R10.9 Unspecified abdominal pain (principal)
CPT/HCPCS: 74270

== ENCOUNTER 2022-08-15 13:58 | Inpatient (IN) | payer MEDICARE, BC, SELFPAY ==
[2022-08-15] VITALS (10 sets, daily range): BP systolic 117–154; BP diastolic 72–90; PULSE 66–81; RESP 16–24; TEMP 36.2–43; O2SAT 98–100; BMI 13.6; BMI 15.4
--- NOTE | 2022-08-15 12:09 | EXP.ANES.CKL ---
[facility] Disclaimer: The information contained in this section may have been updated after the patient was seen, as this information can be updated by other users. Medical History Colon cancer Nausea & vomiting ER visit 04/09/22 N/v had CT-abd Tobacco abuse Tobacco use Surgical History History of colon resection Family History Other Family history of cancer No significant family history Social History (Updated 08/15/22 @ 11:28 by Tram Drummond RN) Smoking Status: Current every day smoker tobacco type: cigarettes packs per day: 1 alcohol intake: never substance use type: denies use current occupational status: employed and retired Travel in the last 8 weeks: None [facility] Anesthesia Checklist Patient Identification Patient Identification: Arm Band Structural Data Admitted From: Home Planned Operative Procedure/s: flexible sigmoidoscopy Consent for Planned Operative Procedure(s) Verified: Yes Verified Documents: Surgical Consent and History and Physical NPO Status Verified Time NPO: 00:00 Additional verifications Anesthesia Reactions: No Hx Blood Transfusions: No Blood Transfusion Reaction: No Airway Assessment C-Spine Mobility Assessed: Yes TMJ Mobility Assessed: Yes Neurological Assessment Level of Consciousness: Awake and Alert Anesthesia Plan Anesthesia Risk discussed: Yes Anesthesia Plan: Verified ASA Class: III Anesthesia Type: MAC
--- NOTE | 2022-08-15 13:45 | HMH.SCOPE ---
Procedure: Date: 08/15/22 Patient Date of :: 1950 Procedure Performed:: Proctosigmoidoscopy Indications:: Patient is a 72-year-old male who had presented in February of this year with complete distal bowel obstruction for obstructing metastatic colon cancer. He has been undergoing chemotherapy. He has had issues with bowel irregularity recently and postprandial increased pain. He underwent CT scan on 07/25/2022 which revealed multiple hepatic metastases. There was also distended large and small bowel loops concerning for underlying obstruction which was unclear as to the site but possibly in the descending colon. Gastrografin enema was ordered based on the symptoms and findings and there is evidence of constricting lesion of the sigmoid colon with fecal impaction proximal to the stricture. He presented to the office. He had findings consistent with bowel obstruction. The options were discussed with the patient. Plan was made for urgent attempt at sigmoidoscopy after administration of enemas to discern the etiology and potential dilation if focal stricture present. It was noted the patient has high possibility of need for surgical intervention and colostomy. Performing Provider:: Avel Franz MD Referring Provider:: . Sedation:: MAC sedation Procedure:: Patient history was obtained and appropriate physical examination was performed. Patient's medications and allergies were reviewed. Informed consent was obtained after explaining the benefits, alternatives, and risks of the procedure including, but not limited to, bleeding, perforation, missed lesions, and adverse reaction to anesthesia medications. Patient was transported to endoscopy procedure room. Patient was connected to monitoring devices. Throughout the procedure the patient's blood pressure, pulse, and oxygen saturations were monitored continuously. Patient identification and planned procedure were verified by the staff. Patient was positioned in lateral decubitus position. Digital anorectal exam was performed. Olympus endoscope was inserted via the anus. There was some stool present which was irrigated and suctioned free. There appeared to be evidence of extrinsic compression at the rectosigmoid region and despite prolonged effort colonoscope was unable to be advanced beyond the rectosigmoid. There were a couple of diverticuli. Findings:: Distal high-grade versus complete large bowel obstruction Recommendations:: Given the fact that he has a high-grade partial versus complete distal large bowel obstruction based on imaging and endoscopic findings there is potential for inevitable impending perforation. I discussed this with the family. I feel that surgical intervention would be inevitable. Given the potential for perforation I will see if this could be done this afternoon. Given his debilitated malnourished state may plan for attempt at merely diversion with laparoscopy and distal transverse loop colostomy versus more extensive laparotomy with resection of this area with end colostomy. Likely this is a benign stricture given endoscopic and radiographic findings but this is uncertain. Complications:: None immediately apparent Estimated blood obtained (mL): 0 Colonoscopy Component Colonoscopy Component Was a colonoscopy performed during today's procedure?: No
--- NOTE | 2022-08-15 14:27 | HMH.PHAINT1 ---
Pharmacy Intervention Comments: Patient's home medication list verified with external pharmacy. -Shane Marquez, Pharm Student
--- NOTE | 2022-08-15 15:06 | SUR.OPER ---
1340- Handoff report received from Ivon,RN and Sudheer,RN at this time. 1441- Decision made to go open. 1444- Laparoscopic count confirmed by this RN and Marilou. Blades= 3 Hypo= 1 Bovie=1 Laps= 20 Rays= 20 Suction= 3 Laparoscopic instruments then taken out of room, with MD's permission. Table prepared to go open. Open count performed by Marilou and confirmed by this RN. Count is now as follows: Blades= 1 Hypo= 1 Bovie= 1 Laps= 20 Rays= 20 Suction= 3 Instruments= 100 (99 main set + 1 #3 knife handle) 1445- Open incision made at this time. 1452- Called to post-op and spoke with TU Stout asking that she update the patient's family of 's decision to go open, per 's request.
--- NOTE | 2022-08-15 16:13 | EXP.HP ---
History of Present Illness *Admission Date: 08/15/22 *Reason for visit:: Bowel obstruction *History of present illness: Patient is a 72-year-old male who had presented in February of this year with complete distal bowel obstruction for obstructing metastatic colon cancer. He has been undergoing chemotherapy. He has had issues with bowel irregularity recently and postprandial increased pain. He underwent CT scan on 07/25/2022 which revealed multiple hepatic metastases which actually has shown slight improvement from prior study. There was also distended large and small bowel loops concerning for underlying obstruction which was unclear as to the site but possibly in the descending colon. This was more apparent than on previous study. He did have some abnormal soft tissue thickening in the right hemipelvis of uncertain significance which was felt to be possible peritoneal metastases. Gastrografin enema was ordered based on the symptoms and findings and there is evidence of constricting lesion of the sigmoid colon with fecal impaction proximal to the stricture. He presented to the office. He had findings consistent with bowel obstruction. The options were discussed with the patient. Plan was made for urgent attempt at sigmoidoscopy after administration of enemas to discern the etiology and potential dilation if focal stricture present. It was noted the patient has high possibility of need for surgical intervention and colostomy. He underwent urgent proctosigmoidoscopy. Given findings of extrinsic compression with stricture present the colonoscope was unable to be advanced beyond the rectosigmoid region. There were few diverticuli. There was no evidence of any clearly defined mass. It was felt that this may be a benign diverticular stricture given his previous imaging and endoscopic findings. Given his clinical scenario it was felt that there was an inevitable impending perforation. Given this potential it was felt that surgical intervention was inevitable. Given his debilitated malnourished state plan was made to attempt diagnostic laparoscopy with possible diversion loop colostomy given the findings on imaging and endoscopically. [facility] Disclaimer: The information contained in this section may have been updated after the patient was seen, as this information can be updated by other users. Medical History Colon cancer Nausea & vomiting ER visit 04/09/22 N/v had CT-abd Tobacco abuse Tobacco use Surgical History History of colon resection Family History Other Family history of cancer No significant family history Social History (Updated 08/15/22 @ 11:28 by Tram Drummond RN) Smoking Status: Current every day smoker tobacco type: cigarettes packs per day: 1 alcohol intake: never substance use type: denies use current occupational status: employed and retired Travel in the last 8 weeks: None Meds Home Medications and Allergies Home Medications Medication Instructions Recorded Confirmed Type metoclopramide HCl 10 mg tablet 10 mg PO Q6H PRN nausea and 04/24/22 08/15/22 Rx (Reglan) vomiting #120 tabs ondansetron HCl 8 mg tablet 8 mg PO Q6H PRN Nausea 04/28/22 08/15/22 History potassium chloride 10 mEq 20 meq PO DAILY Supplement 04/28/22 08/15/22 History tablet,extended release prednisone 10 mg tablet 10 mg PO DAILY Steroid 05/18/22 08/15/22 History hydrocodone 5 mg-acetaminophen 325 1 tab PO Q6H PRN pain #60 tabs 07/27/22 08/15/22 Rx mg tablet lorazepam 0.5 mg tablet (Ativan) 0.5 mg PO TID PRN anxiety #60 tabs 07/28/22 08/15/22 Rx capecitabine 500 mg tablet (Xeloda) 500 mg PO 5XDAY chemo 08/15/22 08/15/22 History New Prescriptions to Start Prescriptions: Allergies Allergy/AdvReac Type Severity Reaction Status Date / Time No Known Allergies Allergy Verified 08/15/22 11:26
--- NOTE | 2022-08-15 16:39 | P.PNANES_ITS ---
[facility] Anesthesia Record Part I Anesthesia Record I Intake, IV Amount: 2,550 Estimated blood loss (mL): 50 Urine output (mL): 50 Blood Pressure: 141/84 SaO2: 100 Pulse Rate: 81 Respiratory Rate: 24 Temperature: 97.1 F Patient is:: Drowsy and Stable Stable to PACU at:: 16:25
--- NOTE | 2022-08-15 16:54 | EXP.OP.NOTE ---
Date of procedure: 08/15/22 Pre-op Diagnosis:: Large bowel obstruction Post-op Diagnosis:: Diffuse small bowel obstruction secondary to severe carcinomatosis Procedure performed:: Diagnostic laparoscopy, laparotomy, intra-abdominal peritoneal biopsy Surgeon:: Avel Franz MD [employer]:: Other Anesthesia: GETA Estimated blood loss (mL): 25 Clinical Note:: Patient is a 72-year-old male who had presented in February of this year with complete distal bowel obstruction for obstructing metastatic colon cancer. He has been undergoing chemotherapy. He has had issues with bowel irregularity recently and postprandial increased pain. He underwent CT scan on 07/25/2022 which revealed multiple hepatic metastases which actually has shown slight improvement from prior study. There was also distended large and small bowel loops concerning for underlying obstruction which was unclear as to the site but possibly in the descending colon. This was more apparent than on previous study. He did have some abnormal soft tissue thickening in the right hemipelvis of uncertain significance which was felt to be possible peritoneal metastases. Gastrografin enema was ordered based on the symptoms and findings and there is evidence of constricting lesion of the sigmoid colon with fecal impaction proximal to the stricture. He presented to the office for follow up after gastrograffin enema. He had findings consistent with bowel obstruction upon presentation. The options were discussed with the patient. Plan was made for urgent attempt at sigmoidoscopy after administration of enemas to discern the etiology and potential dilation if focal stricture present. It was noted the patient has high possibility of need for surgical intervention and colostomy. He underwent urgent proctosigmoidoscopy. Given findings of extrinsic compression with stricture present the colonoscope was unable to be advanced beyond the rectosigmoid region. There were few diverticuli. There was no evidence of any clearly defined mass. It was felt that this may be a benign diverticular stricture given his previous imaging and endoscopic findings. Given his clinical scenario it was felt that there was an inevitable impending perforation. Given this potential it was felt that surgical intervention was inevitable. Due to his debilitated malnourished state plan was made to attempt diagnostic laparoscopy with possible diversion loop colostomy. Operative findings:: He had evidence of probable malignant ascites noted in the left upper quadrant. There was diffuse severe carcinomatosis with heavy tumor burden noted on all peritoneal surfaces. Operative note:: Consent was obtained patient taken the operating room. He was given preoperative intravenous antibiotics. Dozier catheter was placed. Abdomen was prepped and draped in the standard surgical fashion. Through left subcostal incision 5 mm trocar was inserted and advanced into the peritoneal cavity carefully. CO2 pneumoperitoneum was achieved. Laparoscope was inserted. There was noted to be some fluid in the left upper quadrant possibly consistent with malignant ascites. This suspicion was raised as limited laparoscopic surveillance revealed diffuse widespread too numerous to count peritoneal nodules throughout the abdomen including on the bowel. Limited laparoscopic surveillance was able to be carried out. A 5 mm trocar was inserted under laparoscopic visualization in the lower mid abdomen and an attempt to find an area free of tumor and adhesions. This was done under laparoscopic visualization and there was concern for possible unavoidable enteric injury upon trocar insertion. Plan was made for inspection after opening. Limited midline laparotomy was made at this site. There was extremely dense peritoneal caking of tumor burden and densely adherent small bowel at the site of trocar placement with a tiny several millimeter enterotomy. This loop of bowel was able to
--- NOTE | 2022-08-15 17:02 | SUR.PHASEI ---
Pt arrived to room 207 awake and alert. Family at bedside. Abdominal dressings no change from PACU.
--- NOTE | 2022-08-15 17:43 | PC.NURSE ---
NG tube placed down right nare by Edgar Melgoza CRNA. NG hooked to low wall suction with gastric content aspiration noted.
[2022-08-15 18:10] LABS: Microscopic,Cath URINE MICROSCOPIC (MICROSCOPIC)
[2022-08-15 18:13] LABS: Appearance,Urine/Cath CLEAR (Clear); Bilirubin,Cath Negative (Negative); Blood, Urine/Cath 2+ (Negative); Color,Urine/Cath YELLOW (Yellow); Glucose,Urine/Cath (UA) Negative (Negative); Ketones,Urine/Cath TRACE (Negative); Leukocyte Esterase,Cath Negative (Negative); Nitrate,Cath Negative (Negative); Protein,Urine/Cath TRACE (Negative); Specific Gravity, Urine/Cath 1.025 (1.005-1.030)
--- NOTE | 2022-08-15 18:16 | EXP.MED.CON ---
History of Present Illness *Admission Date: 08/15/22 *History of present illness: Dominic Thibodeaux is a 72 year old male with a past medical history of stage 4 colon cancer with metastasis to the liver who is a direct admit from General Surgery clinic with bowel obstruction. A gastrografin enema revealed evidence of constricting lesion of the sigmoid colon with fecal impaction proximal to the stricture. An urgent proctosigmoidoscopy after administration of enemas as attempted; but due to extrinsic compression the colonoscope was unable to be advanced beyond the rectosigmoid region. A diagnostic laparoscopy revealed diffuse severe carcinomatosis and a biopsy was obtained. The hospitalist service was consulted for medical management. His Oncologist is Dr. Burgos. [facility] Disclaimer: The information contained in this section may have been updated after the patient was seen, as this information can be updated by other users. Medical History Colon cancer Nausea & vomiting ER visit 04/09/22 N/v had CT-abd Tobacco abuse Tobacco use Surgical History History of colon resection Family History Other Family history of cancer No significant family history Social History (Updated 08/15/22 @ 11:28 by Tram Drummond RN) Smoking Status: Current every day smoker tobacco type: cigarettes packs per day: 1 alcohol intake: never substance use type: denies use current occupational status: employed and retired Travel in the last 8 weeks: None Review of Systems Review of Systems Review of systems:: pertinent systems reviewed and negative unless documented below *Gastrointestinal Gastrointestinal: Reports abdominal pain and Reports bloating Exam Data for Last 24 hours Vital signs and Labs for Last 24 Hours: Temp Pulse Resp BP Pulse Ox O2 Del Method O2 Flow Rate 97.1 F L 69 18 142/74 H 100 Nasal Cannula 3 08/15/22 16:42 08/15/22 17:00 08/15/22 17:00 08/15/22 17:00 08/15/22 17:00 08/15/22 17:00 08/15/22 17:00 Laboratory Results - last 24 hr 08/15/22 14:08: Urine Color Yellow, Urine Appearance Clear, Urine pH 6.0, Ur Specific [place] 1.025, Urine Protein Trace, Urine Glucose (UA) Negative, Urine Ketones Trace, Urine Blood 2+, Urine Nitrate Negative, Urine Bilirubin Negative, Urine Urobilinogen 1.0, Ur Leukocyte Esterase Negative I & O for Last 24 hours: Intake & Output 08/12/22 08/13/22 08/14/22 08/15/22 23:59 23:59 23:59 23:59 Intake Total 2550 / 2550 Output Total 150 / 150 Balance 2400 / 2400 Weight 46.068 kg Constitutional Constitutional: no acute distress *Routine HEENT Exam Head: Present normocephalic Eye: Present EOMI and PERRL ENT: Present mucous membranes moist *Routine Neck Exam Neck: Present supple; Absent lymphadenopathy Routine Chest/Breast/Axilla Exam Comments: port left upper chest *Routine Respiratory Exam Respiratory: Present CTA bilaterally *Routine Cardiovascular Exam Cardiovascular: Present RRR *Routine Abdominal Exam Comments: dressing c/d/i *Routine Extremities Exam Extremities: Absent cyanosis, clubbing or edema *Routine Skin Exam Skin: Present warm; Absent rash *Routine Neurological Exam Neurological: Present alert and oriented X3 Meds Home Medications and Allergies Home Medications Medication Instructions Recorded Confirmed Type metoclopramide HCl 10 mg tablet 10 mg PO Q6H PRN nausea and 04/24/22 08/15/22 Rx (Reglan) vomiting #120 tabs ondansetron HCl 8 mg tablet 8 mg PO Q6H PRN Nausea 04/28/22 08/15/22 History potassium chloride 10 mEq 20 meq PO DAILY Supplement 04/28/22 08/15/22 History tablet,extended release prednisone 10 mg tablet 10 mg PO DAILY Steroid 05/18/22 08/15/22 History hydrocodone 5 mg-acetaminophen 325 1 tab PO Q6H PRN pain #60 tabs 07/27/22 08/15/22 Rx mg tablet lorazepam 0.5 mg tablet (Ativan) 0.
[2022-08-15 18:35] LABS: WBC,Urine/Cath Occasional #/hpf (0-3)
[2022-08-15 18:36] LABS: CA Oxalate Crystals,Ur/Cath 1+ /lpf
[2022-08-15 18:50] LABS: Basophils % 0.1 % (0.1-2.0); Eosinophils # 0.1 K/mm3 (0.0-0.4); Eosinophils % 0.4 % (0.1-12.0); Hematocrit 43.4 % (42.0-52.0); Lymphocytes # 0.6 K/mm3 (0.7-4.5); Lymphocytes % 3.7 % (10-50); Mean Corpuscular Hemoglobin 32.5 pg (27.0-31.2); Mean Corpuscular Volume 108.1 fl (80-94); Monocytes # 0.3 K/mm3 (0.1-1.0); Neutrophils # 13.9 K/mm3 (1.8-7.8); Neutrophils % 93.8 % (37.0-80.0); Platelet Count 466 K/mm3 (142-424); Red Blood Count 4.01 M/mm3 (4.60-6.20); Red Cell Distribution Width 19.2 % (11.5-17.5); White Blood Count 14.9 K/mm3 (4.8-10.8)
[2022-08-15 18:54] LABS: MANUAL DIFFERENTIAL MANUAL DIFFERENTIAL (MANUAL DIFF)
[2022-08-15 19:01] LABS: Chloride 101 mmol/L (98-107)
[2022-08-15 19:02] LABS: Potassium 4.7 mmoL/L (3.5-5.1); Sodium 133 mmol/L (136-145)
[2022-08-15 19:04] LABS: Blood Urea Nitrogen 20 mg/dl (9-20); Creatinine Clearance Estimated 45 mL/min (50-200); Estimated Glomerular Filt Rate 96 ml/min (>60); GFR (African American) 116 ML/MIN (>60)
[2022-08-15 19:05] LABS: Anion Gap 10.7 mEq/L (5-15); Calcium 8.2 mg/dl (8.4-10.2); Carbon Dioxide 26 mmol/L (22.0-30.0); Glucose 113 mg/dl (74-100)
[2022-08-15 20:26] LABS: Lymphocytes % 4 % (10-50); Macrocytosis 1+; Monocytes % 1 % (2-9); Neutrophils % 95 % (42-76); Platelet Estimate Slight Increase; Total Cells Counted 100
--- NOTE | 2022-08-15 20:57 | EXP.EVENT.NO ---
Dr. Franz called Hospitalist service this evening regrading pt's admission status. Surgery asked that hospitalist team take over primary care. I agreed to transition of care. Will update Dr. Lu in the morning.
--- NOTE | 2022-08-15 21:13 | EXP.HP ---
History of Present Illness *Admission Date: 08/15/22 *History of present illness: Dominic Thibodeaux is a 72 year old male with a past medical history of stage 4 colon cancer with metastasis to the liver who is a direct admit from General Surgery clinic with bowel obstruction. A gastrografin enema revealed evidence of constricting lesion of the sigmoid colon with fecal impaction proximal to the stricture. An urgent proctosigmoidoscopy after administration of enemas as attempted; but due to extrinsic compression the colonoscope was unable to be advanced beyond the rectosigmoid region. A diagnostic laparoscopy revealed diffuse severe carcinomatosis and a biopsy was obtained. The hospitalist service was consulted for medical management. His Oncologist is Dr. Burgos. -Primary medical management was switched from general surgery admit to hospitalist service. General Surgery will be consulted. Plan of care remains the same, just different medical services for primary care. [facility] Disclaimer: The information contained in this section may have been updated after the patient was seen, as this information can be updated by other users. Medical History Colon cancer Nausea & vomiting ER visit 04/09/22 N/v had CT-abd Tobacco abuse Tobacco use Surgical History History of colon resection Family History Other Family history of cancer No significant family history Social History (Updated 08/15/22 @ 11:28 by Tram Drummond RN) Smoking Status: Current every day smoker tobacco type: cigarettes packs per day: 1 alcohol intake: never substance use type: denies use current occupational status: employed and retired Travel in the last 8 weeks: None Review of Systems Review of Systems Review of systems:: pertinent systems reviewed and negative unless documented below Constitutional Constitutional: Reports system reviewed and no additional complaints, except as documented Eyes Eyes: Reports system reviewed and no additional complaints, except as documented ENT Ears, Nose, Mouth, and Throat: Reports system reviewed and no additional complaints, except as documented *Cardiovascular Cardiovascular: Reports system reviewed and no additional complaints, except as documented *Respiratory Respiratory: Reports system reviewed and no additional complaints, except as documented *Gastrointestinal Gastrointestinal: Reports as per HPI *Genitourinary Genitourinary: Reports system reviewed and no additional complaints, except as documented *Musculoskeletal Musculoskeletal: Reports system reviewed and no additional complaints, except as documented Integumentary/Breasts Skin/Breast: Reports system reviewed and no additional complaints, except as documented *Neurologic Neurologic: Reports system reviewed and no additional complaints, except as documented Meds Home Medications and Allergies Home Medications Medication Instructions Recorded Confirmed Type metoclopramide HCl 10 mg tablet 10 mg PO Q6H PRN nausea and 04/24/22 08/15/22 Rx (Reglan) vomiting #120 tabs ondansetron HCl 8 mg tablet 8 mg PO Q6H PRN Nausea 04/28/22 08/15/22 History potassium chloride 10 mEq 20 meq PO DAILY Supplement 04/28/22 08/15/22 History tablet,extended release prednisone 10 mg tablet 10 mg PO DAILY Steroid 05/18/22 08/15/22 History hydrocodone 5 mg-acetaminophen 325 1 tab PO Q6H PRN pain #60 tabs 07/27/22 08/15/22 Rx mg tablet lorazepam 0.5 mg tablet (Ativan) 0.5 mg PO TID PRN anxiety #60 tabs 07/28/22 08/15/22 Rx capecitabine 500 mg tablet (Xeloda) 500 mg PO 5XDAY chemo 08/15/22 08/15/22 History New Prescriptions to Start Prescriptions: Allergies Allergy/AdvReac Type Severity Reaction Status Date / Time No Known Allergies Allergy Verified 08/15/22 11:26 Exam Data for Last 24 hours Vital signs and Labs for Last 24 Hours:
--- NOTE | 2022-08-15 22:17 | PC.NURSE ---
pt refused a bath tonight.
--- NOTE | 2022-08-15 22:53 | PC.NURSE ---
ADDED ORDER FOR WATSON, CANCELLED UA R/T PRIOR COMPLETION AFTER WATSON INSERTION -- CHECKED LABS
[2022-08-16] VITALS (7 sets, daily range): BP systolic 114–173; BP diastolic 62–79; PULSE 69–86; RESP 16–20; TEMP 36.2–36.8; O2SAT 95–97; BMI 16.3
[2022-08-16 06:30] LABS: Alanine Aminotransferase 34 U/L (12-78); Albumin Level 3.2 g/dl (3.5-5.0); Alkaline Phosphatase 517 U/L (38-126); Anion Gap 6.6 mEq/L (5-15); Aspartate Amino Transferase 38 U/L (17-59); Bilirubin,Total 0.7 mg/dl (0.2-1.3); Blood Urea Nitrogen 15 mg/dl (9-20); Calcium 8.4 mg/dl (8.4-10.2); Carbon Dioxide 29 mmol/L (22.0-30.0); Chloride 103 mmol/L (98-107); Creatinine Clearance Estimated 48 mL/min (50-200); Estimated Glomerular Filt Rate 111 ml/min (>60); GFR (African American) 135 ML/MIN (>60); Globulin 3.2 g/dL (1.3-3.2); Glucose 76 mg/dl (74-100); Potassium 4.6 mmoL/L (3.5-5.1); Sodium 134 mmol/L (136-145); Total Protein,Serum 6.4 g/dl (6.3-8.2)
--- NOTE | 2022-08-16 08:15 | EXP.PN ---
Subjective *Date: 08/16/22 *Time: 16:13 Interval history: CBC with 14.9K WBCs, increased from 9.8K yesterday. Alk phos is 517 Continues to have significant output from NGT Pain is in control with medications Exam Data for Last 24 hours Vital signs and Labs for Last 24 Hours: Temp Pulse Resp BP Pulse Ox O2 Del Method O2 Flow Rate 97.9 F 75 18 114/65 97 Room Air 3 08/16/22 07:50 08/16/22 07:50 08/16/22 07:50 08/16/22 07:50 08/16/22 07:50 08/16/22 07:50 08/15/22 17:00 Laboratory Results - last 24 hr 08/15/22 14:08: Urine Color Yellow, Urine Appearance Clear, Urine pH 6.0, Ur Specific [place] 1.025, Urine Protein Trace, Urine Glucose (UA) Negative, Urine Ketones Trace, Urine Blood 2+, Urine Nitrate Negative, Urine Bilirubin Negative, Urine Urobilinogen 1.0, Ur Leukocyte Esterase Negative, Urine RBC 3-5, Urine WBC Occasional, Calcium Oxalate Crystal 1+, Urine Bacteria None 08/15/22 18:35: WBC 14.9 H, RBC 4.01 L, Hgb 13.0 L, Hct 43.4, MCV 108.1 H, MCH 32.5 H, MCHC 30.0 L, RDW 19.2 H, Plt Count 466 H, MPV 8.0, Neut % (Auto) 93.8 H, Lymph % (Auto) 3.7 L, [place] % (Auto) 2.0, Eos % (Auto) 0.4, Baso % (Auto) 0.1, Neut # (Auto) 13.9 H, Lymph # (Auto) 0.6 L, [place] # (Auto) 0.3, Eos # (Auto) 0.1, Baso # (Auto) 0.0, Total Counted 100, Neutrophils % (Manual) 95 H, Lymphocytes % (Manual) 4 L, Monocytes % (Manual) 1 L, Platelet Estimate Slight increase, RBC Morphology Not Reportable, Macrocytosis 1+, Sodium 133 L, Potassium 4.7, Chloride 101, Carbon Dioxide 26, Anion Gap 10.7, BUN 20, Creatinine 0.80, Estimated Creat Clear 45, Estimated GFR 96, Est GFR ( Amer) 116, Glucose 113 H, Calcium 8.2 L 08/16/22 06:10: Sodium 134 L, Potassium 4.6, Chloride 103, Carbon Dioxide 29, Anion Gap 6.6, BUN 15, Creatinine 0.70, Estimated Creat Clear 48, Estimated GFR 111, Est GFR ( Amer) 135, Glucose 76 D, Calcium 8.4, Total Bilirubin 0.7, AST 38, ALT 34, Alkaline Phosphatase 517 H, Total Protein 6.4, Albumin 3.2 L, Globulin 3.2, Albumin/Globulin Ratio 1.0 L I & O for Last 24 hours: Intake & Output 08/13/22 08/14/22 08/15/22 08/16/22 23:59 23:59 23:59 23:59 Intake Total 3005 / 3005 827 / 827 Output Total 150 / 150 2200 / 2200 Balance 2855 / 2855 -1373 / -1373 Weight 46.068 kg 48.988 kg Constitutional Constitutional: no acute distress *Routine HEENT Exam Head: Present normocephalic Eye: Present EOMI and PERRL ENT: Present mucous membranes moist *Routine Neck Exam Neck: Present supple; Absent lymphadenopathy *Routine Respiratory Exam Respiratory: Present CTA bilaterally *Routine Cardiovascular Exam Cardiovascular: Present RRR *Routine Abdominal Exam Abdominal: Absent obese *Routine Extremities Exam Extremities: Absent cyanosis, clubbing or edema *Routine Skin Exam Skin: Present warm; Absent rash *Routine Neurological Exam Neurological: Present alert and oriented X3 Assessment and Plan *Assessment and plan (1) Large bowel obstruction: Status: Acute Category: Medical Code(s): K56.609 - Unspecified intestinal obstruction, unspecified as to partial versus complete obstruction (2) Severe protein-calorie malnutrition: Status: Acute Category: Medical Code(s): E43 - Unspecified severe protein-calorie malnutrition (3) Metastatic colon cancer to liver: Status: Acute Category: Medical Code(s): C18.9 - Malignant neoplasm of colon, unspecified; C78.7 - Secondary malignant neoplasm of liver and intrahepatic bile duct (4) Peritoneal carcinomatosis: Status: Acute Category: Medical Code(s): C78.6 - Secondary malignant neoplasm of retroperitoneum and peritoneum Plan #large bowel obstruction #stage 4 colon cancer with severe peritoneal carcinomatosis Unasyn, LR @ 125mL/hr, protonix, and NGT per general surgery Had a discussion with the patient's and daughter. At this time not open to comfort care and would like to seek alternative treatments. W
--- NOTE | 2022-08-16 08:34 | EXP.SURG.PN ---
Subjective Patient reports: no new complaints Exam Data for Last 24 hours Vital signs and Labs for Last 24 Hours: Temp Pulse Resp BP Pulse Ox O2 Del Method O2 Flow Rate 97.9 F 75 18 114/65 97 Room Air 3 08/16/22 07:50 08/16/22 07:50 08/16/22 07:50 08/16/22 07:50 08/16/22 07:50 08/16/22 07:50 08/15/22 17:00 Laboratory Results - last 24 hr 08/15/22 14:08: Urine Color Yellow, Urine Appearance Clear, Urine pH 6.0, Ur Specific [place] 1.025, Urine Protein Trace, Urine Glucose (UA) Negative, Urine Ketones Trace, Urine Blood 2+, Urine Nitrate Negative, Urine Bilirubin Negative, Urine Urobilinogen 1.0, Ur Leukocyte Esterase Negative, Urine RBC 3-5, Urine WBC Occasional, Calcium Oxalate Crystal 1+, Urine Bacteria None 08/15/22 18:35: WBC 14.9 H, RBC 4.01 L, Hgb 13.0 L, Hct 43.4, MCV 108.1 H, MCH 32.5 H, MCHC 30.0 L, RDW 19.2 H, Plt Count 466 H, MPV 8.0, Neut % (Auto) 93.8 H, Lymph % (Auto) 3.7 L, [place] % (Auto) 2.0, Eos % (Auto) 0.4, Baso % (Auto) 0.1, Neut # (Auto) 13.9 H, Lymph # (Auto) 0.6 L, [place] # (Auto) 0.3, Eos # (Auto) 0.1, Baso # (Auto) 0.0, Total Counted 100, Neutrophils % (Manual) 95 H, Lymphocytes % (Manual) 4 L, Monocytes % (Manual) 1 L, Platelet Estimate Slight increase, RBC Morphology Not Reportable, Macrocytosis 1+, Sodium 133 L, Potassium 4.7, Chloride 101, Carbon Dioxide 26, Anion Gap 10.7, BUN 20, Creatinine 0.80, Estimated Creat Clear 45, Estimated GFR 96, Est GFR ( Amer) 116, Glucose 113 H, Calcium 8.2 L 08/16/22 06:10: Sodium 134 L, Potassium 4.6, Chloride 103, Carbon Dioxide 29, Anion Gap 6.6, BUN 15, Creatinine 0.70, Estimated Creat Clear 48, Estimated GFR 111, Est GFR ( Amer) 135, Glucose 76 D, Calcium 8.4, Total Bilirubin 0.7, AST 38, ALT 34, Alkaline Phosphatase 517 H, Total Protein 6.4, Albumin 3.2 L, Globulin 3.2, Albumin/Globulin Ratio 1.0 L I & O for Last 24 hours: Intake & Output 08/13/22 08/14/22 08/15/22 08/16/22 11:59 11:59 11:59 11:59 Intake Total 3832 / 3832 Output Total 2350 / 2350 Balance 1482 / 1482 Weight 90 lb 108 lb Constitutional Constitutional: no acute distress *Routine Respiratory Exam Respiratory: Absent respiratory distress *Routine Cardiovascular Exam Cardiovascular: Absent tachycardia *Routine Abdominal Exam Comments: Dressing intact. No sign of infection. The dressing is not saturated but 1 area of blood noted centrally. Progress Note: A&P Assessment and plan (1) Peritoneal carcinomatosis: Status: Acute Assessment and plan: The patient is being transferred to the Hospitalist service for further evaluation and management (pain control, possible hospice, possible comfort care, etc.) (2) Large bowel obstruction: Status: Acute Assessment and plan: Pain control Continue NG for now Limited liquid intake once nasogastric tube able to be removed (3) Metastatic colon cancer to liver: Status: Acute (4) Severe protein-calorie malnutrition: Status: Acute
--- NOTE | 2022-08-16 10:04 | PC.NURSE ---
pt walked in hallway at this time with staff.
--- NOTE | 2022-08-16 11:59 | SW/DCPLANNER ---
Addendum entered by [facility] 08/23/22 14:05: Kaylen is teaching patient's family TPN. Amber has set up all DME at home and Shailesh asif/ Odette stated that home health services will begin tomorrow. Addendum entered by [facility] 08/23/22 08:52: Ada Abdullahi stated that in home sales representative will be at [facility] before noon today to teach family TPN. Addendum entered by [facility] 08/22/22 14:55: Ada Abdullahi stated that TPN will be delivered to [facility] tomorrow morning and will do teaching w/ family (I have informed patient's ). Per Ada Abdullahi TPN is covered at 100%. [employer] will deliver hospital bed and NG pump this evening to home. I have also updated Shailesh asif/ Alex that the plan for this patient is to discharge tomorrow. Shailesh stated that she can accept this patient and services will start the day after discharge. I have updated patient/family about discharge plans: family agrees. Patient should be ready for discharge tomorrow 08/23/22 once teachings are completed by Kaylen at [facility]. Addendum entered by [facility] 08/22/22 09:55: Leana asif/ Abmer'yvette stated that hospital bed will be delivered to patient's home today. Addendum entered by [facility] 08/21/22 15:51: Patient/family has called back and requested a hospital bed. Patient information/order has been faxed to [facility]. Addendum entered by [facility] 08/21/22 15:10: Patient stated that he will not need any further DME ordered at home at time of discharge. Addendum entered by [facility] 08/21/22 14:48: Patient information has been axed to Shailesh asif/ Odette to see if they can service this patient with NG tube at home. Shailesh reviewed patient information/order and they are able to service patient. JEFFRY is searching w/ [employer] to find a provider for suction for NG tube. I have also faxed patient information to Ada Abdullahi for TPN at home. JEFFRY will continue to follow up with patient/family, DME companies, [employer] and [employer]. Original Note: Dr Lu and myself spoke with patient's family regarding plans once medically stable for discharge. Recommendation at this time is Hospice services. Family is not interested in Hospice services at this time and would like to have time to speak w/ patient/family and other Oncologist. Myself and MD will continue to follow up w/ patient and family. MD plans to consult Dr Burgos inpatient tomorrow.
--- NOTE | 2022-08-16 12:10 | DIET.NUTRFU ---
AMANDA is familiar with this Patient, as seen him multiple times throughout tx. He had a bowel obstruction back in February with a long hospital stay. Found mets to the liver and has been undergoing chemo tx. His weight has been fluctuating but nothing significant. helps with meal prep and milkshakes. This admit he came in with bowel obstruction attempted sx but unsuccessful d/t additional mets/tumor. 's note indicated hospice was reviewed. Currently NPO with NG suction nursing reported 100ml this morning of dark/greenish black fluid. Will continue NPO until sx/provider indicates otherwise.
--- NOTE | 2022-08-16 13:06 | P.PN_ITS ---
Subjective Narrative: Patient doing relatively well. Small to moderate amount of NG output. However tolerating this and overall feels much better. However, not passing any gas Exam Data for Last 24 hours Vital signs and Labs for Last 24 Hours: Temp Pulse Resp BP Pulse Ox O2 Del Method O2 Flow Rate 98.0 F 75 16 135/79 97 Room Air 3 08/16/22 11:09 08/16/22 11:09 08/16/22 11:09 08/16/22 11:08/16/22 11:08/16/22 11:09 08/15/22 17:00 Laboratory Results - last 24 hr 08/15/22 14:08: Urine Color Yellow, Urine Appearance Clear, Urine pH 6.0, Ur Specific [place] 1.025, Urine Protein Trace, Urine Glucose (UA) Negative, Urine Ketones Trace, Urine Blood 2+, Urine Nitrate Negative, Urine Bilirubin Negative, Urine Urobilinogen 1.0, Ur Leukocyte Esterase Negative, Urine RBC 3-5, Urine WBC Occasional, Calcium Oxalate Crystal 1+, Urine Bacteria None 08/15/22 18:35: WBC 14.9 H, RBC 4.01 L, Hgb 13.0 L, Hct 43.4, MCV 108.1 H, MCH 32.5 H, MCHC 30.0 L, RDW 19.2 H, Plt Count 466 H, MPV 8.0, Neut % (Auto) 93.8 H, Lymph % (Auto) 3.7 L, [place] % (Auto) 2.0, Eos % (Auto) 0.4, Baso % (Auto) 0.1, Ne ut # (Auto) 13.9 H, Lymph # (Auto) 0.6 L, [place] # (Auto) 0.3, Eos # (Auto) 0.1, Baso # (Auto) 0.0, Total Counted 100, Neutrophils % (Manual) 95 H, Lymphocytes % (Manual) 4 L, Monocytes % (Manual) 1 L, Platelet Estimate Slight increase, RBC Morphology Not Reportable, Macrocytosis 1+, Sodium 133 L, Potassium 4.7, Chloride 101, Carbon Dioxide 26, Anion Gap 10.7, BUN 20, Creatinine 0.80, Estimated Creat Clear 45, Estimated GFR 96, Est GFR ( Amer) 116, Glucose 113 H, Calcium 8.2 L 08/16/22 06:10: Sodium 134 L, Potassium 4.6, Chloride 103, Carbon Dioxide 29, Anion Gap 6.6, BUN 15, Creatinine 0.70, Estimated Creat Clear 48, Estimated GFR 111, Est GFR ( Amer) 135, Glucose 76 D, Calcium 8.4, Total Bilirubin 0.7, AST 38, ALT 34, Alkaline Phosphatase 517 H, Total Protein 6.4, Albumin 3.2 L, Globulin 3.2, Albumin/Globulin Ratio 1.0 L I & O for Last 24 hours: Intake & Output 08/14/22 08/15/22 08/16/22 08/17/22 11:59 11:59 11:59 11:59 Intake Total 3832 / 3832 Output Total 2850 / 2850 0 / 0 Balance 982 / 982 0 / 0 Weight 90 lb 108 lb *Routine Abdominal Exam Abdominal: Present distended Progress Note: A&P Assessment and plan (1) Peritoneal carcinomatosis: Status: Acute Assessment and plan: Keep NG for now. DC Dozier. (2) Large bowel obstruction: Status: Acute (3) Metastatic colon cancer to liver: Status: Acute (4) Severe protein-calorie malnutrition: Status: Acute
[2022-08-16 14:05] LABS: Coronavirus 19, PCR Not Detected (NotDetected); Influenza A, PCR Not Detected (NotDetected); Influenza B, PCR Not Detected (NotDetected)
--- NOTE | 2022-08-16 16:50 | P.PNANES_ITS ---
[facility] Anesthesia Record Part II Anesthesia Record Part II Discharge Time: 17:00 (08/15/22) Destination: Medical Surgical Department PACU nurse assessment reviewed?: Yes Patient Condition:: Good Anesthesia Complications:: None Swallowing reflex intact?: Yes Cyanosis?: No Blood Pressure: 142/74 Pulse Rate: 69 Temperature: 97.1 F Mental Status: Alert & Oriented Pain level:: 0 Nausea and/or vomitting:: None Intake, IV Amount: 0
[2022-08-17] VITALS: BP 130/56; PULSE 68; RESP 18; TEMP 36.6; O2SAT 94
--- NOTE | 2022-08-17 02:11 | PC.NURSE ---
pt requested something to help him sleep, PO ativan per APR. consulted with hospitalist to see if IV ativan was an option, hospitalist expressed concern for excess sedation r/t pt already receiving IV hydromorphone per APR. Pt refused PO ativan r/t concern of turn NG suction off for 30 minutes and if he was able to tolerate it. Ativan held.
[2022-08-17 04:00] VITALS: BP 134/63; PULSE 75; RESP 18; TEMP 36.7; O2SAT 91; BMI 16.4
--- NOTE | 2022-08-17 06:57 | PC.NURSE ---
NG output 300ml. changed canister and tubing. pain meds per APR. pt had trouble sleeping last night, consistent UOP per I&O.
[2022-08-17 08:00] VITALS: BP 122/72; PULSE 73; RESP 16; TEMP 36.7; O2SAT 94; O2SAT 97
--- NOTE | 2022-08-17 08:17 | EXP.SURG.PN ---
Subjective Narrative: Patient without significant complaints. Not passing any flatus. Nasogastric tube functioning. Exam Data for Last 24 hours Vital signs and Labs for Last 24 Hours: Temp Pulse Resp BP Pulse Ox O2 Del Method O2 Flow Rate 98.1 F 73 16 122/72 94 L Room Air 3 08/17/22 08:00 08/17/22 08:00 08/17/22 08:00 08/17/22 08:00 08/17/22 08:00 08/17/22 08:00 08/15/22 17:00 Laboratory Results - last 24 hr 08/16/22 13:50: SARS-CoV-2 (PCR) Not detected, Influenza A Untype (PCR) Not detected, Influenza Type B (PCR) Not detected I & O for Last 24 hours: Intake & Output 08/14/22 08/15/22 08/16/22 08/17/22 11:59 11:59 11:59 11:59 Intake Total 3832 / 3832 3207 / 3207 Output Total 2850 / 2850 1400 / 1400 Balance 982 / 982 1807 / 1807 Weight 90 lb 108 lb 108 lb 8 oz *Routine Abdominal Exam Abdominal: Present soft Comments: Dressing dry Progress Note: A&P Assessment and plan (1) Large bowel obstruction: Status: Acute Assessment and plan: I will see how he does with the nasogastric tube clamped today. (2) Severe protein-calorie malnutrition: Status: Acute (3) Metastatic colon cancer to liver: Status: Acute (4) Peritoneal carcinomatosis: Status: Acute
--- NOTE | 2022-08-17 09:01 | PC.NURSE ---
COURTESY TECH NOTE; ROUNDED ON PT 0745, PT DENIED NEED FOR ASSISTANCE WITH RESTROOM, AND NEED TO REPOSITION IN BED. CALL LIGHT WITHIN REACH, NO FURTHER REQUESTS AT THIS TIME LLOYD LI
--- NOTE | 2022-08-17 09:10 | EXP.PN ---
Subjective *Date: 08/17/22 *Time: 14:38 Interval history: He is requiring high doses of analgesic medication to control his pain. He had some nausea earlier this morning but after turning NGT to suction nausea has resolved. He doesn't think he's passed gas or had a bowel movement since sunday or sunday. Exam Data for Last 24 hours Vital signs and Labs for Last 24 Hours: Temp Pulse Resp BP Pulse Ox O2 Del Method O2 Flow Rate 98.1 F 73 16 122/72 94 L Room Air 3 08/17/22 08:00 08/17/22 08:00 08/17/22 08:00 08/17/22 08:00 08/17/22 08:00 08/17/22 08:00 08/15/22 17:00 Laboratory Results - last 24 hr 08/16/22 13:50: SARS-CoV-2 (PCR) Not detected, Influenza A Untype (PCR) Not detected, Influenza Type B (PCR) Not detected I & O for Last 24 hours: Intake & Output 08/14/22 08/15/22 08/16/22 08/17/22 23:59 23:59 23:59 23:59 Intake Total 3005 / 3005 2427 / 3035 1607 / 1607 Output Total 150 / 150 3475 / 3475 775 / 775 Balance 2855 / 2855 -1048 / -440 832 / 832 Weight 46.068 kg 48.988 kg 49.215 kg Constitutional Constitutional: no acute distress *Routine HEENT Exam Head: Present normocephalic Eye: Present EOMI and PERRL ENT: Present mucous membranes moist *Routine Neck Exam Neck: Present supple; Absent lymphadenopathy *Routine Respiratory Exam Respiratory: Present CTA bilaterally *Routine Cardiovascular Exam Cardiovascular: Present RRR *Routine Abdominal Exam Abdominal: Present soft; Absent obese Comments: dressing over surgical incision is c/d/ *Routine Extremities Exam Extremities: Absent cyanosis, clubbing or edema *Routine Skin Exam Skin: Present warm; Absent rash *Routine Neurological Exam Neurological: Present alert and oriented X3 Assessment and Plan *Assessment and plan (1) Large bowel obstruction: Status: Acute Category: Medical Code(s): K56.609 - Unspecified intestinal obstruction, unspecified as to partial versus complete obstruction (2) Severe protein-calorie malnutrition: Status: Acute Category: Medical Code(s): E43 - Unspecified severe protein-calorie malnutrition (3) Metastatic colon cancer to liver: Status: Acute Category: Medical Code(s): C18.9 - Malignant neoplasm of colon, unspecified; C78.7 - Secondary malignant neoplasm of liver and intrahepatic bile duct (4) Peritoneal carcinomatosis: Status: Acute Category: Medical Code(s): C78.6 - Secondary malignant neoplasm of retroperitoneum and peritoneum Plan #large bowel obstruction #stage 4 colon cancer with severe peritoneal carcinomatosis Unasyn and NGT per general surgery At this time not open to comfort care and would like to seek alternative treatments. I really appreciate Oncology's input. The patient is requiring high doses of pain medication will change LR @ 75mL/hr to d5w1/2ns @75ml/hr NPO DVT ppx: heparin subcu
--- NOTE | 2022-08-17 10:13 | PC.NURSE ---
called about patient having some nausea and complaining about his iv fluids making him feel full. Osei said to decrease fluids to 75 ml/hr and the patient got some zofran.
[2022-08-17 11:02] VITALS: BMI 13.7
--- NOTE | 2022-08-17 11:05 | DIET.NUTRFU ---
Reviewed patients plan of care during rounds, Dr. Burgos to see patient today but so far family and patient want to continue aggressive tx. His NG was clapped this AM per sx recommendations. After feeling nauseated patient requested to have it unclapped. Zofran is in place for nausea. Patient also requested to have IVF decreased d/t feeling full. Oral diet is not appropriate at this time. Possible transfer for aggressive tx. May benefit from dextrose IV to provide additional calories, notified provider of recommendations.
[2022-08-17 11:58] VITALS: BP 121/72; PULSE 71; RESP 16; TEMP 36.4; O2SAT 96
[2022-08-17 12:49] VITALS: BMI 13.7
--- NOTE | 2022-08-17 15:32 | EXP.ONC.CONS ---
History of Present Illness *Admission Date: 08/15/22 *History of present illness: 72 yo wm known to oncology service for metastatic colon cancer dx in 02/2022. pt presented with obstruction and widespread metastatic disease to liver/lymph nodes. pt was started on xelox chemotherapy in april 2022. he had [address] scan showed improving liver metastasis/ but concern for early obstruction. pt presensted to surgery and had ex lap showing widespread peritoneal disease and large bowel obstruction. pt is hospitalized iwth ng tube. daughter and at bedside. pt daughter has been giving him high doses of vit c and has other alternative treatment plans for him. they are not interested in hospice. ng is in place. I have d/w surgery and hospitalists. [facility] Disclaimer: The information contained in this section may have been updated after the patient was seen, as this information can be updated by other users. Medical History Colon cancer Nausea & vomiting ER visit 04/09/22 N/v had CT-abd Tobacco abuse Tobacco use Surgical History History of colon resection Family History Other Family history of cancer No significant family history Social History (Updated 08/15/22 @ 11:28 by Tram Drummond RN) Smoking Status: Current every day smoker tobacco type: cigarettes packs per day: 1 alcohol intake: never substance use type: denies use current occupational status: employed and retired Travel in the last 8 weeks: None Review of Systems *Neurologic Neurologic: Reports system reviewed and no additional complaints, except as documented Exam (Inpt) Vital signs and Labs for Last 24 Hours: Temp Pulse Resp BP Pulse Ox O2 Del Method O2 Flow Rate 97.6 F 71 16 121/72 96 Room Air 3 08/17/22 11:58 08/17/22 11:58 08/17/22 11:58 08/17/22 11:58 08/17/22 11:58 08/17/22 14:50 08/15/22 17:00 I & O for Labs for Last 24 Hours: Intake & Output 08/15/22 08/16/22 08/17/22 08/18/22 11:59 11:59 11:59 11:59 Intake Total 3832 / 3832 3207 / 3207 700 / 700 Output Total 2850 / 2850 1900 / 1900 300 / 300 Balance 982 / 982 1307 / 1307 400 / 400 Weight 90 lb 108 lb 90 lb 9 oz 90 lb 8.984 oz Head: Present atraumatic Cardiac: Present Reg Rate and Rhythm Comments:: ng in place Meds Home Medications and Allergies Home Medications Medication Instructions Recorded Confirmed Type metoclopramide HCl 10 mg tablet 10 mg PO Q6H PRN nausea and 04/24/22 08/15/22 Rx (Reglan) vomiting #120 tabs ondansetron HCl 8 mg tablet 8 mg PO Q6H PRN Nausea 04/28/22 08/15/22 History potassium chloride 10 mEq 20 meq PO DAILY Supplement 04/28/22 08/15/22 History tablet,extended release prednisone 10 mg tablet 10 mg PO DAILY Steroid 05/18/22 08/15/22 History hydrocodone 5 mg-acetaminophen 325 1 tab PO Q6H PRN pain #60 tabs 07/27/22 08/15/22 Rx mg tablet lorazepam 0.5 mg tablet (Ativan) 0.5 mg PO TID PRN anxiety #60 tabs 07/28/22 08/15/22 Rx capecitabine 500 mg tablet (Xeloda) 500 mg PO 5XDAY chemo 08/15/22 08/15/22 History New Prescriptions to Start Prescriptions: Allergies Allergy/AdvReac Type Severity Reaction Status Date / Time No Known Allergies Allergy Verified 08/15/22 11:26 Results Labs 08/15/22 18:35 08/16/22 06:10 Labs: H & H 08/15/22 Range/Units 18:35 Hgb 13.0 L (14.1-18.0) g/dL Hct 43.4 (42.0-52.0) % All other labs normal. Assessment and Plan *Assessment and plan (1) Peritoneal carcinomatosis: Status: Acute Category: Medical Code(s): C78.6 - Secondary malignant neoplasm of retroperitoneum and peritoneum Plan metastatic colon cancer with mixed response after 5 cycles of chemo- he had response in liver but now has progressive disease in colon and with peritoneal carcinomatosis. discu
[2022-08-17 15:53] VITALS: BP 119/69; PULSE 71; RESP 18; TEMP 36.4; O2SAT 98
[2022-08-17 20:00] VITALS: BP 114/62; PULSE 70; RESP 18; TEMP 36.7; O2SAT 97
[2022-08-18] VITALS: BP 105/61; PULSE 71; RESP 18; TEMP 36.4; O2SAT 97
[2022-08-18 04:00] VITALS: BP 114/59; PULSE 64; RESP 18; TEMP 36.6; O2SAT 95; BMI 14.1
[2022-08-18 07:06] LABS: Basophils % 0.2 % (0.1-2.0); Eosinophils # 0.7 K/mm3 (0.0-0.4); Eosinophils % 7.4 % (0.1-12.0); Hematocrit 34.3 % (42.0-52.0); Hemoglobin 10.8 g/dL (14.1-18.0); Lymphocytes # 1.1 K/mm3 (0.7-4.5); Lymphocytes % 11.4 % (10-50); Mean Corpuscular HGB Conc 31.5 g/dL (31.8-35.4); Mean Corpuscular Hemoglobin 33.1 pg (27.0-31.2); Mean Corpuscular Volume 105.2 fl (80-94); Mean Platelet Volume 9.2 fl (7.4-10.4); Monocytes # 0.6 K/mm3 (0.1-1.0); Monocytes % 6.3 % (1.7-9.3); Neutrophils # 7.1 K/mm3 (1.8-7.8); Neutrophils % 74.6 % (37.0-80.0); Platelet Count 390 K/mm3 (142-424); Red Blood Count 3.26 M/mm3 (4.60-6.20); Red Cell Distribution Width 19.1 % (11.5-17.5); White Blood Count 9.6 K/mm3 (4.8-10.8)
[2022-08-18 07:08] LABS: Alanine Aminotransferase 19 U/L (12-78); Albumin Level 2.7 g/dl (3.5-5.0); Albumin/Globulin Ratio 0.9 (1.1-1.8); Alkaline Phosphatase 323 U/L (38-126); Anion Gap 6.4 mEq/L (5-15); Aspartate Amino Transferase 25 U/L (17-59); Bilirubin,Total 0.5 mg/dl (0.2-1.3); Blood Urea Nitrogen 11 mg/dl (9-20); Carbon Dioxide 31 mmol/L (22.0-30.0); Chloride 101 mmol/L (98-107); Creatinine Clearance Estimated 41 mL/min (50-200); Estimated Glomerular Filt Rate 133 ml/min (>60); GFR (African American) 161 ML/MIN (>60); Glucose 87 mg/dl (74-100); Potassium 3.4 mmoL/L (3.5-5.1); Sodium 135 mmol/L (136-145); Total Protein,Serum 5.7 g/dl (6.3-8.2)
--- NOTE | 2022-08-18 07:45 | EXP.PN ---
Subjective *Date: 08/18/22 *Time: 17:25 Interval history: CBC is with 9K wbcs, decreased from 14.9; hgb is 11, decreased from 13 CMP with K 3.4, cr 0.6 He is frequently asking for pain medications. No acute events overnight. Exam Data for Last 24 hours Vital signs and Labs for Last 24 Hours: Temp Pulse Resp BP Pulse Ox O2 Del Method O2 Flow Rate 97.9 F 64 18 114/59 L 95 Room Air 3 08/18/22 04:00 08/18/22 04:00 08/18/22 04:00 08/18/22 04:00 08/18/22 04:00 08/18/22 06:35 08/15/22 17:00 Laboratory Results - last 24 hr 08/18/22 06:30: WBC 9.6 D, RBC 3.26 L, Hgb 10.8 L, Hct 34.3 L, MCV 105.2 H, MCH 33.1 H, MCHC 31.5 L, RDW 19.1 H, Plt Count 390, MPV 9.2, Neut % (Auto) 74.6, Lymph % (Auto) 11.4, [place] % (Auto) 6.3, Eos % (Auto) 7.4, Baso % (Auto) 0.2, Neut # (Auto) 7.1, Lymph # (Auto) 1.1, [place] # (Auto) 0.6, Eos # (Auto) 0.7 H, Baso # (Auto) 0.0, Sodium 135 L, Potassium 3.4 L D, Chloride 101, Carbon Dioxide 31 H, Anion Gap 6.4, BUN 11 D, Creatinine 0.60 L, Estimated Creat Clear 41, Estimated GFR 133, Est GFR ( Amer) 161, Glucose 87, Calcium 8.0 L, Total Bilirubin 0.5, AST 25 D, ALT 19 D, Alkaline Phosphatase 323 H, Total Protein 5.7 L, Albumin 2.7 L, Globulin 3.0, Albumin/Globulin Ratio 0.9 L I & O for Last 24 hours: Intake & Output 08/15/22 08/16/22 08/17/22 08/18/22 23:59 23:59 23:59 23:59 Intake Total 3005 / 3005 2427 / 3035 2307 / 2857 1369 / 1369 Output Total 150 / 150 3475 / 3475 2019 200 / 200 Balance 2855 / 2855 -1048 / -440 287 / 737 1169 / 1169 Weight 46.068 kg 48.988 kg 41.078 kg 42.269 kg Constitutional Constitutional: no acute distress *Routine HEENT Exam Head: Present normocephalic Eye: Present EOMI and PERRL ENT: Present mucous membranes moist *Routine Neck Exam Neck: Present supple; Absent lymphadenopathy *Routine Respiratory Exam Respiratory: Present CTA bilaterally *Routine Cardiovascular Exam Cardiovascular: Present RRR *Routine Abdominal Exam Abdominal: Present soft; Absent obese Comments: dressing over surgical incision is c/d/i *Routine Extremities Exam Extremities: Absent cyanosis, clubbing or edema *Routine Skin Exam Skin: Present warm; Absent rash *Routine Neurological Exam Neurological: Present alert and oriented X3 Assessment and Plan *Assessment and plan (1) Large bowel obstruction: Status: Acute Category: Medical Code(s): K56.609 - Unspecified intestinal obstruction, unspecified as to partial versus complete obstruction (2) Severe protein-calorie malnutrition: Status: Acute Category: Medical Code(s): E43 - Unspecified severe protein-calorie malnutrition (3) Metastatic colon cancer to liver: Status: Acute Category: Medical Code(s): C18.9 - Malignant neoplasm of colon, unspecified; C78.7 - Secondary malignant neoplasm of liver and intrahepatic bile duct (4) Peritoneal carcinomatosis: Status: Acute Category: Medical Code(s): C78.6 - Secondary malignant neoplasm of retroperitoneum and peritoneum Plan #large bowel obstruction #stage 4 colon cancer with severe peritoneal carcinomatosis The patient's large bowel obstruction is due to severe peritoneal carcinomatosis. The patient is requiring high doses of pain medication and has been dependent on NGT. Oncology could not offer any good chemotherapy options and recommended hospice. General Surgery could not offer any good options to resolve the large bowel obstruction. At this time the patient is not open to comfort care and would like to seek alternative treatments despite being counseled on his very poor prognosis and our lack of options. They would like to go home with home health. Unasyn and NGT per general surgery. Today General Surgery started TPN. Start scheduled oxycodone. Discharge barrier includes pain management. He would need to go home with pain medications and would need home health services to manage his NGT
[2022-08-18 08:00] VITALS: BP 117/61; PULSE 66; RESP 18; TEMP 36.3; O2SAT 98
--- NOTE | 2022-08-18 08:21 | EXP.SURG.PN ---
Subjective Narrative: Patient did not tolerate nasogastric tube being clamped yesterday with some resulting increasing abdominal distention and discomfort. Reattached to suctioning. Has had about 700 cc over the past 24 hours according to nursing. Patient does seem to tolerate clamping the tube for a bit longer for administration of medication such as simethicone. On simethicone and Reglan. Not passing any flatus. Exam Data for Last 24 hours Vital signs and Labs for Last 24 Hours: Temp Pulse Resp BP Pulse Ox O2 Del Method O2 Flow Rate 97.3 F L 66 18 117/61 98 Room Air 3 08/18/22 08:00 08/18/22 08:00 08/18/22 08:00 08/18/22 08:00 08/18/22 08:00 08/18/22 08:00 08/15/22 17:00 Laboratory Results - last 24 hr 08/18/22 06:30: WBC 9.6 D, RBC 3.26 L, Hgb 10.8 L, Hct 34.3 L, MCV 105.2 H, MCH 33.1 H, MCHC 31.5 L, RDW 19.1 H, Plt Count 390, MPV 9.2, Neut % (Auto) 74.6, Lymph % (Auto) 11.4, [place] % (Auto) 6.3, Eos % (Auto) 7.4, Baso % (Auto) 0.2, Neut # (Auto) 7.1, Lymph # (Auto) 1.1, [place] # (Auto) 0.6, Eos # (Auto) 0.7 H, Baso # (Auto) 0.0, Sodium 135 L, Potassium 3.4 L D, Chloride 101, Carbon Dioxide 31 H, Anion Gap 6.4, BUN 11 D, Creatinine 0.60 L, Estimated Creat Clear 41, Estimated GFR 133, Est GFR ( Amer) 161, Glucose 87, Calcium 8.0 L, Total Bilirubin 0.5, AST 25 D, ALT 19 D, Alkaline Phosphatase 323 H, Total Protein 5.7 L, Albumin 2.7 L, Globulin 3.0, Albumin/Globulin Ratio 0.9 L I & O for Last 24 hours: Intake & Output 08/15/22 08/16/22 08/17/22 08/18/22 11:59 11:59 11:59 11:59 Intake Total 3832 / 3832 3207 / 3207 2068 / 206 Output Total 2850 / 2850 1900 / 1900 1095 / 1095 Balance 982 / 982 1307 / 1307 974 / 974 Weight 90 lb 108 lb 90 lb 9 oz 93 lb 3 oz *Routine Abdominal Exam Abdominal: Present soft Comments: Incision clean dry and intact Progress Note: A&P Assessment and plan (1) Large bowel obstruction: Status: Acute Assessment and plan: Continue current management. Patient currently dependent on nasogastric tube. I had a long discussion with family yesterday regarding the potential for hospice to allow discharged with nasogastric tube. They seem somewhat receptive to this possibility if he continues to show lack of return of bowel function with ongoing dependence on nasogastric decompression. (2) Severe protein-calorie malnutrition: Status: Acute (3) Metastatic colon cancer to liver: Status: Acute (4) Peritoneal carcinomatosis: Status: Acute
--- NOTE | 2022-08-18 08:42 | PC.NURSE ---
COURTESY TECH NOTE; ROUNDED ON PT 0740, PT DENIED NEED FOR ASSISTANCE WITH RESTROOM, AND NEED TO REPOSITION IN BED. FAMILY MEMBER DENIED NEED FOR ANYTHING AT THIS TIME. CALL LIGHT WITHIN REACH, NO FURTHER REQUESTS AT THIS TIME LLOYD LI
[2022-08-18 09:00] VITALS: BMI 17.1
[2022-08-18 10:15] LABS: INR 1.01 (0.9-1.1); Prothrombin Time 10.9 seconds (10.1-12.5)
[2022-08-18 10:24] LABS: Magnesium 1.8 mg/dl (1.6-2.3); Phosphorous 2.6 mg/dl (2.5-4.5)
[2022-08-18 10:34] LABS: Chol/HDL Ratio 3.5 (1-3.5); Cholesterol 156 mg/dl (140-200); HDL Cholesterol 44 mg/dl (40-60); Triglycerides 158 mg/dl (30-150); VLDL Cholesterol 32 mg/dL (0-40)
[2022-08-18 10:45] LABS: Direct LDL Cholesterol 83.64 mg/dL (100-129)
--- NOTE | 2022-08-18 10:56 | PC.NURSE ---
DR SCHREIBER CANCELLING PICC ORDER R/T PT HAVING PORT FOR TPN INFUSION
[2022-08-18 11:31] LABS: POC Glucose,Bedside 94 (70-110)
[2022-08-18 12:00] VITALS: BP 123/62; PULSE 66; RESP 18; TEMP 36.5; O2SAT 100
--- NOTE | 2022-08-18 12:03 | DIET.NUTRFU ---
Addendum entered by Nica Min RDN, AMANDA 08/20/22 21:13: Pt tolerating TPN per MD progress note. NG tube with significant output. Pt has passed flatus but no bowel movement at this point. Will continue to monitor. Original Note: Patient was started on TPN via his port to provide nutrition. Patient is unable to start a oral diet. He continues to have NG tube for suction in with significant amount 700ml noted this AM by provider. Tried to clamp off yesterday and patient c/o nausea and discomfort. Patient was started on reglan and simethicone and continue protonix. Family and patient declined hospice they want to continue treatment. Anticipate patient stying through Sunday. Current TPN started at 25ml/hr and will titrate up to 25ml Q6H to reach goal of 65ml/hr. At the same time Dextrose IV will titrate down. Goal rate TPN will provide 1215kcal and 65gm protein, this will meet 100% nutritional needs at 1200-1250kcal and 60-70gm protein at weight of 41kg. Labs reviewed, will continue to monitor electrolytes and albumin throughout tx. RD will continue to work with pharmacy to meet nutritional needs
[2022-08-18 16:00] VITALS: BP 124/70; PULSE 74; RESP 16; TEMP 36.5; O2SAT 97
[2022-08-18 16:51] LABS: POC Glucose,Bedside 106 (70-110)
[2022-08-18 20:00] VITALS: BP 113/75; PULSE 74; RESP 18; TEMP 36.8; O2SAT 96
[2022-08-18 20:17] LABS: POC Glucose,Bedside 110 (70-110)
[2022-08-19] VITALS: BP 129/66; PULSE 74; RESP 18; TEMP 36.9; O2SAT 94
--- NOTE | 2022-08-19 03:12 | PC.NURSE ---
PATIENT HAS NOT PASSED GAS OR HAD A BM. SURGERY WAS ON 08/15 TO CORRECT A VOLVULUS . HAS NOT REQUIRED ANY DILAUDID THIS SHIFT. TOOK 20 MG OXYCODONE (REFUSED THE 10 MG AND SAID THAT 30 MG OXYCODONE WOULD DO TO MUCH). HAS RESTED WELL. SPOUSE AT BEDSIDE. VITAL SIGNS STABLE, AFEBRILE..
[2022-08-19 04:00] VITALS: BP 128/71; PULSE 70; RESP 19; TEMP 36.9; O2SAT 95; BMI 17.1
[2022-08-19 05:59] LABS: POC Glucose,Bedside 147 (70-110)
[2022-08-19 07:41] VITALS: BP 148/68; PULSE 67; RESP 16; TEMP 36.7; O2SAT 96
[2022-08-19 07:50] LABS: POC Glucose,Bedside 134 (70-110)
[2022-08-19 09:16] LABS: Basophils % 0.1 % (0.1-2.0); Eosinophils # 0.5 K/mm3 (0.0-0.4); Eosinophils % 6.1 % (0.1-12.0); Hematocrit 34.1 % (42.0-52.0); Hemoglobin 10.7 g/dL (14.1-18.0); Lymphocytes # 0.9 K/mm3 (0.7-4.5); Mean Corpuscular HGB Conc 31.4 g/dL (31.8-35.4); Mean Corpuscular Hemoglobin 32.8 pg (27.0-31.2); Mean Corpuscular Volume 104.6 fl (80-94); Monocytes # 0.5 K/mm3 (0.1-1.0); Monocytes % 6.6 % (1.7-9.3); Neutrophils # 6.1 K/mm3 (1.8-7.8); Neutrophils % 76.1 % (37.0-80.0); Platelet Count 358 K/mm3 (142-424); Red Blood Count 3.26 M/mm3 (4.60-6.20); Red Cell Distribution Width 19.2 % (11.5-17.5)
[2022-08-19 09:20] LABS: Chloride 98 mmol/L (98-107); Sodium 135 mmol/L (136-145)
[2022-08-19 09:21] LABS: Potassium 3.1 mmoL/L (3.5-5.1)
[2022-08-19 09:23] LABS: Anion Gap 4.1 mEq/L (5-15); Blood Urea Nitrogen 12 mg/dl (9-20); Carbon Dioxide 36 mmol/L (22.0-30.0); Creatinine Clearance Estimated 50 mL/min (50-200); Estimated Glomerular Filt Rate 133 ml/min (>60); GFR (African American) 161 ML/MIN (>60)
[2022-08-19 09:24] LABS: Calcium 7.9 mg/dl (8.4-10.2); Glucose 125 mg/dl (74-100); Magnesium 1.9 mg/dl (1.6-2.3); Phosphorous 2.9 mg/dl (2.5-4.5)
[2022-08-19 11:18] VITALS: BP 129/72; PULSE 64; RESP 16; TEMP 36.8; O2SAT 95
[2022-08-19 15:15] VITALS: BP 136/71; PULSE 63; RESP 17; TEMP 36.4; O2SAT 97
--- NOTE | 2022-08-19 15:20 | PC.NURSE ---
NG clamped at this time. Will need to be placed to low wall suction at 1915.
--- NOTE | 2022-08-19 15:21 | P.PN_ITS ---
Subjective Narrative: No acute events. He is accompanied by several female family members including his daughter who is a nurse practitioner. Has passed flatus, but no bowel movement. His pain is stable. NG tube put out 700 cc over past 24 hours. He has been on TPN and is receiving IV potassium replacement. Exam Data for Last 24 hours Vital signs and Labs for Last 24 Hours: Temp Pulse Resp BP Pulse Ox O2 Del Method O2 Flow Rate 97.6 F 63 17 136/71 97 Room Air 3 08/19/22 15:15 08/19/22 15:15 08/19/22 15:15 08/19/22 15:15 08/19/22 15:15 08/19/22 15:15 08/15/22 17:00 Laboratory Results - last 24 hr 08/18/22 16:44: POC Glucose 106 08/18/22 20:01: POC Glucose 110 08/19/22 05:50: POC Glucose 147 H 08/19/22 07:43: POC Glucose 134 H 08/19/22 09:00: WBC 8.0, RBC 3.26 L, Hgb 10.7 L, Hct 34.1 L, MCV 104.6 H, MCH 32.8 H, MCHC 31.4 L, RDW 19.2 H, Plt Count 358, MPV 8.0, Neut % (Auto) 76.1, Lymph % (Auto) 11.0, [place] % (Auto) 6.6, Eos % (Auto) 6.1, Baso % (Auto) 0.1, Neut # (Auto) 6.1, Lymph # (Auto) 0.9, [place] # (Auto) 0.5, Eos # (Auto) 0.5 H, Baso # (Auto) 0.0, Sodium 135 L, Potassium 3.1 L, Chloride 98, Carbon Dioxide 36 H, Anion Gap 4.1 L, BUN 12, Creatinine 0.60 L, Estimated Creat Clear 50, Estimated GFR 133, Est GFR ( Amer) 161, Glucose 125 H, Calcium 7.9 L, Phosphorus 2.9, Magnesium 1.9 I & O for Last 24 hours: Intake & Output 08/16/22 08/17/22 08/18/22 08/19/22 23:59 23:59 23:59 23:59 Intake Total 2427 / 3035 2307 / 2857 1670.9 / 1770.9 1001 / 1001 Output Total 3475 / 3475 2019 / 0 325 / 325 2045 / 204 Balance -1048 / -440 287 / 737 1345.9 / 1445.9 -1044 / -1044 Weight 108 lb 90 lb 8.984 oz 113 lb 2 oz 112 lb 14.4 oz Constitutional Constitutional: no acute distress, cachectic and chronically ill appearing *Routine HEENT Exam Comments: Nasogastric tube to suction with approximately 50 cc of brownish gastric contents in the canister. *Routine Respiratory Exam Respiratory: Present CTA bilaterally *Routine Cardiovascular Exam Cardiovascular: Present RRR *Routine Abdominal Exam Abdominal: Present soft; Absent distended Comments: Midline incision with sai is without erythema. No skin dehiscence. Hyperactive bowel sounds. No tinkles, rushes, or high-pitched bowel sounds. Progress Note: A&P Assessment and plan (1) Large bowel obstruction: Status: Acute (2) Severe protein-calorie malnutrition: Status: Acute (3) Metastatic colon cancer to liver: Status: Acute (4) Peritoneal carcinomatosis: Problem details: His pain is stable. Labs are notable for hypokalemia which is being replaced IV. He continues on TPN. After discussion with the patient and his family, they have asked that he have a clamp trial. I would be most comfortable doing this with unclamping the tube every 4 hours. The patient and his family also note that he is very self-aware of when his stomach is full, and can also ask for the NG tube to be unclamped sooner if needed. The patient and family are aware that my main goal for the next several days is to prevent aspiration, and if he has any vomiting with the tube clamped, I would advocate to go back to continuous suction. All are in agreement with this plan. Status: Acute
--- NOTE | 2022-08-19 15:52 | EXP.MED.FU ---
Subjective *Date: 08/19/22 *Time: 15:52 Interval history: Labs from 08/19/2022 reviewed. Noted potassium of 3.1. This is being replaced. No acute events overnight On NG under suction Patient is trying to ambulate Not passing flatus He said his pain is much better today No fever or chills Exam Data for Last 24 hours Vital signs and Labs for Last 24 Hours: Temp Pulse Resp BP Pulse Ox O2 Del Method O2 Flow Rate 97.6 F 63 17 136/71 97 Room Air 3 08/19/22 15:15 08/19/22 15:15 08/19/22 15:15 08/19/22 15:15 08/19/22 15:15 08/19/22 15:15 08/15/22 17:00 Laboratory Results - last 24 hr 08/18/22 16:44: POC Glucose 106 08/18/22 20:01: POC Glucose 110 08/19/22 05:50: POC Glucose 147 H 08/19/22 07:43: POC Glucose 134 H 08/19/22 09:00: WBC 8.0, RBC 3.26 L, Hgb 10.7 L, Hct 34.1 L, MCV 104.6 H, MCH 32.8 H, MCHC 31.4 L, RDW 19.2 H, Plt Count 358, MPV 8.0, Neut % (Auto) 76.1, Lymph % (Auto) 11.0, Haywood % (Auto) 6.6, Eos % (Auto) 6.1, Baso % (Auto) 0.1, Neut # (Auto) 6.1, Lymph # (Auto) 0.9, Haywood # (Auto) 0.5, Eos # (Auto) 0.5 H, Baso # (Auto) 0.0, Sodium 135 L, Potassium 3.1 L, Chloride 98, Carbon Dioxide 36 H, Anion Gap 4.1 L, BUN 12, Creatinine 0.60 L, Estimated Creat Clear 50, Estimated GFR 133, Est GFR ( Amer) 161, Glucose 125 H, Calcium 7.9 L, Phosphorus 2.9, Magnesium 1.9 I & O for Last 24 hours: Intake & Output 08/16/22 08/17/22 08/18/22 08/19/22 23:59 23:59 23:59 23:59 Intake Total 2427 / 3035 2307 / 2857 1670.9 / 1770.9 1001 / 1001 Output Total 3475 / 3475 2019 / 0 325 / 325 2045 / 2044 Balance -1048 / -440 287 / 737 1345.9 / 1445.9 -1044 / -1044 Weight 48.988 kg 41.078 kg 51.313 kg 51.211 kg Constitutional Constitutional: no acute distress and cachectic *Routine HEENT Exam Head: Present normocephalic and atraumatic Eye: Present EOMI and PERRL Comments: NG tube + *Routine Respiratory Exam Respiratory: Present diminished air movement (On the bilateral lung bases), able to speak in complete sentences and symmetric chest movement *Routine Cardiovascular Exam Cardiovascular: Present RRR, Normal S1 and Normal S2 *Routine Abdominal Exam Abdominal: Present tenderness and distended Comments: Hypoactive bowel sounds, lap incision site without any bleeding or discharge, no erythema, sai Intact. *Routine Neurological Exam Neurological: Present alert and oriented X3 Detailed Psychiatric Exam Mood and affect: Present flat Assessment and Plan *Assessment and plan (1) Peritoneal carcinomatosis: Problem Comment: His pain is stable. Labs are notable for hypokalemia which is being replaced IV. He continues on TPN. After discussion with the patient and his family, they have asked that he have a clamp trial. I would be most comfortable doing this with unclamping the tube every 4 hours. The patient and his family also note that he is very self-aware of when his stomach is full, and can also ask for the NG tube to be unclamped sooner if needed. The patient and family are aware that my main goal for the next several days is to prevent aspiration, and if he has any vomiting with the tube clamped, I would advocate to go back to continuous suction. All are in agreement with this plan. Status: Acute Category: Medical Code(s): C78.6 - Secondary malignant neoplasm of retroperitoneum and peritoneum (2) Large bowel obstruction: Status: Acute Category: Medical Code(s): K56.609 - Unspecified intestinal obstruction, unspecified as to partial versus complete obstruction (3) Severe protein-calorie malnutrition: Status: Acute Category: Medical Code(s): E43 - Unspecified severe protein-calorie malnutrition (4) Anemia: Status: Acute Qualifiers: Other causes of anemia: chronic disease, other Anemia type: other cause Qualified Code(s): D63.8 - Anemia in other chronic diseases classified elsewhere Category: Medical Code(s):
[2022-08-19 16:15] LABS: POC Glucose,Bedside 113 (70-110)
--- NOTE | 2022-08-19 17:07 | PC.NURSE ---
Pt c/o discomfort to abdomen 45 min after NG tube was clamped. Placed back to cont low wall suction for 30 min. Pt ambulated in hallway and tolerated well. NG tube placed back to suction at pt's request.
[2022-08-19 20:00] VITALS: BP 122/64; PULSE 66; RESP 18; TEMP 36.7; O2SAT 96
[2022-08-19 20:41] LABS: POC Glucose,Bedside 126 (70-110)
[2022-08-20] VITALS: BP 120/66; PULSE 67; RESP 18; TEMP 36.7; O2SAT 96
[2022-08-20 04:00] VITALS: BP 122/71; PULSE 70; RESP 19; TEMP 36.8; O2SAT 97; BMI 17.1
[2022-08-20 05:45] LABS: POC Glucose,Bedside 119 (70-110)
--- NOTE | 2022-08-20 06:22 | PC.NURSE ---
HAS HAD A QUIET NIGHT. NO C/O PAIN VOICED. TPN INFUSING AT 65ML/HR/PUMP TO PORT AT LEFT UPPER CHEST WALL. D51/2NS INFUSING AT 10 ML/HR/PUMP PER PORT'S SECOND LUMEN.. TOTAL INFUSION INTAKE IS 75 ML/HR INSTRUCTED. N/G TO RIGHT NARE IN PLACE AND TO CONT LWS. SECRETIONS DARK GREEN. SOUSE AT BED SIDE. PATIENT IS NPO. TOLERATES ICE CHIPS. MIDLINE INCISION WITH LETI IS MANUEL. NO S/S OF COMPLICATIONS.
[2022-08-20 07:51] VITALS: BP 103/56; PULSE 66; RESP 16; TEMP 36.5; O2SAT 96
--- NOTE | 2022-08-20 09:46 | PC.NURSE ---
0915-clamped NGT after giving pain medication, informed pt to alert RN if not tolerating tube being clamped; antibiotic being given and after finished will have pt ambulate in [place]
[2022-08-20 09:54] LABS: Anion Gap 5.6 mEq/L (5-15); Blood Urea Nitrogen 17 mg/dl (9-20); Calcium 7.8 mg/dl (8.4-10.2); Carbon Dioxide 30 mmol/L (22.0-30.0); Chloride 101 mmol/L (98-107); Creatinine Clearance Estimated 50 mL/min (50-200); Estimated Glomerular Filt Rate 133 ml/min (>60); GFR (African American) 161 ML/MIN (>60); Glucose 113 mg/dl (74-100); Magnesium 2.1 mg/dl (1.6-2.3); Phosphorous 3.2 mg/dl (2.5-4.5); Potassium 3.6 mmoL/L (3.5-5.1); Sodium 133 mmol/L (136-145)
[2022-08-20 10:45] LABS: POC Glucose,Bedside 114 (70-110)
--- NOTE | 2022-08-20 10:49 | EXP.SURG.PN ---
Subjective Narrative: No acute events overnight. He tolerated clamping of NG tube every 4 hours, and had no vomiting, but there were a few times when he had asked the nurse to unclamp the tube sooner than the 4-hours. He has passed flatus but has not had a bowel movement. Abdominal pain is not worsened. Exam Data for Last 24 hours Vital signs and Labs for Last 24 Hours: Temp Pulse Resp BP Pulse Ox O2 Del Method O2 Flow Rate 97.7 F 66 16 103/56 L 96 Room Air 96 08/20/22 07:51 08/20/22 07:51 08/20/22 07:51 08/20/22 07:51 08/20/22 07:51 08/20/22 09:00 08/19/22 21:00 Laboratory Results - last 24 hr 08/19/22 16:07: POC Glucose 113 H 08/19/22 20:34: POC Glucose 126 H 08/20/22 04:51: POC Glucose 119 H 08/20/22 09:35: Sodium 133 L, Potassium 3.6, Chloride 101, Carbon Dioxide 30, Anion Gap 5.6, BUN 17 D, Creatinine 0.60 L, Estimated Creat Clear 50, Estimated GFR 133, Est GFR ( Amer) 161, Glucose 113 H, Calcium 7.8 L, Phosphorus 3.2, Magnesium 2.1 D 08/20/22 10:38: POC Glucose 114 H I & O for Last 24 hours: Intake & Output 08/17/22 08/18/22 08/19/22 08/20/22 23:59 23:59 23:59 23:59 Intake Total 2307 / 2857 1670.9 / 1770.9 1001 / 1941 1090 / 1090 Output Total 2019 325 / 325 2470 / 2470 2800 / 2800 Balance 287 / 737 1345.9 / 1445.9 -1469 / -529 -1710 / -1710 Weight 90 lb 8.984 oz 113 lb 2 oz 112 lb 14.4 oz 112 lb 14.415 oz Constitutional Constitutional: no acute distress and cachectic *Routine HEENT Exam Comments: NG tube in place, currently clamped *Routine Abdominal Exam Abdominal: Present normoactive bowel sounds; Absent tenderness or distended Progress Note: A&P Assessment and plan (1) Peritoneal carcinomatosis: Problem details: His pain is stable. Pending a.m. BMP. He had hypokalemia yesterday. Continue TPN. He has tolerated clamp trials, and has not vomited. However, I would not increase the interval that he remains clamped, because he had several episodes yesterday where he could not make it the entire 4 hours with the tube clamped. Highest concern is for aspiration with a clamped NG tube, patient and family are aware. Discharge planning for early week with NG tube at home. Status: Acute (2) Large bowel obstruction: Status: Acute (3) Severe protein-calorie malnutrition: Status: Acute (4) Anemia: Status: Acute
[2022-08-20 11:19] VITALS: BP 123/69; PULSE 60; RESP 16; TEMP 36.4; O2SAT 98
--- NOTE | 2022-08-20 11:50 | PC.NURSE ---
pt ambulated in [place], pt requested to have ngt unclamped, unclamped ngt and placed to lws
--- NOTE | 2022-08-20 14:34 | EXP.MED.FU ---
Subjective *Date: 08/20/22 *Time: 14:34 Interval history: Still not able to tolerate clamping of NG for more than an hour Still having significant output from NG Sluggish bowel sounds Patient said his pain is well controlled on the current regimen Wants to continue all aspects of care and does not want to discuss about hospice at this point Exam Data for Last 24 hours Vital signs and Labs for Last 24 Hours: Temp Pulse Resp BP Pulse Ox O2 Del Method O2 Flow Rate 97.5 F L 60 16 123/69 98 Room Air 96 08/20/22 11:19 08/20/22 11:19 08/20/22 11:19 08/20/22 11:19 08/20/22 11:19 08/20/22 13:00 08/19/22 21:00 Laboratory Results - last 24 hr 08/19/22 16:07: POC Glucose 113 H 08/19/22 20:34: POC Glucose 126 H 08/20/22 04:51: POC Glucose 119 H 08/20/22 09:35: Sodium 133 L, Potassium 3.6, Chloride 101, Carbon Dioxide 30, Anion Gap 5.6, BUN 17 D, Creatinine 0.60 L, Estimated Creat Clear 50, Estimated GFR 133, Est GFR ( Amer) 161, Glucose 113 H, Calcium 7.8 L, Phosphorus 3.2, Magnesium 2.1 D 08/20/22 10:38: POC Glucose 114 H I & O for Last 24 hours: Intake & Output 08/17/22 08/18/22 08/19/22 08/20/22 23:59 23:59 23:59 23:59 Intake Total 2307 / 2857 1670.9 / 1770.9 1001 / 1941 1090 / 1090 Output Total 2019 325 / 325 2470 / 2470 2925 / 2925 Balance 287 / 737 1345.9 / 1445.9 -1469 / -529 -1835 / -1835 Weight 41.078 kg 51.313 kg 51.211 kg 51.211 kg Constitutional Constitutional: no acute distress and cachectic *Routine Respiratory Exam Respiratory: Present diminished air movement and able to speak in complete sentences *Routine Cardiovascular Exam Cardiovascular: Present Normal S1 and Normal S2 *Routine Abdominal Exam Abdominal: Present soft and distended Comments: Absent bowel sounds, no bleeding at the site of surgical incision on the abdominal wall *Routine Extremities Exam Comments: No edema *Routine Neurological Exam Neurological: Present alert and oriented X3 Routine Psychiatric Exam Comments: Flat affect Assessment and Plan *Assessment and plan (1) Peritoneal carcinomatosis: Problem Comment: His pain is stable. Pending a.m. BMP. He had hypokalemia yesterday. Continue TPN. He has tolerated clamp trials, and has not vomited. However, I would not increase the interval that he remains clamped, because he had several episodes yesterday where he could not make it the entire 4 hours with the tube clamped. Highest concern is for aspiration with a clamped NG tube, patient and family are aware. Discharge planning for early week with NG tube at home. Status: Acute Category: Medical Code(s): C78.6 - Secondary malignant neoplasm of retroperitoneum and peritoneum (2) Large bowel obstruction: Status: Acute Category: Medical Code(s): K56.609 - Unspecified intestinal obstruction, unspecified as to partial versus complete obstruction (3) Tobacco abuse: Status: Acute Category: Medical Code(s): Z72.0 - Tobacco use (4) Severe protein-calorie malnutrition: Status: Acute Category: Medical Code(s): E43 - Unspecified severe protein-calorie malnutrition (5) Anemia: Status: Acute Qualifiers: Anemia type: other cause Other causes of anemia: chronic disease, other Qualified Code(s): D63.8 - Anemia in other chronic diseases classified elsewhere Category: Medical Code(s): D64.9 - Anemia, unspecified Plan 72-year-old with a history of 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 Laparoscopic exam revealed significant peritoneal carcinomatosis and malignant ascites. Admitted for further management # Large bowel obstruction secondary to extensive peritoneal Carcinomatosis # Metastatic colon cancer with mets to liver and peritoneal carcinomatosis # Chronic anemia # Se
[2022-08-20 15:27] VITALS: BP 113/74; PULSE 75; RESP 16; TEMP 36.8; O2SAT 94
[2022-08-20 16:38] LABS: POC Glucose,Bedside 105 (70-110)
--- NOTE | 2022-08-20 17:39 | PC.NURSE ---
PT HAS AMBULATED IN HALLWAY MULTIPLE TIMES THIS SHIFT. ALSO WENT OUTSIDE WITH FAMILY MEMBERS WITH PERMISSION FROM MD AND TOLERATED WELL. HAS NOT C/O PAIN SINCE THIS RN ASSUMED CARE. N/G TUBE REMAINS IN PLACE TO LWS. DARK GREEN SECRETIONS NOTED IN SUCTION CONTAINER. PT TOLERATES CLAMPING Q4HRS WELL. DENIES N/V.
[2022-08-20 20:00] VITALS: BP 113/75; PULSE 68; RESP 18; TEMP 36.7; O2SAT 94; O2SAT 96
[2022-08-20 21:29] LABS: POC Glucose,Bedside 85 (70-110)
[2022-08-21] VITALS: BP 115/67; PULSE 68; RESP 18; TEMP 36.6; O2SAT 97
[2022-08-21 04:00] VITALS: BP 121/70; PULSE 70; RESP 19; TEMP 36.6; O2SAT 98; BMI 17.1
[2022-08-21 05:34] LABS: POC Glucose,Bedside 109 (70-110)
--- NOTE | 2022-08-21 07:17 | EXP.SURG.PN ---
Subjective Patient reports: no new complaints Narrative: The patient states that he is still going on and off with the NG tube . Exam Data for Last 24 hours Vital signs and Labs for Last 24 Hours: Temp Pulse Resp BP Pulse Ox O2 Del Method O2 Flow Rate 97.9 F 70 19 121/70 98 Room Air 96 08/21/22 04:00 08/21/22 04:00 08/21/22 04:00 08/21/22 04:00 08/21/22 04:00 08/21/22 06:48 08/19/22 21:00 Laboratory Results - last 24 hr 08/20/22 09:35: Sodium 133 L, Potassium 3.6, Chloride 101, Carbon Dioxide 30, Anion Gap 5.6, BUN 17 D, Creatinine 0.60 L, Estimated Creat Clear 50, Estimated GFR 133, Est GFR ( Amer) 161, Glucose 113 H, Calcium 7.8 L, Phosphorus 3.2, Magnesium 2.1 D 08/20/22 10:38: POC Glucose 114 H 08/20/22 16:31: POC Glucose 105 08/20/22 20:54: POC Glucose 85 08/21/22 05:23: POC Glucose 109 I & O for Last 24 hours: Intake & Output 08/18/22 08/19/22 08/20/22 08/21/22 11:59 11:59 11:59 11:59 Intake Total 2068 / 2068 1302.9 / 1302.9 1090 / 1090 995 / 995 Output Total 1095 / 1095 2045 / 2045 3350 / 3350 725 / 725 Balance 974 / 974 -742.1 / -742.1 -2260 / -2260 270 / 270 Weight 113 lb 2 oz 112 lb 14.4 oz 112 lb 14.415 oz 112 lb 14.415 oz Constitutional Constitutional: no acute distress *Routine Respiratory Exam Respiratory: Absent respiratory distress *Routine Cardiovascular Exam Cardiovascular: Absent tachycardia *Routine Abdominal Exam Comments: Incision healing without sign of infection Progress Note: A&P Assessment and plan (1) Peritoneal carcinomatosis: Problem details: His pain is stable. Pending a.m. BMP. He had hypokalemia yesterday. Continue TPN. He has tolerated clamp trials, and has not vomited. However, I would not increase the interval that he remains clamped, because he had several episodes yesterday where he could not make it the entire 4 hours with the tube clamped. Highest concern is for aspiration with a clamped NG tube, patient and family are aware. Discharge planning for early week with NG tube at home. Status: Acute Assessment and plan: Continue management as per primary service Hopefully discharge home soon with nasogastric tube in place (2) Large bowel obstruction: Status: Acute Assessment and plan: Remove one half of sai (3) Severe protein-calorie malnutrition: Status: Acute
[2022-08-21 07:18] LABS: Anion Gap 5.7 mEq/L (5-15); Blood Urea Nitrogen 17 mg/dl (9-20); Calcium 7.9 mg/dl (8.4-10.2); Carbon Dioxide 28 mmol/L (22.0-30.0); Chloride 102 mmol/L (98-107); Creatinine Clearance Estimated 50 mL/min (50-200); Estimated Glomerular Filt Rate 133 ml/min (>60); GFR (African American) 161 ML/MIN (>60); Glucose 112 mg/dl (74-100); Magnesium 2.1 mg/dl (1.6-2.3); Phosphorous 3.8 mg/dl (2.5-4.5); Potassium 3.7 mmoL/L (3.5-5.1); Sodium 132 mmol/L (136-145)
[2022-08-21 08:00] VITALS: BP 123/67; PULSE 64; RESP 18; TEMP 36.6; O2SAT 97
[2022-08-21 11:54] LABS: POC Glucose,Bedside 110 (70-110)
[2022-08-21 12:00] VITALS: BP 120/71; PULSE 64; RESP 20; TEMP 36.5; O2SAT 97
--- NOTE | 2022-08-21 13:44 | EXP.PHA.PN ---
Subjective *Date: 08/21/22 *Time: 13:44 Medical Exam Vital signs and Labs for Last 24 Hours: Vital Signs Temp Pulse Resp BP Pulse Ox O2 Del Method 08/21/22 13:00 Room Air 08/21/22 12:00 97.7 F 64 20 120/71 97 Room Air 08/21/22 11:00 Room Air 08/21/22 09:00 Room Air 08/21/22 08:00 Room Air 08/21/22 08:00 97.9 F 64 18 123/67 97 Room Air 08/21/22 06:48 Room Air 08/21/22 05:00 Room Air 08/21/22 04:00 97.9 F 70 19 121/70 98 Room Air 08/21/22 03:00 Room Air 08/21/22 01:00 Room Air 08/20/22 23:00 Room Air 08/21/22 00:00 97.9 F 68 18 115/67 97 Room Air 08/20/22 21:00 Room Air 08/20/22 20:00 98.1 F 68 18 113/75 96 Room Air 08/20/22 20:00 94 L Room Air 08/20/22 18:31 Room Air 08/20/22 17:00 Room Air 08/20/22 15:00 Room Air 08/20/22 15:27 98.2 F 75 16 113/74 94 L Room Air Intake and Output 08/20/22 08/21/22 08/21/22 23:59 07:59 15:59 Intake Total 995 / 995 Output Total 500 / 1150 650 / 1150 Balance 495 / -155 -650 / -155 Intake: Intake, Oral Amount 220 / 220 Intake, Other Amount 585 / 585 Intake, Total IV Amount 190 / 190 Ampicillin/Sulbactam 3 gm In 0. 100 / 100 9 % Sodium Chloride 100 ml @ 200 mls/hr IV Q6H INDIO Rx#: [id number] Dex 5% in 0.45% NaCl 1,000 ml @ 90 / 90 25 mls/hr IV .Q25H INDIO Rx#: [id number] Output: Output, Urine Amount 500 / 500 0 / 500 Output, Gastric Drainage Amount 650 / 650 Right Nare 650 / 650 Other: Number of Voids 0 Number of Unmeasured Voids 0 Weight 51.211 kg Patient Weight 08/21/22 23:59 Weight 51.211 kg Laboratory Results - last 24 hr 08/20/22 16:31: POC Glucose 105 08/20/22 20:54: POC Glucose 85 08/21/22 05:23: POC Glucose 109 08/21/22 06:52: Sodium 132 L, Potassium 3.7, Chloride 102, Carbon Dioxide 28, Anion Gap 5.7, BUN 17, Creatinine 0.60 L, Estimated Creat Clear 50, Estimated GFR 133, Est GFR ( Amer) 161, Glucose 112 H, Calcium 7.9 L, Phosphorus 3.8, Magnesium 2.1 08/21/22 11:47: POC Glucose 110 I & O for Labs for Last 24 Hours: Intake & Output 08/18/22 08/19/22 08/20/22 08/21/22 23:59 23:59 23:59 23:59 Intake Total 1670.9 / 1770.9 1001 / 1941 1090 / 1090 995 / 995 Output Total 325 / 325 2470 / 2470 3025 / 3025 1150 / 1150 Balance 1345.9 / 1445.9 -1469 / -529 -1935 / -1935 -155 / -155 Weight 51.313 kg 51.211 kg 51.211 kg 51.211 kg The patient's infection will respond to the chosen ABx?: Yes Is the patient receiving the right drug, dose, and route?: Yes Could a more targeted ABx be ordered?: No
--- NOTE | 2022-08-21 14:36 | EXP.PN ---
Subjective *Date: 08/21/22 *Time: 14:36 Interval history: No acute events overnight He states he's passed gas NGT was clamped since 8 this morning and he hasn't had nausea Pain is in control Exam Data for Last 24 hours Vital signs and Labs for Last 24 Hours: Temp Pulse Resp BP Pulse Ox O2 Del Method O2 Flow Rate 97.7 F 64 20 120/71 97 Room Air 96 08/21/22 12:00 08/21/22 12:00 08/21/22 12:00 08/21/22 12:00 08/21/22 12:00 08/21/22 13:00 08/19/22 21:00 Laboratory Results - last 24 hr 08/20/22 16:31: POC Glucose 105 08/20/22 20:54: POC Glucose 85 08/21/22 05:23: POC Glucose 109 08/21/22 06:52: Sodium 132 L, Potassium 3.7, Chloride 102, Carbon Dioxide 28, Anion Gap 5.7, BUN 17, Creatinine 0.60 L, Estimated Creat Clear 50, Estimated GFR 133, Est GFR ( Amer) 161, Glucose 112 H, Calcium 7.9 L, Phosphorus 3.8, Magnesium 2.1 08/21/22 11:47: POC Glucose 110 I & O for Last 24 hours: Intake & Output 08/18/22 08/19/22 08/20/22 08/21/22 23:59 23:59 23:59 23:59 Intake Total 1670.9 / 1770.9 1001 / 1941 1090 / 1090 995 / 995 Output Total 325 / 325 2470 / 2470 3025 / 3025 1150 / 1150 Balance 1345.9 / 1445.9 -1469 / -529 -1935 / -1935 -155 / -155 Weight 51.313 kg 51.211 kg 51.211 kg 51.211 kg Constitutional Constitutional: no acute distress *Routine HEENT Exam Head: Present normocephalic Eye: Present EOMI and PERRL ENT: Present mucous membranes moist *Routine Neck Exam Neck: Present supple; Absent lymphadenopathy *Routine Respiratory Exam Respiratory: Present CTA bilaterally *Routine Cardiovascular Exam Cardiovascular: Present RRR *Routine Abdominal Exam Abdominal: Present soft; Absent obese Comments: dressing over surgical incision is c/d/i *Routine Extremities Exam Extremities: Absent cyanosis, clubbing or edema *Routine Skin Exam Skin: Present warm; Absent rash *Routine Neurological Exam Neurological: Present alert and oriented X3 Assessment and Plan *Assessment and plan (1) Large bowel obstruction: Status: Acute Category: Medical Code(s): K56.609 - Unspecified intestinal obstruction, unspecified as to partial versus complete obstruction (2) Severe protein-calorie malnutrition: Status: Acute Category: Medical Code(s): E43 - Unspecified severe protein-calorie malnutrition (3) Metastatic colon cancer to liver: Status: Acute Category: Medical Code(s): C18.9 - Malignant neoplasm of colon, unspecified; C78.7 - Secondary malignant neoplasm of liver and intrahepatic bile duct (4) Peritoneal carcinomatosis: Problem Comment: His pain is stable. Pending a.m. BMP. He had hypokalemia yesterday. Continue TPN. He has tolerated clamp trials, and has not vomited. However, I would not increase the interval that he remains clamped, because he had several episodes yesterday where he could not make it the entire 4 hours with the tube clamped. Highest concern is for aspiration with a clamped NG tube, patient and family are aware. Discharge planning for early week with NG tube at home. Status: Acute Category: Medical Code(s): C78.6 - Secondary malignant neoplasm of retroperitoneum and peritoneum Plan #large bowel obstruction #stage 4 colon cancer with severe peritoneal carcinomatosis The patient's large bowel obstruction is due to severe peritoneal carcinomatosis. The patient is requiring high doses of pain medication and has been dependent on NGT. Oncology could not offer any good chemotherapy options and recommended hospice. General Surgery could not offer any good surgical options to resolve the large bowel obstruction. At this time the patient is not open to comfort care and would like to seek alternative treatments despite being counseled on his very poor prognosis and our lack of options. They would like to go home with home health. Unasyn, TPN, NGT and Reglan per general surgery. Decrease oxycodone 30mg BID to 20mg
--- NOTE | 2022-08-21 15:41 | CARE MANAGER ---
Patient requires positioning of the body in ways not feasible with an ordinary bed order to alleviate pain. TU eMtz
[2022-08-21 16:00] VITALS: BP 127/67; PULSE 67; RESP 18; TEMP 36.6; O2SAT 95
[2022-08-21 16:39] LABS: POC Glucose,Bedside 94 (70-110)
--- NOTE | 2022-08-21 17:49 | PC.NURSE ---
PT IS RESTING IN BED WITH FAMILY AT BEDSIDE. ALERT AND ORIENTED X4. NG TUBE WAS CLAMPED AT 0830 THIS MORNING. PT TOLERATED TUBE CLAMPED TILL 1430 AND STATED HIS ABDOMEN STARTED TO FEEL VERY TIGHT WHILE AMBULATING IN THE [place]. NG TUBE WAS RECONNECTED BACK TO LOW WALL CONTINUOUS SUCTION. VERY MINIMAL GASTRIC CONTENTS NOTED. LUNG SOUNDS DIMINISHED. ABDOMEN SOFT/TENDER WITH ACTIVE BOWEL SOUNDS. MIDLINE INCISION NOTED WITH LETI AND STERI STRIPS. PT STATED HE WAS ABLE TO PASS FLATUS. WILL CONTINUE TO MONITOR.
[2022-08-21 20:00] VITALS: BP 117/62; PULSE 70; PULSE 72; RESP 18; TEMP 36.8; O2SAT 96
--- NOTE | 2022-08-21 21:10 | PC.NURSE ---
oxycodone would not dissolve first pill pulled was wasted with lisa riley
[2022-08-22] VITALS (9 sets, daily range): BP systolic 100–160; BP diastolic 60–83; PULSE 60–84; RESP 18; TEMP 36.6–37.2; O2SAT 93–98; BMI 15.7
--- NOTE | 2022-08-22 04:02 | PC.NURSE ---
NO ACUTE CHANGES THIS SHIFT. PT HAS RESTED INTERMITTENTLY THIS SHIFT. PT HAS AMBULATED IN HIS ROOM SEVERAL TIMES THIS SHIFT. HAS C/O NAUSEA X1 AND BLOATING X1. TREATED PER MAR FOR NAUSEA AND GAS. PT DID REFUSED 2100 HEPARIN AND FSBS. NG TUBE IS HOOKED TO LOW WALL SUCTION.
[2022-08-22 06:45] LABS: POC Glucose,Bedside 102 (70-110)
--- NOTE | 2022-08-22 06:53 | EXP.SURG.PN ---
Subjective Patient reports: no new complaints Exam Data for Last 24 hours Vital signs and Labs for Last 24 Hours: Temp Pulse Resp BP Pulse Ox O2 Del Method O2 Flow Rate 98 F 84 18 160/83 H 96 Room Air 96 08/22/22 04:00 08/22/22 04:00 08/22/22 04:00 08/22/22 04:00 08/22/22 04:00 08/22/22 05:00 08/19/22 21:00 Laboratory Results - last 24 hr 08/21/22 06:52: Sodium 132 L, Potassium 3.7, Chloride 102, Carbon Dioxide 28, Anion Gap 5.7, BUN 17, Creatinine 0.60 L, Estimated Creat Clear 50, Estimated GFR 133, Est GFR ( Amer) 161, Glucose 112 H, Calcium 7.9 L, Phosphorus 3.8, Magnesium 2.1 08/21/22 11:47: POC Glucose 110 08/21/22 16:13: POC Glucose 94 08/22/22 06:37: POC Glucose 102 I & O for Last 24 hours: Intake & Output 08/19/22 08/20/22 08/21/22 08/22/22 11:59 11:59 11:59 11:59 Intake Total 1302.9 / 1302.9 1090 / 1090 995 / 995 1442 / 1442 Output Total 2045 / 2045 3350 / 3350 725 / 725 300 / 300 Balance -742.1 / -742.1 -2260 / -2260 270 / 270 1142 / 1142 Weight 112 lb 14.4 oz 112 lb 14.415 oz 112 lb 14.415 oz 104 lb 4.8 oz Constitutional Constitutional: no acute distress *Routine Respiratory Exam Respiratory: Absent respiratory distress *Routine Cardiovascular Exam Cardiovascular: Absent tachycardia *Routine Abdominal Exam Comments: Incision healing without sign of infection Progress Note: A&P Assessment and plan (1) Large bowel obstruction: Status: Acute Assessment and plan: Continue current care with nasogastric decompression as needed (2) Severe protein-calorie malnutrition: Status: Acute Assessment and plan: Intermittent PO intake as tolerated (liquids) TPN as determined per primary service with ongoing discussion about risks/benefits with patient and family (3) Metastatic colon cancer to liver: Status: Acute Assessment and plan: Comfort care remains appropriate; however, the patient and his family seem adverse to this idea (4) Peritoneal carcinomatosis: Status: Acute
[2022-08-22 07:05] LABS: Anion Gap 6.8 mEq/L (5-15); Blood Urea Nitrogen 19 mg/dl (9-20); Calcium 7.8 mg/dl (8.4-10.2); Carbon Dioxide 30 mmol/L (22.0-30.0); Chloride 101 mmol/L (98-107); Creatinine Clearance Estimated 46 mL/min (50-200); Estimated Glomerular Filt Rate 133 ml/min (>60); GFR (African American) 161 ML/MIN (>60); Glucose 107 mg/dl (74-100); Magnesium 2.2 mg/dl (1.6-2.3); Potassium 3.8 mmoL/L (3.5-5.1); Sodium 134 mmol/L (136-145)
[2022-08-22 10:46] LABS: POC Glucose,Bedside 105 (70-110)
--- NOTE | 2022-08-22 11:50 | EXP.PN ---
Subjective *Date: 08/22/22 *Time: 11:50 Interval history: no acute events overnight He has some difficulty clearing secretions pain in control Exam Data for Last 24 hours Vital signs and Labs for Last 24 Hours: Temp Pulse Resp BP Pulse Ox O2 Del Method O2 Flow Rate 99.0 F 61 18 114/65 97 Room Air 2.5 08/22/22 11:41 08/22/22 11:41 08/22/22 11:41 08/22/22 11:41 08/22/22 11:41 08/22/22 11:00 08/22/22 09:00 Laboratory Results - last 24 hr 08/21/22 11:47: POC Glucose 110 08/21/22 16:13: POC Glucose 94 08/22/22 06:37: POC Glucose 102 08/22/22 06:40: Sodium 134 L, Potassium 3.8, Chloride 101, Carbon Dioxide 30, Anion Gap 6.8, BUN 19, Creatinine 0.60 L, Estimated Creat Clear 46, Estimated GFR 133, Est GFR ( Amer) 161, Glucose 107 H, Calcium 7.8 L, Phosphorus 4.0, Magnesium 2.2 08/22/22 10:40: POC Glucose 105 I & O for Last 24 hours: Intake & Output 08/19/22 08/20/22 08/21/22 08/22/22 23:59 23:59 23:59 23:59 Intake Total 1001 / 1941 1090 / 1090 2237 / 2237 200 / 200 Output Total 2470 / 2470 3025 / 3025 800 / 800 0 / 0 Balance -1469 / -529 -1935 / -1935 1437 / 1437 200 / 200 Weight 51.211 kg 51.211 kg 51.211 kg 47.31 kg Constitutional Constitutional: no acute distress *Routine HEENT Exam Head: Present normocephalic Eye: Present EOMI and PERRL ENT: Present mucous membranes moist *Routine Neck Exam Neck: Present supple; Absent lymphadenopathy *Routine Respiratory Exam Respiratory: Present CTA bilaterally *Routine Cardiovascular Exam Cardiovascular: Present RRR *Routine Abdominal Exam Abdominal: Present soft; Absent obese Comments: dressing over surgical incision is c/d/i *Routine Extremities Exam Extremities: Absent cyanosis, clubbing or edema *Routine Skin Exam Skin: Present warm; Absent rash *Routine Neurological Exam Neurological: Present alert and oriented X3 Assessment and Plan *Assessment and plan (1) Large bowel obstruction: Status: Acute Category: Medical Code(s): K56.609 - Unspecified intestinal obstruction, unspecified as to partial versus complete obstruction (2) Severe protein-calorie malnutrition: Status: Acute Category: Medical Code(s): E43 - Unspecified severe protein-calorie malnutrition (3) Metastatic colon cancer to liver: Status: Acute Category: Medical Code(s): C18.9 - Malignant neoplasm of colon, unspecified; C78.7 - Secondary malignant neoplasm of liver and intrahepatic bile duct (4) Peritoneal carcinomatosis: Status: Acute Category: Medical Code(s): C78.6 - Secondary malignant neoplasm of retroperitoneum and peritoneum Plan #large bowel obstruction #stage 4 colon cancer with severe peritoneal carcinomatosis The patient's large bowel obstruction is due to severe peritoneal carcinomatosis. The patient is requiring high doses of pain medication and has been dependent on NGT. Oncology could not offer any good chemotherapy options and recommended hospice. General Surgery could not offer any good surgical options to resolve the large bowel obstruction. At this time the patient is not open to comfort care and would like to seek alternative treatments despite being counseled on his very poor prognosis and our lack of options. They would like to go home with home health. Unasyn, TPN, NGT and Reglan. oxycodone 20mg BID TPN: amino acid 4.25%/dex 10%/261mg of potassium phosphate/51mg of magnesium chlorid/ 33mg calcium chloride in 1000mL premix bag TPN rate at 65ml/hr lipids 20% 250mL daily NPO DVT ppx: heparin subcu
--- NOTE | 2022-08-22 15:39 | PC.NURSE ---
Oxygen decreased to 1L pt. sats at 95%.
[2022-08-22 16:02] LABS: POC Glucose,Bedside 102 (70-110)
[2022-08-22 20:50] LABS: POC Glucose,Bedside 107 (70-110)
[2022-08-23] VITALS: PULSE 60
[2022-08-23 04:00] VITALS: BP 128/64; PULSE 60; PULSE 66; RESP 18; TEMP 36.9; O2SAT 96; BMI 17.1
--- NOTE | 2022-08-23 05:22 | PC.NURSE ---
No issues overnight. Patient has rested well. NG still in R nare. No complaints of pain or nausea.
[2022-08-23 06:13] LABS: Anion Gap 3.9 mEq/L (5-15); Blood Urea Nitrogen 20 mg/dl (9-20); Carbon Dioxide 31 mmol/L (22.0-30.0); Chloride 102 mmol/L (98-107); Creatinine Clearance Estimated 50 mL/min (50-200); Estimated Glomerular Filt Rate 133 ml/min (>60); GFR (African American) 161 ML/MIN (>60); Glucose 110 mg/dl (74-100); Magnesium 2.4 mg/dl (1.6-2.3); Phosphorous 4.1 mg/dl (2.5-4.5); Potassium 3.9 mmoL/L (3.5-5.1); Sodium 133 mmol/L (136-145)
[2022-08-23 06:28] LABS: POC Glucose,Bedside 99 (70-110)
[2022-08-23 07:59] VITALS: BP 119/65; PULSE 66; RESP 17; TEMP 36.5; O2SAT 97
[2022-08-23 08:00] VITALS: PULSE 60
--- NOTE | 2022-08-23 08:25 | P.PN_ITS ---
Subjective Narrative: He feels fine and want(s) to go home . Exam Data for Last 24 hours Vital signs and Labs for Last 24 Hours: Temp Pulse Resp BP Pulse Ox O2 Del Method O2 Flow Rate 97.7 F 66 17 119/65 97 Room Air 2.5 08/23/22 07:59 08/23/22 07:59 08/23/22 07:59 08/23/22 07:59 08/23/22 07:59 08/23/22 07:59 08/22/22 09:00 Laboratory Results - last 24 hr 08/22/22 10:40: POC Glucose 105 08/22/22 15:55: POC Glucose 102 08/22/22 20:43: POC Glucose 107 08/23/22 05:48: POC Glucose 99 08/23/22 05:54: Sodium 133 L, Potassium 3.9, Chloride 102, Carbon Dioxide 31 H, Anion Gap 3.9 L, BUN 20, Creatinine 0.60 L, Estimated Creat Clear 50, Estimated GFR 133, Est GFR ( Amer) 161, Glucose 110 H, Calcium 8.0 L, Phosphorus 4. 1, Magnesium 2.4 H I & O for Last 24 hours: Intake & Output 08/20/22 08/21/22 08/22/22 08/23/22 11:59 11:59 11:59 11:59 Intake Total 1090 / 1090 995 / 995 1442 / 1442 765 / 765 Output Total 3350 / 3350 725 / 725 300 / 300 200 / 200 Balance -2260 / -2260 270 / 270 1142 / 1142 565 / 565 Weight 112 lb 14.415 oz 112 lb 14.415 oz 104 lb 4.8 oz 113 lb 1.6 oz Constitutional Constitutional: no acute distress *Routine Respiratory Exam Respiratory: Absent respiratory distress *Routine Cardiovascular Exam Cardiovascular: Absent tachycardia Progress Note: A&P Assessment and plan (1) Large bowel obstruction: Status: Acute (2) Severe protein-calorie malnutrition: Status: Acute (3) Metastatic colon cancer to liver: Status: Acute (4) Peritoneal carcinomatosis: Status: Acute Assessment and Plan Assessment and Plan for All Diagnoses:: Discharge as per primary service once all arrangements can be made.
[2022-08-23 09:00] VITALS: O2SAT 97
--- NOTE | 2022-08-23 11:10 | PC.NURSE ---
courtesy tech round: pt has family at BS. pt wants to talk a walk here shortly. call light is at BS
[2022-08-23 11:11] VITALS: BP 114/71; PULSE 58; RESP 18; TEMP 36.5; O2SAT 97
--- NOTE | 2022-08-23 12:00 | PC.NURSE ---
Pt. wishes to go for a walk with . per Quin content creation manager pt. is okay to go for a walk and have TPN stopped and monitor removed for walk. Nurse v/u. TPN stopped and unhooked at this time for pt. to go for a walk.
--- NOTE | 2022-08-23 12:30 | PC.NURSE ---
Pt. back to room 207. TPN restarted and media monitor reattached.
[2022-08-23 12:37] LABS: POC Glucose,Bedside 96 (70-110)
--- NOTE | 2022-08-23 12:52 | PC.NURSE ---
[employer] staff in room with equipment to teach family TPN care.
--- NOTE | 2022-08-23 14:21 | PC.NURSE ---
TAKING OVER CARE FOR PT AT THIS TIME
--- NOTE | 2022-08-23 15:19 | EXP.DC.SUM ---
General Admission date:: 08/15/22 Discharge date: 08/23/22 HPI HPI HPI: 72 yo wm known to oncology service for metastatic colon cancer dx in 02/2022. pt presented with obstruction and widespread metastatic disease to liver/lymph nodes. pt was started on xelox chemotherapy in april 2022. he had [address] scan showed improving liver metastasis/ but concern for early obstruction. pt presensted to surgery and had ex lap showing widespread peritoneal disease and large bowel obstruction. pt is hospitalized iwth ng tube. daughter and at bedside. pt daughter has been giving him high doses of vit c and has other alternative treatment plans for him. they are not interested in hospice. ng is in place. I have d/w surgery and hospitalists. Hospital Course Hospital Course Hospital Course: #large bowel obstruction #stage 4 colon cancer with severe peritoneal carcinomatosis The patient had a diagnostic laparotomy on 08/15/22 which revealed severe peritoneal carcinomatosis, the cause of the patient's large bowel obstruction. The patient was dependent on NGT. Oncology could not offer any good chemotherapy options and recommended hospice. General Surgery could not offer any good surgical options to resolve the large bowel obstruction. At this time the patient is not open to hospice or palliative care and would like to seek alternative treatments despite being counseled on his very poor prognosis and our lack of options. He requested to go home with home health. The patient received Unasyn and Reglan throughout the hospital course. He was discharged with an NG tube and TPN to be managed by home health services. He will need to follow up with General Surgery and PCP. TPN: amino acid 4.25%/dex 10%/261mg of potassium phosphate/51mg of magnesium chlorid/ 33mg calcium chloride in 1000mL premix bag TPN rate at 65ml/hr lipids 20% 250mL daily Exam Data for Last 24 hours Vital signs and Labs for Last 24 Hours: Temp Pulse Resp BP Pulse Ox O2 Del Method O2 Flow Rate 97.7 F 58 L 18 114/71 97 Room Air 2.5 08/23/22 11:11 08/23/22 11:11 08/23/22 11:11 08/23/22 11:11 08/23/22 11:11 08/23/22 13:00 08/22/22 09:00 Laboratory Results - last 24 hr 07/18/23 15:55: POC Glucose 102 08/22/22 20:43: POC Glucose 107 08/23/22 05:48: POC Glucose 99 08/23/22 05:54: Sodium 133 L, Potassium 3.9, Chloride 102, Carbon Dioxide 31 H, Anion Gap 3.9 L, BUN 20, Creatinine 0.60 L, Estimated Creat Clear 50, Estimated GFR 133, Est GFR ( Amer) 161, Glucose 110 H, Calcium 8.0 L, Phosphorus 4.1, Magnesium 2.4 H 08/23/22 12:22: POC Glucose 96 I & O for Last 24 hours: Intake & Output 08/20/22 08/21/22 08/22/22 08/23/22 23:59 23:59 23:59 23:59 Intake Total 1090 / 1090 2237 / 2237 965 / 965 Output Total 3025 / 3025 800 / 800 0 / 0 600 / 600 Balance -1935 / -1935 1437 / 1437 965 / 965 -600 / -600 Weight 51.211 kg 51.211 kg 47.31 kg 51.301 kg Constitutional Constitutional: no acute distress *Routine HEENT Exam Head: Present normocephalic Eye: Present EOMI and PERRL ENT: Present mucous membranes moist Comments: NGT *Routine Neck Exam Neck: Present supple; Absent lymphadenopathy *Routine Respiratory Exam Respiratory: Present CTA bilaterally *Routine Cardiovascular Exam Cardiovascular: Present RRR *Routine Abdominal Exam Abdominal: Present soft; Absent obese Comments: dressing over surgical incision is c/d/i *Routine Extremities Exam Extremities: Absent cyanosis, clubbing or edema *Routine Skin Exam Skin: Present warm; Absent rash *Routine Neurological Exam Neurological: Present alert and oriented X3 Results Data Completed and Pending Labs on day of discharge: Labs from last 24 hours 08/23/22 08/23/22 08/23/22 12:22 05:54 05:48 Sodium 133 L Potassium 3.9 Chloride 102 Carbon Dioxide 31 H Anion Gap 3.9 L BUN 20 Creatinine 0.60 L Estimated Creat Clear 50 Estimated GFR 133 Est G
--- NOTE | 2022-08-23 15:58 | PC.NURSE ---
courtesy tech silver: pt is nsitting up to chair with family at BS. no requests voiced at this time.
--- NOTE | 2022-08-23 15:59 | PC.NURSE ---
courtesy tech round: pt is sitting up in the chair with family and call light at BS. no needs voiced at this time.
--- NOTE | 2022-08-24 14:14 | CARE MANAGER ---
Contacted patient's related to hospital discharge. She states patient is doing very well. Home health is coming this afternoon. She was taught about the TPN and his suction has been hooked up. However, he did not need suction for long this morning and went without most of the days yesterday. He also had a bowel movement early this morning and has eaten some. denies any questions or concerns at this time.TU Metz
== END 2022-08-23 16:13 | disposition home health service (06) | DRG 829 ==
LOC: 2ND 13:59
PROVIDERS: Admitting Provider Surgery; PCP Family Medicine; Visit Provider Internal Medicine
PROC: 0DJD8ZZ Inspection of Lower Intestinal Tract, Via Natural or Artificial Opening Endoscopic (ICD-10-PCS; CPT 45330; principal; 2022-08-15 11:30)
PROC: 0DBW0ZX Excision of Peritoneum, Open Approach, Diagnostic (ICD-10-PCS; CPT 49000; principal; 2022-08-15 13:45)
DX: C80.0 Disseminated malignant neoplasm, unspecified (principal); E43 Unspecified severe protein-calorie malnutrition; Z68.1 Body mass index [BMI] 19.9 or less, adult; R18.0 Malignant ascites; K56.609 Unspecified intestinal obstruction, unspecified as to partial versus complete obstruction; C18.9 Malignant neoplasm of colon, unspecified; C78.7 Secondary malignant neoplasm of liver and intrahepatic bile duct; C78.6 Secondary malignant neoplasm of retroperitoneum and peritoneum; F17.210 Nicotine dependence, cigarettes, uncomplicated; D63.0 Anemia in neoplastic disease; E87.6 Hypokalemia; C77.9 Secondary and unspecified malignant neoplasm of lymph node, unspecified
CPT/HCPCS: 49999; 45300; 36415; 80048; 80053; 80061; 81001; 82962; 83735; 84100; 85007; 85025; 85610; 87636; 88305; J2405

== ENCOUNTER 2022-08-29 14:55 | Outpatient (CLI) | payer MEDICARE, BC, SELFPAY ==
[2022-08-29 14:57] VITALS: BMI 17.1
[2022-08-29 15:10] LABS: Basophils # 0.1 K/mm3 (0-0.2); Basophils % 0.3 % (0.1-2.0); Eosinophils # 0.3 K/mm3 (0.0-0.4); Eosinophils % 2.3 % (0.1-12.0); Hemoglobin 10.9 g/dL (14.1-18.0); Lymphocytes # 1.8 K/mm3 (0.7-4.5); Lymphocytes % 12.8 % (10-50); Mean Corpuscular HGB Conc 31.1 g/dL (31.8-35.4); Mean Corpuscular Hemoglobin 32.6 pg (27.0-31.2); Mean Corpuscular Volume 104.8 fl (80-94); Mean Platelet Volume 8.5 fl (7.4-10.4); Monocytes # 0.6 K/mm3 (0.1-1.0); Monocytes % 4.2 % (1.7-9.3); Neutrophils # 11.5 K/mm3 (1.8-7.8); Neutrophils % 80.4 % (37.0-80.0); Platelet Count 343 K/mm3 (142-424); Red Blood Count 3.34 M/mm3 (4.60-6.20); Red Cell Distribution Width 17.9 % (11.5-17.5); White Blood Count 14.4 K/mm3 (4.8-10.8)
[2022-08-29 15:16] LABS: Chloride 100 mmol/L (98-107); Sodium 138 mmol/L (136-145)
[2022-08-29 15:18] LABS: Blood Urea Nitrogen 25 mg/dl (9-20); Creatinine Clearance Estimated 50 mL/min (50-200); Estimated Glomerular Filt Rate 111 ml/min (>60); GFR (African American) 135 ML/MIN (>60)
[2022-08-29 15:19] LABS: Alanine Aminotransferase 24 U/L (12-78); Albumin Level 2.9 g/dl (3.5-5.0); Albumin/Globulin Ratio 0.8 (1.1-1.8); Alkaline Phosphatase 345 U/L (38-126); Anion Gap 7.3 mEq/L (5-15); Aspartate Amino Transferase 35 U/L (17-59); Bilirubin,Total 1.2 mg/dl (0.2-1.3); Calcium 8.4 mg/dl (8.4-10.2); Carbon Dioxide 33 mmol/L (22.0-30.0); Globulin 3.7 g/dL (1.3-3.2); Glucose 82 mg/dl (74-100); Magnesium 2.1 mg/dl (1.6-2.3); Phosphorous 3.6 mg/dl (2.5-4.5); Total Protein,Serum 6.6 g/dl (6.3-8.2)
[2022-08-29 15:20] LABS: Triglycerides 182 mg/dl (30-150)
--- NOTE | 2022-08-29 15:22 | PC.NURSE ---
1522-QUYNH NOBLES CALLED RN AT 1522 TO REPORT POTASSIUM LEVEL 2.3. RN REPEATED AND VERIFIED PT NAME, , AND LAB VALUE. RESULT CALLED TO POOJA PINEDA CMA FOR ALBERTINA GONZALEZ APRN; AWAITING CALL BACK FOR NEW ORDERS.
[2022-08-29 15:25] LABS: Potassium 2.3 mmoL/L (3.5-5.1)
--- NOTE | 2022-08-29 16:10 | PC.NURSE ---
1610-SPOKE WITH ALBERTINA GONZALEZ APRN WANTED TO DEFER CRITICAL POTASSIUM TO D/T HIM BEING A NEW PATIENT AND SHE HAS NOT SEEN YET AND CAN'T UNTIL 08/31/22. INSTRUCTED TO TELL PT TO TAKE ORAL POTASSIUM THAT PT HAS AT HOME. LEFT MESSAGE WITH ABOUT PT WAITING FOR NEW ORDERS AT THIS TIME.
--- NOTE | 2022-08-29 16:20 | PC.NURSE ---
2853-SPOKE WITH AND SHE DEFERS CARE BACK TO PCP OR ORDERING PROVIDER.
== END 2022-08-29 15:14 | disposition home or self-care (01) ==
LOC: INF 14:56
PROVIDERS: PCP Nurse Practitioner Family; Visit Provider Internal Medicine
DX: C18.9 Malignant neoplasm of colon, unspecified (principal); E43 Unspecified severe protein-calorie malnutrition; Z45.2 Encounter for adjustment and management of vascular access device; K56.690 Other partial intestinal obstruction
CPT/HCPCS: 36591; 80053; 83735; 84100; 84478; 85025; J1642

== ENCOUNTER → 2022-08-30 16:33 | Outpatient (CLI) | payer MEDICARE, BC, SELFPAY ==
[2022-08-30 15:37] LABS: Alanine Aminotransferase 25 U/L (12-78); Albumin/Globulin Ratio 0.9 (1.1-1.8); Alkaline Phosphatase 359 U/L (38-126); Aspartate Amino Transferase 39 U/L (17-59); Blood Urea Nitrogen 28 mg/dl (9-20); Calcium 8.4 mg/dl (8.4-10.2); Carbon Dioxide 33 mmol/L (22.0-30.0); Chloride 101 mmol/L (98-107); Estimated Glomerular Filt Rate 133 ml/min (>60); GFR (African American) 161 ML/MIN (>60); Globulin 3.2 g/dL (1.3-3.2); Glucose 91 mg/dl (74-100); Sodium 140 mmol/L (136-145); Total Protein,Serum 6.2 g/dl (6.3-8.2)
== END ==
PROVIDERS: PCP Nurse Practitioner Family; Visit Provider Nurse Practitioner Family
DX: E87.6 Hypokalemia (principal)
CPT/HCPCS: 80053

== ENCOUNTER 2022-09-05 14:06 | Outpatient (CLI) | payer MEDICARE, BC, SELFPAY ==
[2022-09-05 14:07] VITALS: BMI 15.3
[2022-09-05 14:35] LABS: Microscopic, Urine URINE MICROSCOPIC (MICROSCOPIC)
[2022-09-05 14:37] LABS: Basophils % 0.2 % (0.1-2.0); Eosinophils # 0.4 K/mm3 (0.0-0.4); Eosinophils % 2.2 % (0.1-12.0); Hematocrit 37.3 % (42.0-52.0); Hemoglobin 11.2 g/dL (14.1-18.0); Lymphocytes # 1.7 K/mm3 (0.7-4.5); Mean Corpuscular HGB Conc 30.1 g/dL (31.8-35.4); Mean Corpuscular Hemoglobin 31.5 pg (27.0-31.2); Mean Corpuscular Volume 104.9 fl (80-94); Mean Platelet Volume 8.4 fl (7.4-10.4); Monocytes # 0.5 K/mm3 (0.1-1.0); Monocytes % 2.9 % (1.7-9.3); Neutrophils # 14.1 K/mm3 (1.8-7.8); Neutrophils % 84.7 % (37.0-80.0); Platelet Count 449 K/mm3 (142-424); Red Blood Count 3.55 M/mm3 (4.60-6.20); Red Cell Distribution Width 17.4 % (11.5-17.5); White Blood Count 16.7 K/mm3 (4.8-10.8)
[2022-09-05 14:41] LABS: MANUAL DIFFERENTIAL MANUAL DIFFERENTIAL (MANUAL DIFF)
[2022-09-05 14:45] LABS: Alanine Aminotransferase 36 U/L (12-78); Albumin Level 2.8 g/dl (3.5-5.0); Albumin/Globulin Ratio 0.8 (1.1-1.8); Alkaline Phosphatase 502 U/L (38-126); Anion Gap 9.9 mEq/L (5-15); Aspartate Amino Transferase 51 U/L (17-59); Bilirubin,Total 1.9 mg/dl (0.2-1.3); Blood Urea Nitrogen 24 mg/dl (9-20); Calcium 8.1 mg/dl (8.4-10.2); Carbon Dioxide 29 mmol/L (22.0-30.0); Chloride 105 mmol/L (98-107); Creatinine Clearance Estimated 45 mL/min (50-200); Estimated Glomerular Filt Rate 111 ml/min (>60); GFR (African American) 135 ML/MIN (>60); Globulin 3.6 g/dL (1.3-3.2); Glucose 88 mg/dl (74-100); Magnesium 1.9 mg/dl (1.6-2.3); Phosphorous 3.8 mg/dl (2.5-4.5); Potassium 3.9 mmoL/L (3.5-5.1); Sodium 140 mmol/L (136-145); Total Protein,Serum 6.4 g/dl (6.3-8.2); Triglycerides 198 mg/dl (30-150)
[2022-09-05 15:20] LABS: Appearance,Urine CLEAR (Clear); Blood, Urine 2+ (Negative); Color,Urine DK YELLOW (Yellow); Glucose,Urine (UA) TRACE (Negative); Ketones,Urine 1+ (Negative); Leukocyte Esterase,Urine Negative (Negative); Nitrate,Urine Negative (Negative); Protein,Urine TRACE (Negative); Specific Gravity, Urine >= 1.030 (1.005-1.030); Urobilinogen,Urine >=8.0 EU/dl (0.2)
[2022-09-05 15:35] LABS: Eosinophils % 1 % (0-3); Hypochromasia 2+; Lymphocytes % 9 % (10-50); Macrocytosis 1+; Neutrophils % 90 % (42-76); Platelet Estimate Normal; Total Cells Counted 100
[2022-09-05 15:56] LABS: Bilirubin,Urine 2+ (Negative)
[2022-09-05 15:57] LABS: Bacteria,Urine Trace /lpf; Calcium Oxalate Crystals,Urine Trace /lpf; Squamous Epithelial Cell,Urine Occasional #/hpf (0-5)
== END 2022-09-05 14:20 | disposition home or self-care (01) ==
LOC: INF 14:07
PROVIDERS: PCP Nurse Practitioner Family; Visit Provider Internal Medicine
DX: E43 Unspecified severe protein-calorie malnutrition (principal); R30.0 Dysuria; K56.690 Other partial intestinal obstruction; Z45.2 Encounter for adjustment and management of vascular access device
CPT/HCPCS: 36591; 80053; 81001; 83735; 84100; 84478; 85007; 85025; 87086; J1642

== ENCOUNTER 2022-09-12 10:40 | Outpatient (CLI) | payer MEDICARE, BC, SELFPAY ==
[2022-09-12 10:42] VITALS: BMI 15.5
[2022-09-12 11:13] LABS: Basophils % 0.2 % (0.1-2.0); Eosinophils # 0.1 K/mm3 (0.0-0.4); Eosinophils % 0.7 % (0.1-12.0); Hematocrit 37.2 % (42.0-52.0); Hemoglobin 11.6 g/dL (14.1-18.0); Lymphocytes # 0.9 K/mm3 (0.7-4.5); Lymphocytes % 5.7 % (10-50); Mean Corpuscular HGB Conc 31.2 g/dL (31.8-35.4); Mean Corpuscular Hemoglobin 32.3 pg (27.0-31.2); Mean Corpuscular Volume 103.7 fl (80-94); Mean Platelet Volume 8.5 fl (7.4-10.4); Monocytes # 0.7 K/mm3 (0.1-1.0); Monocytes % 4.1 % (1.7-9.3); Neutrophils # 14.6 K/mm3 (1.8-7.8); Neutrophils % 89.3 % (37.0-80.0); Platelet Count 505 K/mm3 (142-424); Red Blood Count 3.59 M/mm3 (4.60-6.20); White Blood Count 16.3 K/mm3 (4.8-10.8)
[2022-09-12 11:16] LABS: MANUAL DIFFERENTIAL MANUAL DIFFERENTIAL (MANUAL DIFF)
[2022-09-12 11:20] LABS: Alanine Aminotransferase 37 U/L (12-78); Albumin Level 3.1 g/dl (3.5-5.0); Albumin/Globulin Ratio 0.8 (1.1-1.8); Alkaline Phosphatase 1134 U/L (38-126); Anion Gap 17.8 mEq/L (5-15); Aspartate Amino Transferase 38 U/L (17-59); Blood Urea Nitrogen 31 mg/dl (9-20); Calcium 8.7 mg/dl (8.4-10.2); Carbon Dioxide 25 mmol/L (22.0-30.0); Chloride 99 mmol/L (98-107); Creatinine Clearance Estimated 35 mL/min (50-200); Estimated Glomerular Filt Rate 55 ml/min (>60); GFR (African American) 66 ML/MIN (>60); Globulin 3.7 g/dL (1.3-3.2); Glucose 82 mg/dl (74-100); Magnesium 2.1 mg/dl (1.6-2.3); Phosphorous 4.3 mg/dl (2.5-4.5); Potassium 4.8 mmoL/L (3.5-5.1); Sodium 137 mmol/L (136-145); Total Protein,Serum 6.8 g/dl (6.3-8.2); Triglycerides 215 mg/dl (30-150)
[2022-09-12 11:42] LABS: Anisocytosis 1+; Eosinophils % 1 % (0-3); Lymphocytes % 6 % (10-50); Macrocytosis 1+; Monocytes % 4 % (2-9); Neutrophils % 89 % (42-76); Nucleated Red Blood Cells 1; Platelet Estimate Moderate Increase; Total Cells Counted 100
== END 2022-09-12 11:15 | disposition home or self-care (01) ==
PROVIDERS: Internal Medicine Medical Oncology; PCP Nurse Practitioner Family; Visit Provider Internal Medicine
DX: E43 Unspecified severe protein-calorie malnutrition (principal); C18.9 Malignant neoplasm of colon, unspecified; Z45.2 Encounter for adjustment and management of vascular access device
CPT/HCPCS: 36591; 80053; 82378; 83735; 84100; 84478; 85007; 85025

== ENCOUNTER 2022-09-19 10:46 | Outpatient (CLI) | payer MEDICARE, BC, SELFPAY ==
[2022-09-19 10:48] VITALS: BMI 15.3
[2022-09-19 11:13] LABS: Basophils % 0.1 % (0.1-2.0); Eosinophils # 0.1 K/mm3 (0.0-0.4); Eosinophils % 0.6 % (0.1-12.0); Hematocrit 36.8 % (42.0-52.0); Hemoglobin 11.4 g/dL (14.1-18.0); Lymphocytes # 0.7 K/mm3 (0.7-4.5); Lymphocytes % 4.6 % (10-50); Mean Corpuscular HGB Conc 31.1 g/dL (31.8-35.4); Mean Corpuscular Hemoglobin 32.5 pg (27.0-31.2); Mean Corpuscular Volume 104.5 fl (80-94); Mean Platelet Volume 9.5 fl (7.4-10.4); Monocytes # 0.3 K/mm3 (0.1-1.0); Monocytes % 1.9 % (1.7-9.3); Neutrophils # 13.8 K/mm3 (1.8-7.8); Neutrophils % 92.8 % (37.0-80.0); Platelet Count 261 K/mm3 (142-424); Red Blood Count 3.52 M/mm3 (4.60-6.20); Red Cell Distribution Width 17.6 % (11.5-17.5); White Blood Count 14.9 K/mm3 (4.8-10.8)
[2022-09-19 11:23] LABS: Alanine Aminotransferase 40 U/L (12-78); Albumin Level 2.4 g/dl (3.5-5.0); Albumin/Globulin Ratio 0.7 (1.1-1.8); Aspartate Amino Transferase 39 U/L (17-59); Bilirubin,Total 3.9 mg/dl (0.2-1.3); Blood Urea Nitrogen 49 mg/dl (9-20); Calcium 8.2 mg/dl (8.4-10.2); Carbon Dioxide 37 mmol/L (22.0-30.0); Chloride 94 mmol/L (98-107); Creatinine Clearance Estimated 37 mL/min (50-200); Estimated Glomerular Filt Rate 60 ml/min (>60); GFR (African American) 72 ML/MIN (>60); Globulin 3.5 g/dL (1.3-3.2); Glucose 90 mg/dl (74-100); Magnesium 2.3 mg/dl (1.6-2.3); Phosphorous 3.4 mg/dl (2.5-4.5); Sodium 136 mmol/L (136-145); Total Protein,Serum 5.9 g/dl (6.3-8.2); Triglycerides 264 mg/dl (30-150)
[2022-09-19 11:28] LABS: MANUAL DIFFERENTIAL MANUAL DIFFERENTIAL (MANUAL DIFF)
[2022-09-19 11:37] LABS: Alkaline Phosphatase 1597 U/L (38-126)
[2022-09-19 11:59] LABS: Anisocytosis 1+; Lymphocytes % 5 % (10-50); Macrocytosis 1+; Monocytes % 2 % (2-9); Neutrophils % 92 % (42-76); Platelet Estimate Normal; Total Cells Counted 100
== END 2022-09-19 11:20 | disposition home or self-care (01) ==
PROVIDERS: PCP Nurse Practitioner Family; Visit Provider Internal Medicine
DX: C18.9 Malignant neoplasm of colon, unspecified (principal); E43 Unspecified severe protein-calorie malnutrition; K56.690 Other partial intestinal obstruction
CPT/HCPCS: 36591; 80053; 83735; 84100; 84478; 85007; 85025

== ENCOUNTER 2022-09-20 11:53 | Emergency (ER) | payer MEDICARE, BC, SELFPAY ==
[2022-09-20 12:00] VITALS: BP 102/65; PULSE 89; O2SAT 97
[2022-09-20 12:12] VITALS: BP 104/70; PULSE 91; RESP 19; TEMP 36.6; O2SAT 97; BMI 17.2
[2022-09-20 12:30] VITALS: BP 104/64; PULSE 88; O2SAT 98
--- NOTE | 2022-09-20 12:30 | ECG_ITS ---
APPROVED REPORT Exam: Resting ECG HR:92 bpm ECG Measurements Heart Rate 92 AXES NE 124 P 62 QRSd 77 QRS 0 QT 352 T 10 QTc 402 Conclusion SINUS RHYTHM WITH OCCASIONAL SUPRAVENTRICULAR PREMATURE COMPLEXES LOW QRS VOLTAGE [QRS DEFLECTION < 0.5/1.0 mV IN LIMB/CHEST LEADS] SEPTAL MYOCARDIAL INFARCTION , PROBABLY OLD [40+ ms Q WAVE IN V1/V2] ABNORMAL ECG UNCONFIRMED REPORT Electronically signed by : Neri Escobar MD 09/22/2022 08:43:16
[2022-09-20 12:43] LABS: VBG Base Excess 9.3 mmol/L (-2.4-2.3); VBG HCO3 33.1 mmol/L (23-30); VBG Oxygen Saturation 74.5 % (50-70); VBG PCO2 47.6 mmol/L (35-51); VBG PH 7.46 mmol/L (7.31-7.41); VBG PO2 38.2 mmol/L (28-40); VBG Total CO2 34.6 mmol/L (23-27)
--- NOTE | 2022-09-20 12:43 | HMH.EDGENADL ---
Discharge Plan Disposition Patient Disposition: Still a Patient Condition: Fair Prescriptions Prescriptions: No Action prochlorperazine maleate [Compazine] 10 mg tablet 10 mg PO Q6H PRN potassium chloride 10 mEq tablet,ER particles/crystals 20 meq PO BID ondansetron HCl 8 mg tablet 8 mg PO Q6H PRN (Reason: Nausea) Patient Comments: TAKE 1 TABLET BY MOUTH EVERY 6 HOURS NEEDED FOR NAUSEA lorazepam [Ativan] 0.5 mg tablet 0.5 mg PO TID PRN (Reason: anxiety) Qty: 60 0RF hydrocodone-acetaminophen 10-325 mg tablet 1 tab PO Q4-6H PRN (Reason: pain) Qty: 120 0RF fentanyl 12 mcg/hr patch 72 hour 1 patch transdermal Q72H Qty: 10 0RF prednisone 10 mg tablet PO DAILY Patient Comments: TAKE 1 TABLET BY MOUTH ONCE DAILY IV with Additives Zinc/Copper/Leonor/Chromic Chl [Trace Elements 1mL vial] 1 ML Mvi, Adult No.1 with Vit K [Multiple Vitamin Inj 10mL Vial] 10 ML Aa 4.25%/Calcium/Lytes/Dex 10% [Clinimix E 4.25%-Dex 10% w/Lytes 1000ml] 1000 ML 65 mls/hr IV Ordered By: Reynaldo Lu MD Last Taken: Unknown metoclopramide HCl [Reglan] 10 mg tablet 10 mg PO Q6H PRN (Reason: nausea and vomiting) Qty: 120 0RF Referrals Follow up/Referrals: Provider,ReferralMD [Primary Care Provider] - See instructions Clinical Impressions Clinical Impression: Bowel perforation, Metastatic colon cancer to liver, Peritoneal carcinomatosis, Severe protein-calorie malnutrition, Intra-abdominal abscess Discharge ED Provider: Binta Winters General Adult HPI General Chief complaint: Weakness Stated complaint: Weak, N/V 2days, Hx Colon Cancer Time Seen by Provider: 09/20/22 11:57 Mode of Arrival: EMS Source of Information: Patient Limitations: No Limitations Description of Symptoms (Recalled from ER Triage Doc. by RN): 72 yo M presents to ED via EMS for weakness and not eating. pt does have diagnosed colon cancer. pts reports inability to ambulate him, pt have not been eating well. pt reports he has been feeling bad since jan, but worse for the past week and a half. 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 He has previously tried chemotherapy, but is currently in home with supportive management and holistic care. According to EMS, they were called to the home because the patient's and home health nurse were concerned that he is weaker than usual and they are not able to sufficiently care for him. He has not been eating or drinking very much at all. He has been receiving his TPN through port without issue. Patient has not had an appetite for a long time. notes chronic nausea. reports that she would like for him to get his strength up with PT/OT so that he can return home with home health. She states that she has been told that the patient's prognosis is poor, but she does not wish to pursue hospice at this time because she states that she will know when he her goal is for him to be admitted for a few days to get history and family then to be sent home with continued home health as well as home physical therapy is ready for this. Patient does not contribute much to history given his profound generalized weakness and his baseline functional decline. denies any known recent history of fevers. Related Data Home Medications Medication Instructions Recorded Confirmed ondansetron HCl 8 mg tablet 8 mg PO Q6H PRN Nausea 04/28/22 09/13/22 potassium chloride 10 mEq 20 meq PO BID 08/30/22 09/13/22 tablet,extended release(part/cryst) prochlorperazine maleate 10 mg 10 mg PO Q6H PRN 08/30/22 09/13/22 tablet (Compazine) prednisone 10 mg tablet mg PO DAILY Appetite stimulant 09/13/22 09/13/22 Previous Rx's Medication Ins
[2022-09-20 13:00] VITALS: BP 97/63
[2022-09-20 13:04] LABS: Basophils # 0.1 K/mm3 (0-0.2); Basophils % 0.5 % (0.1-2.0); Eosinophils # 0.1 K/mm3 (0.0-0.4); Eosinophils % 0.5 % (0.1-12.0); Hematocrit 36.8 % (42.0-52.0); Hemoglobin 11.3 g/dL (14.1-18.0); Lymphocytes # 0.4 K/mm3 (0.7-4.5); Lymphocytes % 2.2 % (10-50); Mean Corpuscular HGB Conc 30.7 g/dL (31.8-35.4); Mean Corpuscular Hemoglobin 31.4 pg (27.0-31.2); Mean Corpuscular Volume 102.2 fl (80-94); Mean Platelet Volume 10.4 fl (7.4-10.4); Monocytes # 0.5 K/mm3 (0.1-1.0); Monocytes % 3.1 % (1.7-9.3); Neutrophils % 93.7 % (37.0-80.0); Platelet Count 162 K/mm3 (142-424); Red Cell Distribution Width 17.2 % (11.5-17.5)
[2022-09-20 13:08] LABS: Alanine Aminotransferase 36 U/L (12-78); Albumin Level 2.2 g/dl (3.5-5.0); Albumin/Globulin Ratio 0.6 (1.1-1.8); Anion Gap 6.8 mEq/L (5-15); Aspartate Amino Transferase 42 U/L (17-59); Bilirubin,Total 4.1 mg/dl (0.2-1.3); Blood Urea Nitrogen 54 mg/dl (9-20); Calcium 8.1 mg/dl (8.4-10.2); Carbon Dioxide 38 mmol/L (22.0-30.0); Chloride 96 mmol/L (98-107); Creatinine Clearance Estimated 44 mL/min (50-200); Estimated Glomerular Filt Rate 66 ml/min (>60); GFR (African American) 80 ML/MIN (>60); Globulin 3.4 g/dL (1.3-3.2); Glucose 82 mg/dl (74-100); Magnesium 2.1 mg/dl (1.6-2.3); Phosphorous 3.5 mg/dl (2.5-4.5); Potassium 3.8 mmoL/L (3.5-5.1); Sodium 137 mmol/L (136-145); Total Protein,Serum 5.6 g/dl (6.3-8.2)
[2022-09-20 13:09] LABS: Lactic Acid 1.7 mmol/L (0.7-2.1); MANUAL DIFFERENTIAL MANUAL DIFFERENTIAL (MANUAL DIFF)
[2022-09-20 13:17] LABS: Alkaline Phosphatase 1600 U/L (38-126)
--- NOTE | 2022-09-20 13:22 | PC.NURSE ---
spoke with care management, fernando mejia is going to come down and speak with pt and .
[2022-09-20 13:29] LABS: Lymphocytes % 7 % (10-50); Macrocytosis 1+; Monocytes % 4 % (2-9); Neutrophils % 89 % (42-76); Platelet Estimate Normal; Total Cells Counted 100
[2022-09-20 13:30] VITALS: BP 101/62
--- NOTE | 2022-09-20 13:37 | CT_ITS ---
FINAL REPORT CLINICAL HISTORY: gen weakness, DECLINE, CANCER PT COMPARISON: 07/25/2022 FINDINGS: CT OF THE ABDOMEN AND PELVIS WITH CONTRAST Axial CT images of the abdomen and pelvis were obtained after the administration of IV contrast. Coronal and sagittal reformatted images were also obtained and reviewed. This study was performed with techniques to keep radiation doses as low as reasonably achievable (ALARA). Individualized dose reduction techniques using automated exposure control or adjustment of mA and/or kV according to the patient's size were employed. Abdomen and pelvis: Bilateral pleural effusions and bibasilar atelectasis is present, new since the prior CT.. The heart is normal in size. There are multiple low-attenuation hepatic masses. The largest measures 26 x 25 mm, was 19 x 18 mm on the prior CT of July. There are multiple other small masses that have increased in size since the prior CT, compatible with enlarging metastases. Ascites and anasarca are present. The spleen is unremarkable. The pancreas has an unremarkable appearance. There is patchy attenuation in both kidneys, of uncertain etiology but pyelonephritis is not excluded. The aorta is normal in caliber. There is retroperitoneal air present in the right abdomen and pelvis, to a lesser extent on the left. There is a collection of retroperitoneal air in the iliac fossa which measures up to 7 cm in diameter. There is also retroperitoneal air surrounding the right kidney. There is diffuse wall thickening of the sigmoid colon, nonspecific. IMPRESSION: Bibasilar atelectasis and bilateral pleural effusions, new. Multiple low-attenuation hepatic masses as described, larger than noted on the previous CT, compatible with enlarging metastases. Worsening ascites and anasarca. There is patchy attenuation in both kidneys, of uncertain etiology but pyelonephritis is not excluded. Large amount of retroperitoneal air in the abdomen and pelvis predominantly on the right. There is a collection in the right iliac fossa measuring up to 7 cm. It may be secondary to a bowel perforation with an abscess., There is diffuse wall thickening of the sigmoid colon, nonspecific. Reviewed, Interpreted and Dictated by Avel Kaplan III, MD Transcribed by Carmen Nascimento Authenticated and [facility]
--- NOTE | 2022-09-20 13:37 | CT_ITS ---
FINAL REPORT TECHNIQUE: Multiple axial CT sections were performed from the foramen magnum to the vertex. Coronal and sagittal reformatted images were also obtained. Precontrast and postcontrast injection images were obtained. This study was performed with technique to keep radiation doses as low as reasonably achievable, (ALARA). Individualized dose reduction techniques using automated exposure control or adjustment of mA and/or kV according to the patient size were employed. CLINICAL HISTORY: gen weakness, DECLINE, CANCER PT COMPARISON: 05/16/2022 FINDINGS: The ventricles are normal in size. There is no evidence of hemorrhage. No masses are identified. No extra-axial fluid collection is seen. The sinuses are normal. No osseous abnormality is seen on the bone window images. Postcontrast images demonstrate no abnormal enhancement. IMPRESSION: Unremarkable CT of the head with and without contrast. Reviewed, Interpreted and Dictated by Avel Kaplan III, MD Transcribed by Carmen Nascimento Authenticated and [facility]
--- NOTE | 2022-09-20 13:38 | CT_ITS ---
FINAL REPORT CLINICAL HISTORY: decline, cancer pt, GENERAL WEAKNESS COMPARISON: 07/25/2022 FINDINGS: Axial CT images of the chest were obtained with contrast. Coronal and sagittal reformatted images were also obtained. This study was performed with techniques to keep radiation doses as low as reasonably achievable, (ALARA). Individualized dose reduction techniques using automated exposure control or adjustment of mA and/or KV according to the patient's size were employed. There is no evidence of mediastinal or hilar mass or adenopathy. No axillary mass or adenopathy is identified. A left port is present, unchanged. Mild scarring is noted as well as moderate changes of emphysema. There are bilateral pleural effusions, small, with bibasilar atelectasis present. There is improvement in the left lower lobe opacity since the prior CT of July. There is a 5 mm left lower lobe nodule, nonspecific, as well as several other small noncalcified nodules. No localized pulmonary inflammatory process is identified. The upper abdomen will be described in the upper abdomen and pelvic CT also performed today. IMPRESSION: Bilateral pleural effusions and bibasilar atelectasis new since the prior CT of July. The left lower lobe opacity noted on the prior chest x-ray has improved and diminished in size. Reviewed, Interpreted and Dictated by Avel Kaplan III, MD Transcribed by Carmen Nascimento Authenticated and [facility]
--- NOTE | 2022-09-20 13:44 | PC.NURSE ---
s/w family and pt
--- NOTE | 2022-09-20 13:50 | PC.NURSE ---
pt to ct scan via stretcher
--- NOTE | 2022-09-20 14:04 | SW/DCPLANNER ---
Per ED MD patient's family prefers further work up prior to discussing discharge plans: Hospice vs home w/ Home Health.
--- NOTE | 2022-09-20 14:44 | PC.NURSE ---
Dr. Winters s/w [facility] radiology for critical results.
--- NOTE | 2022-09-20 14:57 | PC.NURSE ---
call made to transfer center. transfer center will call back.
--- NOTE | 2022-09-20 15:15 | PC.NURSE ---
urine specimen obtained per urinal, helped pt to standing position, assisted pt while standing while held urinal to void in. Pt now sitting on side of the bed, leaning on bs table per his request. Pt daughter and standing beside pt. curtain open to be able to view pt.
[2022-09-20 15:22] LABS: Microscopic, Urine URINE MICROSCOPIC (MICROSCOPIC)
--- NOTE | 2022-09-20 15:24 | EXP.PHA.CONS ---
Pharmacy Consult Date: 09/20/22 Time: 15:24 Referring provider: DR. PATEL Reason for Consult:: VANCOMYCIN DOSING Allergies Allergy/AdvReac Type Severity Reaction Status Date / Time No Known Allergies Allergy Verified 09/13/22 13:24 Home Medications Medication Instructions Recorded Confirmed Type ondansetron HCl 8 mg tablet 8 mg PO Q6H PRN Nausea 04/28/22 09/13/22 History IV with Additives 65 mls/hr IV 08/23/22 09/13/22 Rx metoclopramide HCl 10 mg tablet 10 mg PO Q6H PRN nausea and 08/23/22 09/13/22 Rx (Reglan) vomiting #120 tabs potassium chloride 10 mEq 20 meq PO BID 08/30/22 09/13/22 History tablet,extended release(part/cryst) prochlorperazine maleate 10 mg 10 mg PO Q6H PRN 08/30/22 09/13/22 History tablet (Compazine) fentanyl 12 mcg/hr transdermal 1 patch transdermal Q72H #10 ea 09/07/22 09/13/22 Rx patch hydrocodone 10 mg-acetaminophen 1 tab PO Q4-6H PRN pain #120 tabs 09/07/22 09/13/22 Rx 325 mg tablet lorazepam 0.5 mg tablet (Ativan) 0.5 mg PO TID PRN anxiety #60 tabs 09/07/22 09/13/22 Rx prednisone 10 mg tablet mg PO DAILY Appetite stimulant 09/13/22 09/13/22 History New Prescriptions to Start Prescriptions: Height: 1.7 m Weight: 49.895 kg Laboratory Results:: Laboratory Results - last 24 hr 09/20/22 12:16: VBG pH 7.46 H, VBG pCO2 47.6, VBG pO2 38.2, VBG HCO3 33.1 H, VBG Total CO2 34.6 H, VBG O2 Saturation 74.5 H, VBG Base Excess 9.3 H 09/20/22 12:35: WBC 16.0 H, RBC 3.60 L, Hgb 11.3 L, Hct 36.8 L, MCV 102.2 H, MCH 31.4 H, MCHC 30.7 L, RDW 17.2, Plt Count 162 D, MPV 10.4, Neut % (Auto) 93.7 H, Lymph % (Auto) 2.2 L, Dundy % (Auto) 3.1, Eos % (Auto) 0.5, Baso % (Auto) 0.5, Neut # (Auto) 15.0 H, Lymph # (Auto) 0.4 L, Dundy # (Auto) 0.5, Eos # (Auto) 0.1, Baso # (Auto) 0.1, Total Counted 100, Neutrophils % (Manual) 89 H, Lymphocytes % (Manual) 7 L, Monocytes % (Manual) 4, Platelet Estimate Normal, Macrocytosis 1+, Sodium 137, Potassium 3.8, Chloride 96 L, Carbon Dioxide 38 H, Anion Gap 6.8, BUN 54 H, Creatinine 1.10, Estimated Creat Clear 44, Estimated GFR 66, Est GFR ( Amer) 80, Glucose 82, Lactate 1.7, Calcium 8.1 L, Phosphorus 3.5, Magnesium 2.1, Total Bilirubin 4.1 H, AST 42, ALT 36, Alkaline Phosphatase 1600 H, Total Protein 5.6 L, Albumin 2.2 L, Globulin 3.4 H, Albumin/Globulin Ratio 0.6 L Medical History: Medical History Colon cancer Nausea & vomiting Tobacco abuse Tobacco use Assessment and Plan Assessment and plan all Dx Assessment and Plan for all problems:: Pharmacokinetic dosing service Objective: Patient: Floor: Age: 72 yo Serum creatinine: 1.10 mg/dL Height: 66.9 Inches Weight (kg): 49.9 Assessment: IBW (kg): 65.87 Dosing wt(kg): 49.9 Estimated Creatinine clearance (ml/min): 44.1 CRCL method: Cockcroft and Gault using ibw(default). Drug selected: Vancomycin Loading dose (mg): Vd (liters): 34.9 (factor used: 0.7 L/kg) Cornell (hr-1): 0.041 Half life (hrs): 16.91 CLvanco=?? 1.431 L/hr Recommended dose: 750 mg Interval: 24 hrs Infusion time (hrs): 2.0 Predicted peak (mcg/mL): 32.9 Predicted trough (mcg/mL): 13.35 Total body weight is being used for vancomycin dosing. Recommendations: Give Vancomycin 750 mg q 24 hrs with an expected Cpeak of 32.9 mcg/ml and an expected Ctrough of 13.35 mcg/ml AUC 0-24 /CHOLO Data: CHOLO 0.5 mcg/mL:?? AUC/CHOLO:? 1048.2 CHOLO 1.0 mcg/mL:?? AUC/CHOLO:? 524.1 --------- CHOLO 1.5 mcg/mL:?? AUC/CHOLO:? 349.4 CHOLO 2.0 mcg/mL:?? AUC/CHOLO:? 262.1 Thank you for the consult, will continue to follow. -NAHOMI LANCE, GURVINDERD
[2022-09-20 15:47] LABS: Appearance,Urine CLEAR (Clear); Blood, Urine Negative (Negative); Color,Urine YELLOW (Yellow); Glucose,Urine (UA) Negative (Negative); Ketones,Urine Negative (Negative); Leukocyte Esterase,Urine TRACE (Negative); Nitrate,Urine Negative (Negative); PH,Urine 6.5 (5.0-8.5); Protein,Urine TRACE (Negative); Specific Gravity, Urine <= 1.005 (1.005-1.030)
[2022-09-20 15:50] LABS: Bilirubin,Urine 2+ (Negative)
--- NOTE | 2022-09-20 15:54 | PC.NURSE ---
Dr. Winters s/w [facility] regarding pt transfer
[2022-09-20 15:57] LABS: Bacteria,Urine Trace /lpf; WBC,Urine Occasional #/hpf (0-3)
--- NOTE | 2022-09-20 16:22 | INFXCTL.NOTE ---
notified [facility] of [facility] transport of pt to ER
[2022-09-20 17:31] VITALS: BP 101/62; PULSE 88; RESP 19; TEMP 36.6
== END 2022-09-20 17:33 | disposition short-term general hospital (02) ==
PROVIDERS: Emergency Provider Emergency Medicine
DX: K63.1 Perforation of intestine (nontraumatic) (principal); C18.9 Malignant neoplasm of colon, unspecified; C78.7 Secondary malignant neoplasm of liver and intrahepatic bile duct; C48.2 Malignant neoplasm of peritoneum, unspecified; E43 Unspecified severe protein-calorie malnutrition; K65.1 Peritoneal abscess; R53.1 Weakness; F17.210 Nicotine dependence, cigarettes, uncomplicated
CPT/HCPCS: 70470; 71260; 74177; 80053; 81001; 82803; 83605; 83735; 84100; 85007; 85025; 87040; 87077; 87086; 87186; 93005; 96361; 96374; 96375; 99291; J1642; J2543; J3370; Q9967